=== PATIENT | female | born 1975 | race Caucasian/White ===

== ENCOUNTER → 2019-04-17 14:44 | Outpatient (CLI) | payer OTHER, SELFPAY ==
[2019-04-23 13:28] LABS: HPV Reflexed? NOT INDICATED
== END ==
PROVIDERS: Referring Provider Obstetrics & Gynecology; Visit Provider Obstetrics & Gynecology
DX: Z12.4 Encounter for screening for malignant neoplasm of cervix (principal)
CPT/HCPCS: 88175; G0145

== ENCOUNTER → 2019-05-09 16:13 | Outpatient (CLI) | payer OTHER, SELFPAY ==
--- NOTE | 2019-05-09 15:20 | EMB_PTH ---
PATIENT: HERLINDA ROBERTS LOC: [facility] U#:[id number] AGE/SX: 49/F ROOM: RE05/09/[address]: Dr. Pavel Mitchell MD : 1975 BED: DIS: SPEC #: [id number] RECD: 05/09/19 15:53 STATUS: JESÚS RENicol #: [id number] DANNIELLE: 05/09/19 15:[address]: Pavel Mitchell DEPT: SURGICAL PATHOLOGY RECD BY: Logan Cole ENTERED: 05/10/19 09:47 SP TYPE: ENDOM BX/C MARY DR: No Primary Care Phys Tissues: Endometrium, NOS Procedures: Surgery Specimen Level IV HEADER OPERATION: Endometrial biopsy PRE-OP DIAGNOSIS: Abnormal uterine bleeding TISSUE SUBMITTED: Endometrial biopsy MICROSCOPIC DIAGNOSIS Endometrial biopsy: Proliferative endometrium. FRANK:nathaniel 05/13/19 MICROSCOPIC DESCRIPTION Slides are reviewed. GROSS DESCRIPTION Received is one container labeled with the patient's name and not further designated. The specimen consists of multiple fragments of hemorrhagic soft tissue that in aggregate measure 3 x 2.5 x 0.3 cm. The entire specimen is submitted in one cassette. / SJ:nathaniel 05/10/19 TC:4 CPT: 43243
== END ==
PROVIDERS: Referring Provider Obstetrics & Gynecology; Visit Provider Obstetrics & Gynecology
DX: N93.9 Abnormal uterine and vaginal bleeding, unspecified (principal)
CPT/HCPCS: 88305

== ENCOUNTER 2019-06-17 05:45 | Day surgery (SDC) | payer OTHER, SELFPAY ==
[2019-06-12 15:15] LABS: Hemoglobin 11.7 g/dL (12.0-15.0); Mean Corpuscular Hgb 24.5 pg (27.0-32.0); Mean Corpuscular Volume 81.6 fL (81-99); Mean Platelet Vol. 9.1 fl (6.2-12.0); Platelet Count 353 K/mm3 (150-450); RBC Distribution Width CV 14.2 % (11.6-14.6); RBC Distribution Width SD 42.2 fl (35.1-43.9); Red Blood Count 4.78 M/mm3 (4.2-5.4); White Blood Count 5.7 K/mm3 (4.4-11.0)
[2019-06-12 15:39] LABS: Internal QC Validated? YES +Cl - CLEAR BKGD; Pregnancy, Serum, hCG Quali. NEGATIVE Negative
[2019-06-12 15:41] LABS: International Normalized Ratio 1.4; Prothrombin Time (Protime)PT. 16.6 SECONDS (11.7-14.9)
[2019-06-12 15:44] LABS: Partial Thromboplast Time 34.5 Seconds (24.1-36.2)
[2019-06-12 19:10] LABS: Thyroid Stim Hormone (TSH) 1.15 uIU/mL (0.358-3.74)
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
[2019-06-17] VITALS (7 sets, daily range): BP systolic 112–139; BP diastolic 75–94; PULSE 77–92; RESP 14–16; TEMP 36.8–37.6; O2SAT 92–100; BMI 23.4
--- NOTE | 2019-06-17 | EMB_PTH ---
PATIENT: HERLINDA ROBERTS LOC: [facility] [place] U#:[id number] AGE/SX: 43/F ROOM: RE06/17/[address]: Dr. Pavel Mitchell MD : 1975 BED: DIS: 06/17/2019 SPEC #: [id number] RECD: 06/17/19 12:12 STATUS: JESÚS BENITO #: [id number] DANNIELLE: 06/17/19 00:[address]: Pavel Mitchell DEPT: SURGICAL PATHOLOGY RECD BY: Timo Juarez ENTERED: 06/17/19 12:12 SP TYPE: ENDOPenny BX/C MARY DR: Susi Baker PA-C Tissues: Endometrium, NOS Procedures: Surgery Specimen Level IV HEADER OPERATION: Hysteroscopy, hydroablation PRE-OP DIAGNOSIS: Menorrhagia TISSUE SUBMITTED: Endometrial curettings MICROSCOPIC DIAGNOSIS Endometrial curettings: Secretory endometrium. A few fragments of myometrium. See comment. FRANK:nathaniel 06/18/19 COMMENT Please make reference to previous specimen ([id number]) endometrial biopsy with diagnosis of proliferative endometrium. MICROSCOPIC DESCRIPTION Slides are reviewed. GROSS DESCRIPTION Received in fixative is one container labeled with the patient's name and designated endometrial curettings. The specimen consists of multiple fragments of hemorrhagic soft tissue that in aggregate measure 3 x 2.5 x 0.3 cm. The entire specimen is submitted in one cassette. / SJ:nathaniel 06/17/19 TC:4 CPT: 27193
[2019-06-17] MEDS: Lactated Ringers 1,000 ML 100 ML IV (06:24)
[2019-06-17 06:49] LABS: Internal QC Validated? YES +Cl - CLEAR BKGD; Pregnancy, Urine Negative Negative
--- NOTE | 2019-06-17 08:03 | PCM.DC.D&C ---
Discharge Diet: No Restrictions Discharge Activity: Return to Normal Activity, May Shower, May Take a Tub Bath Call your doctor if you observe: Fever of 101 or Higher, Inability to urinate, Inability to have a bowel movement, Using more than one pad per hour Allergies/Adverse Reactions: Allergies No Known Allergies Allergy (Verified 06/10/19 08:53) Medications to take at Discharge Plexus Biocleanse 3 tab PO QHS 06/10/19 Plexus Collagen 2 packet PO DAILY 06/10/19 Plexus Probiotic 2 tab PO QHS 06/10/19 Oxycodone [Oxyir] 5 mg PO Q6H PRN PRN 7 Days #10 tab 06/17/19 The following prescriptions were given: Oxycodone [Oxyir] 5 mg PO Q6H PRN PRN 7 Days #10 tab PRN Reason: Pain Score 6-10/10 Transmission Status: Received by [facility] 0722 Primary Care Physician: Susi Baker PA-C [Primary Care Provider] - Test Results: Test results from this visit will be discussed in further detail at your follow-up appointment, if applicable. Please Follow Up With: Pavel Mitchell MD When: 3 to 4 weeks
[2019-06-17] MEDS: HYDROcodone Bitartrate/Apap 5/325 Tablet PO (09:26)
--- NOTE | 2019-06-17 10:27 | OP.PCM_ITS ---
Report of Operation Date of Procedure: 06/17/19 Pre-Operative Diagnosis: Menorrhagia Post-Operative Diagnosis: Menorrhagia Surgery/Procedure Performed:: Diagnostic Hysteroscopy, Dilation and Curettage, Hydrothermal Ablation Description of Surgical Findings:: 10 cm endometrial cavity without polyps or fibroids noted Type of Anesthesia:: General - LMA Anesthesiologist: Cam Mitchell Specimen's removed: Endometrial curettings Estimated Blood Loss (mL): Minimal Fluids Replaced: Crystalloid Description of Procedure: Surgeon: Pavel Mitchell MD, FACOG Indication: This is a 43 year old patient who has been having problems with extremely heavy menses. Conservative measures have not been helpful. Endometrial sampling was benign and pelvic ultrasound showed that ablation may be helpful. Pt has been counseled regarding the risks, benefits and alternatives of this procedure and all questions answered. She understands that only about half of patients will have amenorrhea after this procedure. Procedure: Patient taken to the operating room where after induction of general anesthesia the patient was prepped and draped in the usual sterile fashion. Bladder was drained of urine with a catheter. Anterior cervix grasped and cervix was dilated to about 17 Palestinian size. Hysteroscopic hydrothermal ablation (HTA) unit was place in the cervix and the above findings were noted. HTA unit was removed and the uterus was gently curretted removing all contents. An HTA ablation cycle was then carried out at about 90 degrees Centigrade for 10 minutes with virtually no fluid loss during the procedure. After an appropriate cool down the HTA unit was removed with minimal bleeding noted. It should be noted that the cervix was bulbous and protruded to within 1 cm of the introitus which would make laparoscopic-assisted vaginal hysterectomy feasible if hysterectomy is ever needed. The patient tolerated the procedure well and was taken to the recovery room in satisfactory condition. Sponge, instruments and needle counts were all correct. There were no apparent complications of the surgery. Cefotan 2 gms IV was given prior to the procedure. Estimated Blood Loss: Minimal Specimen to Pathology: Endometrial Curettings Grafts/Implants Used: None - Complications None - Admit VTE Documentation VTE Present on Admission: Yes VTE Mechan Device Prophylaxis: SCD's
== END 2019-06-17 10:55 | disposition home or self-care (01) ==
LOC: SDC 05:47 → AC 05:48
PROVIDERS: Anesthesiology; Family Provider Family Medicine; PCP Family Medicine; Referring Provider Obstetrics & Gynecology; Visit Provider Obstetrics & Gynecology
PROC: 0U5B8ZZ Destruction of Endometrium, Via Natural or Artificial Opening Endoscopic (ICD-10-PCS; CPT 58563; principal; 2019-06-17 07:15)
DX: N92.0 Excessive and frequent menstruation with regular cycle (principal)
CPT/HCPCS: 00952; 58558; 36415; 81025; 84443; 84703; 85027; 85610; 85730; 86850; 86900; 86901; 88305; J7120; J2405

== ENCOUNTER → 2019-12-06 | Outpatient (CLI) | payer OTHER, SELFPAY ==
--- NOTE | 2019-12-06 | IMM_PTH ---
PATIENT: HERLINDA ROBERTS LOC: [facility] U#:[id number] AGE/SX: 44/F ROOM: RE12/06/[address]: Dr. Melinda Avila MD : 1975 BED: DIS: 12/06/2019 SPEC #: [id number] RECD: 12/09/19 12:31 STATUS: JESÚS REQ #: [id number] DANNIELLE: 12/06/19 00:[address]: Melinda Avila DEPT: IMMUNOHISTOCHEMISTRY RECD BY: Kim Orlando ENTERED: 12/09/19 12:32 SP TYPE: IMMUNO OTHR DR: Susi Baker PA-C Tissues: Right breast, NOS Procedures: CALPONIN-1 (add) CK5-6 (add) QUEEN-2 (add) E-CAD (add) HER2 MIRZA (add) P53 (add) IA (add) P40 (add) ER (initial) PHYSICIAN & INSTITUTION [place] [id number] SPECIMEN INFORMATION: Tissue Source: Right breast tissue Clinical Info: Right breast Specimen Number: CPT code: 92739, 66761 x7, 56534 x3 METHODOLOGY: Deparaffinized sections of prefer/formalin-fixed tissue or PAP/DQ stained slides are incubated with monoclonal/polyclonal antibodies/oligonucleotide probes. Localization is made via biotin free immunoperoxidase method. Appropriate controls are performed and reacted as expected. Results on target cell population are indicated in the following table: RESULTS: ANTIBODY / CLONE RESULT P53 (DO-7) positive, 15%, dim Ki-67 (30-9) positive, 10% CK8 (60lbboQ82) positive CK5-6 (D5 & 1684) negative Calponin-1 (QS987J) negative P40 (BC28) negative E-Cad (ECH-6) positive QUEEN-2 (SP21) positive, dim MORPHOMETRIC ANALYSIS ER (clone 6F11) >95%, strong intensity IA (clone 16/1E2) 85%, strong intensity Her-2Neu (clone CB11) 0 The prognostic test for HER2 is performed on formalin-fixed paraffin embedded tissue. A 3+ (positive) staining pattern is defined as intense, homogeneous, complete, circumferential membranous staining in >10% of contiguous tumor cells. A similar weak (2+) staining pattern is interpreted as equivocal. SHANNON follow-up testing is recommended for all equivocal cases. Positivity/negativity for ER/IA is reported if > or < 1% of the tumor cells are immuno- reactive, respectively. The ASCO/CAP criteria is used for scoring. Reference: Journal of Clinical Oncology, 2013; 31:9063-5221 & 2010; 16:0041-2173. Duration of fixation: 57.5 Hrs; Sample Adequate: Yes. These assays have not been validated on decalcified tissues. Results should be interpreted with caution given the likelihood of false negativity on decalcified specimens. These tests were developed and their performance characteristics determined by [facility]. They may not have been cleared or approved by the U.S. Food and Drug Administration. The FDA has determined that such clearance or approval is not necessary. The above immunohistochemical/dualISH markers are ordered and reviewed by the Pathologist. INTERPRETATION: Right breast, core biopsy: Invasive ductal carcinoma, grade 2/3. Positive for estrogen receptors (favorable prognostic indicator). Positive for progesterone receptors (favorable prognostic indicator). Negative for overexpression of JFP8fab. AM:nathaniel 12/10/19
[2019-12-06 09:45] VITALS: BMI 25.7
--- NOTE | 2019-12-06 10:15 | BRBX_PTH ---
PATIENT: HERLINDA ROBERTS LOC: [facility] U#:[id number] AGE/SX: 44/F ROOM: RE12/06/[address]: Dr. Melinda Avila MD : 1975 BED: DIS: 12/06/2019 SPEC #: [id number] RECD: 12/06/19 11:32 STATUS: JESÚS BENITO #: [id number] DANNIELLE: 12/06/19 10:[address]: Melinda Avila DEPT: SURGICAL PATHOLOGY RECD BY: Nelida Atwood ENTERED: 12/06/19 12:50 SP TYPE: BREAST BX MARY DR: Susi Baker PA-C Tissues: Right breast, NOS Procedures: Surgery Specimen Level IV HEADER OPERATION: Right breast biopsy PRE-OP DIAGNOSIS: Right breast 9 o'clock, 7 cm from nipple TISSUE SUBMITTED: Right breast tissue MICROSCOPIC DIAGNOSIS Right breast at 9 o'clock, needle core biopsy: Invasive ductal carcinoma with the following characteristics: Maximal length - 1.3 millimeters Nuclear grade - 2/3 Other findings - focal perineural invasion. See comment. AM:nathaniel 12/09/19 COMMENT ER/TN/Byx7hlz studies are being performed on sections of tumor and the results from this study will be reported separately ([id number]). This case was reviewed and diagnosis discussed with Dr. Avila on 12/09/19 at 12:30 p.m. Case has been reviewed in consultation with Dr. Harman who concurs with the above diagnosis. RITU:FRANK MICROSCOPIC DESCRIPTION Slides are reviewed. GROSS DESCRIPTION Received in fixative is one container labeled with the patient name and designated right breast. The specimen consists of multiple elongated fragments of de souza-yellow fibroadipose tissue that in aggregate measure 1.5 x 0.3 x 0.1 cm. The entire specimen is submitted in one cassette. / FRANK:nathaniel 12/06/19 TC:0 CPT: 95145 ADDENDUM ADDENDUM ADDENDUM ADDENDUM ADDENDUM ADDENDUM ADDENDUM ADDENDUM ADDENDUM ADDENDUM ADDENDUM 02/03/2020 10:08 ADDENDUM 06/30/2020 08:59 ADDENDUM 02/03/2020 10:08 ADDENDUM 02/03/2020 10:08 ADDENDUM 02/03/2020 10:08 ADDENDUM 02/03/2020 10:08 This addendum is added to incorporate an outside pathology consultation report. The case was examined at [facility] (#[id number]) and the following diagnosis was rendered. Right breast at 9 o'clock, needle core biopsy: Invasive ductal carcinoma, grade 1 (score: tubule 2, nuclear 2, mitotic 1), 1.3 cm in greatest length. Please see complete above mentioned consultation report in EMR This addendum is added to incorporate an outside pathology consultation report. The case was examined at [facility] (#[id number]) and the following diagnosis was rendered. Breast, right, 9 o'clock, biopsy: Invasive ductal carcinoma, provisional histologic grade 2. Please see complete above mentioned consultation report in EMR
== END | disposition home or self-care (01) ==
LOC: LABSPEC 12:13
PROVIDERS: PCP Family Medicine; Referring Provider Surgery; Visit Provider Surgery
DX: N64.9 Disorder of breast, unspecified (principal)
CPT/HCPCS: 88305; 88341; 88342

== ENCOUNTER → 2019-12-16 09:26 | Outpatient (CLI) | payer OTHER, SELFPAY ==
[2019-12-06 09:45] VITALS: BMI 25.7
--- NOTE | 2019-12-16 09:29 | MRI_ITS ---
STUDY: BILATERAL BREAST MR WITHOUT AND WITH CONTRAST REASON FOR EXAM: Female, 44 years old. breast ca right breast -- rt biopsy 12/06/19 TECHNIQUE: Multi-sequence multi-echo imaging of both breasts was performed with a dedicated breast coil. T1-weighted and T2-weighted images were performed before the administration of contrast. T1-weighted images were also performed after the administration of IV dotarem 13ml without complications. COMPARISON: Breast ultrasound dated 12/05/2019 and mammogram dated 12/05/2019 Prior films have just been made available for review today, explaining the delay in dictation. FINDINGS: RIGHT BREAST: The breast tissue is markedly dense with no background enhancement. There is a 12 mm abnormal enhancing masses seen laterally in the right breast at the postbiopsy site. This was biopsied and shown to represent a malignancy. A benign-appearing cyst is identified in the superior outer aspect measuring 13 mm. There are no additional abnormal enhancing masses or areas of non-mass enhancement in the right breast. LEFT BREAST: The breast tissue is markedly dense with no background enhancement. There are no abnormal enhancing masses or areas of non-mass enhancement in the left breast. There are no enlarged or abnormal lymph nodes. There is no abnormality in the visualized regions of the chest or liver. MRI/Breast Bilateral W/O and W IMPRESSION: There is a known malignancy in the right breast. Surgical consultation is recommended as well as radiation oncology and medical oncology consultation. Short-term six-month follow-up mammogram of the right breast is recommended. CATEGORY: BIRADS Category 6: Known Biopsy-Proven Malignancy - Appropriate Action Should Be Taken. A letter regarding these results will be sent to the patient by the facility within 30 days. Electronically Signed: Grace Gresham DO at 10:42 EDT Tel , Service support ,
== END ==
PROVIDERS: PCP Family Medicine; Referring Provider Surgery; Visit Provider Surgery
DX: C50.911 Malignant neoplasm of unspecified site of right female breast (principal)
CPT/HCPCS: 77049; A9575; A4216; C8908

== ENCOUNTER 2020-09-25 05:53 | Day surgery (SDC) | payer OTHER, SELFPAY ==
[2020-09-16 14:50] VITALS: BMI 21.7
[2020-09-25] VITALS (7 sets, daily range): BP systolic 117–126; BP diastolic 72–82; PULSE 82–102; RESP 16–18; TEMP 36.6–37.4; O2SAT 97–100; BMI 22.2
[2020-09-25 06:15] LABS: Internal QC Validated? YES +Cl - CLEAR BKGD; Pregnancy, Urine Negative Negative
[2020-09-25] MEDS: Lactated Ringers 1,000 ML 100 ML IV (06:38)
--- NOTE | 2020-09-25 06:40 | PCM.HP.BLA ---
History and Physical Date of Admission: 09/25/20 Date of Service: 09/16/20 MR#: [id number] Acct: [id number] Name: HERLINDA ROBERTS Rep #: [id number] : 1975 Provider: Dr. Melinda Avila MD Age/Sex: 45/F Location: [facility] Status: Signed Intake Vital Signs 09/16/20 Height 5 ft 3 in 09/16/20 Weight: 123 lb 09/16/20 BMI 21.7 09/16/20 BP 138/77 H 09/16/20 Blood Pressure Location Rt brachial 09/16/20 Position Sitting 09/16/20 Respiration 16 09/16/20 Pulse 97 09/16/20 Pulse Source Monitor 09/16/20 Temp 97.2 F L 09/16/20 Temp Source Temporal 09/16/20 Pulse Oximetry (%) 97 09/16/20 Oxygen Delivery Method room air Intake Visit Reasons: PORT PLACEMENT Chief Complaint: Port placement [employer] Support Required: No Is patient in pain?: Yes (Right axilla) Pain scale (1-10): 3 Allergies No Known Allergies Allergy (Verified 09/16/20 14:52) Medications Plexus Biocleanse 3 tab PO QHS 06/10/19 [History Confirmed 09/16/20] Plexus Collagen 2 packet PO DAILY 06/10/19 [History Confirmed 09/16/20] Plexus Probiotic 2 tab PO QHS 06/10/19 [History Confirmed 09/16/20] PFSH Medical History Breast cancer (Acute) Surgical History Status post endometrial ablation (Acute) S/P D&C (status post dilation and curettage) (Acute) Family History Aunt Breast cancer age 38 Grandmother Breast cancer age 59 Social History (Updated 09/16/20 @ 15:[address] Melinda Avila MD) Smoking Status: Never smoker alcohol intake: never HPI HPI HPI: HERLINDA ROBERTS, is a 45 F who presents to the office today for HPI HPI Surgical H&P: Yes HPI: HERLINDA ROBERTS, is a 45 F who presents to the office today for port placement due to invasive ductal right breast carcinoma status post right mastectomy and sentinel lymph node biopsy, 5 out of 7 nodes were positive. Patient is planned to get chemo and radiation. ROS Breast Breast: Yes right breast lump, abnormal mammogram and abnormal US; no left breast lump or breast pain Exam Const General: cooperative, comfortable, no acute distress, well developed Chest Other: Right axilla: Palpable lump corresponds with seroma per ultrasound, right breast status post mastectomy with reconstruction incision with tape healing well Resp Effort & Inspection: normal respiratory effort Cardio Rate: regular rate Assessment & Plan Problems 1. Adjustment and management of vascular access device Z45.2 2. Cancer of right breast, stage 3 C50.911 Plan I have discussed above with the patient- Port-a-Cath placement. Left possible right?scheduled for September 25. Patient has been counseled as to the risks/benefits of the procedure. I have explained the risks of the surgery, including but not limited to: infection, bleeding, injury to any blood vessels/nerves, injury to lungs (such as pneumothorax or hemothorax and need for chest tube), not having any access, nonfunctioning of port due to thrombosis, infection of port, etc. the patient understands and agrees to proceed. I have answered all the patient's questions to the patient?s satisfaction and the patient has no further questions. Melinda Avila M.D. Pager: [phone] [facility] [address] [place] [address], [address] [place] [id number] Office: [phone] Plan Detail Follow Up We will schedule port placement Coding Level of Care Code Off vis,est,level 3 Diagnoses Adjustment and management of vascular access device Z45.2 Cancer of right breast, stage 3 C50.911 COVID (Procedure Consent) Procedure Criteria Procedure Criteria: Yes Elective The surgeon/proceduralist and patient have discussed in detail the risk of exposure to and/or potential harm posed by the COVID-19 virus with having a surgery/procedure at this time versus the risk of? delaying the surgery/procedure. It is not possible to know either the risk of delaying the surgery or procedure or chance of getting an infection with perfect accuracy, but a joint decision was made between the patient and the surgeon/proceduralist ?to proceed at this time with the scheduled surgery/procedure as indicated on the consent form. 09/16/20 1527 <Electronically signed by Melinda Avila MD> Date Melinda Avila MD
[2020-09-25] MEDS: Cefazolin 2 GM in 0.9% Normal Saline 100 ML IV (07:20)
[2020-09-25] MEDS: Lidocaine 1% /Epi 1:100 (20ml) 20 ML Vial (07:40)
[2020-09-25] MEDS: Bupivacaine Mpf 0.5% 30 ML VIAL (07:40)
--- NOTE | 2020-09-25 08:08 | RAD_ITS ---
STUDY: X-RAY CHEST REASON FOR EXAM: Female, 45 years old. Port -- pacu TECHNIQUE: Single AP portable view of the chest. COMPARISON: None. FINDINGS: A left-sided portacatheter has been placed. The tip is at the junction of the superior vena cava and right atrium. EKG electrodes are seen. A right breast prosthesis is visualized. The lungs are clear and expanded. There is no demonstrated pleural abnormality. Normal size heart. Normal mediastinum and josefina. Normal visualized pulmonary arteries. Normal visualized aortic arch and descending thoracic aorta. Normal visualized thoracic spine. Normal visualized ribs, clavicles, and shoulders. There is no demonstrated abnormality of the visualized soft tissue structures of the upper abdomen. RAD/CXR for Line Placement IMPRESSION: A left-sided portacatheter has been placed with the tip at the junction of the superior vena cava and right atrium. The lungs are clear. Electronically Signed: Dwight Sharif MD at 8:49 EDT , Service support ,
--- NOTE | 2020-09-25 08:10 | PCM.OPRPT ---
Report of Operation Date of Procedure: 09/25/20 Pre-Operative Diagnosis: Z45.2, breast cancer Post-Operative Diagnosis: Same Surgery/Procedure Performed:: 1. Placement of left IJ Port-A-Cath. 2. Use of fluoroscopy. 3. Use of ultrasound Type of Anesthesia:: Local MAC Anesthesiologist: Jonas Mccloud Special Medications: Ancef 2 g IV x1 Estimated Blood Loss (mL): < 10 cc Fluids Replaced: 500 cc Description of Procedure: After informed consent was given, the patient was brought to the operating room and placed in the supine position. Appropriate time out protocol was followed. Patient was then given IV conscious sedation for anesthesia. The patient's bilateral upper chest and neck were then prepped with a surgical skin preparation and sterile surgical drapes were placed. After proper landmarks were ascertained, the skin at the upper left chest area was then infiltrated with 1:1 mixture of 1% lidocaine with epinephrine and 0.5% marcaine. A needle trocar was then inserted into the left internal jugular vein with ultrasound guidance-multiple vessels were viewed with u/s and the left IJ was chosen-- and there was good aspiration of venous blood. A wire was then threaded into the needle trocar and this was visualized under fluoroscopy to ensure that the wire was in the superior vena cava. Once this was done, then the needle trocar was removed. A small skin radha was made with an 11 blade knife at the wire entrance site. The dilator with the introducer sheath attached was then placed over the wire into the left internal jugular vein via the Seldinger technique and this was visualized under fluoroscopy. The dilator and sheath were in proper position as visualized by fluoroscopy. A subcutaneous pocket was then created caudad to the catheter insertion site. A transverse skin incision was made after the skin and subcutaneous tissues were infiltrated with local anesthetic. Blunt dissection was then used to create a space large enough for placement of the subcutaneous port. The catheter was then tunneled into the subcutaneous pocket. The wire and dilator were then removed. The catheter was then threaded into the introducer sheath and was positioned with its tip at the junction of the superior vena cava and the right atrium as visualized under fluoroscopy. The excess catheter was transected. The catheter was then attached to the subcutaneous port using manufacturers guidelines. The catheter was flushed with a heparin saline mixture prior to placement. Hemostasis was carefully controlled with electrocautery. The port was sutured to the subcutaneous fascia using 2-0 Vicryl suture at two sites. The port was then placed in the subcutaneous pocket. The incision were reapproximated with interrupted subdermal 3-0 vicryl sutures. The skin was reapproximated with 3-0 nylon suture in a interrupted fashion. Steristrips were used for reinforcement of the skin closure at IJ insertion site and a sterile opsite dressings were applied. The patient tolerated the procedure well. Implants Used: [employer] PowerPort isp M.R.I. 6Fr Lot [id number] [id number] Grafts/Implants Used: [employer] PowerPort isp M.R.I. 6Fr Lot [id number] [id number] - Complications none
--- NOTE | 2020-09-25 08:13 | DCINST_ITS ---
Discharge Diet: Light diet - advance as tolerated Discharge Activity: May not drive while taking narcotic pain medications. May shower in (days): 1 - Keep port site clean and dry x5 days, okay to do a lower shower and upper sponge bath or tape off site to shower. Lifting Restrictions: No lifting greater than 20 pounds with the left arm x3 days. Call your doctor if your incision/area has: Continuous Slow Oozing, Sudden Increased Bleeding, Increased Pain/ Swelling, Increased Redness, Foul Smelling Discharge, Swelling at the incision site Call your doctor if you observe: Fever of 101 or Higher Allergies/Adverse Reactions: Allergies No Known Allergies Allergy (Verified 09/25/20 06:19) Medications to take at Discharge Plexus Biocleanse 3 tab PO QHS 06/10/19 Plexus Collagen 2 packet PO DAILY 06/10/19 Plexus Probiotic 2 tab PO QHS 06/10/19 Oxycodone HCl/Acetaminophen [Percocet 5/325] 1 tablet PO Q6H PRN PRN 2 Days #5 tablet 09/25/20 The following prescriptions were given: Oxycodone HCl/Acetaminophen [Percocet 5/325] 1 tablet PO Q6H PRN PRN 2 Days #5 tablet PRN Reason: Pain Transmission Status: Sent to [facility] Primary Care Physician: Susi Baker PA-C [Primary Care Provider] - Test Results: Test results from this visit will be discussed in further detail at your follow- up appointment, if applicable. Please Follow Up With: Melinda Avila MD - After 5 PM and on the weekends call [phone] with any concerns When: Call the office for follow-up appointment in about 10 days for suture remov Proposed Discharge Date: 09/25/20
== END 2020-09-25 09:51 | disposition home or self-care (01) ==
LOC: SDC 05:53 → AC 05:53
PROVIDERS: Anesthesiology; PCP Family Medicine; Referring Provider Surgery; Visit Provider Surgery
PROC: (CPT 36561; principal; 2020-09-25 07:15)
DX: Z45.2 Encounter for adjustment and management of vascular access device (principal); C50.911 Malignant neoplasm of unspecified site of right female breast; Z20.822 Contact with and (suspected) exposure to COVID-19
CPT/HCPCS: 00532; 36561; 71045; 77001; 81025; 87426; C9803; J7120; J2405

== ENCOUNTER 2020-10-06 10:01 | Emergency (ER) | payer OTHER, SELFPAY ==
[2020-09-25 06:21] VITALS: BMI 22.2
[2020-10-06 10:01] VITALS: BP 150/94; PULSE 99; RESP 16; TEMP 36.7; O2SAT 96; BMI 22.1
--- NOTE | 2020-10-06 10:16 | EKG12_ITS ---
Test Reason : FEVER Blood Pressure : / mmHG Vent. Rate : 085 BPM Atrial Rate : 085 BPM P-R Int : 138 ms QRS Dur : 090 ms QT Int : 382 ms P-R-T Axes : 036 -35 020 degrees QTc Int : 454 ms Normal sinus rhythm Possible Left atrial enlargement Left axis deviation Low voltage QRS RSR' or QR pattern in V1 suggests right ventricular conduction delay Abnormal ECG Confirmed by ANA AMAYA, LUZ MARINA ([id number]), design editor AISHWARYA LONGORIA ([id number]) on 10/08/2020 11:14:51 AM Referred By: CELENA Confirmed By:LUZ MARINA PEREZ MD
--- NOTE | 2020-10-06 10:24 | NURSING ---
NO OLD EKGS
[2020-10-06 10:52] LABS: Hemoglobin 12.4 g/dL (12.0-15.0); Mean Corp Hgb Conc 31.8 g/dL (32-36); Mean Corpuscular Hgb 28.7 pg (27.0-32.0); Mean Corpuscular Volume 90.3 fL (81-99); Mean Platelet Vol. 9.4 fl (6.2-12.0); POSITIVE COUNT YES; POSITIVE MORPHOLOGY YES; Platelet Count 214 K/mm3 (150-450); RBC Distribution Width CV 13.1 % (11.6-14.6); RBC Distribution Width SD 43.3 fl (35.1-43.9); Red Blood Count 4.32 M/mm3 (4.2-5.4)
[2020-10-06 10:59] LABS: International Normalized Ratio 1.2; Prothrombin Time (Protime)PT. 14.9 SECONDS (11.7-14.9)
[2020-10-06 11:00] LABS: Partial Thromboplast Time 27.9 Seconds (24.1-36.2)
[2020-10-06 11:02] LABS: ALB/GLOB Ratio 0.9 RATIO (0.9-2.4); AST(SGOT) 14 U/L (15-37); Alanine Aminotransfer ALT/SGPT 33 U/L (13-56); Albumin, Serum 3.4 g/dL (3.2-5.0); Alkaline Phosphatase 109 U/L (45-117); Anion Gap 6 (5-15); BUN 10 mg/dL (7-18); BUN/Creat Ratio 18.9 RATIO (10-20); Calcium,Total 8.6 mg/dL (8.5-10.1); Chloride 101 mmol/L (98-107); Creatinine, Serum 0.53 mg/dL (0.55-1.02); EST Glomerular Filtration Rate 133 mL/min (>60); Est Glom Filt Rate - Afr Amer 161 mL/min (>60); Estimated Creatinine Clearance 112.05 ml/min; Globulin 3.7 g/dL (2.2-4.2); Glucose 86 mg/dL (74-106); Potassium 3.9 mmol/L (3.5-5.1); Protein, Total 7.1 g/dL (6.4-8.2); Sodium Level 136 mmol/L (136-145)
--- NOTE | 2020-10-06 11:10 | RAD_ITS ---
STUDY: X-RAY CHEST REASON FOR EXAM: Female, 45 years old. fever, chemo TECHNIQUE: Single AP portable view of the chest. COMPARISON: 09/25/2020 FINDINGS: Left internal jugular chest port which is unchanged. Tissue spacer in the right breast. The lungs are clear and expanded. There is no demonstrated pleural abnormality. Normal size heart. Normal mediastinum and josefina. Normal visualized pulmonary arteries. Normal visualized aortic arch and descending thoracic aorta. There is a dextroscoliosis of the thoracic spine. Normal visualized ribs, clavicles, and shoulders. There is no demonstrated abnormality of the visualized soft tissue structures of the upper abdomen. RAD/Chest 1 View (Portable) IMPRESSION: No change from 09/25/2020. Electronically Signed: Harley Anguiano MD at 11:23 EDT Tel , Service support ,
[2020-10-06 11:14] LABS: Eosinophil 4 % (0-5); Lymphocyte 21 % (19-41); Metamyelocyte 2 % (0-1); Monocyte 1 % (0-10); Neutrophil-Band 6 % (0-5); Neutrophil-Segmented 66 % (47-70); Total Cells Counted 100 (MANUAL DIFF)
[2020-10-06 11:16] LABS: Differential Indicated MANUAL DIFF
[2020-10-06 11:17] LABS: Absolute Lymphocyte Count 1.46 X10^3/uL (0.83-4.51)
[2020-10-06 11:18] LABS: Dohle Bodies 1+; Platelet Estimate ADEQUATE (ADEQ); Red Cell Morphology NORM C+C NORMAL (NORM C&C)
[2020-10-06 11:21] LABS: Lactic Acid 0.7 mmol/L (0.4-1.9)
[2020-10-06 11:27] VITALS: BP 112/76; PULSE 87; RESP 14; TEMP 36.7; O2SAT 96
[2020-10-06 11:47] LABS: Mucous, Urine 0 SEEN /hpf (<or=2+); Red Blood Cells-Urine 0 SEEN /hpf (0-5)
[2020-10-06 11:49] LABS: Color, Urine Yellow (Yellow); Glucose, Dipstick Normal (Normal); Ketone-Dipstick Negative (Negative); Leukocyte Esterase-Dipstick 100 /ul (Negative); Nitrite-Dipstick Negative (Negative); Occult Blood-Urine Negative /ul (Negative); Protein-Dipstick Negative (Negative); Urine Bilirubin Dipstick Negative (Negative); Urine Clarity Clear (Clear); Urine Urobilinogen Normal (Normal)
[2020-10-06 11:56] LABS: Bacteria 1+ /hpf (None Seen); Squamous Epithelial Cells - UA 10-25 SEEN /hpf (5-10); White Blood Cells 5-10 SEEN /hpf (0-5)
[2020-10-06 13:01] VITALS: BP 128/87; PULSE 84; RESP 18; TEMP 36.8; O2SAT 98
--- NOTE | 2020-10-06 13:27 | ED.DCSUM_ITS ---
- ER Visit Summary Date of Service: 10/06/20 Chief Complaint: Fever on chemo History of Present Illness: The patient is a 45 F with breast cancer who follows with Dr. Montero. She had her first chemotherapy last . She presents today for a fever and chills. Last night her temperature was 103. No other specific complaints except a mild headache. Physical Examination: Afebrile and vital signs unremarkable. Head and neck unremarkable. Good range of motion of her neck. No meningeal signs. Heart regular. Lungs clear. Abdomen soft. Skin unremarkable. Test Results: EKG showed sinus rhythm at a rate of 85. CBC unremarkable. Absolute neutrophils 5.0. CMP, coags, urinalysis, lactate all unremarkable except for leukocyte esterase and 5-10 white cells. Cultures are pending. Covid test was negative. Chest x-ray showed chronic and postoperative changes, reviewed by the radiologist and myself. Emergency Department Course and Treatment: Patient had a reported fever on chemotherapy. No fever here. Repeat temperature was 98.2. Absolute neutrophil count was 5.0. Cultures are pending. We will treat with Macrobid for UTI coverage. Patient will follow with Dr. Montero. Treatment Plan: As above Disposition: Discharge Impression: Breast cancer, fevers, UTI This note was generated with [employer] dictation software. It may contain incorrect words, spelling, and punctuation that were not noted in review of the chart prior to signing ED Disposition - Plan for ED Patient: Referrals: Susi Baker PA-C [Primary Care Provider] -
--- NOTE | 2020-10-06 13:29 | ED.DEP ---
ED Disposition - Plan for ED Patient: Instructions: ED Fever Control (Adult) Prescriptions: Nitrofurantoin Macrocrystals [Macrobid] 100 mg PO Q12 #14 capsule Prescription Printed Referrals: Golden Montero DO [STAFF PHYSICIAN] -
[2020-10-06 13:36] VITALS: BP 119/76; PULSE 90; RESP 23; O2SAT 97
[2020-10-06] MEDS: Nitrofurantoin Macrocrystals 100 MG Capsule PO (13:36)
[2020-10-07 13:59] LABS: Pathologist Review Reviewed
== END 2020-10-06 13:42 | disposition home or self-care (01) ==
LOC: ED 11:49
PROVIDERS: Emergency Provider Emergency Medicine; PCP Family Medicine
DX: N39.0 Urinary tract infection, site not specified (principal); R50.9 Fever, unspecified; C50.919 Malignant neoplasm of unspecified site of unspecified female breast; R51.9 Headache, unspecified; Z20.822 Contact with and (suspected) exposure to COVID-19; Z79.899 Other long term (current) drug therapy
CPT/HCPCS: 71045; 80053; 81001; 83605; 85025; 85610; 85730; 87040; 87086; 87088; 87426; 93005; 96360; 96361; 99284; J7040; A4216

== ENCOUNTER 2023-08-24 07:16 | Day surgery (SDC) | payer OTHER, SELFPAY ==
[2023-08-24] VITALS (10 sets, daily range): BP systolic 112–128; BP diastolic 61–81; PULSE 76–102; RESP 16–18; TEMP 36.4–36.8; O2SAT 93–100; BMI 27.8
--- OUTSIDE RECORDS SUMMARY | 2023-08-24 07:26 | XMS RPT_ITS | CCD ---
Author Name Unknown Address [address] [facility] [address] [place] [address] Organization [facility] Care Team Providers Care Jukebox Route Driver Name Role Phone Unavailable Primary Care Provider UnavailSusi Jimenez Primary Care Provider Susi Spears Primary Care Provider Itz AMAYA MD, Rufina Unavailable Donnell BAHENA, Brenda Unavailable Unavailable Ela Lopez MD Unavailable [phone] MEHRDAD, DR KRISTIE Cain Admitting Unavaila ble MEHRDAD, DR KRISTIE Cain Primary Care Unavaila ble MEHRDAD, DR KRISTIE Cani Attending Unavaila ble VACCARIELLO, RACHEL Consulting Unavailable VACCARIELLO, RACHEL Referring Unavailable PROVIDER, UNKNOWN Consulting Unavailable PROVIDER, UNKNOWN Consulting Unavailable PROVIDER, UNKNOWN Consulting Unavailable SUSI BAKER Admitting Unavailable SUSI BAKER Primary Care Unavailable SUSI BAKER Attending Unavailable VACCARIELLO, RACHEL Consulting Unavailable PROVIDER, UNKNOWN Consulting Unavailable PROVIDER, UNKNOWN Consulting Unavailable PROVIDER, UNKNOWN Consulting Unavailable Susi Baker PA-C Primary Care Provider [phone] Susi Baker PA-C Primary Care Provider [phone] Itz AMAYA MD, Dakojoung Unavailable Donnell RN, Brenda Unavailable Unavailable Ela Lopez MD Unavailable Susi Baker PA-C Primary Care Provider [phone] Susi Baker PA-C Primary Care Provider [phone] Itz AMAYA MD, Rufina Unavailable Donnell RN, Brenda Unavailable Unavailable Ela Lopez MD Unavailable Doup RN, Brenda Unavailable Unavailable Jessica AMAYA, Ela Francis Unavailable Itz AMAYA, Rufina Unavailable LOPEZ, ELA M Referring Unavailable BATTLE GROUND, SUSI D Primary Care Unavailable BATTLE GROUND, SUSI D Primary Care Unavailable LOPEZ, ELA M Referring Unavailable BATTLE GROUND, SUSI D Primary Care Unavailable LOPEZ, ELA M Referring Unavailable LOPEZ, ELA M Referring Unavailable BATTLE GROUND, SUSI D Primary Care Unavailable LOPEZ, ELA M Referring Unavailable BATTLE GROUND, SUSI D Primary Care Unavailable LOPEZ, ELA M Referring Unavailable BATTLE GROUND, SUSI D Primary Care Unavailable LOPEZ, ELA M Referring Unavailable BATTLE GROUND, SUSI D Primary Care Unavailable LOPEZ, ELA M Referring Unavailable BATTLE GROUND, SUSI D Primary Care Unavailable LOPEZ, ELA M Referring Unavailable BATTLE GROUND, SUSI D Primary Care Unavailable LOPEZ, ELA M Referring Unavailable BATTLE GROUND, SUSI D Primary Care Unavailable LOPEZ, ELA M Referring Unavailable BATTLE GROUND, SUSI D Primary Care Unavailable LOPEZ, ELA M Referring Unavailable BATTLE GROUND, SUSI D Primary Care Unavailable LOPEZ, ELA M Referring Unavailable BATTLE GROUND, SUSI D Primary Care Unavailable LOPEZ, ELA M Referring Unavailable BATTLE GROUND, SUSI D Primary Care Unavailable BATTLE GROUND, SUSI D Primary Care Unavailable LOPEZ, ELA M Referring Unavailable LOPEZ, ELA M Referring Unavailable BATTLE GROUND, SUSI D Primary Care Unavailable LOPEZ, ELA M Referring Unavailable BATTLE GROUND, SUSI D Primary Care Unavailable LOPEZ, ELA M Referring Unavailable BATTLE GROUND, SUSI D Primary Care Unavailable LOPEZ, ELA M Referring Unavailable BATTLE GROUND, SUSI D Primary Care Unavailable LOPEZ, ELA M Referring Unavailable BATTLE GROUND, SUSI D Primary Care Unavailable LOPEZ, ELA M Referring Unavailable BATTLE GROUND, SUSI D Primary Care Unavailable LOPEZ, ELA M Referring Unavailable BATTLE GROUND, SUSI D Primary Care Unavailable LOPEZ, ELA M Referring Unavailable HILLS, SUSI D Primary Care Unavailable LOPEZ, ELA M Referring Unavailable BATTLE GROUND, SUSI D Primary Care Unavailable LOPEZ, ELA M Referring Unavailable BATTLE GROUND, SUSI D Primary Care Unavailable LOPEZ, ELA M Referring Unavailable HILLS, SUSI D Primary Care Unavailable LOPEZ, ELA M Referring Unavailable BATTLE GROUND, SUSI D Primary Care Unavailable LOPEZ, ELA M Referring Unavailable BATTLE GROUND, SUSI D Primary Care Unavailable LOPEZ, ELA M Referring Unavailable BATTLE GROUND, SUSI D Primary Care Unavailable LOPEZ, ELA M Referring Unavailable BATTLE GROUND, SUSI D Primary Care Unavailable LOPEZ, ELA M Referring Unavailable BATTLE GROUND, SUSI D Primary Care Unavailable LOPEZ, ELA M Referring Unavailable BATTLE GROUND, SUSI D Primary Care Unavailable LOPEZ, ELA M Referring Unavailable BATTLE GROUND, SUSI D Primary Care Unavailable LOPEZ, ELA M Referring Unavailable BATTLE GROUND, SUSI D Primary Care Unavailable LOPEZ, ELA M Referring Unavailable BATTLE GROUND, SUSI D Primary Care Unavailable LOPEZ, ELA M Referring Unavailable BATTLE GROUND, SUSI D Primary Care Unavailable BATTLE GROUND, SUSI D Primary Care Unavailable MASCGOLDEN Miller Referring Unavailable BATTLE GROUND, SUSI D Primary Care Unavailable MASCIGOLDEN Referring Unavailable BATTLE GROUND, SUSI D Primary Care Unavailable MASCIGOLDEN Referring Unavailable BATTLE GROUND, SUSI D Primary Care Unavailable MASCIGOLDEN Referring Unavailable BATTLE GROUND, SUSI D Primary Care Unavailable MASCIGOLDEN Referring Unavailable BATTLE GROUND, SUSI D Primary Care Unavailable BREONNA, ELZA Referring Unavailable BATTLE GROUND, SUSI D Primary Care Unavailable GOLDEN MONTERO Referring Unavailable BATTLE GROUND, SUSI D Primary Care Unavailable LIZBETH WANG Referring Unavailable BATTLE GROUND, SUSI D Primary Care Unavailable QUIN GARCIA Attending Unavailable TRIDELL, LIZBETH Attending Unavailable BATTLE GROUND, SUSI D Primary Care Unavailable BATTLE GROUND, SUSI D Primary Care Unavailable MASCIGOLDEN Referring Unavailable BATTLE GROUND, SUSI D Primary Care Unavailable MASCIGOLDEN Referring Unavailable BATTLE GROUND, SUSI D Primary Care Unavailable MASCGOLDEN Miller Referring Unavailable [facility] Attending Unavailable BATTLE GROUND, SUSI D Primary Care Unavailable MASCGOLDEN Miller Referring Unavailable BATTLE GROUND, SUSI D Primary Care Unavailable WISWELL, ELZA Referring Unavailable WISWELL, ELZA Attending Unavailable BATTLE GROUND, SUSI D Primary Care Unavailable MASCGOLDEN Miller Referring Unavailable WANG, LIZBETH Attending Unavailable BATTLE GROUND, SUSI D Primary Care Unavailable MASCIGOLDEN Referring Unavailable BATTLE GROUND, SUSI D Primary Care Unavailable MASCIGOLDEN Referring Unavailable HILLS, SUSI D Primary Care Unavailable GOLDEN MONTERO Referring Unavailable SUSI BAKER Primary Care Unavailable ELZA FRAGA Attending Unavailable Medications Current Medications Medication Drug Class(es) Dates Sig (Normalized) Sig (Original) cefadroxil 500 mg oral capsule (2 sources) Cephalosporin Antibacterial Start: 04-08-2022 End: 04-15-2022 take 1 capsule by mouth twice daily cefADROxil (DURICEF) 500 mg capsule Take 1 capsule by mouth twice daily for 7 days. 14 capsule 0 04/08/2022 04/15/2022 Active Completed/Discontinued Medications Medication Drug Class(es) Dates Sig (Normalized) Sig (Original) acetaminophen 500 mg oral tablet (20 sources) Start: 04-08-2022 take 2 tablets by mouth every six hours as needed acetaminophen (TYLENOL EXTRA STRENGTH) 500 mg tablet Take 2 tablets by mouth every 6 hours as needed for pain. Two (2) X 500 mg tablets = 1,000 mg 30 tablet 0 04/08/2022 Active Problems Active Problems Problem Classification Problem Date Documented Date Episodic/Chronic Cancer of breast (20 sources) Malignant neoplasm of upper-outer quadrant of female breast; Translations: [Malignant neoplasm of female breast] Onset: 06-16-2020 06-16-2020 Chronic Cancer of breast (6 sources) History of malignant neoplasm of breast; Translations: [Personal history of malignant neoplasm of breast] Onset: 04-17-2023 Episodic Other diseases of veins and lymphatics (20 sources) Lymphedema of upper limb; Translations: [Lymphedema, not elsewhere classified] Onset: 03-24-2021 Chronic Other diseases of veins and lymphatics (2 sources) Lymphedema of right upper limb; Translations: [Lymphedema, not elsewhere classified] Chronic Other diseases of veins and lymphatics (1 source) Lymphedema, not elsewhere classified; Translations: [Lymphedema of arm] Onset: 03-24-2021 Chronic Other liver diseases (2 sources) Lesion of liver; Translations: [Liver lesion] Chronic Other lower respiratory disease (4 sources) Multiple nodules of lung; Translations: [Other nonspecific abnormal finding of lung field] Episodic Other lower respiratory disease (2 sources) Rib pain; Translations: [Pleurodynia] Episodic Other nervous system disorders (20 sources) Post-mastectomy chronic pain syndrome; Translations: [Other chronic postprocedural pain] Onset: 03-24-2021 03-24-2021 Chronic Other non-traumatic joint disorders (1 source) Pain in unspecified joint; Translations: [Pain in unspecified joint] Onset: 09-27-2021 Episodic Other screening for suspected conditions (not mental disorders or infectious disease) (1 source) Patient encounter status; Translations: [Encounter for other screening for malignant neoplasm of breast] Episodic Residual codes; unclassified (2 sources) History of right mastectomy; Translations: [Acquired absence of right breast and nipple] Episodic Residual codes; unclassified (2 sources) Postoperative state; Translations: [Other specified postprocedural states] Episodic Unclassified (1 source) APPOINTMENT CANCELLED 08-10-2023 Unclassified (1 source) Physical Therapy Onset: 12-01-2022 Past or Other Problems Problem Classification Problem Date Documented Date Episodic/Chronic Nonmalignant breast conditions (20 sources) Breasts asymmetrical; Translations: [Disproportion of reconstructed breast] Onset: 04-08-2022 Episodic Residual codes; unclassified (20 sources) History of breast reconstruction; Translations: [Other specified postprocedural states] Onset: 04-08-2022 Episodic Residual codes; unclassified (1 source) Other specified postprocedural states; Translations: [History of breast reconstruction] Onset: 04-08-2022 Episodic Residual codes; unclassified (1 source) Acquired absence of right breast and nipple; Translations: [History of mastectomy, right] Onset: 12-15-2022 Episodic Residual codes; unclassified (1 source) Estrogen receptor positive status [ER+]; Translations: [Malignant neoplasm of upper-outer quadrant of right breast in female, estrogen receptor positive (HCC)] Onset: 06-16-2020 Episodic Results Test Name Value Interpretation Reference Range Facil ity Vital Signs Date Time Vital Sign Value Performing Clinician Faci lity 08-17-2023 14:50-0500 Body weight 74.39 kg Elza Fraga MD Work Phone: [facility] 08-17-2023 14:50-0500 Diastolic blood pressure 80 mm[Hg] Elza Fraga MD Work Phone: [facility] 08-17-2023 14:50-0500 Systolic blood pressure 122 mm[Hg] Elza Fraga MD Work Phone: [facility] 08-03-2023 08:41-0500 Body height 164.5 cm Elza Fraga MD Work Phone: [facility] 08-03-2023 08:41-0500 Body weight 73.85 kg Elza Fraga MD Work Phone: [facility] 08-03-2023 08:41-0500 Diastolic blood pressure 88 mm[Hg] Elza Fraga MD Work Phone: [facility] 08-03-2023 08:41-0500 Heart rate 82 /min Elza Fraga MD Work Phone: [facility] 08-03-2023 08:41-0500 Respiratory rate 16 /min Elza Fraga MD Work Phone: [facility] 08-03-2023 08:41-0500 Systolic blood pressure 120 mm[Hg] Elza Fraga MD Work Phone: [facility] 08-02-2023 08:45-0500 Body temperature 98.71 [degF] Injection Wstr Work Phone: [facility] 08-02-2023 08:45-0500 Body weight 73.48 kg Injection Wstr Work Phone: [facility] 08-02-2023 08:45-0500 Diastolic blood pressure 90 mm[Hg] Injection Wstr Work Phone: [facility] 08-02-2023 08:45-0500 Heart rate 68 /min Injection Wstr Work Phone: [facility] 08-02-2023 08:45-0500 Respiratory rate 14 /min Injection Wstr Work Phone: [facility] 08-02-2023 08:45-0500 SaO2% (BldA) [Mass fraction] 98 % Injection Wstr Work Phone: [facility] 08-02-2023 08:45-0500 Systolic blood pressure 132 mm[Hg] Injection Wstr Work Phone: [facility] 05-30-2023 08:48-0500 Body temperature 97.39 [degF] Injection Wstr Work Phone: [facility] 05-30-2023 08:48-0500 Body weight 75.75 kg Injection Wstr Work Phone: [facility] 05-30-2023 08:48-0500 Diastolic blood pressure 102 mm[Hg] Injection Wstr Work Phone: [facility] 05-30-2023 08:48-0500 Heart rate 81 /min Injection Wstr Work Phone: [facility] 05-30-2023 08:48-0500 Systolic blood pressure 147 mm[Hg] Injection Wstr Work Phone: [facility] 04-10-2023 10:58-0400 Body weight 73.48 kg Elza Fraga MD Work Phone: [facility] 04-10-2023 10:58-0400 Diastolic blood pressure 82 mm[Hg] Elza Fraga MD Work Phone: [facility] 04-10-2023 10:58-0400 Systolic blood pressure 120 mm[Hg] Elza Fraga MD Work Phone: [facility] 04-04-2023 08:59-0400 Body temperature 97.7 [degF] Injection Wstr Work Phone: [facility] 04-04-2023 08:59-0400 Body weight 72.58 kg Injection Wstr Work Phone: [facility] 04-04-2023 08:59-0400 Diastolic blood pressure 91 mm[Hg] Injection Wstr Work Phone: [facility] 04-04-2023 08:59-0400 Heart rate 72 /min Injection Wstr Work Phone: [facility] 04-04-2023 08:59-0400 Systolic blood pressure 134 mm[Hg] Injection Wstr Work Phone: [facility] 03-07-2023 07:58-0400 Body height 160 cm Lizbeth Wang APRN.CNP Work Phone: [facility] 03-07-2023 07:58-0400 Body temperature 98.01 [degF] Lizbeth Wang FRUIT HARVESTER MACHINE OPERATOR.COMMERCIAL ADMINISTRATOR Work Phone: [facility] 03-07-2023 07:58-0400 Body weight 73.48 kg Lizbeth Higueraenter FRUIT HARVESTER MACHINE OPERATOR.COMMERCIAL ADMINISTRATOR Work Phone: [facility] 03-07-2023 07:58-0400 Diastolic blood pressure 88 mm[Hg] Marissa Wang FRUIT HARVESTER MACHINE OPERATOR.COMMERCIAL ADMINISTRATOR Work Phone: [facility] 03-07-2023 07:58-0400 Heart rate 76 /min Lizbeth Wang FRUIT HARVESTER MACHINE OPERATOR.COMMERCIAL ADMINISTRATOR Work Phone: [facility] 03-07-2023 07:58-0400 SaO2% (BldA) [Mass fraction] 99 % Lizbeth Wang FRUIT HARVESTER MACHINE OPERATOR.COMMERCIAL ADMINISTRATOR Work Phone: [facility] 03-07-2023 07:58-0400 Systolic blood pressure 138 mm[Hg] Lizbeth iHgueraenter FRUIT HARVESTER MACHINE OPERATOR.COMMERCIAL ADMINISTRATOR Work Phone: [facility] 02-07-2023 08:44-0400 Body temperature 98.1 [degF] Injection Wstr Work Phone: [facility] 02-07-2023 08:44-0400 Diastolic blood pressure 85 mm[Hg] Injection Wstr Work Phone: [facility] 02-07-2023 08:44-0400 Heart rate 80 /min Injection Wstr Work Phone: [facility] 02-07-2023 08:44-0400 Systolic blood pressure 131 mm[Hg] Injection Wstr Work Phone: [facility] 12-15-2022 09:46-0400 Body temperature 98.4 [degF] Quin Garcia MD Work Phone: [facility] 12-15-2022 09:46-0400 Diastolic blood pressure 80 mm[Hg] Quin Garcia MD Work Phone: [facility] 12-15-2022 09:46-0400 Heart rate 77 /min Quin Garcia MD Work Phone: [facility] 12-15-2022 09:46-0400 Systolic blood pressure 138 mm[Hg] Quin Garcia MD Work Phone: [facility] 11-29-2022 10:40-0400 Body temperature 98.29 [degF] Injection Wstr Work Phone: [facility] 11-29-2022 10:40-0400 Body weight 70.76 kg Injection Wstr Work Phone: [facility] 11-29-2022 10:40-0400 Diastolic blood pressure 97 mm[Hg] Injection Wstr Work Phone: [facility] 11-29-2022 10:40-0400 Heart rate 90 /min Injection Wstr Work Phone: [facility] 11-29-2022 10:40-0400 Systolic blood pressure 132 mm[Hg] Injection Wstr Work Phone: [facility] 11-01-2022 09:38-0400 Body temperature 98.2 [degF] Injection Wstr Work Phone: [facility] 11-01-2022 09:38-0400 Body weight 70.76 kg Injection Wstr Work Phone: [facility] 11-01-2022 09:38-0400 Diastolic blood pressure 87 mm[Hg] Injection Wstr Work Phone: [facility] 11-01-2022 09:38-0400 Heart rate 75 /min Injection Wstr Work Phone: [facility] 11-01-2022 09:38-0400 Systolic blood pressure 132 mm[Hg] Injection Wstr Work Phone: [facility] 09-06-2022 09:50-0400 Body height 161.5 cm Lizbeth Wang APRN.COMMERCIAL ADMINISTRATOR Work Phone: [facility] 09-06-2022 09:50-0400 Body temperature 98.4 [degF] Lizbeth Wang APRN.COMMERCIAL ADMINISTRATOR Work Phone: [facility] 09-06-2022 09:50-0400 Body weight 70.53 kg Lizbeth Wang FRUIT HARVESTER MACHINE OPERATOR.COMMERCIAL ADMINISTRATOR Work Phone: [facility] 09-06-2022 09:50-0400 Diastolic blood pressure 92 mm[Hg] Lizbeth Wang FRUIT HARVESTER MACHINE OPERATOR.COMMERCIAL ADMINISTRATOR Work Phone: [facility] 09-06-2022 09:50-0400 Heart rate 84 /min Lizbeth Wang FRUIT HARVESTER MACHINE OPERATOR.COMMERCIAL ADMINISTRATOR Work Phone: [facility] 09-06-2022 09:50-0400 SaO2% (BldA) [Mass fraction] 99 % Lizbeth Wang FRUIT HARVESTER MACHINE OPERATOR.COMMERCIAL ADMINISTRATOR Work Phone: [facility] 09-06-2022 09:50-0400 Systolic blood pressure 133 mm[Hg] Lizbeth Wang FRUIT HARVESTER MACHINE OPERATOR.COMMERCIAL ADMINISTRATOR Work Phone: [facility] 08-09-2022 09:42-0500 Body temperature 98.01 [degF] Injection Wstr Work Phone: [facility] 08-09-2022 09:42-0500 Body weight 69.85 kg Injection Wstr Work Phone: [facility] 08-09-2022 09:42-0500 Diastolic blood pressure 84 mm[Hg] Injection Wstr Work Phone: [facility] 08-09-2022 09:42-0500 Heart rate 89 /min Injection Wstr Work Phone: [facility] 08-09-2022 09:42-0500 Systolic blood pressure 128 mm[Hg] Injection Wstr Work Phone: [facility] 07-12-2022 10:10-0500 Body temperature 98.01 [degF] Injection Wstr Work Phone: [facility] 07-12-2022 10:10-0500 Body weight 69.4 kg Injection Wstr Work Phone: [facility] 07-12-2022 10:10-0500 Diastolic blood pressure 75 mm[Hg] Injection Wstr Work Phone: [facility] 07-12-2022 10:10-0500 Heart rate 71 /min Injection Wstr Work Phone: [facility] 07-12-2022 10:10-0500 Systolic blood pressure 130 mm[Hg] Injection Wstr Work Phone: [facility] 06-14-2022 10:23-0500 Body temperature 97.81 [degF] Injection Wstr Work Phone: [facility] 06-14-2022 10:23-0500 Body weight 67.13 kg Injection Wstr Work Phone: [facility] 06-14-2022 10:23-0500 Diastolic blood pressure 80 mm[Hg] Injection Wstr Work Phone: [facility] 06-14-2022 10:23-0500 Heart rate 80 /min Injection Wstr Work Phone: [facility] 06-14-2022 10:23-0500 Systolic blood pressure 120 mm[Hg] Injection Wstr Work Phone: [facility] 05-26-2022 15:26-0500 Body temperature 98.49 [degF] Quin Garcia MD Work Phone: [facility] 05-26-2022 15:26-0500 Diastolic blood pressure 73 mm[Hg] Quin Garcia MD Work Phone: [facility] 05-26-2022 15:26-0500 Heart rate 73 /min Quin Garcia MD Work Phone: [facility] 05-26-2022 15:26-0500 Systolic blood pressure 130 mm[Hg] Quin Garcia MD Work Phone: [facility] 04-19-2022 10:21-0400 Body temperature 98.29 [degF] Injection Wstr Work Phone: [facility] 04-19-2022 10:21-0400 Body weight 68.49 kg Injection Wstr Work Phone: [facility] 10-25-2022 10:21-0400 Diastolic blood pressure 83 mm[Hg] Injection Wstr Work Phone: [facility] 04-19-2022 10:21-0400 Heart rate 85 /min Injection Wstr Work Phone: [facility] 04-19-2022 10:21-0400 Systolic blood pressure 134 mm[Hg] Injection Wstr Work Phone: [facility] 04-14-2022 13:29-0400 Body temperature 98.4 [degF] Quin Garcia MD Work Phone: [facility] 04-14-2022 13:29-0400 Diastolic blood pressure 72 mm[Hg] Quin Garcia MD Work Phone: [facility] 04-14-2022 13:29-0400 Heart rate 94 /min Quin Garcia MD Work Phone: [facility] 04-14-2022 13:29-0400 Systolic blood pressure 134 mm[Hg] Quin Garcia MD Work Phone: [facility] 03-24-2022 13:29-0400 Body height 160 cm Pacc 6 Work Phone: [facility] 03-24-2022 13:29-0400 Body temperature 98.2 [degF] Pacc 6 Work Phone: [facility] 03-24-2022 13:29-0400 Body weight 70.22 kg Pacc 6 Work Phone: [facility] 03-24-2022 13:29-0400 Diastolic blood pressure 78 mm[Hg] Pacc 6 Work Phone: [facility] 03-24-2022 13:29-0400 Heart rate 87 /min Pacc 6 Work Phone: [facility] 03-24-2022 13:29-0400 Respiratory rate 14 /min Pacc 6 Work Phone: [facility] 03-24-2022 13:29-0400 SaO2% (BldA) [Mass fraction] 99 % Pacc 6 Work Phone: [facility] 03-24-2022 13:29-0400 Systolic blood pressure 132 mm[Hg] Pacc 6 Work Phone: [facility] 03-15-2022 11:20-0400 Body temperature 98.01 [degF] Injection Wstr Work Phone: [facility] 03-15-2022 11:20-0400 Body weight 69.85 kg Injection Wstr Work Phone: [facility] 03-15-2022 11:20-0400 Diastolic blood pressure 76 mm[Hg] Injection Wstr Work Phone: [facility] 03-15-2022 11:20-0400 Heart rate 77 /min Injection Wstr Work Phone: [facility] 03-15-2022 11:20-0400 Systolic blood pressure 119 mm[Hg] Injection Wstr Work Phone: [facility] 02-09-2022 11:14-0400 Body temperature 98.8 [degF] Lizbeth Wang FRUIT HARVESTER MACHINE OPERATOR.COMMERCIAL ADMINISTRATOR Work Phone: [facility] 02-09-2022 11:14-0400 Body weight 68.27 kg Lizbeth Wang FRUIT HARVESTER MACHINE OPERATOR.COMMERCIAL ADMINISTRATOR Work Phone: [facility] 02-09-2022 11:14-0400 Diastolic blood pressure 77 mm[Hg] Lizbeth Wang FRUIT HARVESTER MACHINE OPERATOR.COMMERCIAL ADMINISTRATOR Work Phone: [facility] 02-09-2022 11:14-0400 Heart rate 92 /min Marissa Wang FRUIT HARVESTER MACHINE OPERATOR.COMMERCIAL ADMINISTRATOR Work Phone: [facility] 02-09-2022 11:14-0400 Systolic blood pressure 120 mm[Hg] Lizbeth Wang FRUIT HARVESTER MACHINE OPERATOR.COMMERCIAL ADMINISTRATOR Work Phone: [facility] 12-28-2021 15:20-0400 Body height 160 cm Ela Lopez MD Work Phone: [facility] 12-28-2021 15:20-0400 Body weight 68.95 kg Ela Lopez MD Work Phone: [facility] 12-28-2021 15:20-0400 Diastolic blood pressure 62 mm[Hg] Ela Lopez MD Work Phone: [facility] 12-28-2021 15:20-0400 Heart rate 92 /min Ela Lopez MD Work Phone: [facility] 12-28-2021 15:20-0400 Systolic blood pressure 122 mm[Hg] Ela Lopez MD Work Phone: [facility] 12-15-2021 09:35-0400 Body temperature 99.19 [degF] Lizbeth Wang FRUIT HARVESTER MACHINE OPERATOR.COMMERCIAL ADMINISTRATOR Work Phone: [facility] 12-15-2021 09:35-0400 Body weight 69.17 kg Marissa Wang FRUIT HARVESTER MACHINE OPERATOR.COMMERCIAL ADMINISTRATOR Work Phone: [facility] 12-15-2021 09:35-0400 Diastolic blood pressure 93 mm[Hg] Marissa Wang FRUIT HARVESTER MACHINE OPERATOR.COMMERCIAL ADMINISTRATOR Work Phone: [facility] 12-15-2021 09:35-0400 Heart rate 85 /min Marissa Wang FRUIT HARVESTER MACHINE OPERATOR.COMMERCIAL ADMINISTRATOR Work Phone: [facility] 12-15-2021 09:35-0400 Systolic blood pressure 131 mm[Hg] Lizbeth Wang FRUIT HARVESTER MACHINE OPERATOR.COMMERCIAL ADMINISTRATOR Work Phone: [facility] 12-14-2021 12:03-0400 Body temperature 99.1 [degF] Injection Wstr Work Phone: [facility] 12-14-2021 12:03-0400 Body weight 69.4 kg Injection Wstr Work Phone: [facility] 12-14-2021 12:03-0400 Diastolic blood pressure 78 mm[Hg] Injection Wstr Work Phone: [facility] 12-14-2021 12:03-0400 Heart rate 80 /min Injection Wstr Work Phone: [facility] 12-14-2021 12:03-0400 Systolic blood pressure 148 mm[Hg] Injection Wstr Work Phone: [facility] 11-16-2021 10:27-0400 Body temperature 98.6 [degF] Injection Wstr Work Phone: [facility] 11-16-2021 10:27-0400 Body weight 68.49 kg Injection Wstr Work Phone: [facility] 11-16-2021 10:27-0400 Diastolic blood pressure 77 mm[Hg] Injection Wstr Work Phone: [facility] 11-16-2021 10:27-0400 Heart rate 85 /min Injection Wstr Work Phone: [facility] 11-16-2021 10:27-0400 Systolic blood pressure 131 mm[Hg] Injection Wstr Work Phone: [facility] 11-04-2021 13:31-0400 Body temperature 98.1 [degF] Quin Garcia MD Work Phone: [facility] 11-04-2021 13:31-0400 Diastolic blood pressure 84 mm[Hg] Quin Garcia MD Work Phone: [facility] 11-04-2021 13:31-0400 Heart rate 86 /min Quin Garcia MD Work Phone: [facility] 11-04-2021 13:31-0400 Systolic blood pressure 133 mm[Hg] Quin Garcia MD Work Phone: [facility] 10-26-2021 08:40-0400 Body temperature 98.4 [degF] Lizbeth Wang FRUIT HARVESTER MACHINE OPERATOR.COMMERCIAL ADMINISTRATOR Work Phone: [facility] 10-26-2021 08:40-0400 Body weight 68.72 kg Lizbeth Wang FRUIT HARVESTER MACHINE OPERATOR.COMMERCIAL ADMINISTRATOR Work Phone: [facility] 10-26-2021 08:40-0400 Diastolic blood pressure 92 mm[Hg] Lizbeth Wang FRUIT HARVESTER MACHINE OPERATOR.COMMERCIAL ADMINISTRATOR Work Phone: [facility] 10-26-2021 08:40-0400 Heart rate 87 /min Lizbeth Wang FRUIT HARVESTER MACHINE OPERATOR.COMMERCIAL ADMINISTRATOR Work Phone: [facility] 10-26-2021 08:40-0400 Systolic blood pressure 135 mm[Hg] Lizbeth Wang APRN.COMMERCIAL ADMINISTRATOR Work Phone: [facility] 07-03-2020 14:39-0500 Body weight 55.79 kg [facility] 07-03-2020 14:39-0500 Height 160 cm [facility] 06-29-2020 10:16-0500 Body weight 56.7 kg [facility] 06-29-2020 10:16-0500 BP Diastolic 66 mm[Hg] [facility] 06-29-2020 10:16-0500 BP Systolic 128 mm[Hg] [facility] 06-29-2020 10:16-0500 Height 160 cm [facility] 06-29-2020 10:16-0500 Pulse (Heart Rate) 85 /min [facility] 06-16-2020 14:16-0500 Body weight 56.7 kg [facility] 06-16-2020 14:16-0500 BP Diastolic 76 mm[Hg] [facility] 06-16-2020 14:16-0500 BP Systolic 131 mm[Hg] [facility] 06-16-2020 14:16-0500 Height 160 cm [facility] 06-16-2020 14:16-0500 [facility] 108 [facility] Encounter Date Encounter Type Care Provider Facility Start: 08-18-2023 End: 08-18-2023 ambulatory Shahnaz Sneed PICTURE FRAME MAKER Work Phone: [facility] Procedures Date Procedure Procedure Detail Performing Clinician Start: 04-17-2023 Us transvaginal Elza eid MD Work Phone: Start: 08-17-2022 Ct thorax w/contrast material Lizbeth Wang APRNRonyCOMMERCIAL ADMINISTRATOR Work Phone: Start: 02-01-2022 Ct thorax w/contrast material Lizbeth Wang FRUIT HARVESTER MACHINE OPERATOR.COMMERCIAL ADMINISTRATOR Work Phone: Start: 12-28-2021 Mammography Shahnaz Maso n PICTURE FRAME MAKER Work Phone: Start: 12-15-2021 Radex ribs unilatera l 2 views Marissa Wang FRUIT HARVESTER MACHINE OPERATOR.COMMERCIAL ADMINISTRATOR Work Phone: Start: 09-14-2021 Ct thorax w/contrast material Lizbeth Wang FRUIT HARVESTER MACHINE OPERATOR.COMMERCIAL ADMINISTRATOR Work Phone: Start: 02-03-2021 Adult depression scr eening assessment Corie Sykes PT Work Phone: Start: 07-15-2020 Bone &/joint imaging whole body Ela Lopez Work Phone: Start: 07-03-2020 Ct abdomen & pelvis w/contrast material Ela Lopez Work Phone: Start: 07-03-2020 Ct thorax w/contrast material Ela Lopez Work Phone: Start: 06-29-2020 Us breast uni real t yasmin with image limited Ela M Jessica Work Phone: Start: 06-15-2020 EXTERNAL LAB External P rovider Start: 06-15-2020 End: 06-15-2020 EXTERNAL IMAGING External Provider Start: 12-05-2019 MAMM OUTSIDE DICOM I MPORT [facility] Provider Start: 12-05-2019 US OUTSIDE CD DICOM IMPORT [facility] Provider Plan of Treatment Date Care Activity Detail Author Start: 06-30-2028 Screening for malign ant neoplasm of cervix [facility] Start: 07-29-2025 DIABETES SCREEN DIABETES SCREEN [facility] Start: 07-29-2025 Diabetes Screening Diabetes Screenin g [facility] Start: 06-29-2024 DIABETES SCREEN DIABETES SCREEN [facility] Start: 06-26-2023 Depression Assessment Depression Ass essment [facility] Start: 04-10-2023 End: 04-10-2024 PELVIC US WHI PELVIC US WHI Anc Imaging Routine History of breast cancer Expected: 04/10/2023, Expires: 04/10/2024 [facility] Work Phone: Payers Date Payer Category Payer Unknown [id number] 2018 Unknown [id number] 2018 Unknown [id number] 1975 Unknown [id number] Unknown [id number] Social History Date Type Detail Facility Tobacco smoking status NHIS Unknown if ev er smoked [facility] Start: 1975 Sex Assigned At Not on file [facility] Exposure to SARS-CoV -2 (event) Unable to assess [facility] Start: 06-16-2020 End: 03-24-2022 Tobacco smoking status NHIS Never smoker [facility] Start: 06-16-2020 End: 03-24-2022 Tobacco use and exposure Never used [facility] Start: 06-16-2020 End: 08-17-2023 Alcohol intake Lifetime non-drinker (finding) [facility] Start: 06-16-2020 History SDOH Alcohol Frequency 1 [facility] Start: 09-04-2021 End: 05-26-2022 Exposure to SARS-CoV-2 (event) Not sure [facility] Start: 1975 Sex Assigned At Female [facility] Start: 06-16-2020 End: 10-27-2022 History of Social function [facility] Start: 06-16-2020 End: 10-27-2022 Alcohol Use Disorder Identification Test - Consumption [AUDIT-C] [facility] How often to you hav e a drink containing alcohol? Never [facility] Average Number of Drinks Not on file [facility] Start: 09-18-2020 Gender identity Identifies as female gender (finding) [facility] Start: 09-18-2020 Sexual orientation Heterosexual (annmarie leon) [facility] Medical Equipment Procedure Code Equipment Code Equipment Origin al Text Equipment Identifier Dates Exp Tiss Smth Br st 250cc Mv - [id number] Start: 08-28-2020 Wbp-Li-F-Kind Implant - [id number] Start: 08-28-2020 Graft Alloderm Contour Med Perforated [id number] Start: 08-28-2020 Imp Brst 405cc S sm Bianca Inspr - [id number] Start: 04-08-2022 Clinical Notes 09-14-2021 to 08-18-2023 Shahnaz Sneed, PICTURE FRAME MAKER - 08/18/2023 12:08 PM Elza Syed MD - 08/17/2023 2:59 PM Corie Keenan PT - 08/10/2023 11:00 AM Shahnaz Lacy PTA - 08/04/2023 2:05 PM ESTPatient Instructions Note Date & Type Note Facility 08-18-2023 History of Present illness Narrative Episode Visit Count: 106 Therapist That Will Accept/Oversee The Plan Of Care: Edward Start of Care Date: 09/09/20 Onset Date: 08/28/20 Patient Identified by Name and Date of : Yes REHABILITATION AND SPORTS THERAPY PHYSICAL THERAPY TREATMENT NOTE ASSESSMENT: Amber Kellogg tolerated the session with increased symptoms. She demonstrated difficulty with R hand pain that has increased over the last week. Increase girth measurements. The patient will continue to benefit from ongoing skilled physical therapy to progress toward set goals. PLAN FOR NEXT VISIT: Pt returning after hysterectomy; reassess SUBJECTIVE: R hand has really been hurting. Unsure if its joint pain related to meds. Hysterectomy on Jul Pain: Pain Pain Location: Hand - Left Description: Sore Additional Pain Information : Specific pain level not discussed in order to focus on movement/functional goals OBJECTIVE MEASURES WITH LEVEL OF FUNCTION: Upper Extremity Circumferential Measurements R Thumb (proximal phalanx) (cm): 5.8 cm R Index Finger (proximal phalanx) (cm): 5.8 cm R DPC (cm): 19 cm R Distal Wrist Crease (DWC) (cm): 16.6 cm R 8 cm above wrist (cm): 21.8 cm R 16 cm above wrist (cm): 27.6 cm R 24 cm above wrist (cm): 28.4 cm R 32 cm above wrist (cm): 32.4 cm R 40 cm above wrist (cm): 32.6 cm R 44 cm above wrist (cm): 32.4 cm R Upper Extremity Volume: 336.39 TREATMENT: Manual Therapy: 1: measure 2: MLD seq x 30'(proximal clearing and R UE/ R Breast) 3: PROM x 5' R shld 4: tissue mobs to R axilla x 15' Skilled Intervention: Manual skills to improve joint mobility, ROM, and decrease pain. Utilized anatomy knowledge of the therapist, and assessment of patient's response to intervention. Billing Manual TherapyTreatment Minutes: 55 Skilled Treatment Time Minutes (timed and untimed codes): 55 Total Session Time (minutes): 55 Session Start Time : 1200 Session Stop Time : 1255 Shahnaz Sneed PTA documented in this encounter [facility] 08-17-2023 History and physical note DATE OF SERVICE: August 17, 2023 PROBLEM: h/o breast cancer DIAGNOSIS: h/o breast cancer PAST SURGICAL HISTORY: PAST SURGICAL HISTORY Procedure Laterality Date BREAST BIOPSY HX Right 2019 X2 NOVEMBER AND Jan D&C, DIAG AND/OR THERAPEUTIC 2019 ENDOMETRIAL ABLATION-TEAM TRIAL 2019 MASTECTOMY, SIMPLE, COMPLETE Right 08/28/2020 PORT REMOVAL Port-A-Cath removed 09/08/21 [facility] PAST MEDICAL HISTORY: PAST MEDICAL HISTORY Diagnosis Date Delayed emergence from general anesthesia Malignant neoplasm of right breast (HCC) 11/2019 SUBJECTIVE: Patient desires removal of ovaries given h/o breast cancer and desire to stop medication with oncologist. SOCIAL HISTORY: Social History Tobacco Use Smoking status: Never Smokeless tobacco: Never Vaping Use Vaping Use: Never used Substance Use Topics Alcohol use: Never Drug use: Never ALLERGIES No Known Allergies Current Outpatient Medications on File Prior to Visit Medication Sig anastrozole (ARIMIDEX) 1 mg tablet Take 1 tablet by mouth once daily. OTC PRODUCT Vitamin A, D & K: Take one tablet by mouth once daily. ascorbic acid (VITAMIN C ORAL) Take by mouth once daily. No current facility-administered medications on file prior to visit. OBJECTIVE: VITALS: BP 122/80 Wt 164 lb (74.4 kg) BMI 27.50 kg/m HEENT: Normocephalic, atraumatic, Mucus membranes moist without lesions. SKIN: No lesions. CHEST: No increased resp effort. HEART: Regular rate. BACK: Nontender with no CVA tenderness. ABDOMEN: Non-distended, no masses. LOWER EXTREMITIES: There was no pitting edema, no palpable cords and no skin changes. ASSESSMENT: pre op, h/o breast cancer PLAN: 1) Patient requests removal of ovaries and tubes. A message was sent to her oncologist regarding recommendations, and the recommendation is for removal of ovaries and tubes if she desires to stop Lupron therapy. Discussed laparoscopic bilateral salpingoophorectomy in detail. The rationale for the proposed surgery was discussed in addition to risks, benefits, and alternatives. General pre- and post-operative care was reviewed. Questions were answered. After discussion, the patient indicated a desire to proceed with the planned surgery. Elza Fraga DO Medical Decision Making: Problems: Moderate: New problem with uncertain prognosis Risk: Moderate: Decision on minor surgery w/ risk factors Medical Decision Making Level: 4 - Moderate documented in this encounter [facility] 08-10-2023 Note HNO ID: [id number] Author: CORIE SYKES, MALISSA Service: ? Author Type: Physical Therapist Type: Progress Notes Filed: 08/10/2023 11:00 Note Text: Episode Visit Count: 105 Therapist That Will Accept/Oversee The Plan Of Care: Edward Start of Care Date: 09/09/20 Onset Date: 08/28/20 Patient Identified by Name and Date of : Yes REHABILITATION AND SPORTS THERAPY PHYSICAL THERAPY TREATMENT NOTE ASSESSMENT: Amber Kellogg tolerated the session with no issues. She demonstrated improvements in girth measurements to R hand. The patient will continue to benefit from ongoing skilled physical therapy to progress toward set goals. PLAN FOR NEXT VISIT: MLD;ther ex;ROM;scar/tissue mobs;HEP SUBJECTIVE: Pt feeling pretty good this week. Anxious for upcoming surgery Pain: Pain Pain Level: 4 Pain Location: Arm - Right Description: Tightness Frequency: Continuous OBJECTIVE MEASURES WITH LEVEL OF FUNCTION: Upper Extremity Circumferential Measurements R Thumb (proximal phalanx) (cm): 5.8 cm R Index Finger (proximal phalanx) (cm): 5.8 cm R DPC (cm): 18 cm R Distal Wrist Crease (DWC) (cm): 16 cm R 8 cm above wrist (cm): 21.6 cm R 16 cm above wrist (cm): 26.9 cm R 24 cm above wrist (cm): 26.6 cm R 32 cm above wrist (cm): 31.3 cm R 40 cm above wrist (cm): 31.7 cm R 44 cm above wrist (cm): 32 cm R Upper Extremity Volume: 323.07 TREATMENT: Manual Therapy: 1: measure 2: MLD seq x 35'(proximal clearing and R UE/ R Breast) 3: PROM x 5' R shld 4: tissue mobs to R axilla x 15' Skilled Intervention: Manual skills to improve joint mobility, ROM, and decrease pain. Utilized anatomy knowledge of the therapist, and assessment of patient's response to intervention. Billing Manual TherapyTreatment Minutes: 55 Skilled Treatment Time Minutes (timed and untimed codes): 55 Total Session Time (minutes): 55 Session Start Time : 1000 Session Stop Time : 1055 Corie Sykes, PT [facility] 08-10-2023 History of Present illness Narrative Episode Visit Count: 105 Therapist That Will Accept/Oversee The Plan Of Care: Edward Start of Care Date: 09/09/20 Onset Date: 08/28/20 Patient Identified by Name and Date of : Yes REHABILITATION AND SPORTS THERAPY PHYSICAL THERAPY TREATMENT NOTE ASSESSMENT: Amber Kellogg tolerated the session with no issues. She demonstrated improvements in girth measurements to R hand. The patient will continue to benefit from ongoing skilled physical therapy to progress toward set goals. PLAN FOR NEXT VISIT: MLD;ther ex;ROM;scar/tissue mobs;HEP SUBJECTIVE: Pt feeling pretty good this week. Anxious for upcoming surgery Pain: Pain Pain Level: 4 Pain Location: Arm - Right Description: Tightness Frequency: Continuous OBJECTIVE MEASURES WITH LEVEL OF FUNCTION: Upper Extremity Circumferential Measurements R Thumb (proximal phalanx) (cm): 5.8 cm R Index Finger (proximal phalanx) (cm): 5.8 cm R DPC (cm): 18 cm R Distal Wrist Crease (DWC) (cm): 16 cm R 8 cm above wrist (cm): 21.6 cm R 16 cm above wrist (cm): 26.9 cm R 24 cm above wrist (cm): 26.6 cm R 32 cm above wrist (cm): 31.3 cm R 40 cm above wrist (cm): 31.7 cm R 44 cm above wrist (cm): 32 cm R Upper Extremity Volume: 323.07 TREATMENT: Manual Therapy: 1: measure 2: MLD seq x 35'(proximal clearing and R UE/ R Breast) 3: PROM x 5' R shld 4: tissue mobs to R axilla x 15' Skilled Intervention: Manual skills to improve joint mobility, ROM, and decrease pain. Utilized anatomy knowledge of the therapist, and assessment of patient's response to intervention. Billing Manual TherapyTreatment Minutes: 55 Skilled Treatment Time Minutes (timed and untimed codes): 55 Total Session Time (minutes): 55 Session Start Time : 1000 Session Stop Time : 1055 Corie Sykes PT documented in this encounter [facility] 08-07-2023 Miscellaneous Notes The following approved medication requests have been transmitted electronically. Requested Prescriptions Signed Prescriptions Disp Refills anastrozole (ARIMIDEX) 1 mg tablet 90 tablet 3 Sig: Take 1 tablet by mouth once daily. Lizbeth Wang APRN.SERGIO documented in this encounter [facility] 08-04-2023 Note HNO ID: [id number] Author: SHAHNAZ SNEED PTA Service: ? Author Type: Cop Winder Type: Progress Notes Filed: 08/04/2023 14:08 Note Text: Episode Visit Count: 104 Therapist That Will Accept/Oversee The Plan Of Care: Edward Start of Care Date: 09/09/20 Onset Date: 08/28/20 Patient Identified by Name and Date of : Yes REHABILITATION AND SPORTS THERAPY PHYSICAL THERAPY TREATMENT NOTE ASSESSMENT: Amber Kellogg tolerated the session with no issues. She demonstrated difficulty with muscle soreness after last Rx; decreased reps this visit and able to complete without immediate aggravation or difficulty. The patient will continue to benefit from ongoing skilled physical therapy to progress toward set goals. PLAN FOR NEXT VISIT: MLD;ther ex;ROM;scar/tissue mobs;HEP SUBJECTIVE: Surgery scheduled for 08/24/2023. Has pre/op testing next week. Had some B shoulder and R forearm pain after last session. Has been taking [place] lights down and using arm more in general. Struggling this week with symptoms and the fact that small things she is doing is aggravating to her arm and shoulders. Pain: Pain Pain Level: 4 Pain Location: Arm - Right Description: Tightness Frequency: Continuous OBJECTIVE MEASURES WITH LEVEL OF FUNCTION: Upper Extremity Circumferential Measurements R Thumb (proximal phalanx) (cm): 5.7 cm R Index Finger (proximal phalanx) (cm): 6 cm R DPC (cm): 19.2 cm R Distal Wrist Crease (DWC) (cm): 16.7 cm R 8 cm above wrist (cm): 21.6 cm R 16 cm above wrist (cm): 27.5 cm R 24 cm above wrist (cm): 28.4 cm R 32 cm above wrist (cm): 33 cm R 40 cm above wrist (cm): 33.4 cm R 44 cm above wrist (cm): 33 cm R Upper Extremity Volume: 351.04 TREATMENT: Therapeutic Exercise: 1: resisted chest pulls 2x10 grn band 2: ER 2x10 grn band 3: chest press 2x10 3# 4: Shld extension 2x10 4# Skilled Intervention: Patient was educated in proper exercise technique and purpose for exercises. Manual Therapy: 2: MLD seq x 25'(proximal clearing and R UE/ R Breast) 3: PROM x 5' R shld 4: tissue mobs to R axilla x 15' Skilled Intervention: Manual skills to improve joint mobility, ROM, and decrease pain. Utilized anatomy knowledge of the therapist, and assessment of patient's response to intervention. Billing Therapeutic Exercise Treatment Minutes: 10 Manual TherapyTreatment Minutes: 45 Skilled Treatment Time Minutes (timed and untimed codes): 55 Total Session Time (minutes): 55 Session Start Time : 1400 Session Stop Time : 1455 Shahnaz Sneed PTA [facility] 08-04-2023 History of Present illness Narrative Episode Visit Count: 104 Therapist That Will Accept/Oversee The Plan Of Care: Edward Start of Care Date: 09/09/20 Onset Date: 08/28/20 Patient Identified by Name and Date of : Yes REHABILITATION AND SPORTS THERAPY PHYSICAL THERAPY TREATMENT NOTE ASSESSMENT: Amber Kellogg tolerated the session with no issues. She demonstrated difficulty with muscle soreness after last Rx; decreased reps this visit and able to complete without immediate aggravation or difficulty. The patient will continue to benefit from ongoing skilled physical therapy to progress toward set goals. PLAN FOR NEXT VISIT: MLD;ther ex;ROM;scar/tissue mobs;HEP SUBJECTIVE: Surgery scheduled for 08/24/2023. Has pre/op testing next week. Had some B shoulder and R forearm pain after last session. Has been taking [place] lights down and using arm more in general. Struggling this week with symptoms and the fact that small things she is doing is aggravating to her arm and shoulders. Pain: Pain Pain Level: 4 Pain Location: Arm - Right Description: Tightness Frequency: Continuous OBJECTIVE MEASURES WITH LEVEL OF FUNCTION: Upper Extremity Circumferential Measurements R Thumb (proximal phalanx) (cm): 5.7 cm R Index Finger (proximal phalanx) (cm): 6 cm R DPC (cm): 19.2 cm R Distal Wrist Crease (DWC) (cm): 16.7 cm R 8 cm above wrist (cm): 21.6 cm R 16 cm above wrist (cm): 27.5 cm R 24 cm above wrist (cm): 28.4 cm R 32 cm above wrist (cm): 33 cm R 40 cm above wrist (cm): 33.4 cm R 44 cm above wrist (cm): 33 cm R Upper Extremity Volume: 351.04 TREATMENT: Therapeutic Exercise: 1: resisted chest pulls 2x10 grn band 2: ER 2x10 grn band 3: chest press 2x10 3# 4: Shld extension 2x10 4# Skilled Intervention: Patient was educated in proper exercise technique and purpose for exercises. Manual Therapy: 2: MLD seq x 25'(proximal clearing and R UE/ R Breast) 3: PROM x 5' R shld 4: tissue mobs to R axilla x 15' Skilled Intervention: Manual skills to improve joint mobility, ROM, and decrease pain. Utilized anatomy knowledge of the therapist, and assessment of patient's response to intervention. Billing Therapeutic Exercise Treatment Minutes: 10 Manual TherapyTreatment Minutes: 45 Skilled Treatment Time Minutes (timed and untimed codes): 55 Total Session Time (minutes): 55 Session Start Time : 1400 Session Stop Time : 1455 Shahnaz Sneed PTA documented in this encounter [facility] 08-02-2023 Nurse Note Pt here for injection of Lupron. Given IM in right buttocks. Pt tolerated well. Mary Jo Wang LPN documented in this encounter [facility] 07-28-2023 Note HNO ID: [id number] Author: SHAHNAZ SNEED PTA Service: ? Author Type: Cop Winder Type: Progress Notes Filed: 07/28/2023 11:00 Note Text: Episode Visit Count: 103 Therapist That Will Accept/Oversee The Plan Of Care: Edward Start of Care Date: 09/09/20 Onset Date: 08/28/20 Patient Identified by Name and Date of : Yes REHABILITATION AND SPORTS THERAPY PHYSICAL THERAPY TREATMENT NOTE ASSESSMENT: Amber Kellogg tolerated the session with fatigue. She demonstrated difficulty with muscular fatigue with adding there ex back into routine. The patient will continue to benefit from ongoing skilled physical therapy to progress toward set goals. PLAN FOR NEXT VISIT: MLD;ther ex;ROM;scar/tissue mobs;HEP SUBJECTIVE: Day 18 of eliminating sugar. Swelling seems stable Pain: Pain Pain Level: 2 Pain Location: Arm - Right Description: Tightness OBJECTIVE MEASURES WITH LEVEL OF FUNCTION: TREATMENT: Therapeutic Exercise: 1: resisted chest pulls 2x15 grn band 2: ER 2x15 grn band 3: Flys 2x15 3# 4: Shld extension 2x10 4# Skilled Intervention: Patient was educated in proper exercise technique and purpose for exercises. Manual Therapy: 2: MLD seq x 25'(proximal clearing and R UE/ R Breast) 3: PROM x 5' R shld 4: tissue mobs to R axilla x 15' Skilled Intervention: Manual skills to improve joint mobility, ROM, and decrease pain. Utilized anatomy knowledge of the therapist, and assessment of patient's response to intervention. Billing Therapeutic Exercise Treatment Minutes: 10 Manual TherapyTreatment Minutes: 45 Skilled Treatment Time Minutes (timed and untimed codes): 55 Total Session Time (minutes): 55 Session Start Time : 1000 Session Stop Time : 1055 Shahnaz Sneed PTA [facility] 07-28-2023 History of Present illness Narrative Episode Visit Count: 103 Therapist That Will Accept/Oversee The Plan Of Care: Edward Start of Care Date: 09/09/20 Onset Date: 08/28/20 Patient Identified by Name and Date of : Yes REHABILITATION AND SPORTS THERAPY PHYSICAL THERAPY TREATMENT NOTE ASSESSMENT: Amber Kellogg tolerated the session with fatigue. She demonstrated difficulty with muscular fatigue with adding there ex back into routine. The patient will continue to benefit from ongoing skilled physical therapy to progress toward set goals. PLAN FOR NEXT VISIT: MLD;ther ex;ROM;scar/tissue mobs;HEP SUBJECTIVE: Day 18 of eliminating sugar. Swelling seems stable Pain: Pain Pain Level: 2 Pain Location: Arm - Right Description: Tightness OBJECTIVE MEASURES WITH LEVEL OF FUNCTION: TREATMENT: Therapeutic Exercise: 1: resisted chest pulls 2x15 grn band 2: ER 2x15 grn band 3: Flys 2x15 3# 4: Shld extension 2x10 4# Skilled Intervention: Patient was educated in proper exercise technique and purpose for exercises. Manual Therapy: 2: MLD seq x 25'(proximal clearing and R UE/ R Breast) 3: PROM x 5' R shld 4: tissue mobs to R axilla x 15' Skilled Intervention: Manual skills to improve joint mobility, ROM, and decrease pain. Utilized anatomy knowledge of the therapist, and assessment of patient's response to intervention. Billing Therapeutic Exercise Treatment Minutes: 10 Manual TherapyTreatment Minutes: 45 Skilled Treatment Time Minutes (timed and untimed codes): 55 Total Session Time (minutes): 55 Session Start Time : 1000 Session Stop Time : 1055 Shahnaz Sneed PTA documented in this encounter [facility] 07-20-2023 Note HNO ID: [id number] Author: CORIE SYKES, MALISSA Service: ? Author Type: Physical Therapist Type: Progress Notes Filed: 07/20/2023 12:36 Note Text: Episode Visit Count: 102 Therapist That Will Accept/Oversee The Plan Of Care: Edward Start of Care Date: 09/09/20 Onset Date: 08/28/20 Patient Identified by Name and Date of : Yes REHABILITATION AND SPORTS THERAPY PHYSICAL THERAPY PROGRESS REPORT PLAN OF CARE UPDATE: Assessment: Amber Kellogg demonstrates moderate improvement in edema in R UE. She has progressed toward goals. Patient continues to present with impairments in edema management that interfere with lifting, physical activities, recreational activities, use hand with arm at shoulder level, reaching overhead . Current prognosis is Good due to: positive past response to therapy . Pt with decreased swelling in R hand/fingers. Skin pliable and soft. Other girth measurements stable. She will benefit from continued skilled therapy services to meet the updated goals for this plan of care as noted below. Goals for Episode of Care: created on 09/09/20 through 12/08/20 Patient able to verbalize skin care and lymphedema risk reductions: MET Patient/family independent with home exercise program including self MLD, skincare guidelines, scar massage, ROM exercises, strengthening exercises and garment instructions: MET THUS FAR Patient will increase active ROM of R shoulder to WNL to allow patient to achieve neutral postural alignment, for improved performance of ADLs.: MET Patient will decrease pain to: 2/10 : ONGOING Patient will have supple scar with no tenderness to palpation and demonstrate and understanding of scar management: ONGOING Patient/family able to verbalize all pertinent aspects of CDT: ONGOING Patient/family independent with donning/doffing compression garment and proper wearing schedule and care of garment: MET Patient Goals: increase ROM R shoulder; get compression sleeve Planned Interventions, Frequency, and Duration: , Patient to be seen for PLAN FOR NEXT VISIT: MLD;ther ex;ROM;scar/tissue mobs;HEP SUBJECTIVE: . Pt currently eliminating added sugar from her diet. Notices a positive difference in her swelling Functional Limitations: lifting, physical activities, recreational activities, use hand with arm at shoulder level, reaching overhead Pain: Pain Pain Level: 0 Pain Location: Arm - Right PROMIS Scales Higher is Better 06/02/2023 03/30/2023 11/04/2022 Phys Func - Score 44 (mild dysfunction) 43 (mild dysfunction) 40 (mild dysfunction) Phys Func - Percentile 27% 24% 16% Self-Eff Symptom - Score 46 (Average) 46 (Average) 42 (Average) Self-Eff Symptom - Percentile 34% 34% 21% T-scores: mean of general population = 50. 5 points is clinically meaningfully difference Percentiles provide an indication of how the patient's score ranks in relation to the general population. Higher percentile rankings indicate better function/quality of life. 50th percentile is the average of the general population and indicates half of respondents had a worse score. OBJECTIVE MEASURES WITH LEVEL OF FUNCTION: Upper Extremity Circumferential Measurements R Thumb (proximal phalanx) (cm): 5.7 cm R Index Finger (proximal phalanx) (cm): 5.7 cm R DPC (cm): 18.2 cm R Distal Wrist Crease (DWC) (cm): 16.5 cm R 8 cm above wrist (cm): 22.3 cm R 16 cm above wrist (cm): 27.5 cm R 24 cm above wrist (cm): 27.6 cm R 32 cm above wrist (cm): 32.1 cm R 40 cm above wrist (cm): 33.2 cm R 44 cm above wrist (cm): 32.8 cm R Upper Extremity Volume: 346.82 TREATMENT: Manual Therapy: 1: measure 2: MLD seq x 25'(proximal clearing and R UE/ R Breast) 3: PROM x 10' R shld 4: tissue mobs to R axilla x 20' Skilled Intervention: Manual skills to improve joint mobility, ROM, and decrease pain. Utilized anatomy knowledge of the therapist, and assessment of patient's response to intervention. Billing Manual TherapyTreatment Minutes: 55 Skilled Treatment Time Minutes (timed and untimed codes): 55 Total Session Time (minutes): 55 Session Start Time : 1100 Session Stop Time : 1155 Corie Sykes PT [facility] 07-06-2023 Note HNO ID: [id number] Author: CORIE SYKES PT Service: ? Author Type: Physical Therapist Type: Progress Notes Filed: 07/06/2023 13:54 Note Text: Episode Visit Count: 101 Therapist That Will Accept/Oversee The Plan Of Care: Edward Start of Care Date: 09/09/20 Onset Date: 08/28/20 Patient Identified by Name and Date of : Yes REHABILITATION AND SPORTS THERAPY PHYSICAL THERAPY TREATMENT NOTE ASSESSMENT: Amber Kellogg tolerated the session with no issues. She demonstrated difficulty with continued tightness in R axilla, with visible cording, but improvements in girth measurements of R UE. The patient will continue to benefit from ongoing skilled physical therapy to progress toward set goals. PLAN FOR NEXT VISIT: MLD;ther ex;ROM;scar/tissue mobs;HEP SUBJECTIVE: Pt reports that she is feeling better. Arm not as heavy as it was last week Pain: Pain Additional Pain Information : Specific pain level not discussed in order to focus on movement/functional goals OBJECTIVE MEASURES WITH LEVEL OF FUNCTION: Upper Extremity Circumferential Measurements R Thumb (proximal phalanx) (cm): 5.7 cm R Index Finger (proximal phalanx) (cm): 5.7 cm R DPC (cm): 18 cm R Distal Wrist Crease (DWC) (cm): 16 cm R 8 cm above wrist (cm): 22.5 cm R 16 cm above wrist (cm): 27.4 cm R 24 cm above wrist (cm): 28 cm R 32 cm above wrist (cm): 32.8 cm R 40 cm above wrist (cm): 33 cm R 44 cm above wrist (cm): 33.8 cm R Upper Extremity Volume: 355.29 TREATMENT: Manual Therapy: 1: measure 2: MLD seq x 25'(proximal clearing and R UE/ R Breast) 3: PROM x 10' R shld 4: tissue mobs to R axilla x 20' Skilled Intervention: Manual skills to improve joint mobility, ROM, and decrease pain. Utilized anatomy knowledge of the therapist, and assessment of patient's response to intervention. Billing Manual TherapyTreatment Minutes: 55 Skilled Treatment Time Minutes (timed and untimed codes): 55 Total Session Time (minutes): 55 Session Start Time : 1100 Session Stop Time : 1155 Corie Sykes, PT [facility] 06-30-2023 Note HNO ID: [id number] Author: SHAHNAZ SNEED PTA Service: ? Author Type: Cop Winder Type: Progress Notes Filed: 06/30/2023 13:57 Note Text: Episode Visit Count: 100 Therapist That Will Accept/Oversee The Plan Of Care: Edward Start of Care Date: 09/09/20 Onset Date: 08/28/20 Patient Identified by Name and Date of : Yes REHABILITATION AND SPORTS THERAPY PHYSICAL THERAPY TREATMENT NOTE ASSESSMENT: Amber Kellogg tolerated the session with increased symptoms. She demonstrated difficulty with increase girth to R UE. Firm to forearm. The patient will continue to benefit from ongoing skilled physical therapy to progress toward set goals. PLAN FOR NEXT VISIT: MLD;ther ex;ROM;scar/tissue mobs;HEP SUBJECTIVE: Has been working long hours at work and tweaked neck and L shoulder. Has not been able to do exercises/stretches at home. Requests to hold ex here today. Pain: Pain Pain Level: 6 Pain Location: Neck Description: Tightness, Sore Frequency: Continuous OBJECTIVE MEASURES WITH LEVEL OF FUNCTION: Upper Extremity Circumferential Measurements R Thumb (proximal phalanx) (cm): 5.8 cm R Index Finger (proximal phalanx) (cm): 5.8 cm R DPC (cm): 19 cm R Distal Wrist Crease (DWC) (cm): 16.5 cm R 8 cm above wrist (cm): 25 cm R 16 cm above wrist (cm): 28.2 cm R 24 cm above wrist (cm): 34 cm R 32 cm above wrist (cm): 34 cm R 40 cm above wrist (cm): 34.2 cm R 44 cm above wrist (cm): 35 cm R Upper Extremity Volume: 381.28 TREATMENT: Manual Therapy: 1: measure 2: MLD seq x 25'(proximal clearing and R UE/ R Breast) 3: PROM x 10' R shld 4: tissue mobs to R axilla x 20' Skilled Intervention: Manual skills to improve joint mobility, ROM, and decrease pain. Utilized anatomy knowledge of the therapist, and assessment of patient's response to intervention. Billing Manual TherapyTreatment Minutes: 55 Skilled Treatment Time Minutes (timed and untimed codes): 55 Total Session Time (minutes): 55 Session Start Time : 1300 Session Stop Time : 1355 Shahnaz Sneed PTA [facility] 06-30-2023 Note HNO ID: [id number] Author: ELZA FRAGA MD Service: ? Author Type: Physician Type: Progress Notes Filed: 06/30/2023 12:59 Note Text: Silica Spray Mixer offered: Patient declines. Clark is a 47 year old who presents for an annual gynecologic exam without complaints. Menses: no menses - ablation 2018. Contraception: none HPV vaccine: No Last Pap: no record HPV: no record History of abnormal pap: No Last mammogram: 2021 normal Sexually active: No OB History T0 L2 SAB2 IAB0 Ectopic0 Multiple0 Live Births0 Recreation Worker History LMP: Ablation Age at Menarche: Age at First : Age at Menopause: Recreation Worker History Comments: Sexual Activity: Not Currently; Male Contraception: No contraception data on record PAST MEDICAL HISTORY Diagnosis Date Delayed emergence from general anesthesia Malignant neoplasm of right breast (HCC) 11/2019 PAST SURGICAL HISTORY Procedure Laterality Date BREAST BIOPSY HX Right 2020 X2 NOVEMBER AND Jan DANDC, DIAG AND/OR THERAPEUTIC 2019 ENDOMETRIAL ABLATION-TEAM TRIAL 2019 MASTECTOMY, SIMPLE, COMPLETE Right 08/28/2020 PORT REMOVAL Port-A-Cath removed 09/08/21 [facility] FAMILY HISTORY Problem Relation Age of Onset No Known Problems Mother No Known Problems Father Breast Cancer Maternal Grandmother No Known Problems Maternal Grandfather No Known Problems Paternal Grandmother No Known Problems Paternal Grandfather Breast Cancer Maternal Aunt Anesthesia Problems No Family History SOCIAL HISTORY Social History Tobacco Use Smoking status: Never Smokeless tobacco: Never Vaping Use Vaping Use: Never used Substance Use Topics Alcohol use: Never Drug use: Never REVIEW OF SYSTEMS Abdomen: No abdominal pain, nausea, vomiting, diarrhea, or constipation. No bloating, early satiety, indigestion, or increased flatulence. Bladder: No dysuria, gross hematuria, urinary frequency, urinary urgency, or incontinence. Breast: No breast lumps, nipple d/c, overlying skin changes, redness or skin retraction. Allergies and current medication updated:Yes EXAM: BP 120/76 Ht 5' 3 (1.60m) Wt 162 lb 6.4 oz (73.7kg) BMI 28.78 kg/(m2). GENERAL: pleasant, female in no apparent distress HEENT: Normocephalic and atraumatic NECK: full range of motion DERMATOLOGY: without lesions, non-icteric, and non-hirsute BREAST: soft, non-tender, no dominant mass, no lymphadenopathy, and no nipple discharge CHEST: Normal inspiratory effort ABDOMEN: soft, non-tender, and no masses PELVIC: external genitalia normal, normal Bartholin's glands, urethra, Gluckstadt's glands, no vulvar lesions, no cervical lesions, good vaginal support, physiologic discharge present, normal appearing perineal body and perianal region BIMANUAL: uterus normal size, shape and consistency, no adnexal masses, and non-tender RECTOVAGINAL: deferred. NEURO: exam grossly non-focal EXTREMITIES: normal ASSESSMENT/PLAN: 1) Health maintenance: Pap done with HPV. Mammogram ordered. Nutrition, exercise and routine health maintenance exams reviewed. Recommended colonoscopy. Patient considering Cologuard and order placed. 2) Contraception: none. Contraceptive options reviewed and information provided. 3) STD screening: Declined STD check. 4) Follow up for pre op. Elza Fraga DO [facility] 06-08-2023 Note HNO ID: [id number] Author: Corie Sykes PT Service: ? Author Type: Physical Therapist Type: Progress Notes Filed: 06/08/2023 1:42 PM Note Text: Episode Visit Count: 99 Therapist That Will Accept/Oversee The Plan Of Care: Edward Start of Care Date: 09/09/20 Onset Date: 08/28/20 Patient Identified by Name and Date of : Yes REHABILITATION AND SPORTS THERAPY PHYSICAL THERAPY PROGRESS REPORT PLAN OF CARE UPDATE: Assessment: Amber Kellogg demonstrates minimal improvement in lifting, physical activities, and recreational activities. She has progressed toward goals. Patient continues to present with impairments in edema management, overall function, posture, range of motion, soft tissue healing, strength, symptom management, and tissue tenderness that interfere with lifting, physical activities, recreational activities, use hand with arm at shoulder level, reaching overhead . Current prognosis is Good due to: positive past response to therapy . Pt with injury to L UE and unable to participate in exercise today. Will resume strengthening, as able. She will benefit from continued skilled therapy services to meet the updated goals for this plan of care as noted below. Goals for Episode of Care: created on 09/09/20 through 12/08/20 Patient able to verbalize skin care and lymphedema risk reductions: MET Patient/family independent with home exercise program including self MLD, skincare guidelines, scar massage, ROM exercises, strengthening exercises and garment instructions: MET THUS FAR Patient will increase active ROM of R shoulder to WNL to allow patient to achieve neutral postural alignment, for improved performance of ADLs.: MET Patient will decrease pain to: 2/10 : ONGOING Patient will have supple scar with no tenderness to palpation and demonstrate and understanding of scar management: ONGOING Patient/family able to verbalize all pertinent aspects of CDT: ONGOING Patient/family independent with donning/doffing compression garment and proper wearing schedule and care of garment: MET Patient Goals: increase ROM R shoulder; get compression sleeve Planned Interventions, Frequency, and Duration: 1x/week, 12 weeks Total Number of Visits Planned: 12 Patient to be seen for Therapeutic exercise (48455), Manual therapy (06529), Therapeutic activities (92813), Self-penitentiary management (97811), Patient/Family/Caregiver Education PLAN FOR NEXT VISIT: MLD;ther ex;ROM;scar/tissue mobs;HEP SUBJECTIVE: . Pt injured L UE. Painful shoulder. R UE status quo. Functional Limitations: lifting, physical activities, recreational activities, use hand with arm at shoulder level, reaching overhead Pain: PROMIS Scales Higher is Better 06/02/2023 03/30/2023 11/04/2022 Phys Func - Score 44 (mild dysfunction) 43 (mild dysfunction) 40 (mild dysfunction) Phys Func - Percentile 27% 24% 16% Self-Eff Symptom - Score 46 (Average) 46 (Average) 42 (Average) Self-Eff Symptom - Percentile 34% 34% 21% T-scores: mean of general population = 50. 5 points is clinically meaningfully difference Percentiles provide an indication of how the patient's score ranks in relation to the general population. Higher percentile rankings indicate better function/quality of life. 50th percentile is the average of the general population and indicates half of respondents had a worse score. OBJECTIVE MEASURES WITH LEVEL OF FUNCTION: Upper Extremity Circumferential Measurements R Thumb (proximal phalanx) (cm): 5.8 cm R Index Finger (proximal phalanx) (cm): 5.5 cm R DPC (cm): 18 cm R Distal Wrist Crease (DWC) (cm): 16 cm R 8 cm above wrist (cm): 22.2 cm R 16 cm above wrist (cm): 27.4 cm R 24 cm above wrist (cm): 27.5 cm R 32 cm above wrist (cm): 32.8 cm R 40 cm above wrist (cm): 33.2 cm R 44 cm above wrist (cm): 34 cm R Upper Extremity Volume: 359.56 TREATMENT: Manual Therapy: 1: measure 2: MLD seq x 25'(proximal clearing and R UE/ R Breast) 3: PROM x 10' R shld 4: tissue mobs to R axilla x 20' Skilled Intervention: Manual skills to improve joint mobility, ROM, and decrease pain. Utilized anatomy knowledge of the therapist, and assessment of patient's response to intervention. Billing Manual TherapyTreatment Minutes: 55 Skilled Treatment Time Minutes (timed and untimed codes): 55 Total Session Time (minutes): 55 Session Start Time : 1100 Session Stop Time : 1155 Corie Sykes, PT [facility] 06-08-2023 History of Present illness Narrative Episode Visit Count: 99 Therapist That Will Accept/Oversee The Plan Of Care: Edward Start of Care Date: 09/09/20 Onset Date: 08/28/20 Patient Identified by Name and Date of : Yes REHABILITATION AND SPORTS THERAPY PHYSICAL THERAPY PROGRESS REPORT PLAN OF CARE UPDATE: Assessment: Amber Kellogg demonstrates minimal improvement in lifting, physical activities, and recreational activities. She has progressed toward goals. Patient continues to present with impairments in edema management, overall function, posture, range of motion, soft tissue healing, strength, symptom management, and tissue tenderness that interfere with lifting, physical activities, recreational activities, use hand with arm at shoulder level, reaching overhead . Current prognosis is Good due to: positive past response to therapy . Pt with injury to L UE and unable to participate in exercise today. Will resume strengthening, as able. She will benefit from continued skilled therapy services to meet the updated goals for this plan of care as noted below. Goals for Episode of Care: created on 09/09/20 through 12/08/20 Patient able to verbalize skin care and lymphedema risk reductions: MET Patient/family independent with home exercise program including self MLD, skincare guidelines, scar massage, ROM exercises, strengthening exercises and garment instructions: MET THUS FAR Patient will increase active ROM of R shoulder to WNL to allow patient to achieve neutral postural alignment, for improved performance of ADLs.: MET Patient will decrease pain to: 2/10 : ONGOING Patient will have supple scar with no tenderness to palpation and demonstrate and understanding of scar management: ONGOING Patient/family able to verbalize all pertinent aspects of CDT: ONGOING Patient/family independent with donning/doffing compression garment and proper wearing schedule and care of garment: MET Patient Goals: increase ROM R shoulder; get compression sleeve Planned Interventions, Frequency, and Duration: 1x/week, 12 weeks Total Number of Visits Planned: 12 Patient to be seen for Therapeutic exercise (95233), Manual therapy (15981), Therapeutic activities (01629), Self-penitentiary management (73130), Patient/Family/Caregiver Education PLAN FOR NEXT VISIT: MLD;ther ex;ROM;scar/tissue mobs;HEP SUBJECTIVE: . Pt injured L UE. Painful shoulder. R UE status quo. Functional Limitations: lifting, physical activities, recreational activities, use hand with arm at shoulder level, reaching overhead Pain: PROMIS Scales Higher is Better 06/02/2023 03/30/2023 11/04/2022 Phys Func - Score 44 (mild dysfunction) 43 (mild dysfunction) 40 (mild dysfunction) Phys Func - Percentile 27% 24% 16% Self-Eff Symptom - Score 46 (Average) 46 (Average) 42 (Average) Self-Eff Symptom - Percentile 34% 34% 21% T-scores: mean of general population = 50. 5 points is clinically meaningfully difference Percentiles provide an indication of how the patient's score ranks in relation to the general population. Higher percentile rankings indicate better function/quality of life. 50th percentile is the average of the general population and indicates half of respondents had a worse score. OBJECTIVE MEASURES WITH LEVEL OF FUNCTION: Upper Extremity Circumferential Measurements R Thumb (proximal phalanx) (cm): 5.8 cm R Index Finger (proximal phalanx) (cm): 5.5 cm R DPC (cm): 18 cm R Distal Wrist Crease (DWC) (cm): 16 cm R 8 cm above wrist (cm): 22.2 cm R 16 cm above wrist (cm): 27.4 cm R 24 cm above wrist (cm): 27.5 cm R 32 cm above wrist (cm): 32.8 cm R 40 cm above wrist (cm): 33.2 cm R 44 cm above wrist (cm): 34 cm R Upper Extremity Volume: 359.56 TREATMENT: Manual Therapy: 1: measure 2: MLD seq x 25'(proximal clearing and R UE/ R Breast) 3: PROM x 10' R shld 4: tissue mobs to R axilla x 20' Skilled Intervention: Manual skills to improve joint mobility, ROM, and decrease pain. Utilized anatomy knowledge of the therapist, and assessment of patient's response to intervention. Billing Manual TherapyTreatment Minutes: 55 Skilled Treatment Time Minutes (timed and untimed codes): 55 Total Session Time (minutes): 55 Session Start Time : 1100 Session Stop Time : 1155 Corie Sykes PT documented in this encounter [facility] 06-02-2023 Note HNO ID: [id number] Author: Shahnaz Sneed PTA Service: ? Author Type: Cop Winder Type: Progress Notes Filed: 06/02/2023 1:59 PM Note Text: Episode Visit Count: 98 Therapist That Will Accept/Oversee The Plan Of Care: Edward Start of Care Date: 09/09/20 Onset Date: 08/28/20 Patient Identified by Name and Date of : Yes REHABILITATION AND SPORTS THERAPY PHYSICAL THERAPY TREATMENT NOTE ASSESSMENT: Amber Kellogg tolerated the session with increased symptoms. She demonstrated difficulty with increase girth measurements to R UE. Visible cording to R axilla. The patient will continue to benefit from ongoing skilled physical therapy to progress toward set goals. PLAN FOR NEXT VISIT: MLD;ther ex;ROM;scar/tissue mobs;HEP SUBJECTIVE: Has been a busy and stressful week. Pain: Pain Additional Pain Information : Specific pain level not discussed in order to focus on movement/functional goals OBJECTIVE MEASURES WITH LEVEL OF FUNCTION: Upper Extremity Circumferential Measurements R Thumb (proximal phalanx) (cm): 5.8 cm R Index Finger (proximal phalanx) (cm): 5.8 cm R DPC (cm): 18.7 cm R Distal Wrist Crease (DWC) (cm): 16.5 cm R 8 cm above wrist (cm): 23 cm R 16 cm above wrist (cm): 27.8 cm R 24 cm above wrist (cm): 28.1 cm R 32 cm above wrist (cm): 32.5 cm R 40 cm above wrist (cm): 34 cm R 44 cm above wrist (cm): 35 cm R Upper Extremity Volume: 379.09 TREATMENT: Manual Therapy: 1: measure 2: MLD seq x 25'(proximal clearing and R UE/ R Breast) 3: PROM x 10' R shld 4: tissue mobs to R axilla x 20' Skilled Intervention: Manual skills to improve joint mobility, ROM, and decrease pain. Utilized anatomy knowledge of the therapist, and assessment of patient's response to intervention. [place]ing Manual TherapyTreatment Minutes: 55 Skilled Treatment Time Minutes (timed and untimed codes): 55 Total Session Time (minutes): 55 Session Start Time : 1300 Session Stop Time : 1355 Shahnaz Sneed PTA [facility] 06-02-2023 History of Present illness Narrative Episode Visit Count: 98 Therapist That Will Accept/Oversee The Plan Of Care: Edward Start of Care Date: 09/09/20 Onset Date: 08/28/20 Patient Identified by Name and Date of : Yes REHABILITATION AND SPORTS THERAPY PHYSICAL THERAPY TREATMENT NOTE ASSESSMENT: Amber Kellogg tolerated the session with increased symptoms. She demonstrated difficulty with increase girth measurements to R UE. Visible cording to R axilla. The patient will continue to benefit from ongoing skilled physical therapy to progress toward set goals. PLAN FOR NEXT VISIT: MLD;ther ex;ROM;scar/tissue mobs;HEP SUBJECTIVE: Has been a busy and stressful week. Pain: Pain Additional Pain Information : Specific pain level not discussed in order to focus on movement/functional goals OBJECTIVE MEASURES WITH LEVEL OF FUNCTION: Upper Extremity Circumferential Measurements R Thumb (proximal phalanx) (cm): 5.8 cm R Index Finger (proximal phalanx) (cm): 5.8 cm R DPC (cm): 18.7 cm R Distal Wrist Crease (DWC) (cm): 16.5 cm R 8 cm above wrist (cm): 23 cm R 16 cm above wrist (cm): 27.8 cm R 24 cm above wrist (cm): 28.1 cm R 32 cm above wrist (cm): 32.5 cm R 40 cm above wrist (cm): 34 cm R 44 cm above wrist (cm): 35 cm R Upper Extremity Volume: 379.09 TREATMENT: Manual Therapy: 1: measure 2: MLD seq x 25'(proximal clearing and R UE/ R Breast) 3: PROM x 10' R shld 4: tissue mobs to R axilla x 20' Skilled Intervention: Manual skills to improve joint mobility, ROM, and decrease pain. Utilized anatomy knowledge of the therapist, and assessment of patient's response to intervention. Billing Manual TherapyTreatment Minutes: 55 Skilled Treatment Time Minutes (timed and untimed codes): 55 Total Session Time (minutes): 55 Session Start Time : 1300 Session Stop Time : 1355 Shahnaz Sneed PTA documented in this encounter [facility] 05-30-2023 Nurse Note Pt here for injection of Lupron. Given IM in left buttocks. Pt tolerated well. Mary Jo Wang LPN documented in this encounter [facility] 05-25-2023 Note HNO ID: [id number] Author: Shahnaz Sneed PTA Service: ? Author Type: Cop Winder Type: Progress Notes Filed: 05/25/2023 1:42 PM Note Text: Episode Visit Count: 97 Therapist That Will Accept/Oversee The Plan Of Care: Edward Start of Care Date: 09/09/20 Onset Date: 08/28/20 Patient Identified by Name and Date of : Yes REHABILITATION AND SPORTS THERAPY PHYSICAL THERAPY TREATMENT NOTE ASSESSMENT: Amber Kellogg tolerated the session with no issues. She demonstrated stable girth measurements to R UE. 2 axillary cords present. The patient will continue to benefit from ongoing skilled physical therapy to progress toward set goals. PLAN FOR NEXT VISIT: MLD;ther ex;ROM;scar/tissue mobs;HEP SUBJECTIVE: Has been wearing compression as needed. Not doing stretches as much as should be Pain: Pain Additional Pain Information : Specific pain level not discussed in order to focus on movement/functional goals OBJECTIVE MEASURES WITH LEVEL OF FUNCTION: Upper Extremity Circumferential Measurements R Thumb (proximal phalanx) (cm): 5.8 cm R Index Finger (proximal phalanx) (cm): 6 cm R DPC (cm): 18 cm R Distal Wrist Crease (DWC) (cm): 16 cm R 8 cm above wrist (cm): 21.7 cm R 16 cm above wrist (cm): 26.8 cm R 24 cm above wrist (cm): 28 cm R 32 cm above wrist (cm): 32.3 cm R 40 cm above wrist (cm): 32.5 cm R 44 cm above wrist (cm): 34 cm R Upper Extremity Volume: 352.15 TREATMENT: Therapeutic Exercise: 1: chest pull: 3x10 blue band 2: supine shld flex: 4# 2x15 3: No monies: 3x10 grn band 4: diagonal sash 2x10 pink band 5: doorway pect stretch Skilled Intervention: Patient was educated in proper exercise technique and purpose for exercises. Manual Therapy: 1: measure 2: MLD seq x 25'(proximal clearing and R UE/ R Breast) 3: PROM x 10' R shld 4: tissue mobs to R axilla x 20' Skilled Intervention: Manual skills to improve joint mobility, ROM, and decrease pain. Utilized anatomy knowledge of the therapist, and assessment of patient's response to intervention. Billing Therapeutic Exercise Treatment Minutes: 10 Manual TherapyTreatment Minutes: 45 Total Session Time (minutes): 55 Session Start Time : 1245 Session Stop Time : 1340 Shahnaz Sneed PTA [facility] 05-25-2023 History of Present illness Narrative Episode Visit Count: 97 Therapist That Will Accept/Oversee The Plan Of Care: Edward Start of Care Date: 09/09/20 Onset Date: 08/28/20 Patient Identified by Name and Date of : Yes REHABILITATION AND SPORTS THERAPY PHYSICAL THERAPY TREATMENT NOTE ASSESSMENT: Amber Kellogg tolerated the session with no issues. She demonstrated stable girth measurements to R UE. 2 axillary cords present. The patient will continue to benefit from ongoing skilled physical therapy to progress toward set goals. PLAN FOR NEXT VISIT: MLD;ther ex;ROM;scar/tissue mobs;HEP SUBJECTIVE: Has been wearing compression as needed. Not doing stretches as much as should be Pain: Pain Additional Pain Information : Specific pain level not discussed in order to focus on movement/functional goals OBJECTIVE MEASURES WITH LEVEL OF FUNCTION: Upper Extremity Circumferential Measurements R Thumb (proximal phalanx) (cm): 5.8 cm R Index Finger (proximal phalanx) (cm): 6 cm R DPC (cm): 18 cm R Distal Wrist Crease (DWC) (cm): 16 cm R 8 cm above wrist (cm): 21.7 cm R 16 cm above wrist (cm): 26.8 cm R 24 cm above wrist (cm): 28 cm R 32 cm above wrist (cm): 32.3 cm R 40 cm above wrist (cm): 32.5 cm R 44 cm above wrist (cm): 34 cm R Upper Extremity Volume: 352.15 TREATMENT: Therapeutic Exercise: 1: chest pull: 3x10 blue band 2: supine shld flex: 4# 2x15 3: No monies: 3x10 grn band 4: diagonal sash 2x10 pink band 5: doorway pect stretch Skilled Intervention: Patient was educated in proper exercise technique and purpose for exercises. Manual Therapy: 1: measure 2: MLD seq x 25'(proximal clearing and R UE/ R Breast) 3: PROM x 10' R shld 4: tissue mobs to R axilla x 20' Skilled Intervention: Manual skills to improve joint mobility, ROM, and decrease pain. Utilized anatomy knowledge of the therapist, and assessment of patient's response to intervention. Billing Therapeutic Exercise Treatment Minutes: 10 Manual TherapyTreatment Minutes: 45 Total Session Time (minutes): 55 Session Start Time : 1245 Session Stop Time : 1340 Shahnaz Sneed PTA documented in this encounter [facility] 05-11-2023 Note HNO ID: [id number] Author: Corie Sykes, PT Service: ? Author Type: Physical Therapist Type: Progress Notes Filed: 05/11/2023 2:06 PM Note Text: Episode Visit Count: 96 Therapist That Will Accept/Oversee The Plan Of Care: Edward Start of Care Date: 09/09/20 Onset Date: 08/28/20 Patient Identified by Name and Date of : Yes REHABILITATION AND SPORTS THERAPY PHYSICAL THERAPY PROGRESS REPORT PLAN OF CARE UPDATE: Assessment: Amber Kellogg demonstrates moderate improvement in reaching overhead and use hand with arm at shoulder level. She has progressed toward goals. Patient continues to present with impairments in edema management, independence in exercise, overall function, posture, range of motion, soft tissue healing, strength, and symptom management that interfere with lifting, physical activities, recreational activities, use hand with arm at shoulder level, reaching overhead . Current prognosis is Good due to: positive past response to therapy . Pt with visible cording in R axilla. She will benefit from continued skilled therapy services to meet the updated goals for this plan of care as noted below. Goals for Episode of Care: created on 09/09/20 through 12/08/20 Patient able to verbalize skin care and lymphedema risk reductions: MET Patient/family independent with home exercise program including self MLD, skincare guidelines, scar massage, ROM exercises, strengthening exercises and garment instructions: MET THUS FAR Patient will increase active ROM of R shoulder to WNL to allow patient to achieve neutral postural alignment, for improved performance of ADLs.: MET Patient will decrease pain to: 08/05 : ONGOING Patient will have supple scar with no tenderness to palpation and demonstrate and understanding of scar management: ONGOING Patient/family able to verbalize all pertinent aspects of CDT: ONGOING Patient/family independent with donning/doffing compression garment and proper wearing schedule and care of garment: MET Patient Goals: increase ROM R shoulder; get compression sleeve Planned Interventions, Frequency, and Duration: , Patient to be seen for PLAN FOR NEXT VISIT: MLD;ther ex;ROM;scar/tissue mobs;HEP SUBJECTIVE: . Pt reports swelling has been stable for the most part. Functional Limitations: lifting, physical activities, recreational activities, use hand with arm at shoulder level, reaching overhead Pain: PROMIS Scales Higher is Better 03/30/2023 11/04/2022 09/09/2020 Phys Func - Score 43 (mild dysfunction) 40 (mild dysfunction) 28 (severe dysfunction) Phys Func - Percentile 24 % 16 % 1 % Self-Eff Symptom - Score 46 (Average) 42 (Average) 38 (Low) Self-Eff Symptom - Percentile 34 % 21 % 12 % T-scores: mean of general population = 50. 5 points is clinically meaningfully difference Percentiles provide an indication of how the patient's score ranks in relation to the general population. Higher percentile rankings indicate better function/quality of life. 50th percentile is the average of the general population and indicates half of respondents had a worse score. OBJECTIVE MEASURES WITH LEVEL OF FUNCTION: Upper Extremity Circumferential Measurements R Thumb (proximal phalanx) (cm): 5.8 cm R Index Finger (proximal phalanx) (cm): 5.7 cm R DPC (cm): 18 cm R Distal Wrist Crease (DWC) (cm): 16 cm R 8 cm above wrist (cm): 21.5 cm R 16 cm above wrist (cm): 27 cm R 24 cm above wrist (cm): 26.8 cm R 32 cm above wrist (cm): 32.3 cm R 40 cm above wrist (cm): 32.8 cm R 44 cm above wrist (cm): 34.1 cm R Upper Extremity Volume: 356.38 TREATMENT: Manual Therapy: 1: measure 2: MLD seq x 25'(proximal clearing and R UE/ R Breast) 3: PROM x 10' R shld 4: tissue mobs to R axilla x 20' Skilled Intervention: Manual skills to improve joint mobility, ROM, and decrease pain. Utilized anatomy knowledge of the therapist, and assessment of patient's response to intervention. Billing Manual TherapyTreatment Minutes: 55 Skilled Treatment Time Minutes (timed and untimed codes): 55 Total Session Time (minutes): 55 Session Start Time : 1100 Session Stop Time : 1155 Corie Sykes, PT [facility] 05-11-2023 History of Present illness Narrative Episode Visit Count: 96 Therapist That Will Accept/Oversee The Plan Of Care: Edward Start of Care Date: 09/09/20 Onset Date: 08/28/20 Patient Identified by Name and Date of : Yes REHABILITATION AND SPORTS THERAPY PHYSICAL THERAPY PROGRESS REPORT PLAN OF CARE UPDATE: Assessment: Amber Kellogg demonstrates moderate improvement in reaching overhead and use hand with arm at shoulder level. She has progressed toward goals. Patient continues to present with impairments in edema management, independence in exercise, overall function, posture, range of motion, soft tissue healing, strength, and symptom management that interfere with lifting, physical activities, recreational activities, use hand with arm at shoulder level, reaching overhead . Current prognosis is Good due to: positive past response to therapy . Pt with visible cording in R axilla. She will benefit from continued skilled therapy services to meet the updated goals for this plan of care as noted below. Goals for Episode of Care: created on 09/09/20 through 12/08/20 Patient able to verbalize skin care and lymphedema risk reductions: MET Patient/family independent with home exercise program including self MLD, skincare guidelines, scar massage, ROM exercises, strengthening exercises and garment instructions: MET THUS FAR Patient will increase active ROM of R shoulder to WNL to allow patient to achieve neutral postural alignment, for improved performance of ADLs.: MET Patient will decrease pain to: 2/10 : ONGOING Patient will have supple scar with no tenderness to palpation and demonstrate and understanding of scar management: ONGOING Patient/family able to verbalize all pertinent aspects of CDT: ONGOING Patient/family independent with donning/doffing compression garment and proper wearing schedule and care of garment: MET Patient Goals: increase ROM R shoulder; get compression sleeve Planned Interventions, Frequency, and Duration: , Patient to be seen for PLAN FOR NEXT VISIT: MLD;ther ex;ROM;scar/tissue mobs;HEP SUBJECTIVE: . Pt reports swelling has been stable for the most part. Functional Limitations: lifting, physical activities, recreational activities, use hand with arm at shoulder level, reaching overhead Pain: PROMIS Scales Higher is Better 03/30/2023 11/04/2022 09/09/2020 Phys Func - Score 43 (mild dysfunction) 40 (mild dysfunction) 28 (severe dysfunction) Phys Func - Percentile 24 % 16 % 1 % Self-Eff Symptom - Score 46 (Average) 42 (Average) 38 (Low) Self-Eff Symptom - Percentile 34 % 21 % 12 % T-scores: mean of general population = 50. 5 points is clinically meaningfully difference Percentiles provide an indication of how the patient's score ranks in relation to the general population. Higher percentile rankings indicate better function/quality of life. 50th percentile is the average of the general population and indicates half of respondents had a worse score. OBJECTIVE MEASURES WITH LEVEL OF FUNCTION: Upper Extremity Circumferential Measurements R Thumb (proximal phalanx) (cm): 5.8 cm R Index Finger (proximal phalanx) (cm): 5.7 cm R DPC (cm): 18 cm R Distal Wrist Crease (DWC) (cm): 16 cm R 8 cm above wrist (cm): 21.5 cm R 16 cm above wrist (cm): 27 cm R 24 cm above wrist (cm): 26.8 cm R 32 cm above wrist (cm): 32.3 cm R 40 cm above wrist (cm): 32.8 cm R 44 cm above wrist (cm): 34.1 cm R Upper Extremity Volume: 356.38 TREATMENT: Manual Therapy: 1: measure 2: MLD seq x 25'(proximal clearing and R UE/ R Breast) 3: PROM x 10' R shld 4: tissue mobs to R axilla x 20' Skilled Intervention: Manual skills to improve joint mobility, ROM, and decrease pain. Utilized anatomy knowledge of the therapist, and assessment of patient's response to intervention. Billing Manual TherapyTreatment Minutes: 55 Skilled Treatment Time Minutes (timed and untimed codes): 55 Total Session Time (minutes): 55 Session Start Time : 1100 Session Stop Time : 1155 Corie Sykes PT documented in this encounter [facility] 04-28-2023 Note HNO ID: [id number] Author: Shahnaz Sneed PTA Service: ? Author Type: Cop Winder Type: Progress Notes Filed: 04/28/2023 3:21 PM Note Text: Episode Visit Count: 95 Therapist That Will Accept/Oversee The Plan Of Care: Edward Start of Care Date: 09/09/20 Onset Date: 08/28/20 Patient Identified by Name and Date of : Yes REHABILITATION AND SPORTS THERAPY PHYSICAL THERAPY TREATMENT NOTE ASSESSMENT: Amber Kellogg tolerated the session with no issues. She demonstrated difficulty with swelling to R UE and with visible cording to R axilla. The patient will continue to benefit from ongoing skilled physical therapy to progress toward set goals. PLAN FOR NEXT VISIT: MLD;ther ex;ROM;scar/tissue mobs;HEP SUBJECTIVE: Arm feels tight at times Pain: OBJECTIVE MEASURES WITH LEVEL OF FUNCTION: Upper Extremity Circumferential Measurements R Thumb (proximal phalanx) (cm): 5.6 cm R Index Finger (proximal phalanx) (cm): 5.7 cm R DPC (cm): 17.8 cm R Distal Wrist Crease (DWC) (cm): 15.8 cm R 8 cm above wrist (cm): 21 cm R 16 cm above wrist (cm): 26.8 cm R 24 cm above wrist (cm): 27.5 cm R 32 cm above wrist (cm): 32 cm R 40 cm above wrist (cm): 32 cm R 44 cm above wrist (cm): 33 cm R Upper Extremity Volume: 336.41 TREATMENT: Manual Therapy: 1: measure 2: MLD seq x 20'(proximal clearing and R UE/ R Breast) 3: PROM x 10' R shld 4: tissue mobs to R axilla x 10' 5: STM x 10' w free up to R pec;UT;lat chest Skilled Intervention: Manual skills to improve joint mobility, ROM, and decrease pain. Utilized anatomy knowledge of the therapist, and assessment of patient's response to intervention. Billing Manual TherapyTreatment Minutes: 55 Skilled Treatment Time Minutes (timed and untimed codes): 55 Total Session Time (minutes): 55 Session Start Time : 1000 Session Stop Time : 1055 Shahnaz Sneed PTA [facility] 04-28-2023 History of Present illness Narrative Episode Visit Count: 95 Therapist That Will Accept/Oversee The Plan Of Care: Edward Start of Care Date: 09/09/20 Onset Date: 08/28/20 Patient Identified by Name and Date of : Yes REHABILITATION AND SPORTS THERAPY PHYSICAL THERAPY TREATMENT NOTE ASSESSMENT: Amber Kellogg tolerated the session with no issues. She demonstrated difficulty with swelling to R UE and with visible cording to R axilla. The patient will continue to benefit from ongoing skilled physical therapy to progress toward set goals. PLAN FOR NEXT VISIT: MLD;ther ex;ROM;scar/tissue mobs;HEP SUBJECTIVE: Arm feels tight at times Pain: OBJECTIVE MEASURES WITH LEVEL OF FUNCTION: Upper Extremity Circumferential Measurements R Thumb (proximal phalanx) (cm): 5.6 cm R Index Finger (proximal phalanx) (cm): 5.7 cm R DPC (cm): 17.8 cm R Distal Wrist Crease (DWC) (cm): 15.8 cm R 8 cm above wrist (cm): 21 cm R 16 cm above wrist (cm): 26.8 cm R 24 cm above wrist (cm): 27.5 cm R 32 cm above wrist (cm): 32 cm R 40 cm above wrist (cm): 32 cm R 44 cm above wrist (cm): 33 cm R Upper Extremity Volume: 336.41 TREATMENT: Manual Therapy: 1: measure 2: MLD seq x 20'(proximal clearing and R UE/ R Breast) 3: PROM x 10' R shld 4: tissue mobs to R axilla x 10' 5: STM x 10' w free up to R pec;UT;lat chest Skilled Intervention: Manual skills to improve joint mobility, ROM, and decrease pain. Utilized anatomy knowledge of the therapist, and assessment of patient's response to intervention. Billing Manual TherapyTreatment Minutes: 55 Skilled Treatment Time Minutes (timed and untimed codes): 55 Total Session Time (minutes): 55 Session Start Time : 1000 Session Stop Time : 1055 Shahnaz Sneed PTA documented in this encounter [facility] 04-17-2023 Note HNO ID: [id number] Author: Nicole Juarez RT(R) Service: Radiology Author Type: Technologist Type: Progress Notes Filed: 04/17/2023 3:34 PM Note Text: Radiology Service Progress Note PATIENT NAME: Amber Kellogg DATE OF SERVICE: April 17, 2023 TIME: 3:34 PM PATIENT IDENTITY VERIFICATION COMPLETED USING TWO (2) IDENTIFIERS: Name and Date of confirmed by patient verbally. FALL SCREENING: Has the patient had 2 falls in the last year or 1 fall with injury or currently using an Ambulatory Assistive Device (Walker, Cane, Wheelchair, Crutches, etc.)? No PATIENT GENDER DATA: Female. status: : No status: N/A PATIENT RELEVANT IMPLANT DATA REVIEWED: Not Applicable RADIOLOGY DEPARTMENT: Ultrasound PERIPHERAL IV DATA: Not applicable SIGNED BY: Nicole Juarez Rdms April 17, 2023 3:34 PM [facility] 04-17-2023 History of Present illness Narrative Radiology Service Progress Note PATIENT NAME: Amber Kellogg DATE OF SERVICE: April 17, 2023 TIME: 3:34 PM PATIENT IDENTITY VERIFICATION COMPLETED USING TWO (2) IDENTIFIERS: Name and Date of confirmed by patient verbally. FALL SCREENING: Has the patient had 2 falls in the last year or 1 fall with injury or currently using an Ambulatory Assistive Device (Walker, Cane, Wheelchair, Crutches, etc.)? No PATIENT GENDER DATA: Female. status: : No status: N/A PATIENT RELEVANT IMPLANT DATA REVIEWED: Not Applicable RADIOLOGY DEPARTMENT: Ultrasound PERIPHERAL IV DATA: Not applicable SIGNED BY: Nicole Juarez Rdms April 17, 2023 3:34 PM documented in this encounter [facility] 04-14-2023 Note HNO ID: [id number] Author: Shahnaz Sneed PTA Service: ? Author Type: Cop Winder Type: Progress Notes Filed: 04/14/2023 10:08 AM Note Text: Episode Visit Count: 94 Therapist That Will Accept/Oversee The Plan Of Care: Edward Start of Care Date: 09/09/20 Onset Date: 08/28/20 Patient Identified by Name and Date of : Yes REHABILITATION AND SPORTS THERAPY PHYSICAL THERAPY TREATMENT NOTE ASSESSMENT: Amber Kellogg tolerated the session with no issues. She demonstrated difficulty with shoulder discomfort from prolonged position in ER during manual Rx. The patient will continue to benefit from ongoing skilled physical therapy to progress toward set goals. PLAN FOR NEXT VISIT: MLD;ther ex;ROM;scar/tissue mobs;HEP SUBJECTIVE: Arm has been staying down for the most part Pain: OBJECTIVE MEASURES WITH LEVEL OF FUNCTION: TREATMENT: Therapeutic Exercise: 1: chest pull: 3x10 blue band 2: supine shld flex: 4# 2x15 3: No monies: 3x10 grn band 4: diagonal sash 2x10 pink band Skilled Intervention: Patient was educated in proper exercise technique and purpose for exercises. Manual Therapy: 1: measure 2: MLD seq x 20'(proximal clearing and R UE/ R Breast) 3: PROM x 5' R shld 4: tissue mobs to R axilla x 10' 5: STM x 10' w free up to R pec;UT;lat chest Skilled Intervention: Manual skills to improve joint mobility, ROM, and decrease pain. Utilized anatomy knowledge of the therapist, and assessment of patient's response to intervention. Billing Therapeutic Exercise Treatment Minutes: 10 Manual TherapyTreatment Minutes: 45 Skilled Treatment Time Minutes (timed and untimed codes): 55 Total Session Time (minutes): 55 Session Start Time : 0900 Session Stop Time : 954 Shahnaz Sneed PTA [facility] 04-14-2023 History of Present illness Narrative Episode Visit Count: 94 Therapist That Will Accept/Oversee The Plan Of Care: Edward Start of Care Date: 09/09/20 Onset Date: 08/28/20 Patient Identified by Name and Date of : Yes REHABILITATION AND SPORTS THERAPY PHYSICAL THERAPY TREATMENT NOTE ASSESSMENT: Amber Kellogg tolerated the session with no issues. She demonstrated difficulty with shoulder discomfort from prolonged position in ER during manual Rx. The patient will continue to benefit from ongoing skilled physical therapy to progress toward set goals. PLAN FOR NEXT VISIT: MLD;ther ex;ROM;scar/tissue mobs;HEP SUBJECTIVE: Arm has been staying down for the most part Pain: OBJECTIVE MEASURES WITH LEVEL OF FUNCTION: TREATMENT: Therapeutic Exercise: 1: chest pull: 3x10 blue band 2: supine shld flex: 4# 2x15 3: No monies: 3x10 grn band 4: diagonal sash 2x10 pink band Skilled Intervention: Patient was educated in proper exercise technique and purpose for exercises. Manual Therapy: 1: measure 2: MLD seq x 20'(proximal clearing and R UE/ R Breast) 3: PROM x 5' R shld 4: tissue mobs to R axilla x 10' 5: STM x 10' w free up to R pec;UT;lat chest Skilled Intervention: Manual skills to improve joint mobility, ROM, and decrease pain. Utilized anatomy knowledge of the therapist, and assessment of patient's response to intervention. Billing Therapeutic Exercise Treatment Minutes: 10 Manual TherapyTreatment Minutes: 45 Skilled Treatment Time Minutes (timed and untimed codes): 55 Total Session Time (minutes): 55 Session Start Time : 0900 Session Stop Time : 954 Shahnaz Sneed PTA documented in this encounter [facility] 04-10-2023 Note HNO ID: [id number] Author: Elza Fraga MD Service: ? Author Type: Physician Type: Progress Notes Filed: 04/17/2023 9:45 AM Note Text: Amber Kellogg is a 47 year old female who presents as a new patient to me to discuss a hysterectomy. HPI: Was previously a patient of Dr. Mitchell's. History of breast cancer. S/p mastectomy, chemo and radiation. On monthly Lupron injection and arimidex. Having hot flashes but otherwise tolerating well. She is interested in stopping medication, as she would like to minimize medication that she is on. Concerned regarding cost as well. She reports a history of normal pap smears. Had DANDC and ablation in 2019 for menorrhagia. She has had no bleeding since ablation. Not currently sexually active. OB History 2 miscarriage 2 's Recreation Worker History LMP: Ablation Age at Menarche: Age at First : Age at Menopause: Recreation Worker History Comments: Sexual Activity: Not Currently; Male Contraception: No contraception data on record PAST MEDICAL HISTORY Diagnosis Date Delayed emergence from general anesthesia Malignant neoplasm of right breast (HCC) 11/2019 PAST SURGICAL HISTORY Procedure Laterality Date BREAST BIOPSY HX Right 2019 X2 NOVEMBER AND Jan DANDC, DIAG AND/OR THERAPEUTIC 2019 ENDOMETRIAL ABLATION-TEAM TRIAL 2019 MASTECTOMY, SIMPLE, COMPLETE Right 08/28/2020 PORT REMOVAL Port-A-Cath removed 09/08/21 [facility] FAMILY HISTORY Problem Relation Age of Onset Breast Cancer Maternal Aunt Breast Cancer Maternal Grandmother Anesthesia Problems No Family History Social History Tobacco Use Smoking status: Never Smokeless tobacco: Never Vaping Use Vaping Use: Never used Substance Use Topics Alcohol use: Never Drug use: Never Current Outpatient Medications Medication Sig anastrozole (ARIMIDEX) 1 mg tablet Take 1 tablet by mouth once daily. OTC PRODUCT Vitamin A, D AND K: Take one tablet by mouth once daily. ascorbic acid (VITAMIN C ORAL) Take by mouth once daily. pregabalin (LYRICA) 25 mg capsule Take 1 capsule by mouth daily at bedtime for 5 days. Do not start before March 02, 2023. No current facility-administered medications for this visit. Allergies As of Date: 04/10/2023 (No Known Allergies) Fully Assessed 04/10/2023 REVIEW OF SYSTEMS Expanded ROS: N/A Allergies and current medication updated:Yes EXAM: BP 120/82 Wt 162 lb (73.5kg) GENERAL: pleasant, female in no apparent distress HEENT: Normocephalic and atraumatic NECK: full range of motion DERMATOLOGY: Normal and without lesions CHEST: Normal inspiratory effort NEURO: exam grossly non-focal EXTREMITIES: normal ASSESSMENT AND PLAN: Encounter Diagnosis ICD-10-CM 1. History of breast cancer Z85.3 PELVIC US [facility] US FEMALE PELVIS TRANSVAG Patient interested in either a hysterectomy with BSO, or laparoscopy BSO given history of breast cancer. Will message her oncologist to see what the recommendation is from their standpoint. Discussed r/b/a and recovery with a laparoscopic BSO. Also discussed r/b/a and recovery with a hysterectomy with BSO. 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 If not up to date with pap smear, or if cannot obtain records, patient understands she will need cervical pap smear prior to any surgery. Recommend checking pelvic US as well and order placed. Per patient if hysterectomy: July-August would be best for surgery, as well as first 2 weeks of month, given her work schedule. Elza Fraga, I spent 20 minutes in the visit, with more than 50% of the total [id number] time of the visit in counseling / coordination of care. [facility] 04-10-2023 History of Present illness Narrative Amber Kellogg is a 47 year old female who presents as a new patient to me to discuss a hysterectomy. HPI: Was previously a patient of Dr. Mitchell'norm. History of breast cancer. S/p mastectomy, chemo and radiation. On monthly Lupron injection and arimidex. Having hot flashes but otherwise tolerating well. She is interested in stopping medication, as she would like to minimize medication that she is on. Concerned regarding cost as well. She reports a history of normal pap smears. Had D&C and ablation in 2019 for menorrhagia. She has had no bleeding since ablation. Not currently sexually active. OB History 2 miscarriage 2 's Recreation Worker History LMP: Ablation Age at Menarche: Age at First : Age at Menopause: Recreation Worker History Comments: Sexual Activity: Not Currently; Male Contraception: No contraception data on record PAST MEDICAL HISTORY Diagnosis Date Delayed emergence from general anesthesia Malignant neoplasm of right breast (HCC) 11/2019 PAST SURGICAL HISTORY Procedure Laterality Date BREAST BIOPSY HX Right 2019 X2 NOVEMBER AND Jan D&C, DIAG AND/OR THERAPEUTIC 2019 ENDOMETRIAL ABLATION-TEAM TRIAL 2019 MASTECTOMY, SIMPLE, COMPLETE Right 08/28/2020 PORT REMOVAL Port-A-Cath removed 09/08/21 [facility] FAMILY HISTORY Problem Relation Age of Onset Breast Cancer Maternal Aunt Breast Cancer Maternal Grandmother Anesthesia Problems No Family History Social History Tobacco Use Smoking status: Never Smokeless tobacco: Never Vaping Use Vaping Use: Never used Substance Use Topics Alcohol use: Never Drug use: Never Current Outpatient Medications Medication Sig anastrozole (ARIMIDEX) 1 mg tablet Take 1 tablet by mouth once daily. OTC PRODUCT Vitamin A, D & K: Take one tablet by mouth once daily. ascorbic acid (VITAMIN C ORAL) Take by mouth once daily. pregabalin (LYRICA) 25 mg capsule Take 1 capsule by mouth daily at bedtime for 5 days. Do not start before March 02, 2023. No current facility-administered medications for this visit. Allergies As of Date: 04/10/2023 (No Known Allergies) Fully Assessed 04/10/2023 REVIEW OF SYSTEMS Expanded ROS: N/A Allergies and current medication updated:Yes EXAM: BP 120/82 Wt 162 lb (73.5kg) GENERAL: pleasant, female in no apparent distress HEENT: Normocephalic and atraumatic NECK: full range of motion DERMATOLOGY: Normal and without lesions CHEST: Normal inspiratory effort NEURO: exam grossly non-focal EXTREMITIES: normal ASSESSMENT AND PLAN: Encounter Diagnosis ICD-10-CM 1. History of breast cancer Z85.3 PELVIC US WHI US FEMALE PELVIS TRANSVAG Patient interested in either a hysterectomy with BSO, or laparoscopy BSO given history of breast cancer. Will message her oncologist to see what the recommendation is from their standpoint. Discussed r/b/a and recovery with a laparoscopic BSO. Also discussed r/b/a and recovery with a hysterectomy with BSO. 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 If not up to date with pap smear, or if cannot obtain records, patient understands she will need cervical pap smear prior to any surgery. Recommend checking pelvic US as well and order placed. Per patient if hysterectomy: July-August would be best for surgery, as well as first 2 weeks of month, given her work schedule. Elza Fraga, I spent 20 minutes in the visit, with more than 50% of the total [id number] time of the visit in counseling / coordination of care. documented in this encounter [facility] 04-04-2023 Nurse Note Pt here for injection of Lupron. Given IM in left buttocks. Pt tolerated well. Mary Jo Wang LPN documented in this encounter [facility] 03-30-2023 Note HNO ID: [id number] Author: Corie Sykes PT Service: ? Author Type: Physical Therapist Type: Progress Notes Filed: 03/30/2023 11:00 AM Note Text: Episode Visit Count: 93 Therapist That Will Accept/Oversee The Plan Of Care: Edward Start of Care Date: 09/09/20 Onset Date: 08/28/20 Patient Identified by Name and Date of : Yes REHABILITATION AND SPORTS THERAPY PHYSICAL THERAPY TREATMENT NOTE ASSESSMENT: Amber Kellogg tolerated the session with no issues. She demonstrated difficulty with tenderness to R pec/sternal area. Visible cord at sup/lat edge of R breast The patient will continue to benefit from ongoing skilled physical therapy to progress toward set goals. PLAN FOR NEXT VISIT: MLD;ther ex;ROM;scar/tissue mobs;HEP SUBJECTIVE: Pt reports feeling less tight after manual work last visit Pain: OBJECTIVE MEASURES WITH LEVEL OF FUNCTION: Upper Extremity Circumferential Measurements R Thumb (proximal phalanx) (cm): 5.6 cm R Index Finger (proximal phalanx) (cm): 5.8 cm R DPC (cm): 17.8 cm R Distal Wrist Crease (DWC) (cm): 16 cm R 8 cm above wrist (cm): 22 cm R 16 cm above wrist (cm): 26.8 cm R 24 cm above wrist (cm): 27 cm R 32 cm above wrist (cm): 32.1 cm R 40 cm above wrist (cm): 32.2 cm R 44 cm above wrist (cm): 33 cm R Upper Extremity Volume: 338.48 TREATMENT: Manual Therapy: 1: measure 2: MLD seq x 30'(proximal clearing and R UE/ R Breast) 3: PROM x 5' R shld 4: tissue mobs to R axilla x 10' 5: STM x 10' w free up to R pec;UT;lat chest Skilled Intervention: Manual skills to improve joint mobility, ROM, and decrease pain. Utilized anatomy knowledge of the therapist, and assessment of patient's response to intervention. Billing Manual TherapyTreatment Minutes: 55 Skilled Treatment Time Minutes (timed and untimed codes): 55 Total Session Time (minutes): 55 Session Start Time : 958 Session Stop Time : 1053 Corie Sykes, PT [facility] 03-30-2023 History of Present illness Narrative Episode Visit Count: 93 Therapist That Will Accept/Oversee The Plan Of Care: Edward Start of Care Date: 09/09/20 Onset Date: 03/05/21 Patient Identified by Name and Date of : Yes REHABILITATION AND SPORTS THERAPY PHYSICAL THERAPY TREATMENT NOTE ASSESSMENT: Amber Kellogg tolerated the session with no issues. She demonstrated difficulty with tenderness to R pec/sternal area. Visible cord at sup/lat edge of R breast The patient will continue to benefit from ongoing skilled physical therapy to progress toward set goals. PLAN FOR NEXT VISIT: MLD;ther ex;ROM;scar/tissue mobs;HEP SUBJECTIVE: Pt reports feeling less tight after manual work last visit Pain: OBJECTIVE MEASURES WITH LEVEL OF FUNCTION: Upper Extremity Circumferential Measurements R Thumb (proximal phalanx) (cm): 5.6 cm R Index Finger (proximal phalanx) (cm): 5.8 cm R DPC (cm): 17.8 cm R Distal Wrist Crease (DWC) (cm): 16 cm R 8 cm above wrist (cm): 22 cm R 16 cm above wrist (cm): 26.8 cm R 24 cm above wrist (cm): 27 cm R 32 cm above wrist (cm): 32.1 cm R 40 cm above wrist (cm): 32.2 cm R 44 cm above wrist (cm): 33 cm R Upper Extremity Volume: 338.48 TREATMENT: Manual Therapy: 1: measure 2: MLD seq x 30'(proximal clearing and R UE/ R Breast) 3: PROM x 5' R shld 4: tissue mobs to R axilla x 10' 5: STM x 10' w free up to R pec;UT;lat chest Skilled Intervention: Manual skills to improve joint mobility, ROM, and decrease pain. Utilized anatomy knowledge of the therapist, and assessment of patient's response to intervention. Billing Manual TherapyTreatment Minutes: 55 Skilled Treatment Time Minutes (timed and untimed codes): 55 Total Session Time (minutes): 55 Session Start Time : 958 Session Stop Time : 1053 Corie Sykes PT documented in this encounter [facility] 03-24-2023 Note HNO ID: [id number] Author: Shahnaz Sneed PTA Service: ? Author Type: Cop Winder Type: Progress Notes Filed: 03/24/2023 10:01 AM Note Text: Episode Visit Count: 92 Therapist That Will Accept/Oversee The Plan Of Care: Edward Start of Care Date: 09/09/20 Onset Date: 08/28/20 Patient Identified by Name and Date of : Yes REHABILITATION AND SPORTS THERAPY PHYSICAL THERAPY TREATMENT NOTE ASSESSMENT: Amber Kellogg tolerated the session with no issues. She demonstrated difficulty with tightness and tenderness to chest. The patient will continue to benefit from ongoing skilled physical therapy to progress toward set goals. PLAN FOR NEXT VISIT: MLD;ther ex;ROM;scar/tissue mobs;HEP SUBJECTIVE: Notice less fatigue and a fog with not being on nerve pill. Pain: Pain Pain Location: Axilla - Right Description: Tightness Additional Pain Information : Specific pain level not discussed in order to focus on movement/functional goals OBJECTIVE MEASURES WITH LEVEL OF FUNCTION: Upper Extremity Circumferential Measurements R Thumb (proximal phalanx) (cm): 5.7 cm R Index Finger (proximal phalanx) (cm): 5.7 cm R DPC (cm): 17.8 cm R Distal Wrist Crease (DWC) (cm): 16 cm R 8 cm above wrist (cm): 21.4 cm R 16 cm above wrist (cm): 26.5 cm R 24 cm above wrist (cm): 26.8 cm R 32 cm above wrist (cm): 32 cm R 40 cm above wrist (cm): 32.5 cm R 44 cm above wrist (cm): 32 cm R Upper Extremity Volume: 331.24 TREATMENT: Therapeutic Exercise: 1: chest pull: 3x10 blue band 2: supine shld flex: 4# 2x15 3: No monies: 3x10 grn band 6: Flys 3# 2x10 Skilled Intervention: Patient was educated in proper exercise technique and purpose for exercises. Manual Therapy: 1: measure 2: MLD seq x 30'(proximal clearing and R UE/ R Breast) 3: PROM x 5' R shld 4: tissue mobs to R axilla x 10' Skilled Intervention: Manual skills to improve joint mobility, ROM, and decrease pain. Utilized anatomy knowledge of the therapist, and assessment of patient's response to intervention. Billing Therapeutic Exercise Treatment Minutes: 15 Manual TherapyTreatment Minutes: 40 Skilled Treatment Time Minutes (timed and untimed codes): 55 Total Session Time (minutes): 55 Session Start Time : 0900 Session Stop Time : 954 Shahnaz Sneed PTA [facility] 03-24-2023 History of Present illness Narrative Episode Visit Count: 92 Therapist That Will Accept/Oversee The Plan Of Care: Edward Start of Care Date: 09/09/20 Onset Date: 08/28/20 Patient Identified by Name and Date of : Yes REHABILITATION AND SPORTS THERAPY PHYSICAL THERAPY TREATMENT NOTE ASSESSMENT: Amber Kellogg tolerated the session with no issues. She demonstrated difficulty with tightness and tenderness to chest. The patient will continue to benefit from ongoing skilled physical therapy to progress toward set goals. PLAN FOR NEXT VISIT: MLD;ther ex;ROM;scar/tissue mobs;HEP SUBJECTIVE: Notice less fatigue and a fog with not being on nerve pill. Pain: Pain Pain Location: Axilla - Right Description: Tightness Additional Pain Information : Specific pain level not discussed in order to focus on movement/functional goals OBJECTIVE MEASURES WITH LEVEL OF FUNCTION: Upper Extremity Circumferential Measurements R Thumb (proximal phalanx) (cm): 5.7 cm R Index Finger (proximal phalanx) (cm): 5.7 cm R DPC (cm): 17.8 cm R Distal Wrist Crease (DWC) (cm): 16 cm R 8 cm above wrist (cm): 21.4 cm R 16 cm above wrist (cm): 26.5 cm R 24 cm above wrist (cm): 26.8 cm R 32 cm above wrist (cm): 32 cm R 40 cm above wrist (cm): 32.5 cm R 44 cm above wrist (cm): 32 cm R Upper Extremity Volume: 331.24 TREATMENT: Therapeutic Exercise: 1: chest pull: 3x10 blue band 2: supine shld flex: 4# 2x15 3: No monies: 3x10 grn band 6: Flys 3# 2x10 Skilled Intervention: Patient was educated in proper exercise technique and purpose for exercises. Manual Therapy: 1: measure 2: MLD seq x 30'(proximal clearing and R UE/ R Breast) 3: PROM x 5' R shld 4: tissue mobs to R axilla x 10' Skilled Intervention: Manual skills to improve joint mobility, ROM, and decrease pain. Utilized anatomy knowledge of the therapist, and assessment of patient's response to intervention. Billing Therapeutic Exercise Treatment Minutes: 15 Manual TherapyTreatment Minutes: 40 Skilled Treatment Time Minutes (timed and untimed codes): 55 Total Session Time (minutes): 55 Session Start Time : 899 Session Stop Time : 954 Shahnaz Sneed PTA documented in this encounter [facility] 03-16-2023 Note HNO ID: [id number] Author: Corie Sykes PT Service: ? Author Type: Physical Therapist Type: Progress Notes Filed: 03/16/2023 2:38 PM Note Text: Episode Visit Count: 91 Therapist That Will Accept/Oversee The Plan Of Care: Edward Start of Care Date: 09/09/20 Onset Date: 08/28/20 Patient Identified by Name and Date of : Yes REHABILITATION AND SPORTS THERAPY PHYSICAL THERAPY PROGRESS REPORT PLAN OF CARE UPDATE: Assessment: Amber Kellogg demonstrates moderate improvement in reaching overhead and use hand with arm at shoulder level. She has progressed toward goals. Patient continues to present with impairments in edema management, independence in exercise, overall function, posture, range of motion, soft tissue healing, strength, symptom management, and tissue tenderness that interfere with lifting, physical activities, recreational activities, use hand with arm at shoulder level, reaching overhead . Current prognosis is Good due to: positive past response to therapy . Able to get end range motion passively in all directions. Lacking 20 degrees of abduction. Reviewed need to make time to stretch, multiple times per day. Girth measurements are stableShe will benefit from continued skilled therapy services to meet the updated goals for this plan of care as noted below. Goals for Episode of Care: created on 09/09/20 through 12/08/20 Patient able to verbalize skin care and lymphedema risk reductions: MET Patient/family independent with home exercise program including self MLD, skincare guidelines, scar massage, ROM exercises, strengthening exercises and garment instructions: MET THUS FAR Patient will increase active ROM of R shoulder to WNL to allow patient to achieve neutral postural alignment, for improved performance of ADLs.: MET Patient will decrease pain to: 2/10 : ONGOING Patient will have supple scar with no tenderness to palpation and demonstrate and understanding of scar management: ONGOING Patient/family able to verbalize all pertinent aspects of CDT: ONGOING Patient/family independent with donning/doffing compression garment and proper wearing schedule and care of garment: MET Patient Goals: increase ROM R shoulder; get compression sleeve Planned Interventions, Frequency, and Duration: 1x/week, 12 weeks Total Number of Visits Planned: 12 Patient to be seen for Therapeutic exercise (71429), Manual therapy (17248), Therapeutic activities (18031), Self-penitentiary management (49716), Patient/Family/Caregiver Education PLAN FOR NEXT VISIT: MLD;ther ex;ROM;scar/tissue mobs;HEP SUBJECTIVE: . 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 Very sore across top of chest B, the next day. Tightness persists Functional Limitations: lifting, physical activities, recreational activities, use hand with arm at shoulder level, reaching overhead Pain: PROMIS Scales Higher is Better 11/04/2022 09/09/2020 Phys Func - Score 40 (mild dysfunction) 28 (severe dysfunction) Phys Func - Percentile 16 % 1 % Self-Eff Symptom - Score 42 (Average) 38 (Low) Self-Eff Symptom - Percentile 21 % 12 % T-scores: mean of general population = 50. 5 points is clinically meaningfully difference Percentiles provide an indication of how the patient's score ranks in relation to the general population. Higher percentile rankings indicate better function/quality of life. 50th percentile is the average of the general population and indicates half of respondents had a worse score. OBJECTIVE MEASURES WITH LEVEL OF FUNCTION: Upper Extremity Circumferential Measurements R Thumb (proximal phalanx) (cm): 5.7 cm R Index Finger (proximal phalanx) (cm): 5.7 cm R DPC (cm): 18 cm R Distal Wrist Crease (DWC) (cm): 15.8 cm R 8 cm above wrist (cm): 21 cm R 16 cm above wrist (cm): 26.4 cm R 24 cm above wrist (cm): 26.5 cm R 32 cm above wrist (cm): 31.5 cm R 40 cm above wrist (cm): 32.3 cm R 44 cm above wrist (cm): 31.5 cm R Upper Extremity Volume: 324.1 TREATMENT: Manual Therapy: 1: measure 2: MLD seq x 30'(proximal clearing and R UE/ R Breast) 3: PROM x 5' R shld 4: tissue mobs to R axilla x 10' 5: STM x 10' w free up to R pec;UT;lat chest Skilled Intervention: Manual skills to improve joint mobility, ROM, and decrease pain. Utilized anatomy knowledge of the therapist, and assessment of patient's response to intervention. Billing Manual TherapyTreatment Minutes: 55 Skilled Treatment Time Minutes (timed and untimed codes): 55 Total Session Time (minutes): 55 Session Start Time : 1100 Session Stop Time : 1155 Corie Sykes PT [facility] 03-16-2023 History of Present illness Narrative Episode Visit Count: 91 Therapist That Will Accept/Oversee The Plan Of Care: Edward Start of Care Date: 09/09/20 Onset Date: 08/28/20 Patient Identified by Name and Date of : Yes REHABILITATION AND SPORTS THERAPY PHYSICAL THERAPY PROGRESS REPORT PLAN OF CARE UPDATE: Assessment: Amber Kellogg demonstrates moderate improvement in reaching overhead and use hand with arm at shoulder level. She has progressed toward goals. Patient continues to present with impairments in edema management, independence in exercise, overall function, posture, range of motion, soft tissue healing, strength, symptom management, and tissue tenderness that interfere with lifting, physical activities, recreational activities, use hand with arm at shoulder level, reaching overhead . Current prognosis is Good due to: positive past response to therapy . Able to get end range motion passively in all directions. Lacking 20 degrees of abduction. Reviewed need to make time to stretch, multiple times per day. Girth measurements are stableShe will benefit from continued skilled therapy services to meet the updated goals for this plan of care as noted below. Goals for Episode of Care: created on 09/09/20 through 12/08/20 Patient able to verbalize skin care and lymphedema risk reductions: MET Patient/family independent with home exercise program including self MLD, skincare guidelines, scar massage, ROM exercises, strengthening exercises and garment instructions: MET THUS FAR Patient will increase active ROM of R shoulder to WNL to allow patient to achieve neutral postural alignment, for improved performance of ADLs.: MET Patient will decrease pain to: 2/10 : ONGOING Patient will have supple scar with no tenderness to palpation and demonstrate and understanding of scar management: ONGOING Patient/family able to verbalize all pertinent aspects of CDT: ONGOING Patient/family independent with donning/doffing compression garment and proper wearing schedule and care of garment: MET Patient Goals: increase ROM R shoulder; get compression sleeve Planned Interventions, Frequency, and Duration: 1x/week, 12 weeks Total Number of Visits Planned: 12 Patient to be seen for Therapeutic exercise (80789), Manual therapy (10086), Therapeutic activities (74173), Self-penitentiary management (04717), Patient/Family/Caregiver Education PLAN FOR NEXT VISIT: MLD;ther ex;ROM;scar/tissue mobs;HEP SUBJECTIVE: . 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 Very sore across top of chest B, the next day. Tightness persists Functional Limitations: lifting, physical activities, recreational activities, use hand with arm at shoulder level, reaching overhead Pain: PROMIS Scales Higher is Better 11/04/2022 09/09/2020 Phys Func - Score 40 (mild dysfunction) 28 (severe dysfunction) Phys Func - Percentile 16 % 1 % Self-Eff Symptom - Score 42 (Average) 38 (Low) Self-Eff Symptom - Percentile 21 % 12 % T-scores: mean of general population = 50. 5 points is clinically meaningfully difference Percentiles provide an indication of how the patient's score ranks in relation to the general population. Higher percentile rankings indicate better function/quality of life. 50th percentile is the average of the general population and indicates half of respondents had a worse score. OBJECTIVE MEASURES WITH LEVEL OF FUNCTION: Upper Extremity Circumferential Measurements R Thumb (proximal phalanx) (cm): 5.7 cm R Index Finger (proximal phalanx) (cm): 5.7 cm R DPC (cm): 18 cm R Distal Wrist Crease (DWC) (cm): 15.8 cm R 8 cm above wrist (cm): 21 cm R 16 cm above wrist (cm): 26.4 cm R 24 cm above wrist (cm): 26.5 cm R 32 cm above wrist (cm): 31.5 cm R 40 cm above wrist (cm): 32.3 cm R 44 cm above wrist (cm): 31.5 cm R Upper Extremity Volume: 324.1 TREATMENT: Manual Therapy: 1: measure 2: MLD seq x 30'(proximal clearing and R UE/ R Breast) 3: PROM x 5' R shld 4: tissue mobs to R axilla x 10' 5: STM x 10' w free up to R pec;UT;lat chest Skilled Intervention: Manual skills to improve joint mobility, ROM, and decrease pain. Utilized anatomy knowledge of the therapist, and assessment of patient's response to intervention. Billing Manual TherapyTreatment Minutes: 55 Skilled Treatment Time Minutes (timed and untimed codes): 55 Total Session Time (minutes): 55 Session Start Time : 1100 Session Stop Time : 1155 Corie Sykes PT documented in this encounter [facility] 03-07-2023 Note HNO ID: [id number] Author: Lizbeth Wang APRN.COMMERCIAL ADMINISTRATOR Service: ? Author Type: Nurse Practitioner Type: Progress Notes Filed: 03/07/2023 3:23 PM Note Text: Chief Complaint Patient presents with: Established Patient HPI: Amber Kellogg is a 47 year old female who presents here today for follow up breast cancer. Per Dr. Montero's previous note: H/o 45 year-old premenopausal (had endometrial ablation) female who appreciated a lump in her right breast around August 2019. She was seen by her account collector who ordered imaging. The mammogram evidently did not show any obvious mass or abnormality. It was interpreted as a BI-RADS 0 study. An ultrasound was performed and it demonstrated a hypoechoic, lobulated mass in the right breast at 9:00 categorized as BI-RADS 4C. She underwent a core needle biopsy on 12/06/2019. Pathology: MICROSCOPIC DIAGNOSIS Right breast at 9 o?clock, needle core biopsy: Invasive ductal carcinoma with the following characteristics: Maximal length - 1.3 millimeters Nuclear grade - 2/3 Other findings - focal perineural invasion. ER (clone [id number]) >95%, strong intensity WV (clone 16/1E2) 85%, strong intensity Her-2Neu (clone [id number]) 0 MRI Breast at [facility] 12/16/2019: FINDINGS: RIGHT BREAST: The breast tissue is markedly dense with no background enhancement. There is a 12 mm abnormal enhancing masses seen laterally in the right breast at the postbiopsy site. This was biopsied and shown to represent a malignancy. A benign-appearing cyst is identified in the superior outer aspect measuring 13 mm. There are no additional abnormal enhancing masses or areas of non-mass enhancement in the right breast. LEFT BREAST: The breast tissue is markedly dense with no background enhancement. There are no abnormal enhancing masses or areas of non-mass enhancement in the left breast. There are no enlarged or abnormal lymph nodes. There is no abnormality in the visualized regions of the chest or liver. Patient was advised to undergo lumpectomy with sentinel lymph node biopsy. She was seen by genetic counseling at [facility] and then went to [facility] for second opinion as documented in Care Everywhere: On 01/14/2020, the certified genetic counselor from [facility] in [place], [place], Corie Flanagan, issued the following telephone encounter note in the patient's outside electronic medical record chart. They stated: Telephone Encounter - Corie Flanagan CGC - 01/13/2020 8:13 AM EDT: Called Amber to discuss her 12/05/2019; normal BRCAPlus results. No mutation was detected in any of these 8 high and moderate risk breast cancer genes. The CancerNext test is still pending. The BRCAPlus test does not include RNA testing so discussed the small possibility of finding a mutation in one of these genes with RNA testing that would be reported with the CancerNext results. Also discussed that not all hereditary causes of breast cancer are detected with this testing so there's a good possibility that the cause for her personal and family history of cancer is not known at this time. Will fax this reported to Dr. Avila. Will call Amber again when the CancerNext results are back. Amber voiced understanding. On 01/14/2020, the certified genetic counselor from [facility] in [place], [place], Corie Flanagan, issued the following telephone encounter note in the patient's outside electronic medical record chart. They stated: Telephone Encounter - Corie Flanagan CGC - 01/14/2020 5:23 PM EDT: Called Amber to discuss the CancerNext results with RNA testing. 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 The meaning of this finding is not currently known, but most variants are found to be normal once more information is learned. No mutation was detected in any of the other genes that were analyzed. Based on Amber's diagnosis of early-onset breast cancer and her family history of breast cancer including early-onset breast cancer, it?s likely that there is a hereditary cause for these cancers that cannot be detected with the testing that is currently available. Amber is not sure what her surgical plans are yet. Discussed the option of bilateral mastectomy since she has a strong personal and family history of cancer. If she has partial mastectomy, recommended that she have annual breast MRI as part of her screening once her treatment is complete. Will mail the results with a summary letter to Amber. Will fax this to her providers. Encouraged her to call with any questions. . . On 01/31/2020, the patient's outside breast imaging was reviewed by Dr. Luiz Ma of [facility] breast Radiology. They stated: ?EXAM: BREAST IMAGING SECOND OPINION READING, 01/28/2020 12:15 PM. CLINICAL INDICATIONS: 4 (more content not included)... [facility] 03-07-2023 History of Present illness Narrative Chief Complaint Patient presents with: Established Patient HPI: Amber Kellogg is a 47 year old female who presents here today for follow up breast cancer. Per Dr. Montero's previous note: H/o 45 year-old premenopausal (had endometrial ablation) female who appreciated a lump in her right breast around August 2019. She was seen by her account collector who ordered imaging. The mammogram evidently did not show any obvious mass or abnormality. It was interpreted as a BI-RADS 0 study. An ultrasound was performed and it demonstrated a hypoechoic, lobulated mass in the right breast at 9:00 categorized as BI-RADS 4C. She underwent a core needle biopsy on 12/06/2019. Pathology: MICROSCOPIC DIAGNOSIS Right breast at 9 o clock, needle core biopsy: Invasive ductal carcinoma with the following characteristics: Maximal length - 1.3 millimeters Nuclear grade - 2/3 Other findings - focal perineural invasion. ER (clone [id number]) >95%, strong intensity WV (clone 16/1E2) 85%, strong intensity Her-2Neu (clone [id number]) 0 MRI Breast at [facility] 12/16/2019: FINDINGS: RIGHT BREAST: The breast tissue is markedly dense with no background enhancement. There is a 12 mm abnormal enhancing masses seen laterally in the right breast at the postbiopsy site. This was biopsied and shown to represent a malignancy. A benign-appearing cyst is identified in the superior outer aspect measuring 13 mm. There are no additional abnormal enhancing masses or areas of non-mass enhancement in the right breast. LEFT BREAST: The breast tissue is markedly dense with no background enhancement. There are no abnormal enhancing masses or areas of non-mass enhancement in the left breast. There are no enlarged or abnormal lymph nodes. There is no abnormality in the visualized regions of the chest or liver. Patient was advised to undergo lumpectomy with sentinel lymph node biopsy. She was seen by genetic counseling at [facility] and then went to [facility] for second opinion as documented in Care Everywhere: On 01/14/2020, the certified genetic counselor from [facility] in [place], [place], Corie Flanagan, issued the following telephone encounter note in the patient's outside electronic medical record chart. They stated: Telephone Encounter - Corie Flanagan CGC - 01/13/2020 8:13 AM EDT: Called Amber to discuss her 12/05/2019; normal BRCAPlus results. No mutation was detected in any of these 8 high and moderate risk breast cancer genes. The CancerNext test is still pending. The BRCAPlus test does not include RNA testing so discussed the small possibility of finding a mutation in one of these genes with RNA testing that would be reported with the CancerNext results. Also discussed that not all hereditary causes of breast cancer are detected with this testing so there's a good possibility that the cause for her personal and family history of cancer is not known at this time. Will fax this reported to Dr. Avila. Will call Amber again when the CancerNext results are back. Amber voiced understanding. On 01/14/2020, the certified genetic counselor from [facility] in [place], [place], Corie Flanagan, issued the following telephone encounter note in the patient's outside electronic medical record chart. They stated: Telephone Encounter - Corie Flanagan CGC - 01/14/2020 5:23 PM EDT: Called Amber to discuss the CancerNext results with RNA testing. 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 The meaning of this finding is not currently known, but most variants are found to be normal once more information is learned. No mutation was detected in any of the other genes that were analyzed. Based on Amber's diagnosis of early-onset breast cancer and her family history of breast cancer including early-onset breast cancer, it s likely that there is a hereditary cause for these cancers that cannot be detected with the testing that is currently available. Amber is not sure what her surgical plans are yet. Discussed the option of bilateral mastectomy since she has a strong personal and family history of cancer. If she has partial mastectomy, recommended that she have annual breast MRI as part of her screening once her treatment is complete. Will mail the results with a summary letter to Amber. Will fax this to her providers. Encouraged her to call with any questions. . . On 01/31/2020, the patient's outside breast imaging was reviewed by Dr. Luiz Ma of [facility] breast Radiology. They stated: EXAM: BREAST IMAGING SECOND OPINION READING, 01/28/2020 12:15 PM. CLINICAL INDICATIONS: 44-year-old female here for second opinion. Patient presented at outside institution on December 05, 2019 for a palpable area of concern in her right breast. This was the patient's baseline mammogram. A right mammogram was obtained and was reported as no findings on mammography and a right breast ultrasound was requested. Right breast breast ultrasound showed a suspicious mass at the 9:00 position of the right breast measuring 12 mm x 7 mm x 8 mm. Ultrasound-guided biopsy was recommended. Biopsy was performed on December 06, 2019 under ultrasound guidance in the physician's office. Imaging was not saved from the procedure and a postbiopsy mammogram was not performed. Pathology results revealed invasive ductal carcinoma ER positive WV positive HER-2/sushant negative. MRI performed on December 14, 2019 demonstrated known malignancy in the right breast measuring 12 mm. Patient is here for second opinion. COMPARISON: No prior studies available for comparison. 12/05/2019 BILATERAL 2-D DIAGNOSTIC MAMMOGRAM FINDINGS: Breast tissue is heterogeneously dense which may limit the sensitivity of mammography. There are microcalcifications involving the majority of the lateral right breast spanning approximately 7.0 cm in anterior/posterior dimension, 3.1 cm in medial/lateral dimension and 5.0 cm in craniocaudal dimension. Otherwise there are no suspicious microcalcifications, masses or areas of architectural distortion in either breast on 2-D mammography. December 05, 2019 ULTRASOUND FINDINGS: Sonography of the 9:00 position the right breast in the palpable area of concern demonstrates a 7 mm x 8 mm x 12 mm irregular hypoechoic mass with angular margins internal vascularity and no posterior acoustic features. Sonography of the 11:00 position demonstrates a 8mm by 13 mm x 13 mm cyst. No other lesions are identified on sonography however a few select images show linear hypoechoic areas at the 12 and 3:00 position which could correspond to the suspicious microcalcifications identified on mammography. December 16, 2019 MRI FINDINGS: Bilateral MRI is nondiagnostic -it is unclear if gadolinium entered the breast. There is no note of gadolinium extravasation. Lack of gadolinium on breast MRI will underestimate extent of disease. IMPRESSION: 1. Suspicious microcalcifications involving the majority of the lateral right breast. Magnification views of the right breast were not obtained. Recommend right CC tomosynthesis, right ML tomosynthesis and magnification views of the lateral right breast in the CC and ML projection. In order to determine extent of disease, a 1-2 site right breast stereotactic biopsy will likely be necessary. 2. Status post ultrasound-guided breast biopsy of suspicious mass at the 9:00 position. Images were not saved and a post biopsy mammogram was not obtained. Evaluation of clip placement can be performed when the patient obtains her right CC and ML mammogram. 3. Outside breast MRI is nondiagnostic. There is limited or no gadolinium identified on the examination which underestimates extent of disease. . . On 01/31/2020, the patient's outside pathology was reviewed by Dr. Joaquín Zaman of [facility] pathology. They stated: Outside Slides: [id number] (12/06/19): A. Right breast at 9 o'clock, needle core biopsy: Invasive ductal carcinoma, grade 1 (score: tubule 2, nuclear 2, mitotic 1), 1.3 cm in greatest length. Manual immunohistochemical quantification using stains performed at the outside institution: Estrogen Receptor: Positive (99%, strong intensity). Progesterone Receptor: Positive (85%, strong intensity). HER2: Negative (Score 0). Submitted controls show appropriate reactivity. Comment: Additional submitted immunohistochemical stains for E-cadherin, calponin, and p40 were reviewed and support the diagnosis. . On 02/04/2020, I personally reviewed the patient's outside breast imaging with Dr. Gustavo Siddiqi of [facility] breast Radiology. Dr. Gustavo Siddiqi of [facility] breast Radiology recommended that in anticipation to the patient for any right breast stereotactic biopsy procedures, that we should repeat a right breast diagnostic digital mammogram to look at clip placement from the patient's prior right breast ultrasound-guided biopsy, as well as reassess the overall distribution of the calcifications within the right breast. Eventually underwent vacuum-assisted stereotactic biopsy of calcifications in the right breast at [facility] on 02/17/2020. Pathology of the calcifications in the right breast at the anterior medial aspect with the Top-Hat clip showed atypical ductal hyperplasia, atypical lobular hyperplasia and flat epithelial atypia. The pathology of the calcifications in the anterior medial posterior group with a stoplight clip demonstrated invasive ductal carcinoma grade 2. Ductal carcinoma in situ, low-grade. Patient did not follow-up at [facility] and then was referred to [facility] for opinion on mastectomy with reconstruction. CT Chest 07/06/2020: Lung parenchyma and airways: No consolidation. No suspicious pulmonary nodule. The central airways are patent. Pleural space: No pleural effusion. No pleural thickening. Lower neck, lymph nodes, and mediastinum: There is borderline enlargement of right axillary nodes. There is no left axillary, mediastinal, or hilar lymphadenopathy. There is a small amount of soft tissue within the anterior mediastinum likely representing some residual thymic tissue. Heart, pericardium, and thoracic vessels: The thoracic aorta and main pulmonary artery are normal in caliber. The cardiac chambers are normal in size. No coronary artery atherosclerotic calcifications are noted, although the study is not optimized for coronary assessment. No pericardial effusion or thickening. Bones and soft tissues: There is a tiny sclerotic density within the T9 vertebral body on image 82 which is probably a small bone island. Otherwise, there are no lytic or blastic changes. Upper abdomen: Discussed on a separate abdominal CT report Nurse Clinician (topogram) images: No additional findings. IMPRESSION: Mild right axillary lymphadenopathy CT A/P 07/06/2020: Liver: There are a few tiny indeterminate hypodensities within the liver. These are noted on images 19, 29, and 33 of series 1. None of these measure more than 4 mm. Biliary: No bile duct dilation. Spleen: No mass. No splenomegaly. Pancreas: No mass or duct dilation. Adrenals: No mass. Kidneys: At the superior pole of the right kidney, there is a 0.5 cm hypodensity which is too small to characterize but is probably a small cyst. Otherwise, the kidneys appear normal. GI tract: No dilation or wall thickening. Lymph nodes: No abdominal or pelvic lymphadenopathy. Mesentery/Peritoneum: No ascites or mass. Retroperitoneum: No mass. Vasculature: The celiac axis and SMA are patent. The portal vein and branches, splenic vein, SMV, and hepatic veins are patent. Pelvis: Trace free fluid is likely physiologic in nature. There are no other pelvic abnormalities. Bones/Soft Tissues: No significant finding. Lower thorax: A chest CT performed will be reported separately. Nurse Clinician (topogram) images: No additional findings. IMPRESSION: 1. Few tiny indeterminate hypodensities within the liver measuring 4 mm or less. Since the patient does have a history of malignancy, attention to these areas on subsequent examinations is recommended. 2. Tiny right renal hypodensity likely representing a small cyst. Bone scan 07/15/2020: IMPRESSION: NO SCINTIGRAPHIC EVIDENCE FOR OSSEOUS METASTATIC DISEASE. Ultimately underwent a right skin sparing mastectomy with sentinel lymph node biopsy followed by immediate right breast reconstruction using medium contour perforated AlloDerm x2 and right breast reconstruction using tissue broadcast designer on 08/28/2020. Pathology: 1. Right breast, skin sparing mastectomy (A) - Invasive ductal carcinoma, [place] Grade 3, measuring 48 mm in greatest dimension (please see synoptic report). - Ductal carcinoma in situ, nuclear grades 1 and 2, solid, cribriform and spindling types with comedo necrosis, microcalcifications and involvement of lobules. - Extensive lymphovascular space invasion is identified. - Biopsy clips X3 and biopsy site reparative changes identified. 2. [place] lymph node #1, palpable, sentinel node biopsy (B) - Metastatic carcinoma involving one lymph node (06/26); metastasis measures at least 8 mm in greatest dimension; no definitive extranodal extension identified. 3. [place] lymph node #2, [place], [id number], sentinel node biopsy (C) - Metastatic carcinoma involving two of two lymph nodes (2/2), with largest metastasis measuring at least 18 mm in greatest dimension with 3 mm of extranodal extension. 4. [place] lymph node #3, palpable, sentinel node biopsy (D) - One lymph node, negative for metastatic malignancy (0/1). 5. [place] lymph node #4, palpable, sentinel node biopsy (E) - Metastatic carcinoma involving two of two lymph nodes (2/2), largest metastasis measures at least 10 mm in greatest dimension; no definitive extranodal extension identified. 6. [place] lymph node #5, palpable, sentinel node biopsy (F) - Metastatic carcinoma involving one of one lymph node (1/1), metastasis measures 1 cm in greatest dimension; no definitive extranodal extension identified. SYNOPTIC REPORT OF JOSUE PATHOLOGIC FINDINGS BREAST MASTECTOMY RIGHT: BREAST INVASIVE CARCINOMA WORKSHEET Part: A-F Procedure: Total mastectomy (including nipple-sparing and skin-sparing mastectomy) Specimen Laterality: Right Tumor size: Size of largest invasive carcinoma: Greatest dimension of largest focus of invasion >1 mm: 48 mm Tumor Focality: Single focus of invasive carcinoma Histologic Type of Invasive Carcinoma: Invasive carcinoma of no special type (ductal, not otherwise specified) Histologic Grade: Glandular (Acinar) / Tubular Differentiation: Score 3 Nuclear Pleomorphism: Score 2 Mitotic Rate: Score 3 Overall Grade: Grade III Ductal Carcinoma In Situ: Present Negative for extensive intraductal component (EIC) Architectural Patterns: Architectural Pattern:Cribriform Architectural Pattern:Solid Architectural Pattern:Other: Spindled DCIS Nuclear Grade: Grade II (intermediate) DCIS Necrosis: Present, central (expansive comedo necrosis) Tumor Extension: Skin: Skin is present and uninvolved Nipple: Other: Invasive carcinoma and foci of LVSI involve the base of the nipple Skeletal muscle: No skeletal muscle is present Invasive Carcinoma Margins: Margins uninvolved by invasive carcinoma Distance from closest margin: 1.5 mm Closest margin: Deep Distance of invasive carcinoma to radial margin: 2.8 mm DCIS Margins: Margins uninvolved by DCIS All margins >2 mm Lymph Nodes: Involved by tumor cells Number of lymph nodes with macrometastases (>2 mm): 5 Number of lymph nodes with micrometastases (>0.2 mm to 2 mm and/or >200 cells): 1 Number of lymph nodes with isolated tumor cells (<= 0.2 mm and <= 200 cells): 0 Size of largest metastatic deposit: 18 mm Extranodal extension present >2 mm Total number of lymph nodes examined: 7 Number of sentinel nodes examined (if applicable): 7 Treatment Effect: No known presurgical therapy Lymph-Vascular Invasion: Present Pathologic Stage Classification (pTNM,AJCC 8th ed) TNM Descriptor(s): Not applicable Primary Tumor (Invasive Carcinoma) (pT): pT2 Regional Lymph Nodes (pN): Modifier: Not applicable Category (pN): pN2a Distant metastasis: Distant Metastasis (pM) Not applicable/Not confirmed pathologically in this case Estrogen & progesterone receptors: Previously performed and reported as follows: Estrogen receptor: Positive (99%, strong) Progesterone receptor: Positive (90%, strong) Specimen number #: [facility] Accesion [id number] (HER2) ERBB2 Status: Previously performed and reported as follows: HER2:Negative Previous therapy: 1) Adjuvant AC followed by T. 2) Adjuvant radiation completed 05/31/2021. Current therapy: Lupron began 06/29/21 Arimidex began 2021 S/p Right breast exchange of tissue broadcast designer for permanent implant, fat grafting to right breast, left breast skin only mastopexy for matching, liposuction bilateral thighs for donor sites on 04/08/[address] Garcia. No new concerns today. Pt. is weaning down from Lyrica per Dr. Lopez's office. Pt. cancelled CT chest in October. I needed to take a break this summer. I didn't want any appointments. Appetite: Too good. Energy level: I'm ok. Denies fevers or recent illness. Resp:denies cough or sob Cardiac:denies chest pain/palpitations GI:denies abd pain, n/v, moving bowels regularly :denies dysuria/hematuria Extrem:denies pain elsewhere Endo:+hot flashes- They are manageable. they do not wake pt. at night Neuro:denies neuropathy, I think I'm doing ok coming off of lyrica , participating in PT for R arm lymphedema, has not been wearing sleeve Skin:denies rashes/lesions Heme:denies bleeding The ROS is otherwise negative. Past medical history, appointments, medications, allergies reviewed. No changes. EXAM: BP 138/88 Pulse 76 Temp 36.7 C (98 F) (Temporal) Ht 160 cm (5' 3 ) Wt 73.5 kg (162 lb) SpO2 99% BMI 28.70 kg/m APPEARANCE Well appearing, alert, in no acute distress, well-hydrated, well nourished. HEART RRR with normal S1 and S2, no murmurs LUNG clear to auscultation BREAST FEMALE R recon/implant-no surrounding mass/nodule, L surgical scars-no mass/nodule LYMPH NODES No cervical lymphadenopathy, No supraclavicular lymphadenopathy, and No axillary lymphadenopathy. ABDOMEN bowel sounds normoactive, soft, non-tender EXTREMITIES No edema NEURO Awake, alert and oriented x 3, Normal gait, and No involuntary motions. SKIN Skin color, texture, turgor normal, no suspicious rashes or lesions ASSESSMENT/PLAN: 1. Malignant neoplasm of upper-outer quadrant of right breast in female, estrogen receptor positive (HCC) - ICD9: 174.4, V86.0, ICD10: C50.411, Z17.0 pT2 (4.8 cm; grade 3; +LVI) pN2a (5 of 7 SLN positive; 18 mm; extranodal extension present >2 mm) M0 ER/WV positive, HER2 negative stage IIIA invasive ductal carcinoma of the right breast. Per Dr. Montero's previous note: Assessment: -The patient is a 45 yo premenopausal female who underwent a right-sided skin sparing mastectomy and sentinel lymph node biopsy on 08/28/2020 for what proved to be a pT2 (4.8 cm; grade 3; +LVI) pN2a (5 of 7 SLN positive; 18 mm; extranodal extension present >2 mm) M0 ER/WV positive, HER2 negative stage IIIA invasive ductal carcinoma of the right breast. -Genetic testing done at [facility]. -Discussed with her the rationale for adjuvant endocrine therapy and recommended ovarian suppression initially with GnRH agonist Lupron followed by possible oophorectomy pending tolerance to Lupron. Also recommended AI therapy with anastrozole to begin the second month of her ovarian suppression therapy. Discussed the rationale based on the results of the soft trial. She has high risk disease as evidenced by 5 of 7 lymph nodes positive with extranodal extension, grade 3 tumor with lymphovascular invasion present and a near 5 cm tumor. I answered all of her questions to her satisfaction and she expressed an understanding and agreement to proceed with therapy. Discussed that if she is intolerant to AI therapy then we could change to tamoxifen. Plan: -Begin Lupron on 06/29. -Office visit about a month later with plans to start aromatase inhibitor at that time. -She will be due for left breast screening mammogram. Can order at time of next OV. -Repeat CT chest in about 3 months. - No concerning findings on exam. - Overall tolerating lupron/arimidex well overall except hot flashes. - L mammogram as scheduled in Mar.-ordered by surgeon. - Continue arimidex. - Continue PT for RUE lymphedema. - Follow up with Dr. Lopez as scheduled. - CT chest in October 2022-pt. cancelled-discussed rescheduling with pt. to follow lung nodules-declines to reschedule. - Follow up with [facility] as scheduled. - Lupron as scheduled today and continue monthly. - Follow up in 6 months. - Pt. aware to call office with any questions/concerns. The patient indicates understanding of these issues and agrees with the plan. All documentation from previous visit of 09/06/22-Dr. Montero/myself was copied and pasted, documentation has been reviewed and edited as necessary for today's visit. Lizbeth Wang APRN.COMMERCIAL ADMINISTRATOR documented in this encounter [facility] 03-03-2023 Note HNO ID: [id number] Author: Shahnaz Sneed PTA Service: ? Author Type: Cop Winder Type: Progress Notes Filed: 03/03/2023 9:57 AM Note Text: Episode Visit Count: 90 Therapist That Will Accept/Oversee The Plan Of Care: Edward Start of Care Date: 09/09/20 Onset Date: 08/28/20 Patient Identified by Name and Date of : Yes RE[facility]AB[facility] SPORTS THERAPY PHYSICAL THERAPY TREATMENT NOTE ASSESSMENT: Amber Kellogg tolerated the session with no issues. She demonstrated difficulty with tightness across chest and R axilla. The patient will continue to benefit from ongoing skilled physical therapy to progress toward set goals. PLAN FOR NEXT VISIT: MLD;ther ex;ROM;scar/tissue mobs;HEP SUBJECTIVE: Tired today. Weaning off Lyrica and has not been able to sleep. Pain: Pain Additional Pain Information : Specific pain level not discussed in order to focus on movement/functional goals OBJECTIVE MEASURES WITH LEVEL OF FUNCTION: Upper Extremity Circumferential Measurements R Thumb (proximal phalanx) (cm): 5.4 cm R Index Finger (proximal phalanx) (cm): 5.5 cm R DPC (cm): 18 cm R Distal Wrist Crease (DWC) (cm): 15.8 cm R 8 cm above wrist (cm): 20.8 cm R 16 cm above wrist (cm): 26.3 cm R 24 cm above wrist (cm): 26.5 cm R 32 cm above wrist (cm): 31.5 cm R 40 cm above wrist (cm): 32.5 cm R 44 cm above wrist (cm): 32.6 cm R Upper Extremity Volume: 337.42 TREATMENT: Therapeutic Exercise: 1: chest pull: 3x10 blue band 2: supine shld flex: 4# 2x15 4: chest press 4# 2x12 6: Flys 3# 2x10 Skilled Intervention: Patient was educated in proper exercise technique and purpose for exercises. Manual Therapy: 1: measure 2: MLD seq x 30'(proximal clearing and R UE/ R Breast) 3: PROM x 5' R shld 4: tissue mobs to R axilla x 10' Skilled Intervention: Manual skills to improve joint mobility, ROM, and decrease pain. Utilized anatomy knowledge of the therapist, and assessment of patient's response to intervention. Billing Therapeutic Exercise Treatment Minutes: 15 Manual TherapyTreatment Minutes: 40 Skilled Treatment Time Minutes (timed and untimed codes): 55 Total Session Time (minutes): 55 Session Start Time : 0900 Session Stop Time : 0955 Shahnaz Sneed PTA [facility] 02-23-2023 Note HNO ID: [id number] Author: Shahnaz Sneed PTA Service: ? Author Type: Cop Winder Type: Progress Notes Filed: 02/23/2023 10:01 AM Note Text: Episode Visit Count: 89 Therapist That Will Accept/Oversee The Plan Of Care: Edward Start of Care Date: 09/09/20 Onset Date: 08/28/20 Patient Identified by Name and Date of : Yes REHABILITATION AND SPORTS THERAPY PHYSICAL THERAPY TREATMENT NOTE ASSESSMENT: Amber Kellogg tolerated the session with no issues. She demonstrated ability to increase resistance with progression in bands. The patient will continue to benefit from ongoing skilled physical therapy to progress toward set goals. PLAN FOR NEXT VISIT: MLD;ther ex;ROM;scar/tissue mobs;HEP SUBJECTIVE: Wearing sleeve/glove intermittently depending on how arm looks. Pain: OBJECTIVE MEASURES WITH LEVEL OF FUNCTION: TREATMENT: Therapeutic Exercise: 1: chest pull: 3x10 blue band 2: supine shld flex: 4# 2x15 3: No monies: 3x10 grn band 4: chest press 4# 2x10 5: serratus punch: 6# x12 Skilled Intervention: Patient was educated in proper exercise technique and purpose for exercises. Manual Therapy: 1: measure 2: MLD seq x 30'(proximal clearing and R UE/ R Breast) 3: PROM x 5' R shld 4: tissue mobs to R axilla x 10' Skilled Intervention: Manual skills to improve joint mobility, ROM, and decrease pain. Utilized anatomy knowledge of the therapist, and assessment of patient's response to intervention. Billing Therapeutic Exercise Treatment Minutes: 15 Manual TherapyTreatment Minutes: 40 Total Treatment Time Minutes (timed/untimed): 55 Session Start Time : 0900 Session Stop Time : 0955 Shahnaz Sneed PTA [facility] 02-16-2023 Note HNO ID: [id number] Author: Corie Sykes, PT Service: ? Author Type: Physical Therapist Type: Progress Notes Filed: 02/16/2023 2:02 PM Note Text: Episode Visit Count: 88 Therapist That Will Accept/Oversee The Plan Of Care: Edward Start of Care Date: 09/09/20 Onset Date: 08/28/20 Patient Identified by Name and Date of : Yes REHABILITATION AND SPORTS THERAPY PHYSICAL THERAPY PROGRESS REPORT PLAN OF CARE UPDATE: Assessment: Amber Kellogg demonstrates moderate improvement in physical activities and recreational activities. She has progressed toward goals. Patient continues to present with impairments in edema management, flexibility, independence in exercise, overall function, posture, range of motion, soft tissue healing, strength, and stress management that interfere with lifting, physical activities, recreational activities, use hand with arm at shoulder level, reaching overhead . Current prognosis is Good due to: positive past response to therapy . Pt girth measurements are stable. Still lacks shoulder abduction;ER. She will benefit from continued skilled therapy services to meet the updated goals for this plan of care as noted below. Goals for Episode of Care: created on 09/09/20 through 12/08/20 Patient able to verbalize skin care and lymphedema risk reductions: MET Patient/family independent with home exercise program including self MLD, skincare guidelines, scar massage, ROM exercises, strengthening exercises and garment instructions: MET THUS FAR Patient will increase active ROM of R shoulder to WNL to allow patient to achieve neutral postural alignment, for improved performance of ADLs.: MET Patient will decrease pain to: 2/10 : ONGOING Patient will have supple scar with no tenderness to palpation and demonstrate and understanding of scar management: ONGOING Patient/family able to verbalize all pertinent aspects of CDT: ONGOING Patient/family independent with donning/doffing compression garment and proper wearing schedule and care of garment: MET Patient Goals: increase ROM R shoulder; get compression sleeve Planned Interventions, Frequency, and Duration: , Patient to be seen for Therapeutic exercise (71748), Manual therapy (97897), Therapeutic activities (58539), Self-penitentiary management (07827), Patient/Family/Caregiver Education PLAN FOR NEXT VISIT: MLD;ther ex;ROM;scar/tissue mobs;HEP SUBJECTIVE: . Pt has no new complaints. Functional Limitations: lifting, physical activities, recreational activities, use hand with arm at shoulder level, reaching overhead Pain: PROMIS Scales Higher is Better 11/04/2022 09/09/2020 Phys Func - Score 40 (mild dysfunction) 28 (severe dysfunction) Phys Func - Percentile 16 % 1 % Self-Eff Symptom - Score 42 (Average) 38 (Low) Self-Eff Symptom - Percentile 21 % 12 % T-scores: mean of general population = 50. 5 points is clinically meaningfully difference Percentiles provide an indication of how the patient's score ranks in relation to the general population. Higher percentile rankings indicate better function/quality of life. 50th percentile is the average of the general population and indicates half of respondents had a worse score. OBJECTIVE MEASURES WITH LEVEL OF FUNCTION: Upper Extremity Circumferential Measurements R Thumb (proximal phalanx) (cm): 5.7 cm R Index Finger (proximal phalanx) (cm): 5.9 cm R DPC (cm): 18.3 cm R Distal Wrist Crease (DWC) (cm): 15.7 cm R 8 cm above wrist (cm): 21.3 cm R 16 cm above wrist (cm): 26.6 cm R 24 cm above wrist (cm): 27.3 cm R 32 cm above wrist (cm): 31 cm R 40 cm above wrist (cm): 32.2 cm R 44 cm above wrist (cm): 33 cm R Upper Extremity Volume: 338.48 TREATMENT: Manual Therapy: 1: measure 2: MLD seq x 30'(proximal clearing and R UE/ R Breast) 3: PROM x 5' R shld 4: tissue mobs to R axilla x 10' Skilled Intervention: Manual skills to improve joint mobility, ROM, and decrease pain. Utilized anatomy knowledge of the therapist, and assessment of patient's response to intervention. Billing Manual TherapyTreatment Minutes: 55 Total Treatment Time Minutes (timed/untimed): 55 Session Start Time : 0900 Session Stop Time : 954 Corie Sykes, PT [facility] 02-16-2023 History of Present illness Narrative Episode Visit Count: 88 Therapist That Will Accept/Oversee The Plan Of Care: Edward Start of Care Date: 09/09/20 Onset Date: 08/28/20 Patient Identified by Name and Date of : Yes REHABILITATION AND SPORTS THERAPY PHYSICAL THERAPY PROGRESS REPORT PLAN OF CARE UPDATE: Assessment: Amber Kellogg demonstrates moderate improvement in physical activities and recreational activities. She has progressed toward goals. Patient continues to present with impairments in edema management, flexibility, independence in exercise, overall function, posture, range of motion, soft tissue healing, strength, and stress management that interfere with lifting, physical activities, recreational activities, use hand with arm at shoulder level, reaching overhead . Current prognosis is Good due to: positive past response to therapy . Pt girth measurements are stable. Still lacks shoulder abduction;ER. She will benefit from continued skilled therapy services to meet the updated goals for this plan of care as noted below. Goals for Episode of Care: created on 09/09/20 through 12/08/20 Patient able to verbalize skin care and lymphedema risk reductions: MET Patient/family independent with home exercise program including self MLD, skincare guidelines, scar massage, ROM exercises, strengthening exercises and garment instructions: MET THUS FAR Patient will increase active ROM of R shoulder to WNL to allow patient to achieve neutral postural alignment, for improved performance of ADLs.: MET Patient will decrease pain to: 2/10 : ONGOING Patient will have supple scar with no tenderness to palpation and demonstrate and understanding of scar management: ONGOING Patient/family able to verbalize all pertinent aspects of CDT: ONGOING Patient/family independent with donning/doffing compression garment and proper wearing schedule and care of garment: MET Patient Goals: increase ROM R shoulder; get compression sleeve Planned Interventions, Frequency, and Duration: , Patient to be seen for Therapeutic exercise (27704), Manual therapy (64221), Therapeutic activities (99520), Self-penitentiary management (75938), Patient/Family/Caregiver Education PLAN FOR NEXT VISIT: MLD;ther ex;ROM;scar/tissue mobs;HEP SUBJECTIVE: . Pt has no new complaints. Functional Limitations: lifting, physical activities, recreational activities, use hand with arm at shoulder level, reaching overhead Pain: PROMIS Scales Higher is Better 11/04/2022 09/09/2020 Phys Func - Score 40 (mild dysfunction) 28 (severe dysfunction) Phys Func - Percentile 16 % 1 % Self-Eff Symptom - Score 42 (Average) 38 (Low) Self-Eff Symptom - Percentile 21 % 12 % T-scores: mean of general population = 50. 5 points is clinically meaningfully difference Percentiles provide an indication of how the patient's score ranks in relation to the general population. Higher percentile rankings indicate better function/quality of life. 50th percentile is the average of the general population and indicates half of respondents had a worse score. OBJECTIVE MEASURES WITH LEVEL OF FUNCTION: Upper Extremity Circumferential Measurements R Thumb (proximal phalanx) (cm): 5.7 cm R Index Finger (proximal phalanx) (cm): 5.9 cm R DPC (cm): 18.3 cm R Distal Wrist Crease (DWC) (cm): 15.7 cm R 8 cm above wrist (cm): 21.3 cm R 16 cm above wrist (cm): 26.6 cm R 24 cm above wrist (cm): 27.3 cm R 32 cm above wrist (cm): 31 cm R 40 cm above wrist (cm): 32.2 cm R 44 cm above wrist (cm): 33 cm R Upper Extremity Volume: 338.48 TREATMENT: Manual Therapy: 1: measure 2: MLD seq x 30'(proximal clearing and R UE/ R Breast) 3: PROM x 5' R shld 4: tissue mobs to R axilla x 10' Skilled Intervention: Manual skills to improve joint mobility, ROM, and decrease pain. Utilized anatomy knowledge of the therapist, and assessment of patient's response to intervention. Billing Manual TherapyTreatment Minutes: 55 Total Treatment Time Minutes (timed/untimed): 55 Session Start Time : 899 Session Stop Time : 954 Corie Sykes PT documented in this encounter [facility] 02-10-2023 Note HNO ID: [id number] Author: Shahnaz Sneed PTA Service: ? Author Type: Cop Winder Type: Progress Notes Filed: 02/10/2023 9:59 AM Note Text: Episode Visit Count: 87 Therapist That Will Accept/Oversee The Plan Of Care: Edward Start of Care Date: 09/09/20 Onset Date: 08/28/20 Patient Identified by Name and Date of : Yes REHABILITATION AND SPORTS THERAPY PHYSICAL THERAPY TREATMENT NOTE ASSESSMENT: Amber Kellogg tolerated the session with no issues. She demonstrated stabilization of girth measurements. The patient will continue to benefit from ongoing skilled physical therapy to progress toward set goals. PLAN FOR NEXT VISIT: MLD;ther ex;ROM;scar/tissue mobs;HEP SUBJECTIVE: Has not been wearing much compression due to the heat the last 2 weeks. Has been doing self MLD daily. Pain: OBJECTIVE MEASURES WITH LEVEL OF FUNCTION: Upper Extremity Circumferential Measurements R Thumb (proximal phalanx) (cm): 5.7 cm R Index Finger (proximal phalanx) (cm): 5.6 cm R DPC (cm): 18.4 cm R Distal Wrist Crease (DWC) (cm): 15.5 cm R 8 cm above wrist (cm): 21.2 cm R 16 cm above wrist (cm): 26.4 cm R 24 cm above wrist (cm): 27 cm R 32 cm above wrist (cm): 31.5 cm R 40 cm above wrist (cm): 32.1 cm R 44 cm above wrist (cm): 33 cm R Upper Extremity Volume: 337.44 TREATMENT: Therapeutic Exercise: 1: chest pull: 3x10 grn band 2: supine shld flex: 4# 2x15 3: No monies: 3x10 grn band 4: chest press 4# 2x10 Skilled Intervention: Reviewed and educated patient on additions/changes for home exercise program Manual Therapy: 1: measure 2: MLD seq x 25'(proximal clearing and R UE/ R Breast) 3: PROM x 5' R shld 4: tissue mobs to R axilla x 10' Skilled Intervention: Manual skills to improve joint mobility, ROM, and decrease pain. Utilized anatomy knowledge of the therapist, and assessment of patient's response to intervention. Billing Therapeutic Exercise Treatment Minutes: 15 Manual TherapyTreatment Minutes: 40 Total Treatment Time Minutes (timed/untimed): 55 Session Start Time : 899 Session Stop Time : 954 Shahnaz Sneed [facility] 02-10-2023 History of Present illness Narrative Episode Visit Count: 87 Therapist That Will Accept/Oversee The Plan Of Care: Edward Start of Care Date: 09/09/20 Onset Date: 08/28/20 Patient Identified by Name and Date of : Yes REHABILITATION AND SPORTS THERAPY PHYSICAL THERAPY TREATMENT NOTE ASSESSMENT: Amber Kellogg tolerated the session with no issues. She demonstrated stabilization of girth measurements. The patient will continue to benefit from ongoing skilled physical therapy to progress toward set goals. PLAN FOR NEXT VISIT: MLD;ther ex;ROM;scar/tissue mobs;HEP SUBJECTIVE: Has not been wearing much compression due to the heat the last 2 weeks. Has been doing self MLD daily. Pain: OBJECTIVE MEASURES WITH LEVEL OF FUNCTION: Upper Extremity Circumferential Measurements R Thumb (proximal phalanx) (cm): 5.7 cm R Index Finger (proximal phalanx) (cm): 5.6 cm R DPC (cm): 18.4 cm R Distal Wrist Crease (DWC) (cm): 15.5 cm R 8 cm above wrist (cm): 21.2 cm R 16 cm above wrist (cm): 26.4 cm R 24 cm above wrist (cm): 27 cm R 32 cm above wrist (cm): 31.5 cm R 40 cm above wrist (cm): 32.1 cm R 44 cm above wrist (cm): 33 cm R Upper Extremity Volume: 337.44 TREATMENT: Therapeutic Exercise: 1: chest pull: 3x10 grn band 2: supine shld flex: 4# 2x15 3: No monies: 3x10 grn band 4: chest press 4# 2x10 Skilled Intervention: Reviewed and educated patient on additions/changes for home exercise program Manual Therapy: 1: measure 2: MLD seq x 25'(proximal clearing and R UE/ R Breast) 3: PROM x 5' R shld 4: tissue mobs to R axilla x 10' Skilled Intervention: Manual skills to improve joint mobility, ROM, and decrease pain. Utilized anatomy knowledge of the therapist, and assessment of patient's response to intervention. Billing Therapeutic Exercise Treatment Minutes: 15 Manual TherapyTreatment Minutes: 40 Total Treatment Time Minutes (timed/untimed): 55 Session Start Time : 899 Session Stop Time : 954 Shahnaz Sneed PTA documented in this encounter [facility] 02-07-2023 Note HNO ID: [id number] Author: Mary Jo Wang LPN Service: ? Author Type: ? Type: Progress Notes Filed: 02/07/2023 9:03 AM Note Text: Pt here for injection of Lupron . Given IM in left buttocks. Pt tolerated well. Mary Jo Wang LPN [facility] 02-07-2023 History of Present illness Narrative Pt here for injection of Lupron . Given IM in left buttocks. Pt tolerated well. Mary Jo Wang LPN documented in this encounter [facility] 01-26-2023 Note HNO ID: [id number] Author: Corie Sykes, PT Service: ? Author Type: Physical Therapist Type: Progress Notes Filed: 01/26/2023 11:17 AM Note Text: Episode Visit Count: 86 Therapist That Will Accept/Oversee The Plan Of Care: Edward Start of Care Date: 09/09/20 Onset Date: 08/28/20 Patient Identified by Name and Date of : Yes REHABILITATION AND SPORTS THERAPY PHYSICAL THERAPY TREATMENT NOTE ASSESSMENT: Amber Kellogg tolerated the session with no issues. She demonstrated difficulty with continued tightness in R axilla and swelling in R UE. The patient will continue to benefit from ongoing skilled physical therapy to progress toward set goals. PLAN FOR NEXT VISIT: MLD;ther ex;ROM;scar/tissue mobs;HEP SUBJECTIVE: Pt reports arm feels heavy, slightly swollen today. No pain Pain: OBJECTIVE MEASURES WITH LEVEL OF FUNCTION: Upper Extremity Circumferential Measurements R Thumb (proximal phalanx) (cm): 5.8 cm R Index Finger (proximal phalanx) (cm): 5.7 cm R DPC (cm): 18 cm R Distal Wrist Crease (DWC) (cm): 15.5 cm R 8 cm above wrist (cm): 21.2 cm R 16 cm above wrist (cm): 26.4 cm R 24 cm above wrist (cm): 26.8 cm R 32 cm above wrist (cm): 31.7 cm R 40 cm above wrist (cm): 32.3 cm R 44 cm above wrist (cm): 33.1 cm R Upper Extremity Volume: 340.56 TREATMENT: Manual Therapy: 1: measure 2: MLD seq x 35'(proximal clearing and R UE/ R Breast) 3: PROM x 5' R shld 4: tissue mobs to R axilla x 10' Skilled Intervention: Manual skills to improve joint mobility, ROM, and decrease pain. Utilized anatomy knowledge of the therapist, and assessment of patient's response to intervention. Billing Manual TherapyTreatment Minutes: 55 Total Treatment Time Minutes (timed/untimed): 55 Session Start Time : 0900 Session Stop Time : 954 Corie Sykes, PT [facility] 01-26-2023 History of Present illness Narrative Episode Visit Count: 86 Therapist That Will Accept/Oversee The Plan Of Care: Edward Start of Care Date: 09/09/20 Onset Date: 08/28/20 Patient Identified by Name and Date of : Yes REHABILITATION AND SPORTS THERAPY PHYSICAL THERAPY TREATMENT NOTE ASSESSMENT: Amber Kellogg tolerated the session with no issues. She demonstrated difficulty with continued tightness in R axilla and swelling in R UE. The patient will continue to benefit from ongoing skilled physical therapy to progress toward set goals. PLAN FOR NEXT VISIT: MLD;ther ex;ROM;scar/tissue mobs;HEP SUBJECTIVE: Pt reports arm feels heavy, slightly swollen today. No pain Pain: OBJECTIVE MEASURES WITH LEVEL OF FUNCTION: Upper Extremity Circumferential Measurements R Thumb (proximal phalanx) (cm): 5.8 cm R Index Finger (proximal phalanx) (cm): 5.7 cm R DPC (cm): 18 cm R Distal Wrist Crease (DWC) (cm): 15.5 cm R 8 cm above wrist (cm): 21.2 cm R 16 cm above wrist (cm): 26.4 cm R 24 cm above wrist (cm): 26.8 cm R 32 cm above wrist (cm): 31.7 cm R 40 cm above wrist (cm): 32.3 cm R 44 cm above wrist (cm): 33.1 cm R Upper Extremity Volume: 340.56 TREATMENT: Manual Therapy: 1: measure 2: MLD seq x 35'(proximal clearing and R UE/ R Breast) 3: PROM x 5' R shld 4: tissue mobs to R axilla x 10' Skilled Intervention: Manual skills to improve joint mobility, ROM, and decrease pain. Utilized anatomy knowledge of the therapist, and assessment of patient's response to intervention. Billing Manual TherapyTreatment Minutes: 55 Total Treatment Time Minutes (timed/untimed): 55 Session Start Time : 0900 Session Stop Time : 954 Corie Sykes PT documented in this encounter [facility] 01-12-2023 Note HNO ID: [id number] Author: Corie Sykes PT Service: ? Author Type: Physical Therapist Type: Progress Notes Filed: 01/12/2023 1:11 PM Note Text: Episode Visit Count: 85 Therapist That Will Accept/Oversee The Plan Of Care: Edward Start of Care Date: 09/09/20 Onset Date: 08/28/20 REHABILITATION AND SPORTS THERAPY PHYSICAL THERAPY PROGRESS REPORT PLAN OF CARE UPDATE: Assessment: Amber Kellogg demonstrates moderate improvement in physical activities and use hand with arm at shoulder level. She has progressed toward goals. Patient continues to present with impairments in edema management, independence in exercise, range of motion, strength, and symptom management that interfere with lifting, physical activities, recreational activities, use hand with arm at shoulder level, reaching overhead . Current prognosis is Good due to: positive past response to therapy . UE girth measurements currently stable. Will continue to work on ROM and strengthening. She will benefit from continued skilled therapy services to meet the updated goals for this plan of care as noted below. Goals for Episode of Care: created on 09/09/20 through 12/08/20 Patient able to verbalize skin care and lymphedema risk reductions: MET Patient/family independent with home exercise program including self MLD, skincare guidelines, scar massage, ROM exercises, strengthening exercises and garment instructions: MET THUS FAR Patient will increase active ROM of R shoulder to WNL to allow patient to achieve neutral postural alignment, for improved performance of ADLs.: MET Patient will decrease pain to: 08/05 : ONGOING Patient will have supple scar with no tenderness to palpation and demonstrate and understanding of scar management: ONGOING Patient/family able to verbalize all pertinent aspects of CDT: ONGOING Patient/family independent with donning/doffing compression garment and proper wearing schedule and care of garment: MET Patient Goals: increase ROM R shoulder; get compression sleeve Planned Interventions, Frequency, and Duration: , Patient to be seen for SUBJECTIVE: . Pt reports that she went camping for 5 days. Did not utilize any compression during that time with no ill effects Functional Limitations: lifting, physical activities, recreational activities, use hand with arm at shoulder level, reaching overhead Pain: PROMIS Scales Higher is Better 11/04/2022 09/09/2020 Phys Func - Score 40 (mild dysfunction) 28 (severe dysfunction) Phys Func - Percentile 16 % 1 % Self-Eff Symptom - Score 42 (Average) 38 (Low) Self-Eff Symptom - Percentile 21 % 12 % T-scores: mean of general population = 50. 5 points is clinically meaningfully difference Percentiles provide an indication of how the patient's score ranks in relation to the general population. Higher percentile rankings indicate better function/quality of life. 50th percentile is the average of the general population and indicates half of respondents had a worse score. OBJECTIVE MEASURES WITH LEVEL OF FUNCTION: Upper Extremity Circumferential Measurements R Thumb (proximal phalanx) (cm): 5.7 cm R Index Finger (proximal phalanx) (cm): 5.7 cm R DPC (cm): 17.5 cm R Distal Wrist Crease (DWC) (cm): 16.2 cm R 8 cm above wrist (cm): 20.8 cm R 16 cm above wrist (cm): 26.3 cm R 24 cm above wrist (cm): 26 cm R 32 cm above wrist (cm): 32 cm R 40 cm above wrist (cm): 31.6 cm R 44 cm above wrist (cm): 32.2 cm R Upper Extremity Volume: 324.09 TREATMENT: Manual Therapy: 1: measure 2: MLD seq x 35'(proximal clearing and R UE/ R Breast) 3: PROM x 5' R shld 4: tissue mobs to R axilla x 10' Skilled Intervention: Manual skills to improve joint mobility, ROM, and decrease pain. Utilized anatomy knowledge of the therapist, and assessment of patient's response to intervention. Billing Manual TherapyTreatment Minutes: 55 Total Treatment Time Minutes (timed/untimed): 55 Corie Sykes PT [facility] 12-30-2022 Note HNO ID: [id number] Author: Shahnaz Sneed PTA Service: ? Author Type: Cop Winder Type: Progress Notes Filed: 12/30/2022 9:59 AM Note Text: Episode Visit Count: 84 Therapist That Will Accept/Oversee The Plan Of Care: Edward Start of Care Date: 09/09/20 Onset Date: 08/28/20 Patient Identified by Name and Date of : Yes REHABILITATION AND SPORTS THERAPY PHYSICAL THERAPY TREATMENT NOTE ASSESSMENT: Amber Kellogg tolerated the session with no issues. She demonstrated difficulty with tightness to pect and axillary cording on R. The patient will continue to benefit from ongoing skilled physical therapy to progress toward set goals. PLAN FOR NEXT VISIT: MLD;ther ex SUBJECTIVE: Saw Dr. Garcia who recommended surgery to make breasts more even. Not interested in this time. Return in 6 months. Pain: Pain Additional Pain Information : Specific pain level not discussed in order to focus on movement/functional goals OBJECTIVE MEASURES WITH LEVEL OF FUNCTION: Upper Extremity Circumferential Measurements R Thumb (proximal phalanx) (cm): 6 cm R Index Finger (proximal phalanx) (cm): 6 cm R DPC (cm): 18.7 cm R Distal Wrist Crease (DWC) (cm): 16.2 cm R 8 cm above wrist (cm): 21.8 cm R 16 cm above wrist (cm): 26.5 cm R 24 cm above wrist (cm): 26.8 cm R 32 cm above wrist (cm): 31.4 cm R 40 cm above wrist (cm): 31.5 cm R 44 cm above wrist (cm): 32 cm R Upper Extremity Volume: 321.05 TREATMENT: Therapeutic Exercise: 1: chest pull: 3x10 grn band 2: supine shld flex: 4# 2x15 3: No monies: 3x10 grn band 6: serratus punch 3# 3x10 Skilled Intervention: Patient was educated in proper exercise technique and purpose for exercises. Manual Therapy: 1: measure 2: MLD seq x 25'(proximal clearing and R UE/ R Breast) 3: PROM x 5' R shld 4: tissue mobs to R axilla x 10' Skilled Intervention: Manual skills to improve joint mobility, ROM, and decrease pain. Utilized anatomy knowledge of the therapist, and assessment of patient's response to intervention. Billing Therapeutic Exercise Treatment Minutes: 15 Manual TherapyTreatment Minutes: 40 Total Treatment Time Minutes (timed/untimed): 55 Shahnaz Sneed PTA [facility] 12-30-2022 History of Present illness Narrative Episode Visit Count: 84 Therapist That Will Accept/Oversee The Plan Of Care: Edward Start of Care Date: 09/09/20 Onset Date: 08/28/20 Patient Identified by Name and Date of : Yes REHABILITATION AND SPORTS THERAPY PHYSICAL THERAPY TREATMENT NOTE ASSESSMENT: Amber Kellogg tolerated the session with no issues. She demonstrated difficulty with tightness to pect and axillary cording on R. The patient will continue to benefit from ongoing skilled physical therapy to progress toward set goals. PLAN FOR NEXT VISIT: MLD;ther ex SUBJECTIVE: Saw Dr. Garcia who recommended surgery to make breasts more even. Not interested in this time. Return in 6 months. Pain: Pain Additional Pain Information : Specific pain level not discussed in order to focus on movement/functional goals OBJECTIVE MEASURES WITH LEVEL OF FUNCTION: Upper Extremity Circumferential Measurements R Thumb (proximal phalanx) (cm): 6 cm R Index Finger (proximal phalanx) (cm): 6 cm R DPC (cm): 18.7 cm R Distal Wrist Crease (DWC) (cm): 16.2 cm R 8 cm above wrist (cm): 21.8 cm R 16 cm above wrist (cm): 26.5 cm R 24 cm above wrist (cm): 26.8 cm R 32 cm above wrist (cm): 31.4 cm R 40 cm above wrist (cm): 31.5 cm R 44 cm above wrist (cm): 32 cm R Upper Extremity Volume: 321.05 TREATMENT: Therapeutic Exercise: 1: chest pull: 3x10 grn band 2: supine shld flex: 4# 2x15 3: No monies: 3x10 grn band 6: serratus punch 3# 3x10 Skilled Intervention: Patient was educated in proper exercise technique and purpose for exercises. Manual Therapy: 1: measure 2: MLD seq x 25'(proximal clearing and R UE/ R Breast) 3: PROM x 5' R shld 4: tissue mobs to R axilla x 10' Skilled Intervention: Manual skills to improve joint mobility, ROM, and decrease pain. Utilized anatomy knowledge of the therapist, and assessment of patient's response to intervention. Billing Therapeutic Exercise Treatment Minutes: 15 Manual TherapyTreatment Minutes: 40 Total Treatment Time Minutes (timed/untimed): 55 Shahnaz Sneed PTA documented in this encounter [facility] 12-15-2022 Note HNO ID: [id number] Author: Iva Ferraro Service: ? Author Type: ? Type: Progress Notes Filed: 12/15/2022 10:19 AM Note Text: DATE OF PHOTOS: 12/15/2022 Body Part: Breasts Iva Ferraro December 15, 2022 10:19 AM [facility] 12-15-2022 Note HNO ID: [id number] Author: Shahnaz Sneed PTA Service: ? Author Type: Cop Winder Type: Progress Notes Filed: 12/15/2022 8:51 AM Note Text: Episode Visit Count: 83 Therapist That Will Accept/Oversee The Plan Of Care: Edward Start of Care Date: 09/09/20 Onset Date: 08/28/20 Patient Identified by Name and Date of : Yes REHABILITATION AND SPORTS THERAPY PHYSICAL THERAPY TREATMENT NOTE ASSESSMENT: Amber Kellogg tolerated the session with no issues. She demonstrated difficulty with increase girth to R UE; no pain. The patient will continue to benefit from ongoing skilled physical therapy to progress toward set goals. PLAN FOR NEXT VISIT: MLD;ther ex SUBJECTIVE: Muscle soreness from being out [place] boat with family. To see Dr. Garcia after PT, and will need to leave a little early to get to appointment on time. Pain: Pain Pain Level: 0 OBJECTIVE MEASURES WITH LEVEL OF FUNCTION: Upper Extremity Circumferential Measurements R Thumb (proximal phalanx) (cm): 6 cm R Index Finger (proximal phalanx) (cm): 6 cm R DPC (cm): 18.6 cm R Distal Wrist Crease (DWC) (cm): 16 cm R 8 cm above wrist (cm): 21.8 cm R 16 cm above wrist (cm): 26.4 cm R 24 cm above wrist (cm): 26.4 cm R 32 cm above wrist (cm): 31 cm R 40 cm above wrist (cm): 31.5 cm R 44 cm above wrist (cm): 31.5 cm R Upper Extremity Volume: 316 TREATMENT: Therapeutic Exercise: 1: chest pull: 3x10 grn band 3: No monies: 3x10 grn band 5: Flys: 2# x10 Skilled Intervention: Patient was educated in proper exercise technique and purpose for exercises. Manual Therapy: 1: measure 2: MLD seq x 30'(proximal clearing and R UE/ R Breast) 4: tissue mobs w dycem to R axilla x 10' Skilled Intervention: Manual skills to improve joint mobility, ROM, and decrease pain. Utilized anatomy knowledge of the therapist, and assessment of patient's response to intervention. Billing Therapeutic Exercise Treatment Minutes: 10 Manual TherapyTreatment Minutes: 40 Total Treatment Time Minutes (timed/untimed): 50 Shahnaz Sneed PTA [facility] 12-15-2022 History of Present illness Narrative DATE OF PHOTOS: 12/15/2022 Body Part: Breasts Iva Ferraro December 15, 2022 10:19 AM documented in this encounter [facility] 12-15-2022 Note HNO ID: [id number] Author: Quin Garcia MD Service: ? Author Type: Physician Type: Progress Notes Filed: 12/15/2022 10:41 AM Note Text: Plastic Surgery Note CC: Post op HPI: Amber is a 47 year old female. 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 She states that her therapist has also been helping for her breast -She is not interested in any additional surgeries at this time. -No symptoms or signs of infection (no N/V/F/C, no wound drainage and no new redness) O: Right breast implant in place Left breast soft, no evidence of hematoma or seroma Bilateral breast incisions well approximated, no erythema, no drainage, no s/s of infection The wounds are dry and intact with no s/s infection BP 138/80 Pulse 77 Temp 36.9 ?C (98.4 ?F) A/P: S/p right breast tissue broadcast designer removal and implant placement and left breast mastopexy -Expected post operative course -Discussed doing a mastopexy on the left side in the future with fat grafting. Patient is not interested in additional surgeries at this time but will reach out when ready to proceed. -Photos today -If experiencing wound complications or have any questions or concerns during business hours call [phone], option 3 or after hours (after 5 pm or on the weekend) call [phone] and ask for the plastic surgery resident / fellow instrumentation engineering technician for further instructions. If you have increasing swelling or bruising, particularly one side greater than the other. If swelling and redness persists after a few days. If you have increased redness along the incision. If you have severe or increased pain not relieved by medication. If you have an oral temperature of 100.4 degrees or higher. If you have any yellow or greenish drainage from the incisions or notice a foul smell. If you have bleeding from the incisions that is difficult to control with light pressure. -Follow up in 6 months or sooner if needed The patient is seen and examined by Dr. Garcia and the following reflects her service. Scribed by Riya Posada RN I agree with the Chief Complaint, ROS, and Past Histories independently gathered by the clinical technology support analyst and the remaining scribed note accurately describes my personal service to the patient. I spent 20 minutes in the visit, with more than 50% of the total [id number] time of the visit in counseling / coordination of care. I discussed left mastopexy and right breast implant exchange (wider and lower profile) and fat grafting to the right. She wants to hold off for now. Quin Garcia MD [facility] 12-15-2022 History of Present illness Narrative Episode Visit Count: 83 Therapist That Will Accept/Oversee The Plan Of Care: Edward Start of Care Date: 09/09/20 Onset Date: 08/28/20 Patient Identified by Name and Date of : Yes REHABILITATION AND SPORTS THERAPY PHYSICAL THERAPY TREATMENT NOTE ASSESSMENT: Amber Kellogg tolerated the session with no issues. She demonstrated difficulty with increase girth to R UE; no pain. The patient will continue to benefit from ongoing skilled physical therapy to progress toward set goals. PLAN FOR NEXT VISIT: MLD;ther ex SUBJECTIVE: Muscle soreness from being out on boat with family. To see Dr. Garcia after PT, and will need to leave a little early to get to appointment on time. Pain: Pain Pain Level: 0 OBJECTIVE MEASURES WITH LEVEL OF FUNCTION: Upper Extremity Circumferential Measurements R Thumb (proximal phalanx) (cm): 6 cm R Index Finger (proximal phalanx) (cm): 6 cm R DPC (cm): 18.6 cm R Distal Wrist Crease (DWC) (cm): 16 cm R 8 cm above wrist (cm): 21.8 cm R 16 cm above wrist (cm): 26.4 cm R 24 cm above wrist (cm): 26.4 cm R 32 cm above wrist (cm): 31 cm R 40 cm above wrist (cm): 31.5 cm R 44 cm above wrist (cm): 31.5 cm R Upper Extremity Volume: 316 TREATMENT: Therapeutic Exercise: 1: chest pull: 3x10 grn band 3: No monies: 3x10 grn band 5: Flys: 2# x10 Skilled Intervention: Patient was educated in proper exercise technique and purpose for exercises. Manual Therapy: 1: measure 2: MLD seq x 30'(proximal clearing and R UE/ R Breast) 4: tissue mobs w dycem to R axilla x 10' Skilled Intervention: Manual skills to improve joint mobility, ROM, and decrease pain. Utilized anatomy knowledge of the therapist, and assessment of patient's response to intervention. Billing Therapeutic Exercise Treatment Minutes: 10 Manual TherapyTreatment Minutes: 40 Total Treatment Time Minutes (timed/untimed): 50 Shahnaz Sneed PTA documented in this encounter [facility] 12-15-2022 History of Present illness Narrative Plastic Surgery Note CC: Post op HPI: Amber is a 47 year old female. 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 She states that her therapist has also been helping for her breast -She is not interested in any additional surgeries at this time. -No symptoms or signs of infection (no N/V/F/C, no wound drainage and no new redness) O: Right breast implant in place Left breast soft, no evidence of hematoma or seroma Bilateral breast incisions well approximated, no erythema, no drainage, no s/s of infection The wounds are dry and intact with no s/s infection BP 138/80 Pulse 77 Temp 36.9 C (98.4 F) A/P: S/p right breast tissue broadcast designer removal and implant placement and left breast mastopexy -Expected post operative course -Discussed doing a mastopexy on the left side in the future with fat grafting. Patient is not interested in additional surgeries at this time but will reach out when ready to proceed. -Photos today -If experiencing wound complications or have any questions or concerns during business hours call [phone], option 3 or after hours (after 5 pm or on the weekend) call [phone] and ask for the plastic surgery resident / fellow instrumentation engineering technician for further instructions. If you have increasing swelling or bruising, particularly one side greater than the other. If swelling and redness persists after a few days. If you have increased redness along the incision. If you have severe or increased pain not relieved by medication. If you have an oral temperature of 100.4 degrees or higher. If you have any yellow or greenish drainage from the incisions or notice a foul smell. If you have bleeding from the incisions that is difficult to control with light pressure. -Follow up in 6 months or sooner if needed The patient is seen and examined by Dr. Garcia and the following reflects her service. Scribed by Riya Posada RN I agree with the Chief Complaint, ROS, and Past Histories independently gathered by the clinical technology support analyst and the remaining scribed note accurately describes my personal service to the patient. I spent 20 minutes in the visit, with more than 50% of the total [id number] time of the visit in counseling / coordination of care. I discussed left mastopexy and right breast implant exchange (wider and lower profile) and fat grafting to the right. She wants to hold off for now. Quin Garcia MD documented in this encounter [facility] 12-08-2022 Note HNO ID: [id number] Author: Corie Sykes PT Service: ? Author Type: Physical Therapist Type: Progress Notes Filed: 12/08/2022 9:59 AM Note Text: Episode Visit Count: 82 Therapist That Will Accept/Oversee The Plan Of Care: Edward Start of Care Date: 09/09/20 Onset Date: 08/28/20 REHABILITATION AND SPORTS THERAPY PHYSICAL THERAPY PROGRESS REPORT PLAN OF CARE UPDATE: Assessment: Amber Kellogg demonstrates moderate improvement in lifting, physical activities, and recreational activities. She has progressed toward goals. Patient continues to present with impairments in edema management, overall function, posture, range of motion, and soft tissue healing that interfere with lifting, physical activities, recreational activities, use hand with arm at shoulder level, reaching overhead . Current prognosis is Good due to: positive past response to therapy . Pt with decreased girth measurements in R UE. Still with axillary cording in R axilla. Able to get end range motion in all directions except abduction. She will benefit from continued skilled therapy services to meet the updated goals for this plan of care as noted below. Goals for Episode of Care: created on 09/09/20 through 12/08/20 Patient able to verbalize skin care and lymphedema risk reductions: MET Patient/family independent with home exercise program including self MLD, skincare guidelines, scar massage, ROM exercises, strengthening exercises and garment instructions: MET THUS FAR Patient will increase active ROM of R shoulder to WNL to allow patient to achieve neutral postural alignment, for improved performance of ADLs.: MET Patient will decrease pain to: 10 : ONGOING Patient will have supple scar with no tenderness to palpation and demonstrate and understanding of scar management: ONGOING Patient/family able to verbalize all pertinent aspects of CDT: ONGOING Patient/family independent with donning/doffing compression garment and proper wearing schedule and care of garment: MET Patient Goals: increase ROM R shoulder; get compression sleeve Planned Interventions, Frequency, and Duration: 1x/week, 12 weeks Total Number of Visits Planned: 12 Patient to be seen for Therapeutic exercise (17468), Manual therapy (20177), Therapeutic activities (03706), Self-penitentiary management (62574), Patient/Family/Caregiver Education PLAN FOR NEXT VISIT: MLD;ther ex SUBJECTIVE: . Pt feeling tight in arm and axilla. Functional Limitations: lifting, physical activities, recreational activities, use hand with arm at shoulder level, reaching overhead Pain: PROMIS Scales Higher is Better 11/04/2022 09/09/2020 Phys Func - Score 40 (mild dysfunction) 28 (severe dysfunction) Phys Func - Percentile 16 % 1 % Self-Eff Symptom - Score 42 (Average) 38 (Low) Self-Eff Symptom - Percentile 21 % 12 % T-scores: mean of general population = 50. 5 points is clinically meaningfully difference Percentiles provide an indication of how the patient's score ranks in relation to the general population. Higher percentile rankings indicate better function/quality of life. 50th percentile is the average of the general population and indicates half of respondents had a worse score. OBJECTIVE MEASURES WITH LEVEL OF FUNCTION: Upper Extremity Circumferential Measurements R Thumb (proximal phalanx) (cm): 6 cm R Index Finger (proximal phalanx) (cm): 5.7 cm R DPC (cm): 18.7 cm R Distal Wrist Crease (DWC) (cm): 15.7 cm R 8 cm above wrist (cm): 21.2 cm R 16 cm above wrist (cm): 26 cm R 24 cm above wrist (cm): 25.9 cm R 32 cm above wrist (cm): 31 cm R 40 cm above wrist (cm): 31 cm R 44 cm above wrist (cm): 31.3 cm R Upper Extremity Volume: 309.02 TREATMENT: Manual Therapy: 1: measure 2: MLD seq x 35'(proximal clearing and R UE/ R Breast) 3: PROM x 5' R shld 4: tissue mobs w dycem to R axilla x 10' Skilled Intervention: Manual skills to improve joint mobility, ROM, and decrease pain. Utilized anatomy knowledge of the therapist, and assessment of patient's response to intervention. Billing Manual TherapyTreatment Minutes: 55 Total Treatment Time Minutes (timed/untimed): 55 Corie Sykes, PT [facility] 12-08-2022 History of Present illness Narrative Episode Visit Count: 82 Therapist That Will Accept/Oversee The Plan Of Care: Edward Start of Care Date: 09/09/20 Onset Date: 08/28/20 REHABILITATION AND SPORTS THERAPY PHYSICAL THERAPY PROGRESS REPORT PLAN OF CARE UPDATE: Assessment: Amber Kellogg demonstrates moderate improvement in lifting, physical activities, and recreational activities. She has progressed toward goals. Patient continues to present with impairments in edema management, overall function, posture, range of motion, and soft tissue healing that interfere with lifting, physical activities, recreational activities, use hand with arm at shoulder level, reaching overhead . Current prognosis is Good due to: positive past response to therapy . Pt with decreased girth measurements in R UE. Still with axillary cording in R axilla. Able to get end range motion in all directions except abduction. She will benefit from continued skilled therapy services to meet the updated goals for this plan of care as noted below. Goals for Episode of Care: created on 09/09/20 through 12/08/20 Patient able to verbalize skin care and lymphedema risk reductions: MET Patient/family independent with home exercise program including self MLD, skincare guidelines, scar massage, ROM exercises, strengthening exercises and garment instructions: MET THUS FAR Patient will increase active ROM of R shoulder to WNL to allow patient to achieve neutral postural alignment, for improved performance of ADLs.: MET Patient will decrease pain to: 08/05 : ONGOING Patient will have supple scar with no tenderness to palpation and demonstrate and understanding of scar management: ONGOING Patient/family able to verbalize all pertinent aspects of CDT: ONGOING Patient/family independent with donning/doffing compression garment and proper wearing schedule and care of garment: MET Patient Goals: increase ROM R shoulder; get compression sleeve Planned Interventions, Frequency, and Duration: 1x/week, 12 weeks Total Number of Visits Planned: 12 Patient to be seen for Therapeutic exercise (84482), Manual therapy (24857), Therapeutic activities (41248), Self-penitentiary management (97240), Patient/Family/Caregiver Education PLAN FOR NEXT VISIT: MLD;ther ex SUBJECTIVE: . Pt feeling tight in arm and axilla. Functional Limitations: lifting, physical activities, recreational activities, use hand with arm at shoulder level, reaching overhead Pain: PROMIS Scales Higher is Better 11/04/2022 09/09/2020 Phys Func - Score 40 (mild dysfunction) 28 (severe dysfunction) Phys Func - Percentile 16 % 1 % Self-Eff Symptom - Score 42 (Average) 38 (Low) Self-Eff Symptom - Percentile 21 % 12 % T-scores: mean of general population = 50. 5 points is clinically meaningfully difference Percentiles provide an indication of how the patient's score ranks in relation to the general population. Higher percentile rankings indicate better function/quality of life. 50th percentile is the average of the general population and indicates half of respondents had a worse score. OBJECTIVE MEASURES WITH LEVEL OF FUNCTION: Upper Extremity Circumferential Measurements R Thumb (proximal phalanx) (cm): 6 cm R Index Finger (proximal phalanx) (cm): 5.7 cm R DPC (cm): 18.7 cm R Distal Wrist Crease (DWC) (cm): 15.7 cm R 8 cm above wrist (cm): 21.2 cm R 16 cm above wrist (cm): 26 cm R 24 cm above wrist (cm): 25.9 cm R 32 cm above wrist (cm): 31 cm R 40 cm above wrist (cm): 31 cm R 44 cm above wrist (cm): 31.3 cm R Upper Extremity Volume: 309.02 TREATMENT: Manual Therapy: 1: measure 2: MLD seq x 35'(proximal clearing and R UE/ R Breast) 3: PROM x 5' R shld 4: tissue mobs w dycem to R axilla x 10' Skilled Intervention: Manual skills to improve joint mobility, ROM, and decrease pain. Utilized anatomy knowledge of the therapist, and assessment of patient's response to intervention. Billing Manual TherapyTreatment Minutes: 55 Total Treatment Time Minutes (timed/untimed): 55 Corie Sykes PT documented in this encounter [facility] 12-01-2022 Note HNO ID: [id number] Author: Shahnaz Sneed PTA Service: ? Author Type: Cop Winder Type: Progress Notes Filed: 12/01/2022 2:57 PM Note Text: Episode Visit Count: 81 Therapist That Will Accept/Oversee The Plan Of Care: Edward Start of Care Date: 09/09/20 Onset Date: 08/28/20 Patient Identified by Name and Date of : Yes REHABILITATION AND SPORTS THERAPY PHYSICAL THERAPY TREATMENT NOTE ASSESSMENT: Amber Kellogg tolerated the session with increased symptoms. She demonstrated difficulty with R hand pain with prolonged use of holding dumb zamudio. The patient will continue to benefit from ongoing skilled physical therapy to progress toward set goals. PLAN FOR NEXT VISIT: MLD;ther ex SUBJECTIVE: Feeling tight today. Not doing stretches like should be doing. Likes the corner and foam roller stretch, but just has not been doing. Pain: Pain Pain Level: 2 Pain Location: Axilla - Right Description: Tightness Frequency: Intermittent OBJECTIVE MEASURES WITH LEVEL OF FUNCTION: Upper Extremity Circumferential Measurements R Thumb (proximal phalanx) (cm): 5.8 cm R Index Finger (proximal phalanx) (cm): 6 cm R DPC (cm): 18.5 cm R Distal Wrist Crease (DWC) (cm): 16.2 cm R 8 cm above wrist (cm): 21.8 cm R 16 cm above wrist (cm): 26.7 cm R 24 cm above wrist (cm): 27.5 cm R 32 cm above wrist (cm): 31.6 cm R 40 cm above wrist (cm): 32.4 cm R 44 cm above wrist (cm): 32.5 cm R Upper Extremity Volume: 335.35 TREATMENT: Therapeutic Exercise: 1: chest pull: 3x10 grn band 2: supine shld flex: 4# 2x15 3: No monies: 3x10 grn band 4: chest press: 4# 2x15 5: Flys: 2# x10 Skilled Intervention: Patient was educated in proper exercise technique and purpose for exercises. Manual Therapy: 1: measure 2: MLD seq x 25'(proximal clearing and R UE/ R Breast) 5: STM x 10 w free up Skilled Intervention: Manual skills to improve joint mobility, ROM, and decrease pain. Utilized anatomy knowledge of the therapist, and assessment of patient's response to intervention. Billing Therapeutic Exercise Treatment Minutes: 20 Manual TherapyTreatment Minutes: 35 Total Treatment Time Minutes (timed/untimed): 55 Shahnaz Sneed PTA [facility] 12-01-2022 History of Present illness Narrative Episode Visit Count: 81 Therapist That Will Accept/Oversee The Plan Of Care: Edward Start of Care Date: 09/09/20 Onset Date: 08/28/20 Patient Identified by Name and Date of : Yes REHABILITATION AND SPORTS THERAPY PHYSICAL THERAPY TREATMENT NOTE ASSESSMENT: Amber Kellogg tolerated the session with increased symptoms. She demonstrated difficulty with R hand pain with prolonged use of holding dumb zamudio. The patient will continue to benefit from ongoing skilled physical therapy to progress toward set goals. PLAN FOR NEXT VISIT: MLD;ther ex SUBJECTIVE: Feeling tight today. Not doing stretches like should be doing. Likes the corner and foam roller stretch, but just has not been doing. Pain: Pain Pain Level: 2 Pain Location: Axilla - Right Description: Tightness Frequency: Intermittent OBJECTIVE MEASURES WITH LEVEL OF FUNCTION: Upper Extremity Circumferential Measurements R Thumb (proximal phalanx) (cm): 5.8 cm R Index Finger (proximal phalanx) (cm): 6 cm R DPC (cm): 18.5 cm R Distal Wrist Crease (DWC) (cm): 16.2 cm R 8 cm above wrist (cm): 21.8 cm R 16 cm above wrist (cm): 26.7 cm R 24 cm above wrist (cm): 27.5 cm R 32 cm above wrist (cm): 31.6 cm R 40 cm above wrist (cm): 32.4 cm R 44 cm above wrist (cm): 32.5 cm R Upper Extremity Volume: 335.35 TREATMENT: Therapeutic Exercise: 1: chest pull: 3x10 grn band 2: supine shld flex: 4# 2x15 3: No monies: 3x10 grn band 4: chest press: 4# 2x15 5: Flys: 2# x10 Skilled Intervention: Patient was educated in proper exercise technique and purpose for exercises. Manual Therapy: 1: measure 2: MLD seq x 25'(proximal clearing and R UE/ R Breast) 5: STM x 10 w free up Skilled Intervention: Manual skills to improve joint mobility, ROM, and decrease pain. Utilized anatomy knowledge of the therapist, and assessment of patient's response to intervention. Billing Therapeutic Exercise Treatment Minutes: 20 Manual TherapyTreatment Minutes: 35 Total Treatment Time Minutes (timed/untimed): 55 Shahnaz Sneed PTA documented in this encounter [facility] 11-29-2022 Nurse Note Pt here for injection of Lupron. Given IM in left buttocks. Pt tolerated well. Mary Jo Wang LPN documented in this encounter [facility] 11-18-2022 Note HNO ID: [id number] Author: Shahnaz Sneed PTA Service: ? Author Type: Cop Winder Type: Progress Notes Filed: 11/18/2022 11:00 AM Note Text: Episode Visit Count: 80 Therapist That Will Accept/Oversee The Plan Of Care: Edward Start of Care Date: 09/09/20 Onset Date: 08/28/20 Patient Identified by Name and Date of : Yes REHABILITATION AND SPORTS THERAPY PHYSICAL THERAPY TREATMENT NOTE ASSESSMENT: Amber Kellogg tolerated the session with no issues. She demonstrated difficulty with increase in girth measurements to R UE including hand. The patient will continue to benefit from ongoing skilled physical therapy to progress toward set goals. PLAN FOR NEXT VISIT: MLD;ther ex SUBJECTIVE: Fell asleep a few times this week without putting on tubigrip at night. Pain: Pain Additional Pain Information : Specific pain level not discussed in order to focus on movement/functional goals OBJECTIVE MEASURES WITH LEVEL OF FUNCTION: Upper Extremity Circumferential Measurements R Thumb (proximal phalanx) (cm): 5.7 cm R Index Finger (proximal phalanx) (cm): 6 cm R DPC (cm): 18.8 cm R Distal Wrist Crease (DWC) (cm): 16.2 cm R 8 cm above wrist (cm): 21.8 cm R 16 cm above wrist (cm): 26.7 cm R 24 cm above wrist (cm): 27.5 cm R 32 cm above wrist (cm): 31.8 cm R 40 cm above wrist (cm): 32.2 cm R 44 cm above wrist (cm): 32.7 cm R Upper Extremity Volume: 335.36 TREATMENT: Therapeutic Exercise: 1: chest pull: 3x10 grn band 2: supine shld flex: 4# 2x15 3: No monies: 2x10 grn band 4: chest press: 4# 2x15 Skilled Intervention: Patient was educated in proper exercise technique and purpose for exercises. Manual Therapy: 1: measure 2: MLD seq x 25'(proximal clearing and R UE/ R Breast) 3: PROM x 5' R shld 5: STM x 10 w free up Skilled Intervention: Manual skills to improve joint mobility, ROM, and decrease pain. Utilized anatomy knowledge of the therapist, and assessment of patient's response to intervention. Billing Therapeutic Exercise Treatment Minutes: 15 Manual TherapyTreatment Minutes: 40 Total Treatment Time Minutes (timed/untimed): 55 Shahnaz Sneed PTA [facility] 11-04-2022 Note HNO ID: [id number] Author: Shahnaz Sneed PTA Service: ? Author Type: Cop Winder Type: Progress Notes Filed: 11/04/2022 2:00 PM Note Text: Episode Visit Count: 79 Therapist That Will Accept/Oversee The Plan Of Care: Edward Start of Care Date: 09/09/20 Onset Date: 08/28/20 Patient Identified by Name and Date of : Yes REHABILITATION AND SPORTS THERAPY PHYSICAL THERAPY TREATMENT NOTE ASSESSMENT: Amber Kellogg tolerated the session with Episode Visit Count: 79 Therapist That Will Accept/Oversee The Plan Of Care: Edward Start of Care Date: 09/09/20 Onset Date: 08/28/20 Patient Identified by Name and Date of : Yes REHABILITATION AND SPORTS THERAPY PHYSICAL THERAPY TREATMENT NOTE ASSESSMENT: Amber Kellogg tolerated the session with fatigue. She demonstrated fatigue with therapeutic exercises with some R shoulder discomfort.. The patient will continue to benefit from ongoing skilled physical therapy to progress toward set goals. PLAN FOR NEXT VISIT: MLD;ther ex SUBJECTIVE: Swelling has not been bad this week Pain: Pain Additional Pain Information : Specific pain level not discussed in order to focus on movement/functional goals OBJECTIVE MEASURES WITH LEVEL OF FUNCTION: Upper Extremity Circumferential Measurements R Thumb (proximal phalanx) (cm): 5.7 cm R Index Finger (proximal phalanx) (cm): 6.1 cm R DPC (cm): 19 cm R Distal Wrist Crease (DWC) (cm): 16.2 cm R 8 cm above wrist (cm): 21.8 cm R 16 cm above wrist (cm): 27 cm R 24 cm above wrist (cm): 27 cm R 32 cm above wrist (cm): 31.4 cm R 40 cm above wrist (cm): 31.8 cm R 44 cm above wrist (cm): 32 cm R Upper Extremity Volume: 324.08 TREATMENT: Therapeutic Exercise: 1: chest pull: 3x10 grn band 2: supine shld flex: 4# 2x15 3: No monies: 2x10 orange band 4: chest press: 4# 2x15 Skilled Intervention: Patient was educated in proper exercise technique and purpose for exercises. Manual Therapy: 1: measure 2: MLD seq x 25'(proximal clearing and R UE/ R Breast) 3: PROM x 5' R shld 5: STM x 10 w free up Skilled Intervention: Manual skills to improve joint mobility, ROM, and decrease pain. Utilized anatomy knowledge of the therapist, and assessment of patient's response to intervention. Billing Therapeutic Exercise Treatment Minutes: 15 Manual TherapyTreatment Minutes: 40 Total Treatment Time Minutes (timed/untimed): 55 Shahnaz Sneed PTA [facility] 11-01-2022 Nurse Note Lupron injection administered, right buttock,tolerated well, no immediate adverse reactions noted. Shelia Dan LPN documented in this encounter [facility] 10-27-2022 Note HNO ID: [id number] Author: Corie Sykes, PT Service: ? Author Type: Physical Therapist Type: Progress Notes Filed: 10/27/2022 12:17 PM Note Text: Episode Visit Count: 78 Therapist That Will Accept/Oversee The Plan Of Care: Edward Start of Care Date: 09/09/20 Onset Date: 08/28/20 REHABILITATION AND SPORTS THERAPY PHYSICAL THERAPY PROGRESS REPORT PLAN OF CARE UPDATE: Assessment: Amber Kellogg demonstrates difficulty with swelling in L UE. She has progressed toward goals. Patient continues to present with impairments in edema management that interfere with lifting, physical activities, recreational activities, use hand with arm at shoulder level, reaching overhead . Current prognosis is Good due to: positive past response to therapy . Pt with increased girth measurements this morning. Decreased tissue mobility in R axilla/chest wall. She will benefit from continued skilled therapy services to meet the updated goals for this plan of care as noted below. Goals for Episode of Care: created on 09/09/20 through 12/08/20 Patient able to verbalize skin care and lymphedema risk reductions: MET Patient/family independent with home exercise program including self MLD, skincare guidelines, scar massage, ROM exercises, strengthening exercises and garment instructions: MET THUS FAR Patient will increase active ROM of R shoulder to WNL to allow patient to achieve neutral postural alignment, for improved performance of ADLs.: MET Patient will decrease pain to: 2/10 : ONGOING Patient will have supple scar with no tenderness to palpation and demonstrate and understanding of scar management: ONGOING Patient/family able to verbalize all pertinent aspects of CDT: ONGOING Patient/family independent with donning/doffing compression garment and proper wearing schedule and care of garment: MET Patient Goals: increase ROM R shoulder; get compression sleeve Planned Interventions, Frequency, and Duration: , Patient to be seen for PLAN FOR NEXT VISIT: MLD;ther ex SUBJECTIVE: . Pt feeling tired. Feels like her arm might be a bit more swollen Functional Limitations: lifting, physical activities, recreational activities, use hand with arm at shoulder level, reaching overhead Pain: PROMIS Scales Higher is Better 09/09/2020 Phys Func - Score 28 (severe dysfunction) Phys Func - Percentile 1 % Self-Eff Symptom - Score 38 (Low) Self-Eff Symptom - Percentile 12 % T-scores: mean of general population = 50. 5 points is clinically meaningfully difference Percentiles provide an indication of how the patient's score ranks in relation to the general population. Higher percentile rankings indicate better function/quality of life. 50th percentile is the average of the general population and indicates half of respondents had a worse score. OBJECTIVE MEASURES WITH LEVEL OF FUNCTION: Upper Extremity Circumferential Measurements R Thumb (proximal phalanx) (cm): 5.7 cm R Index Finger (proximal phalanx) (cm): 5.6 cm R DPC (cm): 18.8 cm R Distal Wrist Crease (DWC) (cm): 15.6 cm R 8 cm above wrist (cm): 21.6 cm R 16 cm above wrist (cm): 26.4 cm R 24 cm above wrist (cm): 25.4 cm R 32 cm above wrist (cm): 30.8 cm R 40 cm above wrist (cm): 31.2 cm R 44 cm above wrist (cm): 32 cm R Upper Extremity Volume: 318.03 TREATMENT: Therapeutic Exercise: 1: chest pull: 3x10 grn band 2: supine shld flex: 4# 2x15` 3: No monies: 2x10 orange band 4: chest press: 4# 2x15 Skilled Intervention: Patient was educated in proper exercise technique and purpose for exercises. Manual Therapy: 1: measure 2: MLD seq x 25'(proximal clearing and R UE/ R Breast) 3: PROM x 5' R shld 5: STM x 10 w free up Skilled Intervention: Manual skills to improve joint mobility, ROM, and decrease pain. Utilized anatomy knowledge of the therapist, and assessment of patient's response to intervention. Billing Therapeutic Exercise Treatment Minutes: 15 Manual TherapyTreatment Minutes: 40 Total Treatment Time Minutes (timed/untimed): 55 Corie Sykes, PT [facility] 10-27-2022 History of Present illness Narrative Episode Visit Count: 78 Therapist That Will Accept/Oversee The Plan Of Care: Edward Start of Care Date: 09/09/20 Onset Date: 08/28/20 REHABILITATION AND SPORTS THERAPY PHYSICAL THERAPY PROGRESS REPORT PLAN OF CARE UPDATE: Assessment: Amber Kellogg demonstrates difficulty with swelling in L UE. She has progressed toward goals. Patient continues to present with impairments in edema management that interfere with lifting, physical activities, recreational activities, use hand with arm at shoulder level, reaching overhead . Current prognosis is Good due to: positive past response to therapy . Pt with increased girth measurements this morning. Decreased tissue mobility in R axilla/chest wall. She will benefit from continued skilled therapy services to meet the updated goals for this plan of care as noted below. Goals for Episode of Care: created on 09/09/20 through 12/08/20 Patient able to verbalize skin care and lymphedema risk reductions: MET Patient/family independent with home exercise program including self MLD, skincare guidelines, scar massage, ROM exercises, strengthening exercises and garment instructions: MET THUS FAR Patient will increase active ROM of R shoulder to WNL to allow patient to achieve neutral postural alignment, for improved performance of ADLs.: MET Patient will decrease pain to: 210 : ONGOING Patient will have supple scar with no tenderness to palpation and demonstrate and understanding of scar management: ONGOING Patient/family able to verbalize all pertinent aspects of CDT: ONGOING Patient/family independent with donning/doffing compression garment and proper wearing schedule and care of garment: MET Patient Goals: increase ROM R shoulder; get compression sleeve Planned Interventions, Frequency, and Duration: , Patient to be seen for PLAN FOR NEXT VISIT: MLD;ther ex SUBJECTIVE: . Pt feeling tired. Feels like her arm might be a bit more swollen Functional Limitations: lifting, physical activities, recreational activities, use hand with arm at shoulder level, reaching overhead Pain: PROMIS Scales Higher is Better 09/09/2020 Phys Func - Score 28 (severe dysfunction) Phys Func - Percentile 1 % Self-Eff Symptom - Score 38 (Low) Self-Eff Symptom - Percentile 12 % T-scores: mean of general population = 50. 5 points is clinically meaningfully difference Percentiles provide an indication of how the patient's score ranks in relation to the general population. Higher percentile rankings indicate better function/quality of life. 50th percentile is the average of the general population and indicates half of respondents had a worse score. OBJECTIVE MEASURES WITH LEVEL OF FUNCTION: Upper Extremity Circumferential Measurements R Thumb (proximal phalanx) (cm): 5.7 cm R Index Finger (proximal phalanx) (cm): 5.6 cm R DPC (cm): 18.8 cm R Distal Wrist Crease (DWC) (cm): 15.6 cm R 8 cm above wrist (cm): 21.6 cm R 16 cm above wrist (cm): 26.4 cm R 24 cm above wrist (cm): 25.4 cm R 32 cm above wrist (cm): 30.8 cm R 40 cm above wrist (cm): 31.2 cm R 44 cm above wrist (cm): 32 cm R Upper Extremity Volume: 318.03 TREATMENT: Therapeutic Exercise: 1: chest pull: 3x10 grn band 2: supine shld flex: 4# 2x15` 3: No monies: 2x10 orange band 4: chest press: 4# 2x15 Skilled Intervention: Patient was educated in proper exercise technique and purpose for exercises. Manual Therapy: 1: measure 2: MLD seq x 25'(proximal clearing and R UE/ R Breast) 3: PROM x 5' R shld 5: STM x 10 w free up Skilled Intervention: Manual skills to improve joint mobility, ROM, and decrease pain. Utilized anatomy knowledge of the therapist, and assessment of patient's response to intervention. Billing Therapeutic Exercise Treatment Minutes: 15 Manual TherapyTreatment Minutes: 40 Total Treatment Time Minutes (timed/untimed): 55 Corie Sykes PT documented in this encounter [facility] 10-14-2022 Note HNO ID: [id number] Author: Shahnaz Sneed PTA Service: ? Author Type: Cop Winder Type: Progress Notes Filed: 10/14/2022 2:28 PM Note Text: Episode Visit Count: 77 Therapist That Will Accept/Oversee The Plan Of Care: Edward Start of Care Date: 09/09/20 Onset Date: 08/28/20 Patient Identified by Name and Date of : Yes REHABILITATION AND SPORTS THERAPY PHYSICAL THERAPY TREATMENT NOTE ASSESSMENT: Amber Kellogg tolerated the session with no issues. She demonstrated difficulty with swelling to R UE. Firm to medial upper arm. The patient will continue to benefit from ongoing skilled physical therapy to progress toward set goals. PLAN FOR NEXT VISIT: MLD;ther ex SUBJECTIVE: Has been so tired this week, has fallen asleep before bandaging arm. Pain: Pain Additional Pain Information : Specific pain level not discussed in order to focus on movement/functional goals OBJECTIVE MEASURES WITH LEVEL OF FUNCTION: TREATMENT: Therapeutic Exercise: 1: chest pull: 3x10 grn band 2: supine shld flex: 4# 2x15` 3: No monies: 2x10 orange band 4: chest press: 4# 2x15 Skilled Intervention: Patient was educated in proper exercise technique and purpose for exercises. Manual Therapy: 1: measure 2: MLD seq x 25'(proximal clearing and R UE/ R Breast) 3: PROM x 5' R shld 5: STM x 10 w free up Skilled Intervention: Manual skills to improve joint mobility, ROM, and decrease pain. Utilized anatomy knowledge of the therapist, and assessment of patient's response to intervention. Billing Therapeutic Exercise Treatment Minutes: 15 Manual TherapyTreatment Minutes: 40 Total Treatment Time Minutes (timed/untimed): 55 Shahnaz Sneed [facility] 10-14-2022 History of Present illness Narrative Episode Visit Count: 77 Therapist That Will Accept/Oversee The Plan Of Care: Edward Start of Care Date: 09/09/20 Onset Date: 08/28/20 Patient Identified by Name and Date of : Yes REHABILITATION AND SPORTS THERAPY PHYSICAL THERAPY TREATMENT NOTE ASSESSMENT: Amber Kellogg tolerated the session with no issues. She demonstrated difficulty with swelling to R UE. Firm to medial upper arm. The patient will continue to benefit from ongoing skilled physical therapy to progress toward set goals. PLAN FOR NEXT VISIT: MLD;ther ex SUBJECTIVE: Has been so tired this week, has fallen asleep before bandaging arm. Pain: Pain Additional Pain Information : Specific pain level not discussed in order to focus on movement/functional goals OBJECTIVE MEASURES WITH LEVEL OF FUNCTION: TREATMENT: Therapeutic Exercise: 1: chest pull: 3x10 grn band 2: supine shld flex: 4# 2x15` 3: No monies: 2x10 orange band 4: chest press: 4# 2x15 Skilled Intervention: Patient was educated in proper exercise technique and purpose for exercises. Manual Therapy: 1: measure 2: MLD seq x 25'(proximal clearing and R UE/ R Breast) 3: PROM x 5' R shld 5: STM x 10 w free up Skilled Intervention: Manual skills to improve joint mobility, ROM, and decrease pain. Utilized anatomy knowledge of the therapist, and assessment of patient's response to intervention. Billing Therapeutic Exercise Treatment Minutes: 15 Manual TherapyTreatment Minutes: 40 Total Treatment Time Minutes (timed/untimed): 55 Shahnaz Sneed PTA documented in this encounter [facility] 10-07-2022 Note HNO ID: [id number] Author: Shahnaz Sneed PTA Service: ? Author Type: Cop Winder Type: Progress Notes Filed: 10/07/2022 1:16 PM Note Text: Episode Visit Count: 76 Therapist That Will Accept/Oversee The Plan Of Care: Edward Start of Care Date: 09/09/20 Onset Date: 08/28/20 Patient Identified by Name and Date of : Yes REHABILITATION AND SPORTS THERAPY PHYSICAL THERAPY TREATMENT NOTE ASSESSMENT: Amber Kellogg tolerated the session with no issues. She demonstrated improvements in girth measurements to R UE. Palpable and visible cording x 2 noted. The patient will continue to benefit from ongoing skilled physical therapy to progress toward set goals. PLAN FOR NEXT VISIT: MLD;ther ex SUBJECTIVE: Has been using SSB to bandage arm some because of increase in swelling. Pain: OBJECTIVE MEASURES WITH LEVEL OF FUNCTION: Upper Extremity Circumferential Measurements R Thumb (proximal phalanx) (cm): 5.9 cm R Index Finger (proximal phalanx) (cm): 5.8 cm R DPC (cm): 18 cm R Distal Wrist Crease (DWC) (cm): 15.2 cm R 8 cm above wrist (cm): 20.4 cm R 16 cm above wrist (cm): 25.2 cm R 24 cm above wrist (cm): 25.4 cm R 32 cm above wrist (cm): 29.5 cm R 40 cm above wrist (cm): 29.7 cm R 44 cm above wrist (cm): 30.8 cm R Upper Extremity Volume: 291.45 TREATMENT: Therapeutic Exercise: 1: chest pull: 2x10 grn band 2: supine shld flex: 2# x15 3: No monies: x10 orange band Skilled Intervention: Patient was educated in proper exercise technique and purpose for exercises. Manual Therapy: 1: measure 2: MLD seq x 25'(proximal clearing and R UE/ R Breast) 3: PROM x 5' R shld 5: STM x 10 w free up Skilled Intervention: Manual skills to improve joint mobility, ROM, and decrease pain. Utilized anatomy knowledge of the therapist, and assessment of patient's response to intervention. Billing Therapeutic Exercise Treatment Minutes: 10 Manual TherapyTreatment Minutes: 45 Total Treatment Time Minutes (timed/untimed): 55 Shahnaz Sneed PTA [facility] 10-07-2022 History of Present illness Narrative Episode Visit Count: 76 Therapist That Will Accept/Oversee The Plan Of Care: Edward Start of Care Date: 09/09/20 Onset Date: 08/28/20 Patient Identified by Name and Date of : Yes REHABILITATION AND SPORTS THERAPY PHYSICAL THERAPY TREATMENT NOTE ASSESSMENT: Amber Kellogg tolerated the session with no issues. She demonstrated improvements in girth measurements to R UE. Palpable and visible cording x 2 noted. The patient will continue to benefit from ongoing skilled physical therapy to progress toward set goals. PLAN FOR NEXT VISIT: MLD;ther ex SUBJECTIVE: Has been using SSB to bandage arm some because of increase in swelling. Pain: OBJECTIVE MEASURES WITH LEVEL OF FUNCTION: Upper Extremity Circumferential Measurements R Thumb (proximal phalanx) (cm): 5.9 cm R Index Finger (proximal phalanx) (cm): 5.8 cm R DPC (cm): 18 cm R Distal Wrist Crease (DWC) (cm): 15.2 cm R 8 cm above wrist (cm): 20.4 cm R 16 cm above wrist (cm): 25.2 cm R 24 cm above wrist (cm): 25.4 cm R 32 cm above wrist (cm): 29.5 cm R 40 cm above wrist (cm): 29.7 cm R 44 cm above wrist (cm): 30.8 cm R Upper Extremity Volume: 291.45 TREATMENT: Therapeutic Exercise: 1: chest pull: 2x10 grn band 2: supine shld flex: 2# x15 3: No monies: x10 orange band Skilled Intervention: Patient was educated in proper exercise technique and purpose for exercises. Manual Therapy: 1: measure 2: MLD seq x 25'(proximal clearing and R UE/ R Breast) 3: PROM x 5' R shld 5: STM x 10 w free up Skilled Intervention: Manual skills to improve joint mobility, ROM, and decrease pain. Utilized anatomy knowledge of the therapist, and assessment of patient's response to intervention. Billing Therapeutic Exercise Treatment Minutes: 10 Manual TherapyTreatment Minutes: 45 Total Treatment Time Minutes (timed/untimed): 55 Shahnaz Sneed PTA documented in this encounter [facility] 09-29-2022 Note HNO ID: [id number] Author: Corie Sykes PT Service: ? Author Type: Physical Therapist Type: Progress Notes Filed: 09/29/2022 1:34 PM Note Text: Episode Visit Count: 75 Therapist That Will Accept/Oversee The Plan Of Care: Edward Start of Care Date: 09/09/20 Onset Date: 08/28/20 REHABILITATION AND SPORTS THERAPY PHYSICAL THERAPY PROGRESS REPORT PLAN OF CARE UPDATE: Assessment: Amber Kellogg demonstrates moderate improvement in reaching overhead. She has progressed toward goals. Patient continues to present with impairments in edema management, independence in exercise, overall function, posture, range of motion, soft tissue healing, strength, and tissue tenderness that interfere with lifting, physical activities, recreational activities, use hand with arm at shoulder level, reaching overhead . Current prognosis is Good due to: positive past response to therapy . Pt with increased girth in R UE. She will benefit from continued skilled therapy services to meet the updated goals for this plan of care as noted below. Goals for Episode of Care: created on 09/09/20 through 12/08/20 Patient able to verbalize skin care and lymphedema risk reductions: MET Patient/family independent with home exercise program including self MLD, skincare guidelines, scar massage, ROM exercises, strengthening exercises and garment instructions: MET THUS FAR Patient will increase active ROM of R shoulder to WNL to allow patient to achieve neutral postural alignment, for improved performance of ADLs.: MET Patient will decrease pain to: 2/10 : ONGOING Patient will have supple scar with no tenderness to palpation and demonstrate and understanding of scar management: ONGOING Patient/family able to verbalize all pertinent aspects of CDT: ONGOING Patient/family independent with donning/doffing compression garment and proper wearing schedule and care of garment: MET Patient Goals: increase ROM R shoulder; get compression sleeve Planned Interventions, Frequency, and Duration: , Patient to be seen for PLAN FOR NEXT VISIT: MLD;ther ex SUBJECTIVE: . Pt forgot to bring tubigrip in for us to look at. Functional Limitations: lifting, physical activities, recreational activities, use hand with arm at shoulder level, reaching overhead Pain: PROMIS Scales Higher is Better 09/09/2020 Phys Func - Score 28 (severe dysfunction) Phys Func - Percentile 1 % Self-Eff Symptom - Score 38 (Low) Self-Eff Symptom - Percentile 12 % T-scores: mean of general population = 50. 5 points is clinically meaningfully difference Percentiles provide an indication of how the patient's score ranks in relation to the general population. Higher percentile rankings indicate better function/quality of life. 50th percentile is the average of the general population and indicates half of respondents had a worse score. OBJECTIVE MEASURES WITH LEVEL OF FUNCTION: Upper Extremity Circumferential Measurements R Thumb (proximal phalanx) (cm): 5.9 cm R Index Finger (proximal phalanx) (cm): 5.7 cm R DPC (cm): 18.2 cm R Distal Wrist Crease (DWC) (cm): 15.4 cm R 8 cm above wrist (cm): 21 cm R 16 cm above wrist (cm): 25.4 cm R 24 cm above wrist (cm): 25.2 cm R 32 cm above wrist (cm): 29.8 cm R 40 cm above wrist (cm): 29.7 cm R 44 cm above wrist (cm): 31.5 cm R Upper Extremity Volume: 298.29 TREATMENT: Manual Therapy: 1: measure 2: MLD seq x 25'(proximal clearing and R UE/ R Breast) 3: PROM x 5' R shld 4: tissue mobs w dycem to R axilla x 10' 5: STM x 10 w free up Skilled Intervention: Manual skills to improve joint mobility, ROM, and decrease pain. Utilized anatomy knowledge of the therapist, and assessment of patient's response to intervention. Billing Manual TherapyTreatment Minutes: 55 Total Treatment Time Minutes (timed/untimed): 55 Corie Sykes, PT [facility] 09-29-2022 History of Present illness Narrative Episode Visit Count: 75 Therapist That Will Accept/Oversee The Plan Of Care: Edward Start of Care Date: 09/09/20 Onset Date: 08/28/20 REHABILITATION AND SPORTS THERAPY PHYSICAL THERAPY PROGRESS REPORT PLAN OF CARE UPDATE: Assessment: Amber Kellogg demonstrates moderate improvement in reaching overhead. She has progressed toward goals. Patient continues to present with impairments in edema management, independence in exercise, overall function, posture, range of motion, soft tissue healing, strength, and tissue tenderness that interfere with lifting, physical activities, recreational activities, use hand with arm at shoulder level, reaching overhead . Current prognosis is Good due to: positive past response to therapy . Pt with increased girth in R UE. She will benefit from continued skilled therapy services to meet the updated goals for this plan of care as noted below. Goals for Episode of Care: created on 09/09/20 through 12/08/20 Patient able to verbalize skin care and lymphedema risk reductions: MET Patient/family independent with home exercise program including self MLD, skincare guidelines, scar massage, ROM exercises, strengthening exercises and garment instructions: MET THUS FAR Patient will increase active ROM of R shoulder to WNL to allow patient to achieve neutral postural alignment, for improved performance of ADLs.: MET Patient will decrease pain to: 2/10 : ONGOING Patient will have supple scar with no tenderness to palpation and demonstrate and understanding of scar management: ONGOING Patient/family able to verbalize all pertinent aspects of CDT: ONGOING Patient/family independent with donning/doffing compression garment and proper wearing schedule and care of garment: MET Patient Goals: increase ROM R shoulder; get compression sleeve Planned Interventions, Frequency, and Duration: , Patient to be seen for PLAN FOR NEXT VISIT: MLD;ther ex SUBJECTIVE: . Pt forgot to bring tubigrip in for us to look at. Functional Limitations: lifting, physical activities, recreational activities, use hand with arm at shoulder level, reaching overhead Pain: PROMIS Scales Higher is Better 09/09/2020 Phys Func - Score 28 (severe dysfunction) Phys Func - Percentile 1 % Self-Eff Symptom - Score 38 (Low) Self-Eff Symptom - Percentile 12 % T-scores: mean of general population = 50. 5 points is clinically meaningfully difference Percentiles provide an indication of how the patient's score ranks in relation to the general population. Higher percentile rankings indicate better function/quality of life. 50th percentile is the average of the general population and indicates half of respondents had a worse score. OBJECTIVE MEASURES WITH LEVEL OF FUNCTION: Upper Extremity Circumferential Measurements R Thumb (proximal phalanx) (cm): 5.9 cm R Index Finger (proximal phalanx) (cm): 5.7 cm R DPC (cm): 18.2 cm R Distal Wrist Crease (DWC) (cm): 15.4 cm R 8 cm above wrist (cm): 21 cm R 16 cm above wrist (cm): 25.4 cm R 24 cm above wrist (cm): 25.2 cm R 32 cm above wrist (cm): 29.8 cm R 40 cm above wrist (cm): 29.7 cm R 44 cm above wrist (cm): 31.5 cm R Upper Extremity Volume: 298.29 TREATMENT: Manual Therapy: 1: measure 2: MLD seq x 25'(proximal clearing and R UE/ R Breast) 3: PROM x 5' R shld 4: tissue mobs w dycem to R axilla x 10' 5: STM x 10 w free up Skilled Intervention: Manual skills to improve joint mobility, ROM, and decrease pain. Utilized anatomy knowledge of the therapist, and assessment of patient's response to intervention. Billing Manual TherapyTreatment Minutes: 55 Total Treatment Time Minutes (timed/untimed): 55 Corie Sykes PT documented in this encounter [facility] 09-23-2022 Note HNO ID: [id number] Author: Shahnaz Sneed PTA Service: ? Author Type: Cop Winder Type: Progress Notes Filed: 09/23/2022 12:57 PM Note Text: Episode Visit Count: 74 Therapist That Will Accept/Oversee The Plan Of Care: Edward Start of Care Date: 09/09/20 Onset Date: 08/28/20 Patient Identified by Name and Date of : Yes REHABILITATION AND SPORTS THERAPY PHYSICAL THERAPY TREATMENT NOTE ASSESSMENT: Amber Kellogg tolerated the session with no issues. She demonstrated improvements in girth measurements to upper arm. 2 visible cords, 3 palpable cords. The patient will continue to benefit from ongoing skilled physical therapy to progress toward set goals. PLAN FOR NEXT VISIT: MLD;ther ex SUBJECTIVE: Has been bandaging arm a few nights to help bring down swelling. Wearing glove everyday which has been beneficial. Pain: Pain Additional Pain Information : Specific pain level not discussed in order to focus on movement/functional goals OBJECTIVE MEASURES WITH LEVEL OF FUNCTION: TREATMENT: Therapeutic Exercise: 1: chest pull: x15 grn band 2: supine shld flex: 3# x15 3: chest press: 3# 1x10 4: flys: 3# 2x5 Skilled Intervention: Patient was educated in proper exercise technique and purpose for exercises. Manual Therapy: 1: measure 2: MLD seq x 25'(proximal clearing and R UE/ R Breast) 3: PROM x 5' R shld 5: STM x 10 w free up Skilled Intervention: Manual skills to improve joint mobility, ROM, and decrease pain. Utilized anatomy knowledge of the therapist, and assessment of patient's response to intervention. Billing Therapeutic Exercise Treatment Minutes: 10 Manual TherapyTreatment Minutes: 45 Total Treatment Time Minutes (timed/untimed): 55 Shahnaz Sneed PTA [facility] 09-23-2022 History of Present illness Narrative Episode Visit Count: 74 Therapist That Will Accept/Oversee The Plan Of Care: Edward Start of Care Date: 09/09/20 Onset Date: 08/28/20 Patient Identified by Name and Date of : Yes REHABILITATION AND SPORTS THERAPY PHYSICAL THERAPY TREATMENT NOTE ASSESSMENT: Amber Kellogg tolerated the session with no issues. She demonstrated improvements in girth measurements to upper arm. 2 visible cords, 3 palpable cords. The patient will continue to benefit from ongoing skilled physical therapy to progress toward set goals. PLAN FOR NEXT VISIT: MLD;ther ex SUBJECTIVE: Has been bandaging arm a few nights to help bring down swelling. Wearing glove everyday which has been beneficial. Pain: Pain Additional Pain Information : Specific pain level not discussed in order to focus on movement/functional goals OBJECTIVE MEASURES WITH LEVEL OF FUNCTION: TREATMENT: Therapeutic Exercise: 1: chest pull: x15 grn band 2: supine shld flex: 3# x15 3: chest press: 3# 1x10 4: flys: 3# 2x5 Skilled Intervention: Patient was educated in proper exercise technique and purpose for exercises. Manual Therapy: 1: measure 2: MLD seq x 25'(proximal clearing and R UE/ R Breast) 3: PROM x 5' R shld 5: STM x 10 w free up Skilled Intervention: Manual skills to improve joint mobility, ROM, and decrease pain. Utilized anatomy knowledge of the therapist, and assessment of patient's response to intervention. Billing Therapeutic Exercise Treatment Minutes: 10 Manual TherapyTreatment Minutes: 45 Total Treatment Time Minutes (timed/untimed): 55 Shahnaz Sneed PTA documented in this encounter [facility] 09-09-2022 Note HNO ID: [id number] Author: Shahnaz Sneed PTA Service: ? Author Type: Cop Winder Type: Progress Notes Filed: 09/09/2022 2:01 PM Note Text: Episode Visit Count: 73 Therapist That Will Accept/Oversee The Plan Of Care: Edward Start of Care Date: 09/09/20 Onset Date: 08/28/20 Patient Identified by Name and Date of : Yes REHABILITATION AND SPORTS THERAPY PHYSICAL THERAPY TREATMENT NOTE ASSESSMENT: Amber Kellogg tolerated the session with fatigue. She demonstrated stable girth measurements. Current compression garments are over a yr old, will work on getting script for new garments. The patient will continue to benefit from ongoing skilled physical therapy to progress toward set goals. PLAN FOR NEXT VISIT: MLD;ther ex SUBJECTIVE: Has been wearing sleeve more. Feels like more swollen and firm to forearm. Pain: Pain Additional Pain Information : Specific pain level not discussed in order to focus on movement/functional goals OBJECTIVE MEASURES WITH LEVEL OF FUNCTION: Upper Extremity Circumferential Measurements R Thumb (proximal phalanx) (cm): 5.8 cm R Index Finger (proximal phalanx) (cm): 5.8 cm R DPC (cm): 17.6 cm R Distal Wrist Crease (DWC) (cm): 15.6 cm R 8 cm above wrist (cm): 19.5 cm R 16 cm above wrist (cm): 24.8 cm R 24 cm above wrist (cm): 26.5 cm R 32 cm above wrist (cm): 29.1 cm R 40 cm above wrist (cm): 29.7 cm R 44 cm above wrist (cm): 30.5 cm R Upper Extremity Volume: 288.56 TREATMENT: Therapeutic Exercise: 1: chest pull: x15 grn band 2: supine shld flex: 3# x15 3: chest press: 3# 1x10 4: flys: 3# 2x5 Skilled Intervention: Patient was educated in proper exercise technique and purpose for exercises. Manual Therapy: 1: measure 2: MLD seq x 25'(proximal clearing and R UE/ R Breast) 3: PROM x 5' R shld 5: STM x 10 w free up Skilled Intervention: Manual skills to improve joint mobility, ROM, and decrease pain. Utilized anatomy knowledge of the therapist, and assessment of patient's response to intervention. Billing Therapeutic Exercise Treatment Minutes: 10 Manual TherapyTreatment Minutes: 45 Total Treatment Time Minutes (timed/untimed): 55 Shahnaz Sneed PTA [facility] 09-09-2022 History of Present illness Narrative Episode Visit Count: 73 Therapist That Will Accept/Oversee The Plan Of Care: Edward Start of Care Date: 09/09/20 Onset Date: 08/28/20 Patient Identified by Name and Date of : Yes REHABILITATION AND SPORTS THERAPY PHYSICAL THERAPY TREATMENT NOTE ASSESSMENT: Amber Kellogg tolerated the session with fatigue. She demonstrated stable girth measurements. Current compression garments are over a yr old, will work on getting script for new garments. The patient will continue to benefit from ongoing skilled physical therapy to progress toward set goals. PLAN FOR NEXT VISIT: MLD;ther ex SUBJECTIVE: Has been wearing sleeve more. Feels like more swollen and firm to forearm. Pain: Pain Additional Pain Information : Specific pain level not discussed in order to focus on movement/functional goals OBJECTIVE MEASURES WITH LEVEL OF FUNCTION: Upper Extremity Circumferential Measurements R Thumb (proximal phalanx) (cm): 5.8 cm R Index Finger (proximal phalanx) (cm): 5.8 cm R DPC (cm): 17.6 cm R Distal Wrist Crease (DWC) (cm): 15.6 cm R 8 cm above wrist (cm): 19.5 cm R 16 cm above wrist (cm): 24.8 cm R 24 cm above wrist (cm): 26.5 cm R 32 cm above wrist (cm): 29.1 cm R 40 cm above wrist (cm): 29.7 cm R 44 cm above wrist (cm): 30.5 cm R Upper Extremity Volume: 288.56 TREATMENT: Therapeutic Exercise: 1: chest pull: x15 grn band 2: supine shld flex: 3# x15 3: chest press: 3# 1x10 4: flys: 3# 2x5 Skilled Intervention: Patient was educated in proper exercise technique and purpose for exercises. Manual Therapy: 1: measure 2: MLD seq x 25'(proximal clearing and R UE/ R Breast) 3: PROM x 5' R shld 5: STM x 10 w free up Skilled Intervention: Manual skills to improve joint mobility, ROM, and decrease pain. Utilized anatomy knowledge of the therapist, and assessment of patient's response to intervention. Billing Therapeutic Exercise Treatment Minutes: 10 Manual TherapyTreatment Minutes: 45 Total Treatment Time Minutes (timed/untimed): 55 Shahnaz Sneed PTA documented in this encounter [facility] 09-06-2022 Note HNO ID: [id number] Author: Mary Jo Wang LPN Service: ? Author Type: ? Type: Progress Notes Filed: 09/06/2022 10:38 AM Note Text: Pt here for injection of Lupron. Given IM in right buttocks. Pt tolerated well. For all other information regarding today, see today's OV note with Lizbeth Wang MINGLER OPERATOR. [facility] 09-06-2022 Note HNO ID: [id number] Author: Lizbeth Wang APRN.COMMERCIAL ADMINISTRATOR Service: ? Author Type: Nurse Practitioner Type: Progress Notes Filed: 09/08/2022 11:29 AM Note Text: Chief Complaint Patient presents with: Established Patient HPI: Amber Kellogg is a 47 year old female who presents here today for follow up breast cancer. Per Dr. Montero's previous note: H/o 45 year-old premenopausal (had endometrial ablation) female who appreciated a lump in her right breast around August 2019. She was seen by her account collector who ordered imaging. The mammogram evidently did not show any obvious mass or abnormality. It was interpreted as a BI-RADS 0 study. An ultrasound was performed and it demonstrated a hypoechoic, lobulated mass in the right breast at 9:00 categorized as BI-RADS 4C. She underwent a core needle biopsy on 12/06/2019. Pathology: MICROSCOPIC DIAGNOSIS Right breast at 9 o?clock, needle core biopsy: Invasive ductal carcinoma with the following characteristics: Maximal length - 1.3 millimeters Nuclear grade - 2/3 Other findings - focal perineural invasion. ER (clone 6F11) >95%, strong intensity WV (clone 16/1E2) 85%, strong intensity Her-2Neu (clone CB11) 0 MRI Breast at [facility] 12/16/2019: FINDINGS: RIGHT BREAST: The breast tissue is markedly dense with no background enhancement. There is a 12 mm abnormal enhancing masses seen laterally in the right breast at the postbiopsy site. This was biopsied and shown to represent a malignancy. A benign-appearing cyst is identified in the superior outer aspect measuring 13 mm. There are no additional abnormal enhancing masses or areas of non-mass enhancement in the right breast. LEFT BREAST: The breast tissue is markedly dense with no background enhancement. There are no abnormal enhancing masses or areas of non-mass enhancement in the left breast. There are no enlarged or abnormal lymph nodes. There is no abnormality in the visualized regions of the chest or liver. Patient was advised to undergo lumpectomy with sentinel lymph node biopsy. She was seen by genetic counseling at [facility] and then went to [facility] for second opinion as documented in Care Everywhere: On 01/14/2020, the certified genetic counselor from [facility] in [place], [place], Corie Flanagan, issued the following telephone encounter note in the patient's outside electronic medical record chart. They stated: Telephone Encounter - Corie Flanagan CGC - 01/13/2020 8:13 AM EDT: Called Amber to discuss her 12/05/2019; normal BRCAPlus results. No mutation was detected in any of these 8 high and moderate risk breast cancer genes. The CancerNext test is still pending. The BRCAPlus test does not include RNA testing so discussed the small possibility of finding a mutation in one of these genes with RNA testing that would be reported with the CancerNext results. Also discussed that not all hereditary causes of breast cancer are detected with this testing so there's a good possibility that the cause for her personal and family history of cancer is not known at this time. Will fax this reported to Dr. Avila. Will call Amber again when the CancerNext results are back. Amber voiced understanding. On 01/14/2020, the certified genetic counselor from [facility] in [place], [place], Corie Flanagan, issued the following telephone encounter note in the patient's outside electronic medical record chart. They stated: Telephone Encounter - Corie Flanagan CGC - 01/14/2020 5:23 PM EDT: Called Amber to discuss the CancerNext results with RNA testing. 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 The meaning of this finding is not currently known, but most variants are found to be normal once more information is learned. No mutation was detected in any of the other genes that were analyzed. Based on Amber's diagnosis of early-onset breast cancer and her family history of breast cancer including early-onset breast cancer, it?s likely that there is a hereditary cause for these cancers that cannot be detected with the testing that is currently available. Amber is not sure what her surgical plans are yet. Discussed the option of bilateral mastectomy since she has a strong personal and family history of cancer. If she has partial mastectomy, recommended that she have annual breast MRI as part of her screening once her treatment is complete. Will mail the results with a summary letter to Amber. Will fax this to her providers. Encouraged her to call with any questions. . . On 01/31/2020, the patient's outside breast imaging was reviewed by Dr. Luiz Ma of [facility] breast Radiology. They stated: ?EXAM: BREAST IMAGING SECOND OPINION READING, 01/28/2020 12:15 PM. CLINICAL INDICATIONS: 44 (more content not included)... [facility] 09-06-2022 History of Present illness Narrative Pt here for injection of Lupron. Given IM in right buttocks. Pt tolerated well. For all other information regarding today, see today's OV note with Lizbeth Wang NP. documented in this encounter [facility] 09-06-2022 History of Present illness Narrative Chief Complaint Patient presents with: Established Patient HPI: Amber Kellogg is a 47 year old female who presents here today for follow up breast cancer. Per Dr. Montero's previous note: H/o 45 year-old premenopausal (had endometrial ablation) female who appreciated a lump in her right breast around August 2019. She was seen by her account collector who ordered imaging. The mammogram evidently did not show any obvious mass or abnormality. It was interpreted as a BI-RADS 0 study. An ultrasound was performed and it demonstrated a hypoechoic, lobulated mass in the right breast at 9:00 categorized as BI-RADS 4C. She underwent a core needle biopsy on 12/06/2019. Pathology: MICROSCOPIC DIAGNOSIS Right breast at 9 o clock, needle core biopsy: Invasive ductal carcinoma with the following characteristics: Maximal length - 1.3 millimeters Nuclear grade - 2/3 Other findings - focal perineural invasion. ER (clone 6F11) >95%, strong intensity WV (clone 16/1E2) 85%, strong intensity Her-2Neu (clone CB11) 0 MRI Breast at [facility] 12/16/2019: FINDINGS: RIGHT BREAST: The breast tissue is markedly dense with no background enhancement. There is a 12 mm abnormal enhancing masses seen laterally in the right breast at the postbiopsy site. This was biopsied and shown to represent a malignancy. A benign-appearing cyst is identified in the superior outer aspect measuring 13 mm. There are no additional abnormal enhancing masses or areas of non-mass enhancement in the right breast. LEFT BREAST: The breast tissue is markedly dense with no background enhancement. There are no abnormal enhancing masses or areas of non-mass enhancement in the left breast. There are no enlarged or abnormal lymph nodes. There is no abnormality in the visualized regions of the chest or liver. Patient was advised to undergo lumpectomy with sentinel lymph node biopsy. She was seen by genetic counseling at [facility] and then went to [facility] for second opinion as documented in Care Everywhere: On 01/14/2020, the certified genetic counselor from [facility] in [place], [place], Corie Flanagan, issued the following telephone encounter note in the patient's outside electronic medical record chart. They stated: Telephone Encounter - Croie Flanagan CGC - 01/13/2020 8:13 AM EDT: Called Amber to discuss her 12/05/2019; normal BRCAPlus results. No mutation was detected in any of these 8 high and moderate risk breast cancer genes. The CancerNext test is still pending. The BRCAPlus test does not include RNA testing so discussed the small possibility of finding a mutation in one of these genes with RNA testing that would be reported with the CancerNext results. Also discussed that not all hereditary causes of breast cancer are detected with this testing so there's a good possibility that the cause for her personal and family history of cancer is not known at this time. Will fax this reported to Dr. Avila. Will call Amber again when the CancerNext results are back. Amber voiced understanding. On 01/14/2020, the certified genetic counselor from [facility] in [place], [place], Corie Flanagan, issued the following telephone encounter note in the patient's outside electronic medical record chart. They stated: Telephone Encounter - Corie Flanagan CGC - 01/14/2020 5:23 PM EDT: Called Amber to discuss the CancerNext results with RNA testing. 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 The meaning of this finding is not currently known, but most variants are found to be normal once more information is learned. No mutation was detected in any of the other genes that were analyzed. Based on Amber's diagnosis of early-onset breast cancer and her family history of breast cancer including early-onset breast cancer, it s likely that there is a hereditary cause for these cancers that cannot be detected with the testing that is currently available. Amber is not sure what her surgical plans are yet. Discussed the option of bilateral mastectomy since she has a strong personal and family history of cancer. If she has partial mastectomy, recommended that she have annual breast MRI as part of her screening once her treatment is complete. Will mail the results with a summary letter to Amber. Will fax this to her providers. Encouraged her to call with any questions. . . On 01/31/2020, the patient's outside breast imaging was reviewed by Dr. Luiz Ma of [facility] breast Radiology. They stated: EXAM: BREAST IMAGING SECOND OPINION READING, 01/28/2020 12:15 PM. CLINICAL INDICATIONS: 44-year-old female here for second opinion. Patient presented at outside institution on December 05, 2019 for a palpable area of concern in her right breast. This was the patient's baseline mammogram. A right mammogram was obtained and was reported as no findings on mammography and a right breast ultrasound was requested. Right breast breast ultrasound showed a suspicious mass at the 9:00 position of the right breast measuring 12 mm x 7 mm x 8 mm. Ultrasound-guided biopsy was recommended. Biopsy was performed on December 06, 2019 under ultrasound guidance in the physician's office. Imaging was not saved from the procedure and a postbiopsy mammogram was not performed. Pathology results revealed invasive ductal carcinoma ER positive WV positive HER-2/sushant negative. MRI performed on December 14, 2019 demonstrated known malignancy in the right breast measuring 12 mm. Patient is here for second opinion. COMPARISON: No prior studies available for comparison. 12/05/2019 BILATERAL 2-D DIAGNOSTIC MAMMOGRAM FINDINGS: Breast tissue is heterogeneously dense which may limit the sensitivity of mammography. There are microcalcifications involving the majority of the lateral right breast spanning approximately 7.0 cm in anterior/posterior dimension, 3.1 cm in medial/lateral dimension and 5.0 cm in craniocaudal dimension. Otherwise there are no suspicious microcalcifications, masses or areas of architectural distortion in either breast on 2-D mammography. December 05, 2019 ULTRASOUND FINDINGS: Sonography of the 9:00 position the right breast in the palpable area of concern demonstrates a 7 mm x 8 mm x 12 mm irregular hypoechoic mass with angular margins internal vascularity and no posterior acoustic features. Sonography of the 11:00 position demonstrates a 8mm by 13 mm x 13 mm cyst. No other lesions are identified on sonography however a few select images show linear hypoechoic areas at the 12 and 3:00 position which could correspond to the suspicious microcalcifications identified on mammography. December 16, 2019 MRI FINDINGS: Bilateral MRI is nondiagnostic -it is unclear if gadolinium entered the breast. There is no note of gadolinium extravasation. Lack of gadolinium on breast MRI will underestimate extent of disease. IMPRESSION: 1. Suspicious microcalcifications involving the majority of the lateral right breast. Magnification views of the right breast were not obtained. Recommend right CC tomosynthesis, right ML tomosynthesis and magnification views of the lateral right breast in the CC and ML projection. In order to determine extent of disease, a 1-2 site right breast stereotactic biopsy will likely be necessary. 2. Status post ultrasound-guided breast biopsy of suspicious mass at the 9:00 position. Images were not saved and a post biopsy mammogram was not obtained. Evaluation of clip placement can be performed when the patient obtains her right CC and ML mammogram. 3. Outside breast MRI is nondiagnostic. There is limited or no gadolinium identified on the examination which underestimates extent of disease. . . On 01/31/2020, the patient's outside pathology was reviewed by Dr. Joaquín Zaman of [facility] pathology. They stated: Outside Slides: [id number] (12/06/19): A. Right breast at 9 o'clock, needle core biopsy: Invasive ductal carcinoma, grade 1 (score: tubule 2, nuclear 2, mitotic 1), 1.3 cm in greatest length. Manual immunohistochemical quantification using stains performed at the outside institution: Estrogen Receptor: Positive (99%, strong intensity). Progesterone Receptor: Positive (85%, strong intensity). HER2: Negative (Score 0). Submitted controls show appropriate reactivity. Comment: Additional submitted immunohistochemical stains for E-cadherin, calponin, and p40 were reviewed and support the diagnosis. . On 02/04/2020, I personally reviewed the patient's outside breast imaging with Dr. Gustavo Siddiqi of [facility] breast Radiology. Dr. Gustavo Siddiqi of [facility] breast Radiology recommended that in anticipation to the patient for any right breast stereotactic biopsy procedures, that we should repeat a right breast diagnostic digital mammogram to look at clip placement from the patient's prior right breast ultrasound-guided biopsy, as well as reassess the overall distribution of the calcifications within the right breast. Eventually underwent vacuum-assisted stereotactic biopsy of calcifications in the right breast at [facility] on 02/17/2020. Pathology of the calcifications in the right breast at the anterior medial aspect with the Top-Hat clip showed atypical ductal hyperplasia, atypical lobular hyperplasia and flat epithelial atypia. The pathology of the calcifications in the anterior medial posterior group with a stoplight clip demonstrated invasive ductal carcinoma grade 2. Ductal carcinoma in situ, low-grade. Patient did not follow-up at [facility] and then was referred to [facility] for opinion on mastectomy with reconstruction. CT Chest 07/06/2020: Lung parenchyma and airways: No consolidation. No suspicious pulmonary nodule. The central airways are patent. Pleural space: No pleural effusion. No pleural thickening. Lower neck, lymph nodes, and mediastinum: There is borderline enlargement of right axillary nodes. There is no left axillary, mediastinal, or hilar lymphadenopathy. There is a small amount of soft tissue within the anterior mediastinum likely representing some residual thymic tissue. Heart, pericardium, and thoracic vessels: The thoracic aorta and main pulmonary artery are normal in caliber. The cardiac chambers are normal in size. No coronary artery atherosclerotic calcifications are noted, although the study is not optimized for coronary assessment. No pericardial effusion or thickening. Bones and soft tissues: There is a tiny sclerotic density within the T9 vertebral body on image 82 which is probably a small bone island. Otherwise, there are no lytic or blastic changes. Upper abdomen: Discussed on a separate abdominal CT report Nurse Clinician (topogram) images: No additional findings. IMPRESSION: Mild right axillary lymphadenopathy CT A/P 07/06/2020: Liver: There are a few tiny indeterminate hypodensities within the liver. These are noted on images 19, 29, and 33 of series 1. None of these measure more than 4 mm. Biliary: No bile duct dilation. Spleen: No mass. No splenomegaly. Pancreas: No mass or duct dilation. Adrenals: No mass. Kidneys: At the superior pole of the right kidney, there is a 0.5 cm hypodensity which is too small to characterize but is probably a small cyst. Otherwise, the kidneys appear normal. GI tract: No dilation or wall thickening. Lymph nodes: No abdominal or pelvic lymphadenopathy. Mesentery/Peritoneum: No ascites or mass. Retroperitoneum: No mass. Vasculature: The celiac axis and SMA are patent. The portal vein and branches, splenic vein, SMV, and hepatic veins are patent. Pelvis: Trace free fluid is likely physiologic in nature. There are no other pelvic abnormalities. Bones/Soft Tissues: No significant finding. Lower thorax: A chest CT performed will be reported separately. Nurse Clinician (topogram) images: No additional findings. IMPRESSION: 1. Few tiny indeterminate hypodensities within the liver measuring 4 mm or less. Since the patient does have a history of malignancy, attention to these areas on subsequent examinations is recommended. 2. Tiny right renal hypodensity likely representing a small cyst. Bone scan 07/15/2020: IMPRESSION: NO SCINTIGRAPHIC EVIDENCE FOR OSSEOUS METASTATIC DISEASE. Ultimately underwent a right skin sparing mastectomy with sentinel lymph node biopsy followed by immediate right breast reconstruction using medium contour perforated AlloDerm x2 and right breast reconstruction using tissue broadcast designer on 08/28/2020. Pathology: 1. Right breast, skin sparing mastectomy (A) - Invasive ductal carcinoma, [place] Grade 3, measuring 48 mm in greatest dimension (please see synoptic report). - Ductal carcinoma in situ, nuclear grades 1 and 2, solid, cribriform and spindling types with comedo necrosis, microcalcifications and involvement of lobules. - Extensive lymphovascular space invasion is identified. - Biopsy clips X3 and biopsy site reparative changes identified. 2. [place] lymph node #1, palpable, sentinel node biopsy (B) - Metastatic carcinoma involving one lymph node (1/1); metastasis measures at least 8 mm in greatest dimension; no definitive extranodal extension identified. 3. [place] lymph node #2, [place], [id number], sentinel node biopsy (C) - Metastatic carcinoma involving two of two lymph nodes (2/2), with largest metastasis measuring at least 18 mm in greatest dimension with 3 mm of extranodal extension. 4. [place] lymph node #3, palpable, sentinel node biopsy (D) - One lymph node, negative for metastatic malignancy (0/1). 5. [place] lymph node #4, palpable, sentinel node biopsy (E) - Metastatic carcinoma involving two of two lymph nodes (2/2), largest metastasis measures at least 10 mm in greatest dimension; no definitive extranodal extension identified. 6. [place] lymph node #5, palpable, sentinel node biopsy (F) - Metastatic carcinoma involving one of one lymph node (1/1), metastasis measures 1 cm in greatest dimension; no definitive extranodal extension identified. SYNOPTIC REPORT OF [facility] BREAST MASTECTOMY RIGHT: BREAST INVASIVE CARCINOMA WORKSHEET Part: A-F Procedure: Total mastectomy (including nipple-sparing and skin-sparing mastectomy) Specimen Laterality: Right Tumor size: Size of largest invasive carcinoma: Greatest dimension of largest focus of invasion >1 mm: 48 mm Tumor Focality: Single focus of invasive carcinoma Histologic Type of Invasive Carcinoma: Invasive carcinoma of no special type (ductal, not otherwise specified) Histologic Grade: Glandular (Acinar) / Tubular Differentiation: Score 3 Nuclear Pleomorphism: Score 2 Mitotic Rate: Score 3 Overall Grade: Grade III Ductal Carcinoma In Situ: Present Negative for extensive intraductal component (EIC) Architectural Patterns: Architectural Pattern:Cribriform Architectural Pattern:Solid Architectural Pattern:Other: Spindled DCIS Nuclear Grade: Grade II (intermediate) DCIS Necrosis: Present, central (expansive comedo necrosis) Tumor Extension: Skin: Skin is present and uninvolved Nipple: Other: Invasive carcinoma and foci of LVSI involve the base of the nipple Skeletal muscle: No skeletal muscle is present Invasive Carcinoma Margins: Margins uninvolved by invasive carcinoma Distance from closest margin: 1.5 mm Closest margin: Deep Distance of invasive carcinoma to radial margin: 2.8 mm DCIS Margins: Margins uninvolved by DCIS All margins >2 mm Lymph Nodes: Involved by tumor cells Number of lymph nodes with macrometastases (>2 mm): 5 Number of lymph nodes with micrometastases (>0.2 mm to 2 mm and/or >200 cells): 1 Number of lymph nodes with isolated tumor cells (<= 0.2 mm and <= 200 cells): 0 Size of largest metastatic deposit: 18 mm Extranodal extension present >2 mm Total number of lymph nodes examined: 7 Number of sentinel nodes examined (if applicable): 7 Treatment Effect: No known presurgical therapy Lymph-Vascular Invasion: Present Pathologic Stage Classification (pTNM,AJCC 8th ed) TNM Descriptor(s): Not applicable Primary Tumor (Invasive Carcinoma) (pT): pT2 Regional Lymph Nodes (pN): Modifier: Not applicable Category (pN): pN2a Distant metastasis: Distant Metastasis (pM) Not applicable/Not confirmed pathologically in this case Estrogen & progesterone receptors: Previously performed and reported as follows: Estrogen receptor: Positive (99%, strong) Progesterone receptor: Positive (90%, strong) Specimen number #: [facility] [id number] (HER2) ERBB2 Status: Previously performed and reported as follows: HER2:Negative Previous therapy: 1) Adjuvant AC followed by T. 2) Adjuvant radiation completed 05/31/2021. Current therapy: Lupron began 06/29/21 Arimidex began 2021 S/p Right breast exchange of tissue broadcast designer for permanent implant, fat grafting to right breast, left breast skin only mastopexy for matching, liposuction bilateral thighs for donor sites on 04/08/[address] Garcia. No new concerns today. Appetite: Too good. Energy level: I'm struggling. Denies fevers or recent illness. Resp:denies cough or sob Cardiac:denies chest pain/palpitations GI:denies abd pain, n/v, moving bowels regularly :denies dysuria/hematuria Extrem:denies pain elsewhere Endo:+hot flashes- They are manageable. they do not wake pt. at night Neuro:denies neuropathy, nerve pain to R arm -stable on lyrica-improved on lyrica, participated in PT for R arm lymphedema-weekly, has not been wearing sleeve Skin:denies rashes/lesions Heme:denies bleeding The ROS is otherwise negative. Past medical history, appointments, medications, allergies reviewed. No changes. EXAM: BP 133/92 Pulse 84 Temp 36.9 C (98.4 F) Ht 161.5 cm (5' 3.58 ) Wt 70.5 kg (155 lb 8 oz) SpO2 99% BMI 27.04 kg/m APPEARANCE Well appearing, alert, in no acute distress, well-hydrated, well nourished. HEART RRR with normal S1 and S2, no murmurs LUNG clear to auscultation BREAST FEMALE R recon/implant-no surrounding mass/nodule, L surgical scars-no mass/nodule LYMPH NODES No cervical lymphadenopathy, No supraclavicular lymphadenopathy, and No axillary lymphadenopathy. ABDOMEN bowel sounds normoactive, soft, non-tender EXTREMITIES No edema NEURO Awake, alert and oriented x 3, Normal gait, and No involuntary motions. SKIN Skin color, texture, turgor normal, no suspicious rashes or lesions ASSESSMENT/PLAN: 1. Malignant neoplasm of upper-outer quadrant of right breast in female, estrogen receptor positive (HCC) - ICD9: 174.4, V86.0, ICD10: C50.411, Z17.0 pT2 (4.8 cm; grade 3; +LVI) pN2a (5 of 7 SLN positive; 18 mm; extranodal extension present >2 mm) M0 ER/WV positive, HER2 negative stage IIIA invasive ductal carcinoma of the right breast. Per Dr. Montero's previous note: Assessment: -The patient is a 45 yo premenopausal female who underwent a right-sided skin sparing mastectomy and sentinel lymph node biopsy on 08/28/2020 for what proved to be a pT2 (4.8 cm; grade 3; +LVI) pN2a (5 of 7 SLN positive; 18 mm; extranodal extension present >2 mm) M0 ER/WV positive, HER2 negative stage IIIA invasive ductal carcinoma of the right breast. -Genetic testing done at [facility]. -Discussed with her the rationale for adjuvant endocrine therapy and recommended ovarian suppression initially with GnRH agonist Lupron followed by possible oophorectomy pending tolerance to Lupron. Also recommended AI therapy with anastrozole to begin the second month of her ovarian suppression therapy. Discussed the rationale based on the results of the soft trial. She has high risk disease as evidenced by 5 of 7 lymph nodes positive with extranodal extension, grade 3 tumor with lymphovascular invasion present and a near 5 cm tumor. I answered all of her questions to her satisfaction and she expressed an understanding and agreement to proceed with therapy. Discussed that if she is intolerant to AI therapy then we could change to tamoxifen. Plan: -Begin Lupron on 06/29. -Office visit about a month later with plans to start aromatase inhibitor at that time. -She will be due for left breast screening mammogram. Can order at time of next OV. -Repeat CT chest in about 3 months. - No concerning findings on exam. - Overall tolerating lupron/arimidex well overall except hot flashes. - Reviewed CT chest with pt. - L mammogram in November-ordered by surgeon. - Continue arimidex. - Continue PT for RUE lymphedema. - Follow up with Dr. Garcia as scheduled. - CT chest in October 2022. - Lupron as scheduled today and continue monthly. - Follow up in 6 months. - Pt. aware to call office with any questions/concerns. The patient indicates understanding of these issues and agrees with the plan. All documentation from previous visit of 05/17/22-Dr. Montero/myself was copied and pasted, documentation has been reviewed and edited as necessary for today's visit. Lizbeth Wang APRN.SERGIO documented in this encounter [facility] 09-01-2022 Note HNO ID: [id number] Author: Corie Sykes PT Service: ? Author Type: Physical Therapist Type: Progress Notes Filed: 09/01/2022 2:17 PM Note Text: Episode Visit Count: 72 Therapist That Will Accept/Oversee The Plan Of Care: Edward Start of Care Date: 09/09/20 Onset Date: 08/28/20 [facility]TS [facility]ERAPY PHYSICAL THERAPY PROGRESS REPORT PLAN OF CARE UPDATE: Assessment: Amber Kellogg demonstrates minimal improvement in physical activities, recreational activities, and reaching overhead. She has progressed toward goals. Patient continues to present with impairments in edema management, overall function, range of motion, soft tissue healing, strength, symptom management, and tissue tenderness that interfere with lifting, physical activities, recreational activities, use hand with arm at shoulder level, reaching overhead . Current prognosis is Good due to: positive past response to therapy . Pt having flare up of swelling in R UE that may coincide with lupron shot. Will continue to monitor She will benefit from continued skilled therapy services to meet the updated goals for this plan of care as noted below. Goals for Episode of Care: created on 09/09/20 through 12/08/20 Patient able to verbalize skin care and lymphedema risk reductions: MET Patient/family independent with home exercise program including self MLD, skincare guidelines, scar massage, ROM exercises, strengthening exercises and garment instructions: MET THUS FAR Patient will increase active ROM of R shoulder to WNL to allow patient to achieve neutral postural alignment, for improved performance of ADLs.: MET Patient will decrease pain to: 2/10 : ONGOING Patient will have supple scar with no tenderness to palpation and demonstrate and understanding of scar management: ONGOING Patient/family able to verbalize all pertinent aspects of CDT: ONGOING Patient/family independent with donning/doffing compression garment and proper wearing schedule and care of garment: MET Patient Goals: increase ROM R shoulder; get compression sleeve Planned Interventions, Frequency, and Duration: 1x/week, 12 weeks Total Number of Visits Planned: 12 Patient to be seen for PLAN FOR NEXT VISIT: MLD;ther ex SUBJECTIVE: . Pt reports swelling is coming down, but has another shot next week. Anxious to see if there is a similar response this month. Functional Limitations: lifting, physical activities, recreational activities, use hand with arm at shoulder level, reaching overhead Pain: PROMIS Scales Higher is Better 09/09/2020 Phys Func - Score 28 (severe dysfunction) Phys Func - Percentile 1 % Self-Eff Symptom - Score 38 (Low) Self-Eff Symptom - Percentile 12 % T-scores: mean of general population = 50. 5 points is clinically meaningfully difference Percentiles provide an indication of how the patient's score ranks in relation to the general population. Higher percentile rankings indicate better function/quality of life. 50th percentile is the average of the general population and indicates half of respondents had a worse score. OBJECTIVE MEASURES WITH LEVEL OF FUNCTION: Upper Extremity Circumferential Measurements R Thumb (proximal phalanx) (cm): 5.8 cm R Index Finger (proximal phalanx) (cm): 5.8 cm R DPC (cm): 18.2 cm R Distal Wrist Crease (DWC) (cm): 15.7 cm R 8 cm above wrist (cm): 20.7 cm R 16 cm above wrist (cm): 25.7 cm R 24 cm above wrist (cm): 25.7 cm R 32 cm above wrist (cm): 30.3 cm R 40 cm above wrist (cm): 29.5 cm R 44 cm above wrist (cm): 30.7 cm R Upper Extremity Volume: 288.58 TREATMENT: Manual Therapy: 1: measure 2: MLD seq x 30'(proximal clearing and R UE/ R Breast) 3: PROM x 5' R shld 4: tissue mobs w dycem to R axilla x 10' 5: STM x 10 w free up Skilled Intervention: Manual skills to improve joint mobility, ROM, and decrease pain. Utilized anatomy knowledge of the therapist, and assessment of patient's response to intervention. Billing Manual TherapyTreatment Minutes: 55 Total Treatment Time Minutes (timed/untimed): 55 Corie Sykes, PT [facility] 09-01-2022 History of Present illness Narrative Episode Visit Count: 72 Therapist That Will Accept/Oversee The Plan Of Care: Edward Start of Care Date: 09/09/20 Onset Date: 08/28/20 REHABILITATION AND SPORTS THERAPY PHYSICAL THERAPY PROGRESS REPORT PLAN OF CARE UPDATE: Assessment: Amber Kellogg demonstrates minimal improvement in physical activities, recreational activities, and reaching overhead. She has progressed toward goals. Patient continues to present with impairments in edema management, overall function, range of motion, soft tissue healing, strength, symptom management, and tissue tenderness that interfere with lifting, physical activities, recreational activities, use hand with arm at shoulder level, reaching overhead . Current prognosis is Good due to: positive past response to therapy . Pt having flare up of swelling in R UE that may coincide with lupron shot. Will continue to monitor She will benefit from continued skilled therapy services to meet the updated goals for this plan of care as noted below. Goals for Episode of Care: created on 09/09/20 through 12/08/20 Patient able to verbalize skin care and lymphedema risk reductions: MET Patient/family independent with home exercise program including self MLD, skincare guidelines, scar massage, ROM exercises, strengthening exercises and garment instructions: MET THUS FAR Patient will increase active ROM of R shoulder to WNL to allow patient to achieve neutral postural alignment, for improved performance of ADLs.: MET Patient will decrease pain to: 08/05 : ONGOING Patient will have supple scar with no tenderness to palpation and demonstrate and understanding of scar management: ONGOING Patient/family able to verbalize all pertinent aspects of CDT: ONGOING Patient/family independent with donning/doffing compression garment and proper wearing schedule and care of garment: MET Patient Goals: increase ROM R shoulder; get compression sleeve Planned Interventions, Frequency, and Duration: 1x/week, 12 weeks Total Number of Visits Planned: 12 Patient to be seen for PLAN FOR NEXT VISIT: MLD;ther ex SUBJECTIVE: . Pt reports swelling is coming down, but has another shot next week. Anxious to see if there is a similar response this month. Functional Limitations: lifting, physical activities, recreational activities, use hand with arm at shoulder level, reaching overhead Pain: PROMIS Scales Higher is Better 09/09/2020 Phys Func - Score 28 (severe dysfunction) Phys Func - Percentile 1 % Self-Eff Symptom - Score 38 (Low) Self-Eff Symptom - Percentile 12 % T-scores: mean of general population = 50. 5 points is clinically meaningfully difference Percentiles provide an indication of how the patient's score ranks in relation to the general population. Higher percentile rankings indicate better function/quality of life. 50th percentile is the average of the general population and indicates half of respondents had a worse score. OBJECTIVE MEASURES WITH LEVEL OF FUNCTION: Upper Extremity Circumferential Measurements R Thumb (proximal phalanx) (cm): 5.8 cm R Index Finger (proximal phalanx) (cm): 5.8 cm R DPC (cm): 18.2 cm R Distal Wrist Crease (DWC) (cm): 15.7 cm R 8 cm above wrist (cm): 20.7 cm R 16 cm above wrist (cm): 25.7 cm R 24 cm above wrist (cm): 25.7 cm R 32 cm above wrist (cm): 30.3 cm R 40 cm above wrist (cm): 29.5 cm R 44 cm above wrist (cm): 30.7 cm R Upper Extremity Volume: 288.58 TREATMENT: Manual Therapy: 1: measure 2: MLD seq x 30'(proximal clearing and R UE/ R Breast) 3: PROM x 5' R shld 4: tissue mobs w dycem to R axilla x 10' 5: STM x 10 w free up Skilled Intervention: Manual skills to improve joint mobility, ROM, and decrease pain. Utilized anatomy knowledge of the therapist, and assessment of patient's response to intervention. Billing Manual TherapyTreatment Minutes: 55 Total Treatment Time Minutes (timed/untimed): 55 Corie Sykes PT documented in this encounter [facility] 08-25-2022 Note HNO ID: [id number] Author: Shahnaz Sneed PTA Service: ? Author Type: Cop Winder Type: Progress Notes Filed: 08/25/2022 1:00 PM Note Text: Episode Visit Count: 71 Therapist That Will Accept/Oversee The Plan Of Care: Edward Start of Care Date: 09/09/20 Onset Date: 08/28/20 Patient Identified by Name and Date of : Yes REHABILITATION AND SPORTS THERAPY PHYSICAL THERAPY TREATMENT NOTE ASSESSMENT: Amber Kellogg tolerated the session with no issues. She demonstrated improvements in swelling to hand; wearing glove consistently has helped to decrease swelling.. The patient will continue to benefit from ongoing skilled physical therapy to progress toward set goals. PLAN FOR NEXT VISIT: MLD;ther ex SUBJECTIVE: Started to wear glove during work, and did okay with that. Does think it has helped. Pain: Pain Additional Pain Information : Specific pain level not discussed in order to focus on movement/functional goals OBJECTIVE MEASURES WITH LEVEL OF FUNCTION: Upper Extremity Circumferential Measurements R Thumb (proximal phalanx) (cm): 6 cm R Index Finger (proximal phalanx) (cm): 6 cm R DPC (cm): 17.6 cm R Distal Wrist Crease (DWC) (cm): 15.5 cm R 8 cm above wrist (cm): 21 cm R 16 cm above wrist (cm): 26.4 cm R 24 cm above wrist (cm): 26.4 cm R 32 cm above wrist (cm): 29.4 cm R 40 cm above wrist (cm): 30 cm R 44 cm above wrist (cm): 30 cm R Upper Extremity Volume: 286.62 TREATMENT: Therapeutic Exercise: 1: chest pull: x12 grn band 2: supine shld flex: 3# x12 3: chest press: 3# 1x10 Skilled Intervention: Patient was educated in proper exercise technique and purpose for exercises. Manual Therapy: 1: measure 2: MLD seq x 35'(proximal clearing and R UE/ R Breast) 3: PROM x 5' R shld 4: tissue mobs w dycem to R axilla x 10' Skilled Intervention: Manual skills to improve joint mobility, ROM, and decrease pain. Utilized anatomy knowledge of the therapist, and assessment of patient's response to intervention. Billing Therapeutic Exercise Treatment Minutes: 10 Manual TherapyTreatment Minutes: 45 Total Treatment Time Minutes (timed/untimed): 55 Shahnaz Sneed PTA [facility] 08-25-2022 History of Present illness Narrative Episode Visit Count: 71 Therapist That Will Accept/Oversee The Plan Of Care: Edwadr Start of Care Date: 09/09/20 Onset Date: 08/28/20 Patient Identified by Name and Date of : Yes REHABILITATION AND SPORTS THERAPY PHYSICAL THERAPY TREATMENT NOTE ASSESSMENT: Amber Kellogg tolerated the session with no issues. She demonstrated improvements in swelling to hand; wearing glove consistently has helped to decrease swelling.. The patient will continue to benefit from ongoing skilled physical therapy to progress toward set goals. PLAN FOR NEXT VISIT: MLD;ther ex SUBJECTIVE: Started to wear glove during work, and did okay with that. Does think it has helped. Pain: Pain Additional Pain Information : Specific pain level not discussed in order to focus on movement/functional goals OBJECTIVE MEASURES WITH LEVEL OF FUNCTION: Upper Extremity Circumferential Measurements R Thumb (proximal phalanx) (cm): 6 cm R Index Finger (proximal phalanx) (cm): 6 cm R DPC (cm): 17.6 cm R Distal Wrist Crease (DWC) (cm): 15.5 cm R 8 cm above wrist (cm): 21 cm R 16 cm above wrist (cm): 26.4 cm R 24 cm above wrist (cm): 26.4 cm R 32 cm above wrist (cm): 29.4 cm R 40 cm above wrist (cm): 30 cm R 44 cm above wrist (cm): 30 cm R Upper Extremity Volume: 286.62 TREATMENT: Therapeutic Exercise: 1: chest pull: x12 grn band 2: supine shld flex: 3# x12 3: chest press: 3# 1x10 Skilled Intervention: Patient was educated in proper exercise technique and purpose for exercises. Manual Therapy: 1: measure 2: MLD seq x 35'(proximal clearing and R UE/ R Breast) 3: PROM x 5' R shld 4: tissue mobs w dycem to R axilla x 10' Skilled Intervention: Manual skills to improve joint mobility, ROM, and decrease pain. Utilized anatomy knowledge of the therapist, and assessment of patient's response to intervention. Billing Therapeutic Exercise Treatment Minutes: 10 Manual TherapyTreatment Minutes: 45 Total Treatment Time Minutes (timed/untimed): 55 Shahnaz Sneed PTA documented in this encounter [facility] 08-19-2022 Note HNO ID: [id number] Author: Shahnaz Sneed PTA Service: ? Author Type: Cop Winder Type: Progress Notes Filed: 08/19/2022 2:59 PM Note Text: Episode Visit Count: 70 Therapist That Will Accept/Oversee The Plan Of Care: Edward Start of Care Date: 09/09/20 Onset Date: 08/28/20 Patient Identified by Name and Date of : Yes REHABILITATION AND SPORTS THERAPY PHYSICAL THERAPY TREATMENT NOTE ASSESSMENT: Amber Kellogg tolerated the session with no issues. She demonstrated difficulty with increase swelling to R UE and hand. 3 visible and palpable cords from lateral breast to axilla and upper arm. Less prominent coming from breast. The patient will continue to benefit from ongoing skilled physical therapy to progress toward set goals. PLAN FOR NEXT VISIT: MLD;ther ex SUBJECTIVE: Has had more swelling the last 2 weeks. Even bandaged arm a few nights. Pain: Pain Additional Pain Information : Specific pain level not discussed in order to focus on movement/functional goals OBJECTIVE MEASURES WITH LEVEL OF FUNCTION: Upper Extremity Circumferential Measurements R Thumb (proximal phalanx) (cm): 6 cm R Index Finger (proximal phalanx) (cm): 6.1 cm R DPC (cm): 18.7 cm R Distal Wrist Crease (DWC) (cm): 16.2 cm R 8 cm above wrist (cm): 21.4 cm R 16 cm above wrist (cm): 26.8 cm R 24 cm above wrist (cm): 27 cm R 32 cm above wrist (cm): 30.4 cm R 40 cm above wrist (cm): 30.4 cm R 44 cm above wrist (cm): 30.5 cm R Upper Extremity Volume: 295.29 TREATMENT: Therapeutic Exercise: 1: chest pull: x10 grn band 2: supine shld flex: 3# x10 Skilled Intervention: Patient was educated in proper exercise technique and purpose for exercises. Manual Therapy: 1: measure 2: MLD seq x 35'(proximal clearing and R UE/ R Breast) 3: PROM x 5' R shld 4: tissue mobs w dycem to R axilla x 10' Skilled Intervention: Manual skills to improve joint mobility, ROM, and decrease pain. Utilized anatomy knowledge of the therapist, and assessment of patient's response to intervention. Billing Therapeutic Exercise Treatment Minutes: 5 Manual TherapyTreatment Minutes: 55 Total Treatment Time Minutes (timed/untimed): 60 Shahnaz Sneed PTA [facility] 08-19-2022 History of Present illness Narrative Episode Visit Count: 70 Therapist That Will Accept/Oversee The Plan Of Care: Edward Start of Care Date: 09/09/20 Onset Date: 08/28/20 Patient Identified by Name and Date of : Yes REHABILITATION AND SPORTS THERAPY PHYSICAL THERAPY TREATMENT NOTE ASSESSMENT: Amber Kellogg tolerated the session with no issues. She demonstrated difficulty with increase swelling to R UE and hand. 3 visible and palpable cords from lateral breast to axilla and upper arm. Less prominent coming from breast. The patient will continue to benefit from ongoing skilled physical therapy to progress toward set goals. PLAN FOR NEXT VISIT: MLD;ther ex SUBJECTIVE: Has had more swelling the last 2 weeks. Even bandaged arm a few nights. Pain: Pain Additional Pain Information : Specific pain level not discussed in order to focus on movement/functional goals OBJECTIVE MEASURES WITH LEVEL OF FUNCTION: Upper Extremity Circumferential Measurements R Thumb (proximal phalanx) (cm): 6 cm R Index Finger (proximal phalanx) (cm): 6.1 cm R DPC (cm): 18.7 cm R Distal Wrist Crease (DWC) (cm): 16.2 cm R 8 cm above wrist (cm): 21.4 cm R 16 cm above wrist (cm): 26.8 cm R 24 cm above wrist (cm): 27 cm R 32 cm above wrist (cm): 30.4 cm R 40 cm above wrist (cm): 30.4 cm R 44 cm above wrist (cm): 30.5 cm R Upper Extremity Volume: 295.29 TREATMENT: Therapeutic Exercise: 1: chest pull: x10 grn band 2: supine shld flex: 3# x10 Skilled Intervention: Patient was educated in proper exercise technique and purpose for exercises. Manual Therapy: 1: measure 2: MLD seq x 35'(proximal clearing and R UE/ R Breast) 3: PROM x 5' R shld 4: tissue mobs w dycem to R axilla x 10' Skilled Intervention: Manual skills to improve joint mobility, ROM, and decrease pain. Utilized anatomy knowledge of the therapist, and assessment of patient's response to intervention. Billing Therapeutic Exercise Treatment Minutes: 5 Manual TherapyTreatment Minutes: 55 Total Treatment Time Minutes (timed/untimed): 60 Shahnaz Sneed PTA documented in this encounter [facility] 08-19-2022 Miscellaneous Notes Message left for patient to contact office. [employer] message also sent. Yuli Anderson LPN Please inform pt. that CT shows some tiny lung nodules. Will repeat CT chest in 3 months to monitor. Will order at next OV. Follow up as scheduled. Thank you. Lizbeth Wang APRN.SERGIO documented in this encounter [facility] 08-17-2022 Note HNO ID: [id number] Author: RT Amrita(R) Service: ? Author Type: Commercial Makeup Artist Type: Progress Notes Filed: 08/17/2022 2:02 PM Note Text: Radiology Service Progress Note DATE OF SERVICE: August 17, 2022 TIME: 2:01 PM PATIENT IDENTITY VERIFICATION COMPLETED USING TWO (2) STANDARD IDENTIFIERS: Name and Date of confirmed by patient verbally. FALL SCREENING: Has the patient had 2 falls in the last year or 1 fall with injury or currently using an Ambulatory Assistive Device (Walker, Cane, Wheelchair, Crutches, etc.)? No PATIENT GENDER DATA: Female. status: : No status: NO. PATIENT RELEVANT IMPLANT DATA REVIEWED: Yes ALLERGIES: Reviewed and unchanged CONTRAST ALLERGY: NO. EXAM: CT -CONTRAST INDUCED NEPHROPATHY RISK FACTORS: Patient age > 60 years CREATININE: Creatinine Date Value Ref Range Status 07/29/2022 0.69 0.58 - 0.96 mg/dL Final 06/29/2021 0.51 (L) 0.58 - 0.96 mg/dL Final 04/28/2021 0.62 0.58 - 0.96 mg/dL Final Estimated Glomerular Filtration Rate Date Value Ref Range Status 07/29/2022 109 >=60 mL/min/1.73m? Final Comment: Estimated Glomerular Filtration Rate (eGFR) is calculated using the 2020 CKD-EPI creatinine equation. This equation utilizes serum creatinine, sex, and age as parameters. The creatinine assay has traceable calibration to isotope dilution-mass spectrometry. Refer to KDIGO guidelines for clinical interpretation. In patients with unstable renal function, e.g. those with acute kidney injury, the eGFR may not accurately reflect actual GFR. eGFR- Date Value Ref Range Status 06/29/2021 >60 Final P.O.C.T. RESULTS: POC done: Yes, See Lab Tab August 17, 2022 TREATMENT: N/A PERIPHERAL IV DATA: Ambulatory: A peripheral IV was started in the Left antecubital site with a Angio cath: 22 gauge. RADIOLOGY DEPARTMENT: CT; Exam(s) Completed: Chest SIGNATURE: RT Bakari(R) PATIENT NAME: Amber Kellogg DATE: August 17, 2022 TIME: 2:01 PM [facility] 08-17-2022 History of Present illness Narrative Radiology Service Progress Note DATE OF SERVICE: August 17, 2022 TIME: 2:01 PM PATIENT IDENTITY VERIFICATION COMPLETED USING TWO (2) STANDARD IDENTIFIERS: Name and Date of confirmed by patient verbally. FALL SCREENING: Has the patient had 2 falls in the last year or 1 fall with injury or currently using an Ambulatory Assistive Device (Walker, Cane, Wheelchair, Crutches, etc.)? No PATIENT GENDER DATA: Female. status: : No status: NO. PATIENT RELEVANT IMPLANT DATA REVIEWED: Yes ALLERGIES: Reviewed and unchanged CONTRAST ALLERGY: NO. EXAM: CT -CONTRAST INDUCED NEPHROPATHY RISK FACTORS: Patient age > 60 years CREATININE: Creatinine Date Value Ref Range Status 07/29/2022 0.69 0.58 - 0.96 mg/dL Final 06/29/2021 0.51 (L) 0.58 - 0.96 mg/dL Final 04/28/2021 0.62 0.58 - 0.96 mg/dL Final Estimated Glomerular Filtration Rate Date Value Ref Range Status 07/29/2022 109 >=60 mL/min/1.73m Final Comment: Estimated Glomerular Filtration Rate (eGFR) is calculated using the 2020 CKD-EPI creatinine equation. This equation utilizes serum creatinine, sex, and age as parameters. The creatinine assay has traceable calibration to isotope dilution-mass spectrometry. Refer to KDIGO guidelines for clinical interpretation. In patients with unstable renal function, e.g. those with acute kidney injury, the eGFR may not accurately reflect actual GFR. eGFR- Date Value Ref Range Status 06/29/2021 >60 Final P.O.C.T. RESULTS: POC done: Yes, See Lab Tab August 17, 2022 TREATMENT: N/A PERIPHERAL IV DATA: Ambulatory: A peripheral IV was started in the Left antecubital site with a Angio cath: 22 gauge. RADIOLOGY DEPARTMENT: CT; Exam(s) Completed: Chest SIGNATURE: RT Bakari(R) PATIENT NAME: Amber Kellogg DATE: August 17, 2022 TIME: 2:01 PM documented in this encounter [facility] 08-09-2022 Nurse Note Pt here for injection of Lupron. Given IM in left buttock. Pt tolerated well. Mary Jo Wang LPN documented in this encounter [facility] 08-05-2022 History of Present illness Narrative Episode Visit Count: 69 Therapist That Will Accept/Oversee The Plan Of Care: Edward Start of Care Date: 09/09/20 Onset Date: 08/28/20 Patient Identified by Name and Date of : Yes REHABILITATION AND SPORTS THERAPY PHYSICAL THERAPY TREATMENT NOTE ASSESSMENT: Amber Kellogg tolerated the session with no issues. She demonstrated difficulty with axillary webbing and increase girth to R UE. The patient will continue to benefit from ongoing skilled physical therapy to progress toward set goals. PLAN FOR NEXT VISIT: MLD;resume ex SUBJECTIVE: Has not been good about doing HEP like should have been doing. Pain: Pain Pain Level: 4 Pain Location: Breast - Right Description: Tightness, Sore Frequency: Intermittent OBJECTIVE MEASURES WITH LEVEL OF FUNCTION: Upper Extremity Circumferential Measurements R Thumb (proximal phalanx) (cm): 6 cm R Index Finger (proximal phalanx) (cm): 6 cm R DPC (cm): 18.5 cm R Distal Wrist Crease (DWC) (cm): 16 cm R 8 cm above wrist (cm): 21 cm R 16 cm above wrist (cm): 26.4 cm R 24 cm above wrist (cm): 24.8 cm R 32 cm above wrist (cm): 29.8 cm R 40 cm above wrist (cm): 30 cm R 44 cm above wrist (cm): 30 cm R Upper Extremity Volume: 286.62 TREATMENT: Manual Therapy: 1: measure 2: MLD seq x 40'(proximal clearing and R UE/ R Breast) 3: PROM x 5' R shld 4: tissue mobs w dycem to R axilla x 10' Skilled Intervention: Manual skills to improve joint mobility, ROM, and decrease pain. Utilized anatomy knowledge of the therapist, and assessment of patient's response to intervention. Billing Manual TherapyTreatment Minutes: 55 Total Treatment Time Minutes (timed/untimed): 55 Shahnaz Sneed PTA documented in this encounter [facility] 07-29-2022 History of Present illness Narrative Episode Visit Count: 68 Therapist That Will Accept/Oversee The Plan Of Care: Edward Start of Care Date: 09/09/20 Onset Date: 08/28/20 Patient Identified by Name and Date of : Yes REHABILITATION AND SPORTS THERAPY PHYSICAL THERAPY TREATMENT NOTE ASSESSMENT: Amber Kellogg tolerated the session with no issues. She demonstrated difficulty with 2 visible and palpable cords from lateral, axilla, and into upper arm. Less visible by breast. The patient will continue to benefit from ongoing skilled physical therapy to progress toward set goals. PLAN FOR NEXT VISIT: MLD;resume ex SUBJECTIVE: Arm seems to be bigger lately. Has gained weight and has not been eating properly. Knows she needs to work on that. Pain: Pain Additional Pain Information : Specific pain level not discussed in order to focus on movement/functional goals OBJECTIVE MEASURES WITH LEVEL OF FUNCTION: TREATMENT: Manual Therapy: 2: MLD seq x 35'(proximal clearing and R UE/ R Breast) 3: PROM x 5' R shld 4: tissue mobs w dycem to R axilla x 10' Skilled Intervention: Manual skills to improve joint mobility, ROM, and decrease pain. Utilized anatomy knowledge of the therapist, and assessment of patient's response to intervention. [facility] Management: 1: *scap retraction w ER. 10 hold x 3 2: *scap retraction w ER and side bend. 10 hold x3 3: *scap retraction w ER and trunk rotation. 10 hold x2 4: Handout given on above to add to HEP Skilled Intervention: Provided written instruction for home program to facilitate proper performance and compliance. Billing Manual TherapyTreatment Minutes: 45 Self-Care/Home Management Treatment Minutes: 10 Total Treatment Time Minutes (timed/untimed): 55 Shahnaz Sneed PTA documented in this encounter [facility] 07-12-2022 Nurse Note Pt here for injection of Lupron. Given IM in right buttocks. Pt tolerated well. Mary Jo Wang LPN documented in this encounter [facility] 06-14-2022 Nurse Note Pt here for injection of Lupron. Given IM in Lupron left buttocks. Pt tolerated well. Mary Jo Wang LPN documented in this encounter [facility] 06-09-2022 History of Present illness Narrative Episode Visit Count: 64 Therapist That Will Accept/Oversee The Plan Of Care: Edward Start of Care Date: 09/09/20 Onset Date: 08/28/20 Patient Identified by Name and Date of : Yes REHABILITATION AND SPORTS THERAPY PHYSICAL THERAPY TREATMENT NOTE ASSESSMENT: Amber Kellogg tolerated the session with no issues. She demonstrated difficulty with swelling to R UE and R breast. Understanding to add MLD to R breast and continue with self MLD to R UE. The patient will continue to benefit from ongoing skilled physical therapy to progress toward set goals. PLAN FOR NEXT VISIT: MLD; ex as allowed post op SUBJECTIVE: Thinks hand and arm may be more swollen today. Requests to leave early so she can get her daughter to an appointment. Pain: Pain Additional Pain Information : Specific pain level not discussed in order to focus on movement/functional goals OBJECTIVE MEASURES WITH LEVEL OF FUNCTION: Upper Extremity Circumferential Measurements R Thumb (proximal phalanx) (cm): 6 cm R Index Finger (proximal phalanx) (cm): 6 cm R DPC (cm): 18 cm R Distal Wrist Crease (DWC) (cm): 15.8 cm R 8 cm above wrist (cm): 19 cm R 16 cm above wrist (cm): 23.8 cm R 24 cm above wrist (cm): 24.8 cm R 32 cm above wrist (cm): 27.6 cm R 40 cm above wrist (cm): 29 cm R 44 cm above wrist (cm): 29.7 cm R Upper Extremity Volume: 274.35 TREATMENT: Manual Therapy: 1: measure 2: MLD seq x 40'(proximal clearing and R UE/ R Breast) 3: PROM x 5' R shld 4: tissue mobs w dycem x 10 min Skilled Intervention: Manual skills to improve joint mobility, ROM, and decrease pain. Utilized anatomy knowledge of the therapist, and assessment of patient's response to intervention. [facility] Management: 1: issued self MLD to R breast. Hand out given and reviewed Skilled Intervention: Provided written instruction for home program to facilitate proper performance and compliance. Billing Manual TherapyTreatment Minutes: 45 Self-Care/Home Management Treatment Minutes: 5 Total Treatment Time Minutes (timed/untimed): 45 Shahnaz Sneed PTA documented in this encounter [facility] 06-02-2022 History of Present illness Narrative Episode Visit Count: 63 Therapist That Will Accept/Oversee The Plan Of Care: Edward Start of Care Date: 09/09/20 Onset Date: 08/28/20 REHABILITATION AND SPORTS THERAPY PHYSICAL THERAPY PROGRESS REPORT PLAN OF CARE UPDATE: Assessment: Amber Kellogg demonstrates difficulty with physical activities, reaching behind back, reaching overhead, and use hand with arm at shoulder level. She hasprogressed toward goals. Patient continues to present with impairments in overall function, posture, range of motion, soft tissue healing, and strength that interfere with lifting;physical activities;recreational activities;use hand with arm at shoulder level;reaching overhead . Current prognosis is Good due to: positive past response to therapy . Pt having difficulty with limited ROM in R shoulder following reconstruction surgery. She will benefit from continued skilled therapy services to meet the updated goals for this plan of care as noted below. Goals for Episode of Care: created on 09/09/20 through 12/08/20 Patient able to verbalize skin care and lymphedema risk reductions: MET Patient/family independent with home exercise program including self MLD, skincare guidelines, scar massage, ROM exercises, strengthening exercises and garment instructions: MET THUS FAR Patient will increase active ROM of R shoulder to WNL to allow patient to achieve neutral postural alignment, for improved performance of ADLs.: MET Patient will decrease pain to: 2/10 : ONGOING Patient will have supple scar with no tenderness to palpation and demonstrate and understanding of scar management: ONGOING Patient/family able to verbalize all pertinent aspects of CDT: ONGOING Patient/family independent with donning/doffing compression garment and proper wearing schedule and care of garment: MET Patient Goals: increase ROM R shoulder; get compression sleeve Planned Interventions, Frequency, and Duration: , Patient to be seen for PLAN FOR NEXT VISIT: MLD; ex as allowed post op SUBJECTIVE: . Pt concerned about possible increase in swelling.. Functional Limitations: lifting;physical activities;recreational activities;use hand with arm at shoulder level;reaching overhead Pain: PROMIS Scales Higher is Better 09/09/2020 02/03/2021 Phys Func - Score 28 (severe dysfunction) - Phys Func - Percentile 1 % - Social Roles - Score 25 (severe dysfunction) - Social Role - Percentile 1 % - GH Physical - Score 39.8 37.4 (Fair) GH Physical - Percentile 15 % 10 % GH Mental - Score 43.5 31.3 (Fair) GH Mental - Percentile 26 % 3 % Self-Eff Symptom - Score 38 (Low) - Self-Eff Symptom - Percentile 12 % - T-scores: mean of general population = 50. 5 points is clinically meaningfully difference Percentiles provide an indication of how the patient's score ranks in relation to the general population. Higher percentile rankings indicate better function/quality of life. 50th percentile is the average of the general population and indicates half of respondents had a worse score. Lower is Better 09/09/2020 Fatigue - Score 58 (mild) Fatigue - Percentile 21 % T-scores: mean of general population = 50. 5 points is clinically meaningfully difference Percentiles provide an indication of how the patient's score ranks in relation to the general population. Higher percentile rankings indicate better function/quality of life. 50th percentile is the average of the general population and indicates half of respondents had a worse score. OBJECTIVE MEASURES WITH LEVEL OF FUNCTION: Upper Extremity Circumferential Measurements R Thumb (proximal phalanx) (cm): 6 cm R Index Finger (proximal phalanx) (cm): 6 cm R DPC (cm): 18.5 cm R Distal Wrist Crease (DWC) (cm): 16.1 cm R 8 cm above wrist (cm): 20.5 cm R 16 cm above wrist (cm): 25.4 cm R 24 cm above wrist (cm): 24.8 cm R 32 cm above wrist (cm): 28.8 cm R 40 cm above wrist (cm): 29.3 cm R 44 cm above wrist (cm): 30.5 cm R Upper Extremity Volume: 284.75 TREATMENT: Manual Therapy: 1: measure 2: MLD seq x 40'(proximal clearing and R UE/ R Breast) 3: PROM x 5' R shld 4: tissue mobs w dycem x 10 min Skilled Intervention: Manual skills to improve joint mobility, ROM, and decrease pain. Utilized anatomy knowledge of the therapist, and assessment of patient's response to intervention. [facility] Management: 1: pt to resume dhruv AAROM flex/abd 3' ea; 3-4x per day Skilled Intervention: Correct performance of home program was facilitated with verbal cueing. Billing Manual TherapyTreatment Minutes: 55 Self-Care/Home Management Treatment Minutes: 5 Total Treatment Time Minutes (timed/untimed): 55 Corie Sykes PT documented in this encounter [facility] 05-27-2022 History of Present illness Narrative Episode Visit Count: 62 Therapist That Will Accept/Oversee The Plan Of Care: Edward Start of Care Date: 09/09/20 Onset Date: 08/28/20 Patient Identified by Name and Date of : Yes REHABILITATION AND SPORTS THERAPY PHYSICAL THERAPY TREATMENT NOTE ASSESSMENT: Amber Kellogg tolerated the session with expected muscle soreness. She demonstrated difficulty with limited shoulder ROM, with discomfort with PROM. Dimpling of skin to lower half of R breast. The patient will continue to benefit from ongoing skilled physical therapy to progress toward set goals. PLAN FOR NEXT VISIT: MLD; ex as allowed post op SUBJECTIVE: Had f/u appointment with Dr. Garcia yesterday. No restrictions. To return in 4 months. Doctor stated lymphedema to R breast. Pain: Pain Additional Pain Information : Specific pain level not discussed in order to focus on movement/functional goals OBJECTIVE MEASURES WITH LEVEL OF FUNCTION: Upper Extremity Circumferential Measurements R Thumb (proximal phalanx) (cm): 6 cm R Index Finger (proximal phalanx) (cm): 6.1 cm R DPC (cm): 18.8 cm R Distal Wrist Crease (DWC) (cm): 16.4 cm R 8 cm above wrist (cm): 19.4 cm R 16 cm above wrist (cm): 25.5 cm R 24 cm above wrist (cm): 25.5 cm R 32 cm above wrist (cm): 30 cm R 40 cm above wrist (cm): 29.8 cm R 44 cm above wrist (cm): 30 cm R Upper Extremity Volume: 284.72 TREATMENT: Manual Therapy: 1: measure 2: MLD seq x 40'(proximal clearing and R UE/ R Breast) 3: PROM x 5' R shld 4: tissue mobs w dycem x 10 min Skilled Intervention: Manual skills to improve joint mobility, ROM, and decrease pain. Utilized anatomy knowledge of the therapist, and assessment of patient's response to intervention. Billing Manual TherapyTreatment Minutes: 55 Total Treatment Time Minutes (timed/untimed): 55 Shahnaz Sneed PTA documented in this encounter [facility] 05-26-2022 History of Present illness Narrative DATE OF PHOTOS: 05/26/2022 Body Part: Breasts ST Julianna May 26, 2022 3:43 PM documented in this encounter [facility] 05-26-2022 History of Present illness Narrative Plastic Surgery Note CC: Post op HPI: Amber is a 46 year old female. Date of Surgery: 04/08/2022 Surgery: Right Breast Tissue Immigration Consultant Removal, Near Circumferential Capsulotomy of the Right Breast, Placement of Permanent Right Breast Silicone Implant ([id number]-[id number]), Right Breast Fat Grafting (donor bilateral thighs) 45 cc, Left Breast Mastopexy (superomedial) Time Postop: 7 weeks At last visit, discussed more fat grafting to the right breast and submitting for pre-D. Today, she reports that she may wait for more fat grafting at this time as the fat grafting from the thighs caused her pain and N/T. S: -Pain has improved since surgery -No symptoms or signs of infection (no N/V/F/C, no wound drainage and no new redness) O: Right breast implant in place Left breast soft, no evidence of hematoma or seroma Bilateral breast incisions well approximated, no erythema, no drainage, no s/s of infection The wounds are dry and intact with no s/s infection No evidence of fluid collection per US BP 130/73 Pulse 73 Temp 36.9 C (98.5 F) A/P: -Expected post operative course -used US today to rule out any fluid collection -begin breast rehab, patient may continue with lymphedema therapy for this, consult ordered for breast rehab -discussed fat grafting in future from multiple donor sites including abdomen, flanks, thighs or possibly down-size the right breast implant, will further evaluate at 3 months post operatively -photos today -resume normal activities, no restrictions -Shower regularly to keep the incisions clean and inspect for signs of infection (due to decreased sensation). -Walking is encouraged, this helps reduce swelling and lowers the chance of blood clots. -Activity restrictions reviewed with patient. Okay to raise arm above head at 2 weeks if drains have all been removed and you do not have any wound healing issues. -No lifting/pushing/pulling greater than 10 lbs for 6 weeks after surgery. Do not perform communications writer such as laundry and vacuuming. Do not perform yard work or gardening. -Continue to wear compressive front closing surgical bra/sports bra, okay for soft front closing sports bra at 2 weeks, NO underwire. -Continue compression garment for 6 weeks following surgery -No water submersion/baths until all incisions are fully healed, typically this takes 6 weeks. -Okay for tylenol alternating with ibuprofen for pain control (do not exceed 4 g tylenol in a 24 hour period, okay for ibuprofen 600-800 mg every 8 hours as needed for pain). -Okay for driving if not taking any narcotic pain medication and you feel like you can safely maneuver a vehicle. -Okay to sleep on your back and lie flat, do not sleep on the surgical side 4 weeks after recent procedure -Follow up in about 2 months -If experiencing wound complications or have any questions or concerns during business hours call [phone], option 3 or after hours (after 5 pm or on the weekend) call [phone] and ask for the plastic surgery resident / fellow instrumentation engineering technician for further instructions. If you have increasing swelling or bruising, particularly one side greater than the other. If swelling and redness persists after a few days. If you have increased redness along the incision. If you have severe or increased pain not relieved by medication. If you have an oral temperature of 100.4 degrees or higher. If you have any yellow or greenish drainage from the incisions or notice a foul smell. If you have bleeding from the incisions that is difficult to control with light pressure. The patient is seen and examined by Dr. Garcia and the following reflects her service. Scribed by Genevieve Whitley RN She has severe radiation damage and some right lower breast lymphedema. I looked at right breats with US and I see no seroma. I recommended Breast rehab ans massage to the right breast. I recommended fat grafting. She may need a slight reduction in the right breats implant to better match the left breast. She still has numbness on the LE from fat harvest so may need to look at another donor site. Quin Garcia MD documented in this encounter [facility] 05-24-2022 Miscellaneous Notes Called pt and discussed/mailed the SCP and information on the Survivorship COMMERCIAL ADMINISTRATOR Callie Gillespie RN documented in this encounter [facility] 05-11-2022 History of Present illness Narrative Episode Visit Count: 61 Therapist That Will Accept/Oversee The Plan Of Care: Edward Start of Care Date: 09/09/20 Onset Date: 08/28/20 REHABILITATION AND SPORTS THERAPY PHYSICAL THERAPY TREATMENT NOTE ASSESSMENT: Amber Kellogg tolerated the session with no issues. She demonstrated difficulty with ROM in R UE. The patient will continue to benefit from ongoing skilled physical therapy to progress toward set goals. PLAN FOR NEXT VISIT: SUBJECTIVE: Pt has returned to work. Feeling twinges of pain in R UE since activity has increased. Pain: OBJECTIVE MEASURES WITH LEVEL OF FUNCTION: TREATMENT: Manual Therapy: 1: measure 2: MLD seq x 40'(proximal clearing and R UE) 4: tissue mobs w dycem x 10 min Skilled Intervention: Manual skills to improve joint mobility, ROM, and decrease pain. Utilized anatomy knowledge of the therapist, and assessment of patient's response to intervention. Billing Manual TherapyTreatment Minutes: 55 Total Treatment Time Minutes (timed/untimed): 55 Corie Sykes PT documented in this encounter [facility] 05-05-2022 History of Present illness Narrative Episode Visit Count: 60 Therapist That Will Accept/Oversee The Plan Of Care: Edward Start of Care Date: 09/09/20 Onset Date: 08/28/20 Patient Identified by Name and Date of : Yes REHABILITATION AND SPORTS THERAPY PHYSICAL THERAPY TREATMENT NOTE ASSESSMENT: Amber Kellogg tolerated the session with no issues. She demonstrated stable girth measurements. Incisions healing; tape over incisions. The patient will continue to benefit from ongoing skilled physical therapy to progress toward set goals. PLAN FOR NEXT VISIT: MLD; ex as allowed post op SUBJECTIVE: Started back to work on Monday with 4 hr shift and increasing time to 6 hrs tomorrow. Thighs still are sore from lipo for fat grafting. Compliant with shoulder ROM limitations. Pain: Pain Additional Pain Information : Specific pain level not discussed in order to focus on movement/functional goals OBJECTIVE MEASURES WITH LEVEL OF FUNCTION: Upper Extremity Circumferential Measurements R Thumb (proximal phalanx) (cm): 5.8 cm R Index Finger (proximal phalanx) (cm): 6 cm R DPC (cm): 17.5 cm R Distal Wrist Crease (DWC) (cm): 15.3 cm R 8 cm above wrist (cm): 19.8 cm R 16 cm above wrist (cm): 25 cm R 24 cm above wrist (cm): 25.2 cm R 32 cm above wrist (cm): 29 cm R 40 cm above wrist (cm): 28.4 cm R 44 cm above wrist (cm): 29.6 cm R Upper Extremity Volume: 267.87 TREATMENT: Manual Therapy: 1: measure 2: MLD seq x 50'(proximal clearing and R UE) Skilled Intervention: Manual skills to improve joint mobility, ROM, and decrease pain. Utilized anatomy knowledge of the therapist, and assessment of patient's response to intervention. Billing Manual TherapyTreatment Minutes: 55 Total Treatment Time Minutes (timed/untimed): 55 Shahnaz Sneed PTA documented in this encounter [facility] 04-19-2022 Nurse Note Pt here for injection of Lupron. Given IM in right buttocks. Pt tolerated well. Mary Jo Wang LPN documented in this encounter [facility] 04-13-2022 History of Present illness Narrative Plastic Surgery Note CC: Post op HPI: Amber is a 46 year old female. Date of Surgery: 04/08/2022 Surgery: Right Breast Tissue Immigration Consultant Removal, Near Circumferential Capsulotomy of the Right Breast, Placement of Permanent Right Breast Silicone Implant (SSM-405), Right Breast Fat Grafting (donor bilateral thighs) 45 cc, Left Breast Mastopexy (superomedial) Time Postop: 6 days S: -Pain has improved since surgery -No symptoms or signs of infection (no N/V/F/C, no wound drainage and no new redness) O: Right breast implant in place, soft, no evidence of hematoma or seroma Left breast soft, no evidence of hematoma or seroma Bilateral breast incisions well approximated, no erythema, no drainage, no s/s of infection The wounds are dry and intact with no s/s infection BP 134/72 Pulse 94 Temp 36.9 C (98.4 F) A/P: -Expected post operative course -Shower regularly to keep the incisions clean and inspect for signs of infection (due to decreased sensation). -Walking is encouraged, this helps reduce swelling and lowers the chance of blood clots. -Activity restrictions reviewed with patient. Okay to raise arm above head at 2 weeks if drains have all been removed and you do not have any wound healing issues. -No lifting/pushing/pulling greater than 10 lbs for 6 weeks after surgery. Do not perform communications writer such as laundry and vacuuming. Do not perform yard work or gardening. -Continue to wear compressive front closing surgical bra/sports bra, okay for soft front closing sports bra at 2 weeks, NO underwire. -Continue compression garment for 6 weeks following surgery -No water submersion/baths until all incisions are fully healed, typically this takes 6 weeks. -Okay for tylenol alternating with ibuprofen for pain control (do not exceed 4 g tylenol in a 24 hour period, okay for ibuprofen 600-800 mg every 8 hours as needed for pain). -Okay for driving if not taking any narcotic pain medication and you feel like you can safely maneuver a vehicle. -Okay to sleep on your back and lie flat, do not sleep on the surgical side 4 weeks after recent procedure -Follow up 1 month -If experiencing wound complications or have any questions or concerns during business hours call [phone], option 3 or after hours (after 5 pm or on the weekend) call [phone] and ask for the plastic surgery resident / fellow instrumentation engineering technician for further instructions. If you have increasing swelling or bruising, particularly one side greater than the other. If swelling and redness persists after a few days. If you have increased redness along the incision. If you have severe or increased pain not relieved by medication. If you have an oral temperature of 100.4 degrees or higher. If you have any yellow or greenish drainage from the incisions or notice a foul smell. If you have bleeding from the incisions that is difficult to control with light pressure. The patient is seen and examined by Dr. Garcia and the following reflects her service. Scribed by Francisca Lord RN I agree with the Chief Complaint, ROS, and Past Histories independently gathered by the clinical technology support analyst and the remaining scribed note accurately describes my personal service to the patient. She looks good with no concerns. She has some expected postoperative pain. I am recommending more fat grafting to the right breast which we can submit for at her next follow-up. Quin Garcia MD documented in this encounter [facility] 04-12-2022 Miscellaneous Notes Spoke to patient. She is s/p Right Breast Tissue Immigration Consultant Removal, Near Circumferential Capsulotomy of the Right Breast, Placement of Permanent Right Breast Silicone Implant (SSM-405), Right Breast Fat Grafting (donor bilateral thighs) 45 cc, Left Breast Mastopexy (superomedial) on 04/08/2022 w/ Dr. Garcia. Reports pain to thighs and left breast since surgery, almost out of oxycodone, concerned she won't have any left when she come for her appointment on 04/14/22, will be riding in car for 2 hrs for appt. Advised increasing ibuprofen from 400 mg-600-800 mg every 8 hrs, alternate w/ tylenol and only take oxycodone as needed. Will discuss w/ another provider about prescribing more oxycodone and [facility] [place]. Francisca Lord RN Patient is still in a lot of pain after surgery and is running low on OXY. She is worried about her long drive here for post op and is asking for a refill if possible. documented in this encounter [facility] 03-31-2022 History of Present illness Narrative Episode Visit Count: 57 Therapist That Will Accept/Oversee The Plan Of Care: Edward Start of Care Date: 09/09/20 Onset Date: 08/28/20 Patient Identified by Name and Date of : Yes REHABILITATION AND SPORTS THERAPY PHYSICAL THERAPY TREATMENT NOTE ASSESSMENT: Amber Kellogg tolerated the session with no issues. She demonstrated difficulty with swelling to R LE; compliant with wearing compression sleeve and glove. The patient will continue to benefit from ongoing skilled physical therapy to progress toward set goals. PLAN FOR NEXT VISIT: MLD; compression;tissue mobility, Ex SUBJECTIVE: Surgery scheduled for Apr 08. Had pre-op visit. Returns to PT x 1 before surgery. Pain: Pain Additional Pain Information : Specific pain level not discussed in order to focus on movement/functional goals OBJECTIVE MEASURES WITH LEVEL OF FUNCTION: TREATMENT: Therapeutic Exercise: 1: UBE L 1.5 3' fwd/3' back 2: seated rows 1 pl 3 x 10 4: Shld ext: 3x10 orange band Skilled Intervention: Reviewed and educated patient on additions/changes for home exercise program as above (*). Manual Therapy: 2: MLD seq x 25'(proximal clearing and R UE) 4: tissue mobs w dycem x 15 min Skilled Intervention: Manual skills to improve joint mobility, ROM, and decrease pain. Utilized anatomy knowledge of the therapist, and assessment of patient's response to intervention. Billing Therapeutic Exercise Treatment Minutes: 10 Manual TherapyTreatment Minutes: 45 Total Treatment Time Minutes (timed/untimed): 55 Shahnaz Sneed PTA documented in this encounter [facility] 03-24-2022 Nurse Note Intake information documented in the prior visit with PAT today. documented in this encounter [facility] 03-24-2022 Instructions David Rajan APRN.COMMERCIAL ADMINISTRATOR - 03/24/2022 1:42 PM EDT PATIENT PREOPERATIVE INSTRUCTIONS Quin Garcia MD has scheduled you for your procedure at this surgery center: [facility]: [phone] --[id number] [place] [address] Location is near [facility]. Please read below carefully for your personalized instructions. Dietary Restrictions: - No solid food after midnight. - You may have 12 ounces of clear liquids (water, clear juices such as apple juice or gatorade, carbonated beverages, clear tea, black coffee, jello) until 2 hours before scheduled arrival at facility. Medications: Unless instructed differently below, stay on all of your medications until your surgery. Approved medications to take the morning of surgery with a sip of water: None. - Your pain medication may cause thinning of your blood. Please see directions for Blood Thinning Medications. If you start any new medications after today's visit, please contact the surgeon's office. Blood Thinning Medications: - Stop NSAIDS (Ibuprofen, Advil, Aleve, Motrin, Celebrex, Mobic, etc.) 7 days before surgery, as directed by your surgeon. - Stop Aspirin 7 days before surgery, as directed by your surgeon. - Stop Vitamin E, ALL multi-vitamins, herbals and dietary supplements 7 days before surgery. - You may take Tylenol (Acetaminophen) or any of your pain medications that do not contain aspirin or NSAIDS as needed. Important Reminders: - Candy, mints, and tobacco products are NOT permitted the morning of surgery. - Hearing aids, dentures and glasses may be worn the morning of surgery. - NO jewelry, body piercings, makeup, hairpins or contacts are to be worn the day of surgery. If you develop symptoms such as a fever, cold, or flu, or have other changes to your health within TWO DAYS of scheduled surgery or the morning of surgery, please contact the surgery center above. Personal Belongings: -Please have photo ID and insurance cards. -If you do not have a copy of advance directives on file with us, please bring a copy with you on the day of surgery. - Leave ALL valuables and money at home or with family members. For Outpatient Procedures: - YOU MUST HAVE A RESPONSIBLE DELIVERY STOCK CLERK TAKE YOU HOME. A CROCODILE FARMER OR COTTON HEADER CANNOT BE MADE A RESPONSIBLE DELIVERY STOCK CLERK. - We recommend that a responsible person stays with you overnight to take care of you. - You cannot stay in a hotel alone after outpatient surgery. You will not be permitted to have your surgery, if you do not have someone to take care of you. Arrival Time for Surgery: - The Surgery Center or hospital where you are having surgery will call the afternoon before surgery (or Monday for Monday surgery) with a scheduled arrival time. - If you have not heard by 4 pm, please contact the surgery center above. Please be aware that emergency situations arise, which may delay or change your surgical time. If this happens, we will notify you as soon as possible and regret any inconvenience. If you already have an Advance Directive, please fax a copy to [phone] or email to for it to be added to your chart. If you do not have an Advance Directive, you can find the appropriate form and more information at [email or web address]. We recommend that you complete the Advance Directive form found on the website and bring it with you the day of your surgery. It can be witnessed and scanned into your chart that day. David Rajan APRN.CNP documented in this encounter [facility] 03-24-2022 History and physical note HISTORY AND PHYSICAL EXAMINATION SERVICE DATE: 03/24/2022 SERVICE TIME: 1:44 PM PRIMARY CARE PHYSICIAN: Susi Baker PA-C REASON FOR VISIT: Amber Kellogg is a 46 year old female who is scheduled for REMOVAL RECRUITMENT MANAGER TISSUE BREAST, INSERTION OR REPLACEMENT OF BREAST IMPLANT ON SEPARATE DAY FROM MASTECTOMY BILATERAL, MASTOPEXY on 04/08/2022 at [facility] at the request of Dr. Quin Garcia for consultation. My final recommendation will be communicated back to the requesting physician by way of shared medical record or letter. 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 Patient has h/o right breast cancer. S/p right mastectomy with reconstruction using tissue broadcast designer on 08/28/20. Patient also received chemotherapy and radiation post-op, she is currently taking Anastrozole daily. She has c/o breast asymmetry between washoe breast and reconstructed breast. Patient denies recent fevers, chills, unexplained weight loss. The above surgery was recommended; patient has elected to proceed. PAST MEDICAL HISTORY Diagnosis Date Delayed emergence from general anesthesia Malignant neoplasm of right breast (HCC) 11/2019 PAST SURGICAL HISTORY Procedure Laterality Date BREAST BIOPSY HX Right 2019 X2 NOVEMBER AND Jan D&C, DIAG AND/OR THERAPEUTIC 2019 ENDOMETRIAL ABLATION-TEAM TRIAL 2019 MASTECTOMY, SIMPLE, COMPLETE Right 08/28/2020 PORT REMOVAL Port-A-Cath removed 09/08/21 [facility] FAMILY HISTORY Problem Relation Age of Onset Breast Cancer Maternal Aunt Breast Cancer Maternal Grandmother Anesthesia Problems No Family History SOCIAL HISTORY: Social History Tobacco Use Smoking status: Never Smokeless tobacco: Never Vaping Use Vaping Use: Never used Substance Use Topics Alcohol use: Never Drug use: Never Prior to Admission medications as of 03/24/22 1346 Medication Sig Last Dose Taking cholecalciferol, vitamin D3, (VITAMIN D3 ORAL) Take by mouth once daily. Vitamin A, D3, K Taking Yes ascorbic acid (VITAMIN C ORAL) Take by mouth once daily. Taking Yes pregabalin (LYRICA) 75 mg capsule Take 1 capsule by mouth daily at bedtime. Taking Yes anastrozole (ARIMIDEX) 1 mg tablet Take 1 tablet by mouth once daily. Taking Yes No medication comments found. ALLERGIES No Known Allergies COVID VACCINATION STATUS: Not vaccinated REVIEW OF SYSTEMS: PAIN ASSESSMENT: General: No weight loss, malaise or fevers. Neuro: No history of TIA's, stroke, ASSOCIATE GENETICS PROFESSOR tumor, impaired sensorium, hemiplegia, paraplegia or quadraplegia. No neurological symptoms or problems. Respiratory: No history of current cough or dyspnea, or pneumonia in the past 6 weeks. No history of respiratory/pulmonary symptoms or problems. Cardiovascular: No history of HTN requiring medication, no history of angina, CHF, KS, cardiac surgery or stents. Denies rest pain, gangrene or revascularization/amputation for PVD. No history of cardiovascular symptoms or problems. Denies current chest pain, palpitations, fluttering. GI: No history of GI symptoms or problems. No history of esophageal varices, recent ascites, or ETOH greater than 2 drinks per day. : No history of dysuria, frequency or incontinence,, stones or chronic kidney disease CUT OUT STITCHER: Negative for abnormal vaginal bleeding, abnormal vaginal discharge. : Denies, No LMP recorded. Patient has had an ablation. Endocrine: No history of diabetes. Has not taken steroids within the past 30 days. No history of endocrinological symptoms or problems. Hematology: No history of bleeding or clotting disorder. Pt is not taking anti-coagulation or platelet medications. No history of hematological symptoms or problems. Oncology: See HPI Psych: No history of psychiatric symptoms or problems. Musculoskeletal: Negative for joint pain or swelling, back pain or muscle pain. Skin: Negative for lesions, rash and itching. Objective PHYSICAL EXAM: VITALS: BP 132/78 Pulse 87 Temp (Src) 98.2 (Temporal) Resp 14 Ht 5' 3 (1.60m) Wt 154 lb 12.8 oz (70.2kg) SpO2 99% BMI 27.43 kg/(m^2). General: Alert and oriented, No acute distress. Body mass index is 27.42 kg/m . Skin: Normal color, no rash, no lesions. HEENT: EOM, pupils equal, round and reactive. Cardiovascular: Normal S1 & S2, no rubs, murmurs or gallops. No JVD. Pulse regular. Lungs: Normal breath sounds, no wheezes or crackles. Abdomen: Soft, non-tender, no rigidity. Extremities: Right arm lymphedema Neurological: Normal cognition and motor skills. Pulses: Carotid and radial pulses normal +2. Diagnostic tests reviewed for today's visit: Lab Value Units Date High Low HB No results within date range. HCT No results within date range. WBC No results within date range. PLT No results within date range. NA No results within date range. K No results within date range. GLUC No results within date range. BUN No results within date range. CREAT No results within date range. PTSEC No results within date range. INR No results within date range. APTT No results within date range. ALT No results within date range. AST No results within date range. TBILI No results within date range. TSH No results within date range. Lab Value Units Date High Low HCGQT No results within date range. UHCG No results within date range. HCG, BODY* No results within date range. Lab Value Units Date High Low ABORHD No results within date range. ABSCREEN No results within date range. No results found for: HBA1C Echo 09/17/20 CONCLUSIONS: - Exam indication: Baseline and serial evaluation in a patient undergoing therapy with cardiotoxic agents - The left ventricle is normal in size. Left ventricular systolic function is normal. EF = 59 5% (2D biplane) Normal left ventricular diastolic function. - The right ventricle is normal in size. Right ventricular systolic function is normal. - There are no significant valvular abnormalities. - The patient has not had a prior [facility] echocardiographic exam for comparison. Assessment/Plan Lymphedema of arm Lymphedema of right arm. Currently managed with compression sleeves, wrapping, physical therapy. METS: Climb a flight of stairs or walk up a hill (5.50 METs) Patient denies any chest pain or undue shortness of breath with the above physical activity. ASA Class: 2 ANESTHESIA FINDINGS: Intubation History: No history of difficult intubation Significant Anesthesia Considerations: Slow emergence (possibly s/p mastectomy, patient did not require an overnight stay). Patient denies post-op nausea/vomiting, life-threatening reactions to anesthesia. Airway Exam: General: Normal appearance. Body mass index is 27.42 kg/m . Mallampati Score is CLASS II ULBT: Class I - Lower incisors can bite the upper lip above the jesica line Neck: Normal appearance and function, Distance from hyoid to mentum during neck extension is at least 3 finger breaths Mouth: Normal tongue size and Mouth opening greater than 2 finger breaths Dentition: Intact Airway History: No abnormal airway history STOP BANG Score: Criteria: None Score = 0 PLAN This patient is optimally prepared for surgery. CONSULTS: Patient does not require consults for optimization at this time. The Following Tests/Procedures Have Been Initiated: Labs not indicated per [facility] protocol, EKG not indicated per [facility] protocol Planned Anesthetic: Per anesthesia choice Instructions Given to Patient: Instructions located in the after visit summary. Patient given verbal and written preop instructions and voices comprehension and compliance. SIGNATURE: David Rajan APRN.CNP PATIENT NAME: Amber Kellogg DATE: March 24, 2022 TIME: 2:08 PM documented in this encounter [facility] 03-23-2022 History of Present illness Narrative Plastic Surgery note CC: Follow Up for Breast Reconstruction HPI: Amber Kellogg is a 46 year old that presents today to establish care for breast reconstruction. She is a former patient of Dr. Preston. She is here to discuss the JANETTE procedure scheduled on 12/28/21. -She has a hx of right breast cancer. Completed ddAC-T with Dr Montero. Radiation completed, treated 04/20/21 - 05/31/21. Delayed d/t right hand and arm lymphedema and pain to right arm and shoulder, limited ROM, in PT and on gabapentin Date of Surgery: 08/28/20 Surgery: Right Skin sparing mastectomy, sentinel lymph biopsy (7 LNs removed) by Dr Lopez and Right Prepectoral Tissue Immigration Consultant by Dr Preston. Time post op: N/A Tissue Immigration Consultant Volume: 200 cc normal saline REVIEW OF SYSTEMS All negative except for: GENERAL: []weight loss []malaise []fevers HEENT: []frequent or significant headaches []changes in hearing []change in vision []nose bleeds []other nasal problems NECK: []lumps []goiter []pain and significant neck swelling RESPIRATORY: []cough []hemoptysis []wheezing []COPD []dyspnea []shortness of breath CARDIOVASCULAR: []chest pain []leg swelling []hypertension []CHF []palpitations GI: []nausea []vomiting []diarrhea MUSCULOSKELETAL: [] joint pain or swelling [] back pain []muscle pain +R arm/shoulder pain SKIN: [] skin lesions []rash []itching +R arm/hand swelling; lymphedema PSYCH: []sleep disturbance []mood disorder []recent psychosocial stressors HEMATOLOGY/LYMPHOLOGY: []prolonged bleeding []bruising easily []swollen nodes ENDOCRINE: []cold intolerance []heat intolerance []polyuria []polydipsia []goiter [] Diabetes Allergies: No Known Allergies Tobacco use: No PAST MEDICAL HISTORY Diagnosis Date Malignant neoplasm of right breast (HCC) 11/2019 PAST SURGICAL HISTORY Procedure Laterality Date BREAST BIOPSY HX Right 2019 X2 NOVEMBER AND Jan D&C, DIAG AND/OR THERAPEUTIC 2019 ENDOMETRIAL ABLATION-TEAM TRIAL 2019 MASTECTOMY, SIMPLE, COMPLETE Right 08/28/2020 PORT REMOVAL Port-A-Cath removed 09/08/21 [facility] Current Outpatient Medications on File Prior to Visit Medication Sig pregabalin (LYRICA) 75 mg capsule Take 1 capsule by mouth daily at bedtime for 90 days. oxyCODONE-acetaminophen (PERCOCET) 5-325 mg tablet Take 1 tablet by mouth every 6 hours as needed. promethazine (PHENERGAN) 25 mg tablet Take 1 tablet by mouth every 6 hours as needed for Nausea/Vomiting. acetaminophen (TYLENOL EXTRA STRENGTH) 500 mg tablet Take 1,000 mg by mouth every 6 hours as needed. ibuprofen (MOTRIN) 200 mg tablet Take 400 mg by mouth every 6 hours as needed. lidocaine-prilocaine (EMLA) 2.5-2.5 % cream Apply 1 application to affected area as needed. No current facility-administered medications on file prior to visit. PE: Abdomen soft, no scars, possible donor site for JANETTE flaps Back w/ no scars, latissimus intact Swelling to left hand, soft, not fibrous yet Swelling to the dorsal hand Breast Exam: Right breast Incision well healed without erythema or drainage. Right breast tissue broadcast designer in place, no evidence of hematoma or seroma Right breast grade 3 capsular contracture Scars: Right Transverse mastectomy scar well healed L: Grade II Abdomen soft, no scars, possible donor site for JANETTE flaps Back w/ no scars, latissimus intact Swelling to left hand, soft Note: measurements are in centimeters SN to NIPPLE: L: 23 WIDTH: L: 13.5 IMF to NIPPLE: L: 10 ASSESSMENT/PLAN: -Amber Kellogg is a 46 year old with hx of right breast cancer, s/p right breast reconstruction w/ tissue broadcast designer, lymphedema to RU -Planned for surgery on 04/08 for right breast implant exchange, right breast fat grafting (donor bilateral thighs), left breast mastopexy for symmetry -An extensive discussion was undertaken with the patient regarding her breast reconstruction and I have advised her to contact me at any time with further questions she may have regarding breast reconstruction. The patient understands the specific risks of a silicone breast implant to include but not be limited to the following list: JAC-ALCL (Breast Implant Associated Anaplastic Large Cell Lymphoma; up to 0.03%) Systemic illness associated with implants (Commonly BII or Breast Implant Illness: muscle aches, fatigue, joint pain and others; undefined incidence) Infection Reoperation for malposition and asymmetry (up to 71%) Capsular contracture (up to 52%) Rupture (up to 35%) Pain (up to 33%) Breast feeding issues (up to 30%) Rippling (up to 25%) Changes in sensation to the breasts (up to 10%) Seroma and/or swelling (up to 9%) Scarring (up to 7%) Loss of skin (up to 4%) Bleeding or Hematoma (up to 2%) May affect quality of screening studies (mammogram or ultrasound) of the breasts Implants have limited use in patients with autoimmune diseases or on immunosuppression (such as lupus, rheumatoid arthritis, chemotherapy and others) The patient also understands that being overweight, smoking and diabetes all significantly increase the risk of complications. Patients with a current diagnosis of depression or mental health disorders should wait for resolution or stabilization of their condition. In addition, the patient understands breast implants are associated with a significant rate of removal or replacement over a lifetime and should therefore be considered temporary devices which will contribute to permanent changes in the shape and function of the breasts (ptosis and stretch mendoza). Regular follow up with a plastic surgeon should continue throughout life to determine the potential need for studies to detect the above listed potential complications. It is recommended patients with implants undergo ultrasound or MRI screening of the breasts 5 years after implant surgery and then every 2 years after that. These studies should also be considered at the time of any of the above symptoms. The patient also realizes that these studies may not be covered by their insurance therefore incurring the expenses themselves. A document with details about items on the list above will be sent home with the patient for review. The patient will attest to reading and understanding the provided list and return the initialed and signed list on the day of or prior to their surgery attesting to their understanding of the list and any that any questions they might have regarding breast implants have been answered. The patient is seen and examined by Dr. Garcia and the following reflects her service. Scribed by Francisca Lord RN I agree with the Chief Complaint, ROS, and Past Histories independently gathered by the clinical technology support analyst and the remaining scribed note accurately describes my personal service to the patient. I spent 30 minutes in the visit, with more than 50% of the total [id number] time of the visit in counseling / coordination of care. Last note: She is wanting to cancel the JANETTE flap. She is wanting to move forward with with: Right implant exchange, fat grafting to right breast, and left breast mastopexy for symmetry. 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 I discussed that she has a right radiated breast and is at a higher risk for complications. Depending on how capsular work I need to do will relate to how much I can fat graft to the right breast. I discussed significant asymmetries. Today: She is scheduled for right breast tissue broadcast designer removal, placement of permanent silicone implant, fat grafting to right breast from bilateral thighs, left breast mastopexy for symmetry. We previously went over the implant checklist and this has been signed. She is scheduled for Apr 08. She would benefit from multiple round of fat grafting to the right radiated breast Quin Garcia MD Order: [facility] [id number] S[facility] 200-450 With gel sizers [place] funnel x2 [employer] documented in this encounter [facility] 03-17-2022 History of Present illness Narrative Episode Visit Count: 56 Therapist That Will Accept/Oversee The Plan Of Care: Edward Start of Care Date: 09/09/20 Onset Date: 08/28/20 [facility] PHYSICAL THERAPY TREATMENT NOTE ASSESSMENT: Ambre Kellogg tolerated the session with fatigue and expected muscle soreness. She demonstrated difficulty with therapeutic exercise. The patient will continue to benefit from ongoing skilled physical therapy to progress toward set goals. PLAN FOR NEXT VISIT: MLD; compression;tissue mobility, Ex SUBJECTIVE: Pt reports that her neck has been bothering her since exercise last visit. Has had cervical traction twice and been to chiropractor. Doesn't do much physical activity at home. Pain: OBJECTIVE MEASURES WITH LEVEL OF FUNCTION: Upper Extremity Circumferential Measurements R Thumb (proximal phalanx) (cm): 6 cm R Index Finger (proximal phalanx) (cm): 6 cm R DPC (cm): 18.5 cm R Distal Wrist Crease (DWC) (cm): 16 cm R 8 cm above wrist (cm): 20.4 cm R 16 cm above wrist (cm): 25.3 cm R 24 cm above wrist (cm): 25.4 cm R 32 cm above wrist (cm): 29.7 cm R 40 cm above wrist (cm): 29.1 cm R 44 cm above wrist (cm): 29.7 cm R Upper Extremity Volume: 275.28 TREATMENT: Therapeutic Exercise: 1: UBE L 1.3 3' fwd/3' back 2: seated rows 1 pl 3 x 10 4: Shld ext: 3x10 orange band Skilled Intervention: Patient was educated in proper exercise technique and purpose for exercises. Manual Therapy: 1: measure 2: MLD seq x 40'(proximal clearing and R UE) Skilled Intervention: Manual skills to improve joint mobility, ROM, and decrease pain. Utilized anatomy knowledge of the therapist, and assessment of patient's response to intervention. Billing Therapeutic Exercise Treatment Minutes: 10 Manual TherapyTreatment Minutes: 45 Total Treatment Time Minutes (timed/untimed): 55 Corie Sykes PT documented in this encounter [facility] 03-15-2022 Nurse Note Lupron injection administered, Left buttock,tolerated well, no immediate adverse reactions noted. Shelia Dan LPN documented in this encounter [facility] 03-10-2022 History of Present illness Narrative Episode Visit Count: 55 Therapist That Will Accept/Oversee The Plan Of Care: Edward Start of Care Date: 09/09/20 Onset Date: 08/28/20 Patient Identified by Name and Date of : Yes REHABILITATION AND SPORTS THERAPY PHYSICAL THERAPY TREATMENT NOTE ASSESSMENT: Amber Kellogg tolerated the session with no issues. She demonstrated correct form with no immediate increase in sx's with added there ex this visit. The patient will continue to benefit from ongoing skilled physical therapy to progress toward set goals. PLAN FOR NEXT VISIT: MLD; compression;tissue mobility, Ex SUBJECTIVE: Surgery scheduled April 08 to remove expanders and reconstruct with implants. Anxious about it. Continues to have home stressors with daughter's health. Pain: Pain Additional Pain Information : Specific pain level not discussed in order to focus on movement/functional goals OBJECTIVE MEASURES WITH LEVEL OF FUNCTION: Upper Extremity Circumferential Measurements R Thumb (proximal phalanx) (cm): 6.2 cm R Index Finger (proximal phalanx) (cm): 6 cm R DPC (cm): 18.5 cm R Distal Wrist Crease (DWC) (cm): 16 cm R 8 cm above wrist (cm): 20 cm R 16 cm above wrist (cm): 25.4 cm R 24 cm above wrist (cm): 25.4 cm R 32 cm above wrist (cm): 30 cm R 40 cm above wrist (cm): 29.8 cm R 44 cm above wrist (cm): 29.8 cm R Upper Extremity Volume: 282.82 TREATMENT: Therapeutic Exercise: 1: UBE L 1.3 2' fwd/2' back (collected subjective information) 2: standing rows: 3 p 2x10 3: Paloff press: 2 p 2x10 4: Shld ext: 2x10 orange band Skilled Intervention: Skilled judgment was provided in selection of appropriate interventions. Manual Therapy: 1: measure 2: MLD seq x 20'(proximal clearing and R UE) 4: tissue mobs w dycem x 15 min Skilled Intervention: Manual skills to improve joint mobility, ROM, and decrease pain. Utilized anatomy knowledge of the therapist, and assessment of patient's response to intervention. Billing Therapeutic Exercise Treatment Minutes: 15 Manual TherapyTreatment Minutes: 40 Total Treatment Time Minutes (timed/untimed): 44 Shahnaz Sneed PTA documented in this encounter [facility] 03-03-2022 History of Present illness Narrative Episode Visit Count: 54 Therapist That Will Oversee The Plan Of Care: Edward Start of Care Date: 09/09/20 Onset Date: 08/28/20 [facility]TS [facility]ERAP[facility] PHYSICAL THERAPY PROGRESS REPORT PLAN OF CARE UPDATE: Assessment: Amber Kellogg demonstrates moderate improvement in girth measurements. She hasprogressed toward goals. Patient continues to present with impairments in edema management, independence in exercise, overall function, range of motion, soft tissue healing, strength , and tissue tenderness that interfere with lifting;physical activities;recreational activities;use hand with arm at shoulder level;reaching overhead . Current prognosis is Good due to: current objective clinical presentation;good overall health status;positive past response to therapy . Will begin to focus on exercise and getting into the gym. She will benefit from continued skilled therapy services to meet the updated goals for this plan of care as noted below. Goals for Episode of Care: created on 09/09/20 through 12/08/20 Patient able to verbalize skin care and lymphedema risk reductions: MET Patient/family independent with home exercise program including self MLD, skincare guidelines, scar massage, ROM exercises, strengthening exercises and garment instructions: MET THUS FAR Patient will increase active ROM of R shoulder to WNL to allow patient to achieve neutral postural alignment, for improved performance of ADLs.: MET Patient will decrease pain to: 2/10 : ONGOING Patient will have supple scar with no tenderness to palpation and demonstrate and understanding of scar management: ONGOING Patient/family able to verbalize all pertinent aspects of CDT: ONGOING Patient/family independent with donning/doffing compression garment and proper wearing schedule and care of garment: MET Patient Goals: increase ROM R shoulder; get compression sleeve Planned Interventions, Frequency, and Duration: 1x/week, 12 weeks Total Number of Visits Planned: 12 Patient to be seen for PLAN FOR NEXT VISIT: ex in gym; MLD; HEPr SUBJECTIVE: . Pt reports her arm continues to fluctuate. Uses different levels of compression as needed. Functional Limitations: lifting;physical activities;recreational activities;use hand with arm at shoulder level;reaching overhead Pain: Pain Pain Level: 5 Pain Location: Axilla - Right Description: Tightness Frequency: Continuous PROMIS Scales Higher is Better 09/09/2020 02/03/2021 Phys Func - Score 28 (severe dysfunction) - Phys Func - Percentile 1 % - Social Roles - Score 25 (severe dysfunction) - Social Role - Percentile 1 % - GH Physical - Score 39.8 37.4 (Fair) GH Physical - Percentile 15 % 10 % GH Mental - Score 43.5 31.3 (Fair) GH Mental - Percentile 26 % 3 % Self-Eff Symptom - Score 38 (Low) - Self-Eff Symptom - Percentile 12 % - T-scores: mean of general population = 50. 5 points is clinically meaningfully difference Percentiles provide an indication of how the patient's score ranks in relation to the general population. Higher percentile rankings indicate better function/quality of life. 50th percentile is the average of the general population and indicates half of respondents had a worse score. Lower is Better 09/09/2020 Fatigue - Score 58 (mild) Fatigue - Percentile 21 % T-scores: mean of general population = 50. 5 points is clinically meaningfully difference Percentiles provide an indication of how the patient's score ranks in relation to the general population. Higher percentile rankings indicate better function/quality of life. 50th percentile is the average of the general population and indicates half of respondents had a worse score. OBJECTIVE MEASURES WITH LEVEL OF FUNCTION: Upper Extremity Circumferential Measurements R Thumb (proximal phalanx) (cm): 6.2 cm R Index Finger (proximal phalanx) (cm): 6 cm R DPC (cm): 18.2 cm R Distal Wrist Crease (DWC) (cm): 15.5 cm R 8 cm above wrist (cm): 19.8 cm R 16 cm above wrist (cm): 25.5 cm R 24 cm above wrist (cm): 25.4 cm R 32 cm above wrist (cm): 29 cm R 40 cm above wrist (cm): 28.6 cm R 44 cm above wrist (cm): 29.3 cm R Upper Extremity Volume: 266.92 TREATMENT: Manual Therapy: 1: measure 2: MLD seq x 40'(proximal clearing and R UE) 3: PROM to R shoulder x 5' 4: tissue mobs w dycem x 10 min Skilled Intervention: Manual skills to improve joint mobility, ROM, and decrease pain. Utilized anatomy knowledge of the therapist, and assessment of patient's response to intervention. Billing Manual TherapyTreatment Minutes: 55 Total Treatment Time Minutes (timed/untimed): 55 Corie Sykes PT documented in this encounter [facility] 02-22-2022 History of Present illness Narrative Episode Visit Count: 53 Therapist That Will Oversee The Plan Of Care: Edward Start of Care Date: 09/09/20 Onset Date: 08/28/20 Patient Identified by Name and Date of : Yes REHABILITATION AND SPORTS THERAPY PHYSICAL THERAPY TREATMENT NOTE ASSESSMENT: Amber Kellogg tolerated the session with no issues. She demonstrated difficulty with swelling to R UE and tightness to R axilla. The patient will continue to benefit from ongoing skilled physical therapy to progress toward set goals. PLAN FOR NEXT VISIT: MLD; compression;tissue mobility SUBJECTIVE: Stressors at home dealing with health of daughter. Acupuncture seems to help with swelling. Going 2x/month Pain: Pain Pain Level: 1 Pain Location: Axilla - Right Description: Tightness Frequency: Continuous OBJECTIVE MEASURES WITH LEVEL OF FUNCTION: Upper Extremity Circumferential Measurements R Thumb (proximal phalanx) (cm): 6.1 cm R Index Finger (proximal phalanx) (cm): 6 cm R DPC (cm): 19.2 cm R Distal Wrist Crease (DWC) (cm): 16.4 cm R 8 cm above wrist (cm): 20 cm R 16 cm above wrist (cm): 24.6 cm R 24 cm above wrist (cm): 25.3 cm R 32 cm above wrist (cm): 30 cm R 40 cm above wrist (cm): 29.8 cm R 44 cm above wrist (cm): 30.3 cm R Upper Extremity Volume: 287.59 TREATMENT: Manual Therapy: 1: measure 2: MLD seq x 40'(proximal clearing and R UE) 4: tissue mobs w dycem x 10 min Skilled Intervention: Manual skills to improve joint mobility, ROM, and decrease pain. Utilized anatomy knowledge of the therapist, and assessment of patient's response to intervention. Billing Manual TherapyTreatment Minutes: 55 Total Treatment Time Minutes (timed/untimed): 55 Shahnaz Sneed PTA documented in this encounter [facility] 02-14-2022 History of Present illness Narrative Episode Visit Count: 52 Therapist That Will Oversee The Plan Of Care: Edward Start of Care Date: 09/09/20 Onset Date: 08/28/20 Patient Identified by Name and Date of : Yes REHABILITATION AND SPORTS THERAPY PHYSICAL THERAPY TREATMENT NOTE ASSESSMENT: Amber Kellogg tolerated the session with no issues. She demonstrated difficulty with swelling to R UE that is difficult to manage independently. The patient will continue to benefit from ongoing skilled physical therapy to progress toward set goals. PLAN FOR NEXT VISIT: MLD; compression;tissue mobility SUBJECTIVE: Notices that hand is bigger this weekend. Has been wearing tubigrip at night Pain: Pain Additional Pain Information : Specific pain level not discussed in order to focus on movement/functional goals OBJECTIVE MEASURES WITH LEVEL OF FUNCTION: Upper Extremity Circumferential Measurements R Thumb (proximal phalanx) (cm): 6.1 cm R Index Finger (proximal phalanx) (cm): 6 cm R DPC (cm): 19 cm R Distal Wrist Crease (DWC) (cm): 16.2 cm R 8 cm above wrist (cm): 20.4 cm R 16 cm above wrist (cm): 25.4 cm R 24 cm above wrist (cm): 25.3 cm R 32 cm above wrist (cm): 30.2 cm R 40 cm above wrist (cm): 30 cm R 44 cm above wrist (cm): 30.5 cm R Upper Extremity Volume: 291.43 TREATMENT: Manual Therapy: 1: measure 2: MLD seq x 40'(proximal clearing and R UE) 4: tissue mobs w dycem x 10 min Skilled Intervention: Manual skills to improve joint mobility, ROM, and decrease pain. Utilized anatomy knowledge of the therapist, and assessment of patient's response to intervention. Billing Manual TherapyTreatment Minutes: 55 Total Treatment Time Minutes (timed/untimed): 55 Shahnaz Sneed PTA documented in this encounter [facility] 02-09-2022 History of Present illness Narrative Chief Complaint Patient presents with: Established Patient HPI: Amber Kellogg is a 46 year old female who presents here today for follow up breast cancer. Per Dr. Montero's previous note: H/o 45 year-old premenopausal (had endometrial ablation) female who appreciated a lump in her right breast around August 2019. She was seen by her account collector who ordered imaging. The mammogram evidently did not show any obvious mass or abnormality. It was interpreted as a BI-RADS 0 study. An ultrasound was performed and it demonstrated a hypoechoic, lobulated mass in the right breast at 9:00 categorized as BI-RADS 4C. She underwent a core needle biopsy on 12/06/2019. Pathology: MICROSCOPIC DIAGNOSIS Right breast at 9 o clock, needle core biopsy: Invasive ductal carcinoma with the following characteristics: Maximal length - 1.3 millimeters Nuclear grade - 2/3 Other findings - focal perineural invasion. ER (clone [id number]) >95%, strong intensity WV (clone [id number]/[id number]) 85%, strong intensity Her-2Neu (clone [id number]) 0 MRI Breast at [facility] 12/16/2019: FINDINGS: RIGHT BREAST: The breast tissue is markedly dense with no background enhancement. There is a 12 mm abnormal enhancing masses seen laterally in the right breast at the postbiopsy site. This was biopsied and shown to represent a malignancy. A benign-appearing cyst is identified in the superior outer aspect measuring 13 mm. There are no additional abnormal enhancing masses or areas of non-mass enhancement in the right breast. LEFT BREAST: The breast tissue is markedly dense with no background enhancement. There are no abnormal enhancing masses or areas of non-mass enhancement in the left breast. There are no enlarged or abnormal lymph nodes. There is no abnormality in the visualized regions of the chest or liver. Patient was advised to undergo lumpectomy with sentinel lymph node biopsy. She was seen by genetic counseling at [facility] and then went to [facility] for second opinion as documented in Care Everywhere: On 01/14/2020, the certified genetic counselor from [facility] in [place], [place], Corie Flanagan, issued the following telephone encounter note in the patient's outside electronic medical record chart. They stated: Telephone Encounter - Corie Flanagan CGC - 01/13/2020 8:13 AM EDT: Called Amber to discuss her 12/05/2019; normal BRCAPlus results. No mutation was detected in any of these 8 high and moderate risk breast cancer genes. The CancerNext test is still pending. The BRCAPlus test does not include RNA testing so discussed the small possibility of finding a mutation in one of these genes with RNA testing that would be reported with the CancerNext results. Also discussed that not all hereditary causes of breast cancer are detected with this testing so there's a good possibility that the cause for her personal and family history of cancer is not known at this time. Will fax this reported to Dr. Avila. Will call Amber again when the CancerNext results are back. Amber voiced understanding. On 01/14/2020, the certified genetic counselor from [facility] in [place], [place], Corie Flanagan, issued the following telephone encounter note in the patient's outside electronic medical record chart. They stated: Telephone Encounter - Corie Flanagan CGC - 01/14/2020 5:23 PM EDT: Called Amber to discuss the CancerNext results with RNA testing. 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 The meaning of this finding is not currently known, but most variants are found to be normal once more information is learned. No mutation was detected in any of the other genes that were analyzed. Based on Amber's diagnosis of early-onset breast cancer and her family history of breast cancer including early-onset breast cancer, it s likely that there is a hereditary cause for these cancers that cannot be detected with the testing that is currently available. Amber is not sure what her surgical plans are yet. Discussed the option of bilateral mastectomy since she has a strong personal and family history of cancer. If she has partial mastectomy, recommended that she have annual breast MRI as part of her screening once her treatment is complete. Will mail the results with a summary letter to Ambre. Will fax this to her providers. Encouraged her to call with any questions. . . On 01/31/2020, the patient's outside breast imaging was reviewed by Dr. Luiz Ma of [facility] breast Radiology. They stated: EXAM: BREAST IMAGING SECOND OPINION READING, 01/28/2020 12:15 PM. CLINICAL INDICATIONS: 44-year-old female here for second opinion. Patient presented at outside institution on December 05, 2019 for a palpable area of concern in her right breast. This was the patient's baseline mammogram. A right mammogram was obtained and was reported as no findings on mammography and a right breast ultrasound was requested. Right breast breast ultrasound showed a suspicious mass at the 9:00 position of the right breast measuring 12 mm x 7 mm x 8 mm. Ultrasound-guided biopsy was recommended. Biopsy was performed on December 06, 2019 under ultrasound guidance in the physician's office. Imaging was not saved from the procedure and a postbiopsy mammogram was not performed. Pathology results revealed invasive ductal carcinoma ER positive W[place] positive HER-2/sushant negative. MRI performed on December 14, 2019 demonstrated known malignancy in the right breast measuring 12 mm. Patient is here for second opinion. COMPARISON: No prior studies available for comparison. 12/05/2019 BILATERAL 2-D DIAGNOSTIC MAMMOGRAM FINDINGS: Breast tissue is heterogeneously dense which may limit the sensitivity of mammography. There are microcalcifications involving the majority of the lateral right breast spanning approximately 7.0 cm in anterior/posterior dimension, 3.1 cm in medial/lateral dimension and 5.0 cm in craniocaudal dimension. Otherwise there are no suspicious microcalcifications, masses or areas of architectural distortion in either breast on 2-D mammography. December 05, 2019 ULTRASOUND FINDINGS: Sonography of the 9:00 position the right breast in the palpable area of concern demonstrates a 7 mm x 8 mm x 12 mm irregular hypoechoic mass with angular margins internal vascularity and no posterior acoustic features. Sonography of the 11:00 position demonstrates a 8mm by 13 mm x 13 mm cyst. No other lesions are identified on sonography however a few select images show linear hypoechoic areas at the 12 and 3:00 position which could correspond to the suspicious microcalcifications identified on mammography. December 16, 2019 MRI FINDINGS: Bilateral MRI is nondiagnostic -it is unclear if gadolinium entered the breast. There is no note of gadolinium extravasation. Lack of gadolinium on breast MRI will underestimate extent of disease. IMPRESSION: 1. Suspicious microcalcifications involving the majority of the lateral right breast. Magnification views of the right breast were not obtained. Recommend right CC tomosynthesis, right ML tomosynthesis and magnification views of the lateral right breast in the CC and ML projection. In order to determine extent of disease, a 1-2 site right breast stereotactic biopsy will likely be necessary. 2. Status post ultrasound-guided breast biopsy of suspicious mass at the 9:00 position. Images were not saved and a post biopsy mammogram was not obtained. Evaluation of clip placement can be performed when the patient obtains her right CC and ML mammogram. 3. Outside breast MRI is nondiagnostic. There is limited or no gadolinium identified on the examination which underestimates extent of disease. . . On 01/31/2020, the patient's outside pathology was reviewed by Dr. Joaquín Zaman of [facility] pathology. They stated: Outside Slides: [id number] (12/06/19): A. Right breast at 9 o'clock, needle core biopsy: Invasive ductal carcinoma, grade 1 (score: tubule 2, nuclear 2, mitotic 1), 1.3 cm in greatest length. Manual immunohistochemical quantification using stains performed at the outside institution: Estrogen Receptor: Positive (99%, strong intensity). Progesterone Receptor: Positive (85%, strong intensity). HER2: Negative (Score 0). Submitted controls show appropriate reactivity. Comment: Additional submitted immunohistochemical stains for E-cadherin, calponin, and p40 were reviewed and support the diagnosis. . On 02/04/2020, I personally reviewed the patient's outside breast imaging with Dr. Gustavo Siddiqi of [facility] breast Radiology. Dr. Gustavo Siddiqi of [facility] breast Radiology recommended that in anticipation to the patient for any right breast stereotactic biopsy procedures, that we should repeat a right breast diagnostic digital mammogram to look at clip placement from the patient's prior right breast ultrasound-guided biopsy, as well as reassess the overall distribution of the calcifications within the right breast. Eventually underwent vacuum-assisted stereotactic biopsy of calcifications in the right breast at [facility] on 02/17/2020. Pathology of the calcifications in the right breast at the anterior medial aspect with the Top-Hat clip showed atypical ductal hyperplasia, atypical lobular hyperplasia and flat epithelial atypia. The pathology of the calcifications in the anterior medial posterior group with a stoplight clip demonstrated invasive ductal carcinoma grade 2. Ductal carcinoma in situ, low-grade. Patient did not follow-up at [facility] and then was referred to [facility] for opinion on mastectomy with reconstruction. CT Chest 07/06/2020: Lung parenchyma and airways: No consolidation. No suspicious pulmonary nodule. The central airways are patent. Pleural space: No pleural effusion. No pleural thickening. Lower neck, lymph nodes, and mediastinum: There is borderline enlargement of right axillary nodes. There is no left axillary, mediastinal, or hilar lymphadenopathy. There is a small amount of soft tissue within the anterior mediastinum likely representing some residual thymic tissue. Heart, pericardium, and thoracic vessels: The thoracic aorta and main pulmonary artery are normal in caliber. The cardiac chambers are normal in size. No coronary artery atherosclerotic calcifications are noted, although the study is not optimized for coronary assessment. No pericardial effusion or thickening. Bones and soft tissues: There is a tiny sclerotic density within the T9 vertebral body on image 82 which is probably a small bone island. Otherwise, there are no lytic or blastic changes. Upper abdomen: Discussed on a separate abdominal CT report Nurse Clinician (topogram) images: No additional findings. IMPRESSION: Mild right axillary lymphadenopathy CT A/P 07/06/2020: Liver: There are a few tiny indeterminate hypodensities within the liver. These are noted on images 19, 29, and 33 of series 1. None of these measure more than 4 mm. Biliary: No bile duct dilation. Spleen: No mass. No splenomegaly. Pancreas: No mass or duct dilation. Adrenals: No mass. Kidneys: At the superior pole of the right kidney, there is a 0.5 cm hypodensity which is too small to characterize but is probably a small cyst. Otherwise, the kidneys appear normal. GI tract: No dilation or wall thickening. Lymph nodes: No abdominal or pelvic lymphadenopathy. Mesentery/Peritoneum: No ascites or mass. Retroperitoneum: No mass. Vasculature: The celiac axis and SMA are patent. The portal vein and branches, splenic vein, SMV, and hepatic veins are patent. Pelvis: Trace free fluid is likely physiologic in nature. There are no other pelvic abnormalities. Bones/Soft Tissues: No significant finding. Lower thorax: A chest CT performed will be reported separately. Nurse Clinician (topogram) images: No additional findings. IMPRESSION: 1. Few tiny indeterminate hypodensities within the liver measuring 4 mm or less. Since the patient does have a history of malignancy, attention to these areas on subsequent examinations is recommended. 2. Tiny right renal hypodensity likely representing a small cyst. Bone scan 07/15/2020: IMPRESSION: NO SCINTIGRAPHIC EVIDENCE FOR OSSEOUS METASTATIC DISEASE. Ultimately underwent a right skin sparing mastectomy with sentinel lymph node biopsy followed by immediate right breast reconstruction using medium contour perforated AlloDerm x2 and right breast reconstruction using tissue broadcast designer on 08/28/2020. Pathology: 1. Right breast, skin sparing mastectomy (A) - Invasive ductal carcinoma, [place] Grade 3, measuring 48 mm in greatest dimension (please see synoptic report). - Ductal carcinoma in situ, nuclear grades 1 and 2, solid, cribriform and spindling types with comedo necrosis, microcalcifications and involvement of lobules. - Extensive lymphovascular space invasion is identified. - Biopsy clips X3 and biopsy site reparative changes identified. 2. [place] lymph node #1, palpable, sentinel node biopsy (B) - Metastatic carcinoma involving one lymph node (1/); metastasis measures at least 8 mm in greatest dimension; no definitive extranodal extension identified. 3. [place] lymph node #2, hot and blue, [id number], sentinel node biopsy (C) - Metastatic carcinoma involving two of two lymph nodes (2/2), with largest metastasis measuring at least 18 mm in greatest dimension with 3 mm of extranodal extension. 4. [place] lymph node #3, palpable, sentinel node biopsy (D) - One lymph node, negative for metastatic malignancy (0/1). 5. [place] lymph node #4, palpable, sentinel node biopsy (E) - Metastatic carcinoma involving two of two lymph nodes (2/2), largest metastasis measures at least 10 mm in greatest dimension; no definitive extranodal extension identified. 6. [place] lymph node #5, palpable, sentinel node biopsy (F) - Metastatic carcinoma involving one of one lymph node (1/), metastasis measures 1 cm in greatest dimension; no definitive extranodal extension identified. SYNOPTIC REPORT OF JOSUE PATHOLOGIC FINDINGS BREAST MASTECTOMY RIGHT: BREAST INVASIVE CARCINOMA WORKSHEET Part: A-F Procedure: Total mastectomy (including nipple-sparing and skin-sparing mastectomy) Specimen Laterality: Right Tumor size: Size of largest invasive carcinoma: Greatest dimension of largest focus of invasion >1 mm: 48 mm Tumor Focality: Single focus of invasive carcinoma Histologic Type of Invasive Carcinoma: Invasive carcinoma of no special type (ductal, not otherwise specified) Histologic Grade: Glandular (Acinar) / Tubular Differentiation: Score 3 Nuclear Pleomorphism: Score 2 Mitotic Rate: Score 3 Overall Grade: Grade III Ductal Carcinoma In Situ: Present Negative for extensive intraductal component (EIC) Architectural Patterns: Architectural Pattern:Cribriform Architectural Pattern:Solid Architectural Pattern:Other: Spindled DCIS Nuclear Grade: Grade II (intermediate) DCIS Necrosis: Present, central (expansive comedo necrosis) Tumor Extension: Skin: Skin is present and uninvolved Nipple: Other: Invasive carcinoma and foci of LVSI involve the base of the nipple Skeletal muscle: No skeletal muscle is present Invasive Carcinoma Margins: Margins uninvolved by invasive carcinoma Distance from closest margin: 1.5 mm Closest margin: Deep Distance of invasive carcinoma to radial margin: 2.8 mm DCIS Margins: Margins uninvolved by DCIS All margins >2 mm Lymph Nodes: Involved by tumor cells Number of lymph nodes with macrometastases (>2 mm): 5 Number of lymph nodes with micrometastases (>0.2 mm to 2 mm and/or >200 cells): 1 Number of lymph nodes with isolated tumor cells (<= 0.2 mm and <= 200 cells): 0 Size of largest metastatic deposit: 18 mm Extranodal extension present >2 mm Total number of lymph nodes examined: 7 Number of sentinel nodes examined (if applicable): 7 Treatment Effect: No known presurgical therapy Lymph-Vascular Invasion: Present Pathologic Stage Classification (pTNM,AJCC 8th ed) TNM Descriptor(s): Not applicable Primary Tumor (Invasive Carcinoma) (pT): pT2 Regional Lymph Nodes (pN): Modifier: Not applicable Category (pN): pN2a Distant metastasis: Distant Metastasis (pM) Not applicable/Not confirmed pathologically in this case Estrogen & progesterone receptors: Previously performed and reported as follows: Estrogen receptor: Positive (99%, strong) Progesterone receptor: Positive (90%, strong) Specimen number #: [facility] Accesion [id number] (HER2) ERBB2 Status: Previously performed and reported as follows: HER2:Negative Previous therapy: 1) Adjuvant AC followed by T. 2) Adjuvant radiation completed 05/31/2021. Current therapy: Lupron began 06/29/21 Arimidex began 2021 Appetite: Too good. Energy level: Struggling a little bit. Pt. recently changed jobs-less stress but longer hours Denies fevers or recent illness. Resp:denies cough or sob Cardiac:denies chest pain/palpitations GI:denies abd pain, n/v, moving bowels regularly :denies dysuria/hematuria Extrem:denies pain elsewhere Endo:+hot flashes- They are still manageable. It mostly happens at night when it's time for bed. they do not wake pt. at night Neuro:denies neuropathy, nerve pain to R arm -stable on lyrica-improved on lyrica, participated in PT for R arm lymphedema, wearing sleeve prn Skin:denies rashes/lesions Heme:denies bleeding The ROS is otherwise negative. Past medical history, appointments, medications, allergies reviewed. No changes. EXAM: BP 120/77 Pulse 92 Temp 37.1 C (98.8 F) (Temporal) Wt 68.3 kg (150 lb 8 oz) BMI 26.66 kg/m APPEARANCE Well appearing, alert, in no acute distress, well-hydrated, well nourished. HEART RRR with normal S1 and S2, no murmurs LUNG clear to auscultation BREAST FEMALE broadcast designer in place to R, no surrounding mass/nodule, L no mass/nodule LYMPH NODES No cervical lymphadenopathy, No supraclavicular lymphadenopathy, and No axillary lymphadenopathy. ABDOMEN bowel sounds normoactive, soft, non-tender, non-distended, without organomegaly or palpable masses, no tenderness to palpation EXTREMITIES No edema NEURO Awake, alert and oriented x 3, Normal gait, and No involuntary motions. SKIN Skin color, texture, turgor normal, no suspicious rashes or lesions RADIOLOGY: CT chest 02/01/22: IMPRESSION: Evolving postradiation treatment related changes in the right lung. ASSESSMENT/PLAN: 1. Malignant neoplasm of upper-outer quadrant of right breast in female, estrogen receptor positive (HCC) - ICD9: 174.4, V86.0, ICD10: C50.411, Z17.0 pT2 (4.8 cm; grade 3; +LVI) pN2a (5 of 7 SLN positive; 18 mm; extranodal extension present >2 mm) M0 ER/WV positive, HER2 negative stage IIIA invasive ductal carcinoma of the right breast. Per Dr. Montero's previous note: Assessment: -The patient is a 45 yo premenopausal female who underwent a right-sided skin sparing mastectomy and sentinel lymph node biopsy on 08/28/2020 for what proved to be a pT2 (4.8 cm; grade 3; +LVI) pN2a (5 of 7 SLN positive; 18 mm; extranodal extension present >2 mm) M0 ER/WV positive, HER2 negative stage IIIA invasive ductal carcinoma of the right breast. -Genetic testing done at [facility]. -Discussed with her the rationale for adjuvant endocrine therapy and recommended ovarian suppression initially with GnRH agonist Lupron followed by possible oophorectomy pending tolerance to Lupron. Also recommended AI therapy with anastrozole to begin the second month of her ovarian suppression therapy. Discussed the rationale based on the results of the soft trial. She has high risk disease as evidenced by 5 of 7 lymph nodes positive with extranodal extension, grade 3 tumor with lymphovascular invasion present and a near 5 cm tumor. I answered all of her questions to her satisfaction and she expressed an understanding and agreement to proceed with therapy. Discussed that if she is intolerant to AI therapy then we could change to tamoxifen. Plan: -Begin Lupron on 06/29. -Office visit about a month later with plans to start aromatase inhibitor at that time. -She will be due for left breast screening mammogram. Can order at time of next OV. -Repeat CT chest in about 3 months. - No concerning findings on exam. - Overall tolerating lupron/arimidex well overall except hot flashes. - L mammogram in November-ordered by surgeon. - CT chest in 6 months. - Continue arimidex. - Continue PT for RUE lymphedema. - Follow up with Dr. Garcia as scheduled. - Lupron as scheduled today and continue monthly. - Follow up in 4 months. - Pt. aware to call office with any questions/concerns. The patient indicates understanding of these issues and agrees with the plan. All documentation from previous visit of 12/15/21-Dr. Montero/myself was copied and pasted, documentation has been reviewed and edited as necessary for today's visit. Lizbeth Wang APRN.SERGIO documented in this encounter [facility] 02-01-2022 History of Present illness Narrative Radiology Service Progress Note DATE OF SERVICE: February 01, 2022 TIME: 1:00 PM PATIENT IDENTITY VERIFICATION COMPLETED USING TWO (2) STANDARD IDENTIFIERS: Name and Date of confirmed by patient verbally. FALL SCREENING: Has the patient had 2 falls in the last year or 1 fall with injury or currently using an Ambulatory Assistive Device (Walker, Cane, Wheelchair, Crutches, etc.)? No PATIENT GENDER DATA: Female. status: : No status: NO. PATIENT RELEVANT IMPLANT DATA REVIEWED: Yes ALLERGIES: Reviewed and unchanged CONTRAST ALLERGY: NO. EXAM: CT -CONTRAST INDUCED NEPHROPATHY RISK FACTORS: Not applicable CREATININE: Creatinine Date Value Ref Range Status 06/29/2021 0.51 (L) 0.58 - 0.96 mg/dL Final 04/28/2021 0.62 0.58 - 0.96 mg/dL Final 02/03/2021 0.51 (L) 0.58 - 0.96 mg/dL Final eGFR-All Other Races Date Value Ref Range Status 06/29/2021 >60 . Final Comment: eGFR (Estimated GFR) Units of measure: mL/min/1.73 meters squared eGFR is derived from the reexpressed MDRD Study equation using the following parameters: serum creatinine, age, gender and race. The creatinine assay has been calibrated to be traceable to IDMS. An eGFR <60 mL/min/1.73m2 for >3 months is consistent with chronic kidney disease. Refer to KDOQI guidelines for clinical interpretation. In patients with unstable renal function, e.g. those with acute kidney injury, the eGFR may not accurately reflect actual GFR. Note: On 08/21/2021, the eGFR calculation will be updated to the NKF-ASN Task Force recommended 2020 CKD-EPI creatinine equation which does not include a race variable. For more information or to access a 2020 CKD-EPI calculator, visit the National Kidney [employer] website at kidney.org/professionals/kdoqi/gfr _calculator. eGFR- Date Value Ref Range Status 06/29/2021 >60 Final P.O.C.T. RESULTS: POC done: Yes, See Lab Tab February 01, 2022 TREATMENT: N/A PERIPHERAL IV DATA: Ambulatory: A peripheral IV was started in the Left antecubital site with a Angio cath: 22 gauge. RADIOLOGY DEPARTMENT: CT; Exam(s) Completed: Chest SIGNATURE: RT Bakari(R) PATIENT NAME: Amber Kellogg DATE: February 01, 2022 TIME: 1:00 PM documented in this encounter [facility] 02-01-2022 History of Present illness Narrative Episode Visit Count: 51 Therapist That Will Oversee The Plan Of Care: Edward Start of Care Date: 09/09/20 Onset Date: 08/28/20 Patient Identified by Name and Date of : Yes [facility] PHYSICAL THERAPY TREATMENT NOTE ASSESSMENT: Amber Kellogg tolerated the session with no issues. She demonstrated difficulty with swelling in R UE. Arm is firm. No pitting edema. The patient will continue to benefit from ongoing skilled physical therapy to progress toward set goals. PLAN FOR NEXT VISIT: MLD; compression;tissue mobility SUBJECTIVE: Has been wearing compression more, not necessarily at work, but at night and once home Pain: Pain Additional Pain Information : Specific pain level not discussed in order to focus on movement/functional goals OBJECTIVE MEASURES WITH LEVEL OF FUNCTION: Upper Extremity Circumferential Measurements R Thumb (proximal phalanx) (cm): 6 cm R Index Finger (proximal phalanx) (cm): 6 cm R DPC (cm): 17.8 cm R Distal Wrist Crease (DWC) (cm): 15.3 cm R 8 cm above wrist (cm): 18.1 cm R 16 cm above wrist (cm): 24 cm R 24 cm above wrist (cm): 25.3 cm R 32 cm above wrist (cm): 28.9 cm R 40 cm above wrist (cm): 28.6 cm R 44 cm above wrist (cm): 30 cm R Upper Extremity Volume: 273.46 TREATMENT: Manual Therapy: 1: measure 2: MLD seq x 40'(proximal clearing and R UE) 4: tissue mobs w dycem x 10 min Skilled Intervention: Manual skills to improve joint mobility, ROM, and decrease pain. Utilized anatomy knowledge of the therapist, and assessment of patient's response to intervention. Billing Manual TherapyTreatment Minutes: 55 Total Treatment Time Minutes (timed/untimed): 55 Shahnaz Sneed PTA documented in this encounter [facility] 01-28-2022 History of Present illness Narrative Images from the original note were not included. Ela Lopez MD [facility] [address] [place] [address] SUBJECTIVE Chief Complaint: Patient presents with: 6 Month Exam . HPI Amber Kellogg is a 46 year old female here for follow up. She is status post right skin sparing mastectomy, right sentinel lymph node biopsy on 08/31/2020 for invasive ductal carcinoma grade 2, ER+, H2N-. Final pathology showed 4.8 cm cancer with negative margins and 7 lymph nodes positive. Pathologic stage IB [pT2(4.8cm)N2a(7/)M0]. Completed ddAC-T with Dr Montero. COmpleted radiation with Dr Mobley in May 2021. Plastic surgery is Dr Garcia. Left screening mammogram was negative, BIRADS 1. Heterogeneoulsy dense breast tissue. Has continued chest wall pain and lymphdema on right. Dwayne helps. Nursing Notes: Inga Dunne MA 12/28/2021 3:22 PM Signed Patient here for follow up after mammogram on the left. Patient states she does have some right rib discomfort, her medical oncologist did xrays which were negative. Patient is scheduled to have her right tissue broadcast designer removed and permanent implant placed in March. Patient had left screening today with negative results. Inga Dunne MA No question data found. Review of Systems Constitutional: Negative for fever, malaise/fatigue and weight loss. Breast: See HPI PAST MEDICAL HISTORY Diagnosis Date Malignant neoplasm of right breast (HCC) 11/2019 PAST SURGICAL HISTORY Procedure Laterality Date BREAST BIOPSY HX Right 2019 X2 NOVEMBER AND Jan D&C, DIAG AND/OR THERAPEUTIC 2019 ENDOMETRIAL ABLATION-TEAM TRIAL 2019 MASTECTOMY, SIMPLE, COMPLETE Right 08/28/2020 PORT REMOVAL Port-A-Cath removed 09/08/21 [facility] Social History Tobacco Use Smoking status: Never Smoker Smokeless tobacco: Never Used Vaping Use Vaping Use: Never used Substance Use Topics Alcohol use: Never Drug use: Never FAMILY HISTORY Problem Relation Age of Onset Breast Cancer Maternal Grandmother Breast Cancer Maternal Aunt The ROS, medical, surgical, family, and social history were reviewed by Ela Lopez MD ALLERGIES No Known Allergies Current Outpatient Medications Medication Sig anastrozole (ARIMIDEX) 1 mg tablet Take 1 tablet by mouth once daily. pregabalin (LYRICA) 75 mg capsule Take 1 capsule by mouth daily at bedtime. acetaminophen (TYLENOL EXTRA STRENGTH) 500 mg tablet Take 1,000 mg by mouth every 6 hours as needed. (Patient not taking: Reported on 12/28/2021 ) ibuprofen (MOTRIN) 200 mg tablet Take 400 mg by mouth every 6 hours as needed. (Patient not taking: Reported on 12/28/2021 ) No current facility-administered medications for this visit. OBJECTIVE BP 122/62 Pulse 92 Ht 160 cm (5' 3 ) Wt 68.9 kg (152 lb) BMI 26.93 kg/m BMI 26.93 kg/(m^2) Physical Exam Neck: Thyroid: No thyromegaly. Chest: Breasts: Breasts are symmetrical. Right: Tenderness present. No mass, skin change, axillary adenopathy or supraclavicular adenopathy. Left: No inverted nipple, mass, nipple discharge, skin change, tenderness, axillary adenopathy or supraclavicular adenopathy. Musculoskeletal: Right upper arm: Swelling present. Lymphadenopathy: Head: Right side of head: No submental, submandibular or tonsillar adenopathy. Left side of head: No submental, submandibular or tonsillar adenopathy. Cervical: No cervical adenopathy. Upper Body: Right upper body: No supraclavicular or axillary adenopathy. Left upper body: No supraclavicular or axillary adenopathy. Neurological: Mental Status: She is alert and oriented to person, place, and time. Cranial Nerves: Cranial nerves are intact. Plan ASSESSMENT/PLAN Malignant neoplasm of upper-outer quadrant of right breast in female, estrogen receptor positive (HCC) Amber Kellogg is a 45 year old female here today for follow up. She is status post right skin sparing mastectomy, right sentinel lymph node biopsy on 08/31/2020 for invasive ductal carcinoma grade 2, ER+, H2N-. Final pathology showed 4.8 cm cancer with negative margins and 7 lymph nodes positive. Pathologic stage IB [pT2(4.8cm)N2a(7/7)M0]. Completed ddAC-T with Dr Montero. COmpleted radiation with Dr Mobley in May 2021. Plastic surgery is Dr Garcia. No suspicious findings on clinical exam. Stable lymphedema and post mastectomy pain. Continue PT and lyrica. Refilled given. Plan for recon completion with Dr Garcia. Can discuss potential lymphedema surgery too. Follow up with me in 1 year with mammogram. Consider breast MRI. Follow up: Return in about 1 year (around 12/28/2022). Ela Lopez MD 01/28/2022 9:51 AM documented in this encounter [facility] 01-25-2022 History of Present illness Narrative Episode Visit Count: 50 Therapist That Will Oversee The Plan Of Care: Edward Start of Care Date: 09/09/20 Onset Date: 08/28/20 Patient Identified by Name and Date of : Yes REHABILITATION AND SPORTS THERAPY PHYSICAL THERAPY TREATMENT NOTE ASSESSMENT: Amber Kellogg tolerated the session with no issues. She demonstrated difficulty with swelling to hand and forearm. Tenderness to hand. The patient will continue to benefit from ongoing skilled physical therapy to progress toward set goals. PLAN FOR NEXT VISIT: MLD; compression;tissue mobility SUBJECTIVE: Has been wearing tubigrip to bed. Putting compression sleeve on half way through the day. Does slow down her speed at work Pain: Pain Additional Pain Information : Specific pain level not discussed in order to focus on movement/functional goals OBJECTIVE MEASURES WITH LEVEL OF FUNCTION: Upper Extremity Circumferential Measurements R Thumb (proximal phalanx) (cm): 5.8 cm R Index Finger (proximal phalanx) (cm): 5.7 cm R DPC (cm): 18 cm R Distal Wrist Crease (DWC) (cm): 15.5 cm R 8 cm above wrist (cm): 18.1 cm R 16 cm above wrist (cm): 24.6 cm R 24 cm above wrist (cm): 25.2 cm R 32 cm above wrist (cm): 29.1 cm R 40 cm above wrist (cm): 28.5 cm R 44 cm above wrist (cm): 29.5 cm R Upper Extremity Volume: 267.86 TREATMENT: Manual Therapy: 1: measure 2: MLD seq x 40'(proximal clearing and R UE) 4: tissue mobs w dycem x 10 min Skilled Intervention: Manual skills to improve joint mobility, ROM, and decrease pain. Utilized anatomy knowledge of the therapist, and assessment of patient's response to intervention. Billing Manual TherapyTreatment Minutes: 55 Total Treatment Time Minutes (timed/untimed): 55 Shahnaz Sneed PTA documented in this encounter [facility] 01-11-2022 History of Present illness Narrative Pt here for injection of Lupron. Given IM in left buttocks. Pt tolerated well. Mary Jo Wang LPN documented in this encounter [facility] 12-28-2021 Nurse Note Patient here for follow up after mammogram on the left. Patient states she does have some right rib discomfort, her medical oncologist did xrays which were negative. Patient is scheduled to have her right tissue broadcast designer removed and permanent implant placed in March. Patient had left screening today with negative results. Inga Dunne MA documented in this encounter [facility] 12-28-2021 History of Present illness Narrative Episode Visit Count: 47 Therapist That Will Oversee The Plan Of Care: Edward Start of Care Date: 09/09/20 Onset Date: 08/28/20 Patient Identified by Name and Date of : Yes REHABILITATION AND SPORTS THERAPY PHYSICAL THERAPY TREATMENT NOTE ASSESSMENT: Amber Kellogg tolerated the session with no issues. She demonstrated difficulty with swelling in R UE; increase girth since last visit.. The patient will continue to benefit from ongoing skilled physical therapy to progress toward set goals. PLAN FOR NEXT VISIT: MLD; compression;tissue mobility SUBJECTIVE: Arm started swelling and has been back in compression for the most part 16/01. Unsure what caused increase girth. Frustrated. Starts new job tomorrow. Pain: Pain Additional Pain Information : Specific pain level not discussed in order to focus on movement/functional goals OBJECTIVE MEASURES WITH LEVEL OF FUNCTION: Upper Extremity Circumferential Measurements R Thumb (proximal phalanx) (cm): 5.8 cm R Index Finger (proximal phalanx) (cm): 5.8 cm R DPC (cm): 19 cm R Distal Wrist Crease (DWC) (cm): 16.6 cm R 8 cm above wrist (cm): 18.3 cm R 16 cm above wrist (cm): 24.6 cm R 24 cm above wrist (cm): 26 cm R 32 cm above wrist (cm): 29.4 cm R 40 cm above wrist (cm): 29.6 cm R 44 cm above wrist (cm): 31 cm R Upper Extremity Volume: 292.44 TREATMENT: Manual Therapy: 1: measure 2: MLD seq x 35'(proximal clearing and R UE) 3: PROM to R shoulder x 10' 4: tissue mobs w dycem x 10 min Skilled Intervention: Manual skills to improve joint mobility, ROM, and decrease pain. Utilized anatomy knowledge of the therapist, and assessment of patient's response to intervention. Billing Manual TherapyTreatment Minutes: 5 Total Treatment Time Minutes (timed/untimed): 55 Shahnaz Sneed PTA documented in this encounter [facility] 12-21-2021 History of Present illness Narrative Episode Visit Count: 46 Therapist That Will Oversee The Plan Of Care: Edward Start of Care Date: 09/09/20 Onset Date: 08/28/20 REHABILITATION AND SPORTS THERAPY PHYSICAL THERAPY PROGRESS REPORT PLAN OF CARE UPDATE: Assessment: Amber Kellogg demonstrates moderate improvement in reaching behind back, reaching overhead and dressing. She hasprogressed toward goals. Patient continues to present with impairments in range of motion, strength and tissue tenderness that interfere with lifting;physical activities;recreational activities;use hand with arm at shoulder level;reaching overhead . Current prognosis is Good due to: current objective clinical presentation;good overall health status;positive past response to therapy . Girth measurements are stable at this time. Will continue to work on scar/tissue mobility, ROM and strength She will benefit from continued skilled therapy services to meet the updated goals for this plan of care as noted below. Goals for Episode of Care: created on 09/09/20 through 12/08/20 Patient able to verbalize skin care and lymphedema risk reductions: MET Patient/family independent with home exercise program including self MLD, skincare guidelines, scar massage, ROM exercises, strengthening exercises and garment instructions: MET THUS FAR Patient will increase active ROM of R shoulder to WNL to allow patient to achieve neutral postural alignment, for improved performance of ADLs.: MET Patient will decrease pain to: 10 : ONGOING Patient will have supple scar with no tenderness to palpation and demonstrate and understanding of scar management: ONGOING Patient/family able to verbalize all pertinent aspects of CDT: ONGOING Patient/family independent with donning/doffing compression garment and proper wearing schedule and care of garment: MET Patient Goals: increase ROM R shoulder; get compression sleeve Planned Interventions, Frequency, and Duration: , Patient to be seen for PLAN FOR NEXT VISIT: MLD; compression;tissue mobility SUBJECTIVE: . Pt has not been wearing compression. To start new, less stressful job next week. Functional Limitations: lifting;physical activities;recreational activities;use hand with arm at shoulder level;reaching overhead Pain: PROMIS Scales Higher is Better 09/09/2020 02/03/2021 Phys Func - Score 28 (severe dysfunction) - Phys Func - Percentile 1 % - Social Roles - Score 25 (severe dysfunction) - Social Role - Percentile 1 % - GH Physical - Score 39.8 37.4 (Fair) GH Physical - Percentile 15 % 10 % GH Mental - Score 43.5 31.3 (Fair) GH Mental - Percentile 26 % 3 % Self-Eff Symptom - Score 38 (Low) - Self-Eff Symptom - Percentile 12 % - T-scores: mean of general population = 50. 5 points is clinically meaningfully difference Percentiles provide an indication of how the patient's score ranks in relation to the general population. Higher percentile rankings indicate better function/quality of life. 50th percentile is the average of the general population and indicates half of respondents had a worse score. Lower is Better 09/09/2020 Fatigue - Score 58 (mild) Fatigue - Percentile 21 % T-scores: mean of general population = 50. 5 points is clinically meaningfully difference Percentiles provide an indication of how the patient's score ranks in relation to the general population. Higher percentile rankings indicate better function/quality of life. 50th percentile is the average of the general population and indicates half of respondents had a worse score. OBJECTIVE MEASURES WITH LEVEL OF FUNCTION: Upper Extremity Circumferential Measurements R Thumb (proximal phalanx) (cm): 5.7 cm R Index Finger (proximal phalanx) (cm): 5.7 cm R DPC (cm): 17.4 cm R Distal Wrist Crease (DWC) (cm): 15 cm R 8 cm above wrist (cm): 18 cm R 16 cm above wrist (cm): 24.3 cm R 24 cm above wrist (cm): 25.6 cm R 32 cm above wrist (cm): 28.5 cm R 40 cm above wrist (cm): 29.5 cm R 44 cm above wrist (cm): 29.3 cm R Upper Extremity Volume: 275.27 UE PROM R Shoulder Flex: 160 Degrees R Shoulder ABduction: 120 Degrees R Shoulder Internal Rotation: 80 Degrees R Shoulder External Rotation: 90 Degrees TREATMENT: Manual Therapy: 1: measure 2: MLD seq x 35'(proximal clearing and R UE) 3: PROM to R shoulder x 10' 4: tissue mobs w dycem x 10 min Skilled Intervention: Manual skills to improve joint mobility, ROM, and decrease pain. Utilized anatomy knowledge of the therapist, and assessment of patient's response to intervention. Billing Manual TherapyTreatment Minutes: 55 Total Treatment Time Minutes (timed/untimed): 55 Corie Sykes PT documented in this encounter [facility] 12-16-2021 Miscellaneous Notes Left detailed message for pt with below information, advised to call if she had anymore questions. Riya Burr Please inform pt. that there was no abnormality seen on the xray of her R ribs. Follow up as scheduled. Thank you. Lizbeth Wang APRN.SERGIO documented in this encounter [facility] 12-15-2021 History of Present illness Narrative Radiology Service Progress Note PATIENT NAME: Amber Kellogg DATE OF SERVICE: December 15, 2021 TIME: 10:10 AM PATIENT IDENTITY VERIFICATION COMPLETED USING TWO (2) IDENTIFIERS: Name and Date of confirmed by patient verbally. FALL SCREENING: Has the patient had 2 falls in the last year or 1 fall with injury or currently using an Ambulatory Assistive Device (Walker, Cane, Wheelchair, Crutches, etc.)? No PATIENT GENDER DATA: Female. status: : No status: NO. PATIENT RELEVANT IMPLANT DATA REVIEWED: Not Applicable RADIOLOGY DEPARTMENT: General X-ray: Exam(s) Completed: Rib X-Ray: Right PERIPHERAL IV DATA: Not applicable SIGNED BY: RT Venu(R) December 15, 2021 10:10 AM documented in this encounter [facility] 12-15-2021 History of Present illness Narrative Chief Complaint Patient presents with: Established Patient HPI: Amber Kellogg is a 46 year old female who presents here today for urgent visit for complaints of rib pain x past 2 weeks. See phone note. Per Dr. Montero's previous note: H/o 45 year-ole premenopausal (had endometrial ablation) female who appreciated a lump in her right breast around August 2019. She was seen by her account collector who ordered imaging. The mammogram evidently did not show any obvious mass or abnormality. It was interpreted as a BI-RADS 0 study. An ultrasound was performed and it demonstrated a hypoechoic, lobulated mass in the right breast at 9:00 categorized as BI-RADS 4C. She underwent a core needle biopsy on 12/06/2019. Pathology: MICROSCOPIC DIAGNOSIS Right breast at 9 o clock, needle core biopsy: Invasive ductal carcinoma with the following characteristics: Maximal length 1.3 millimeters Nuclear grade 2/3 Other findings focal perineural invasion. ER (clone [id number]) >95%, strong intensity WV (clone 16/1E2) 85%, strong intensity Her-2Neu (clone CB11) 0 MRI Breast at [facility] 12/16/2019: FINDINGS: RIGHT BREAST: The breast tissue is markedly dense with no background enhancement. There is a 12 mm abnormal enhancing masses seen laterally in the right breast at the postbiopsy site. This was biopsied and shown to represent a malignancy. A benign-appearing cyst is identified in the superior outer aspect measuring 13 mm. There are no additional abnormal enhancing masses or areas of non-mass enhancement in the right breast. LEFT BREAST: The breast tissue is markedly dense with no background enhancement. There are no abnormal enhancing masses or areas of non-mass enhancement in the left breast. There are no enlarged or abnormal lymph nodes. There is no abnormality in the visualized regions of the chest or liver. Patient was advised to undergo lumpectomy with sentinel lymph node biopsy. She was seen by genetic counseling at [facility] and then went to [facility] for second opinion as documented in Care Everywhere: On 01/14/2020, the certified genetic counselor from [facility] in [place], [place], Corie Flanagan, issued the following telephone encounter note in the patient's outside electronic medical record chart. They stated: Telephone Encounter - Corie Flanagan CGC - 01/13/2020 8:13 AM EDT: Called Amber to discuss her 12/05/2019; normal BRCAPlus results. No mutation was detected in any of these 8 high and moderate risk breast cancer genes. The CancerNext test is still pending. The BRCAPlus test does not include RNA testing so discussed the small possibility of finding a mutation in one of these genes with RNA testing that would be reported with the CancerNext results. Also discussed that not all hereditary causes of breast cancer are detected with this testing so there's a good possibility that the cause for her personal and family history of cancer is not known at this time. Will fax this reported to Dr. Avila. Will call Amber again when the CancerNext results are back. Amber voiced understanding. On 01/14/2020, the certified genetic counselor from [facility] in [place], [place], Corie Flanagan, issued the following telephone encounter note in the patient's outside electronic medical record chart. They stated: Telephone Encounter - Corie Flanagan CGC - 01/14/2020 5:23 PM EDT: Called Amber to discuss the CancerNext results with RNA testing. 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 The meaning of this finding is not currently known, but most variants are found to be normal once more information is learned. No mutation was detected in any of the other genes that were analyzed. Based on Amber's diagnosis of early-onset breast cancer and her family history of breast cancer including early-onset breast cancer, it s likely that there is a hereditary cause for these cancers that cannot be detected with the testing that is currently available. Amber is not sure what her surgical plans are yet. Discussed the option of bilateral mastectomy since she has a strong personal and family history of cancer. If she has partial mastectomy, recommended that she have annual breast MRI as part of her screening once her treatment is complete. Will mail the results with a summary letter to Amber. Will fax this to her providers. Encouraged her to call with any questions. . . On 01/31/2020, the patient's outside breast imaging was reviewed by Dr. Luiz Ma of [facility] breast Radiology. They stated: EXAM: BREAST IMAGING SECOND OPINION READING, 01/28/2020 12:15 PM. CLINICAL INDICATIONS: 44-year-old female here for second opinion. Patient presented at outside institution on December 05, 2019 for a palpable area of concern in her right breast. This was the patient's baseline mammogram. A right mammogram was obtained and was reported as no findings on mammography and a right breast ultrasound was requested. Right breast breast ultrasound showed a suspicious mass at the 9:00 position of the right breast measuring 12 mm x 7 mm x 8 mm. Ultrasound-guided biopsy was recommended. Biopsy was performed on December 06, 2019 under ultrasound guidance in the physician's office. Imaging was not saved from the procedure and a postbiopsy mammogram was not performed. Pathology results revealed invasive ductal carcinoma ER positive WV positive HER-2/sushant negative. MRI performed on December 14, 2019 demonstrated known malignancy in the right breast measuring 12 mm. Patient is here for second opinion. COMPARISON: No prior studies available for comparison. 12/05/2019 BILATERAL 2-D DIAGNOSTIC MAMMOGRAM FINDINGS: Breast tissue is heterogeneously dense which may limit the sensitivity of mammography. There are microcalcifications involving the majority of the lateral right breast spanning approximately 7.0 cm in anterior/posterior dimension, 3.1 cm in medial/lateral dimension and 5.0 cm in craniocaudal dimension. Otherwise there are no suspicious microcalcifications, masses or areas of architectural distortion in either breast on 2-D mammography. December 05, 2019 ULTRASOUND FINDINGS: Sonography of the 9:00 position the right breast in the palpable area of concern demonstrates a 7 mm x 8 mm x 12 mm irregular hypoechoic mass with angular margins internal vascularity and no posterior acoustic features. Sonography of the 11:00 position demonstrates a 8mm by 13 mm x 13 mm cyst. No other lesions are identified on sonography however a few select images show linear hypoechoic areas at the 12 and 3:00 position which could correspond to the suspicious microcalcifications identified on mammography. December 16, 2019 MRI FINDINGS: Bilateral MRI is nondiagnostic -it is unclear if gadolinium entered the breast. There is no note of gadolinium extravasation. Lack of gadolinium on breast MRI will underestimate extent of disease. IMPRESSION: 1. Suspicious microcalcifications involving the majority of the lateral right breast. Magnification views of the right breast were not obtained. Recommend right CC tomosynthesis, right ML tomosynthesis and magnification views of the lateral right breast in the CC and ML projection. In order to determine extent of disease, a 1-2 site right breast stereotactic biopsy will likely be necessary. 2. Status post ultrasound-guided breast biopsy of suspicious mass at the 9:00 position. Images were not saved and a post biopsy mammogram was not obtained. Evaluation of clip placement can be performed when the patient obtains her right CC and ML mammogram. 3. Outside breast MRI is nondiagnostic. There is limited or no gadolinium identified on the examination which underestimates extent of disease. . . On 01/31/2020, the patient's outside pathology was reviewed by Dr. Joaquín Zaman of [facility]. They stated: Outside Slides: [id number] (12/06/19): A. Right breast at 9 o'clock, needle core biopsy: Invasive ductal carcinoma, grade 1 (score: tubule 2, nuclear 2, mitotic 1), 1.3 cm in greatest length. Manual immunohistochemical quantification using stains performed at the outside institution: Estrogen Receptor: Positive (99%, strong intensity). Progesterone Receptor: Positive (85%, strong intensity). HER2: Negative (Score 0). Submitted controls show appropriate reactivity. Comment: Additional submitted immunohistochemical stains for E-cadherin, calponin, and p40 were reviewed and support the diagnosis. . On 02/04/2020, I personally reviewed the patient's outside breast imaging with Dr. Gustavo Siddiqi of [facility] breast Radiology. Dr. Gustavo Siddiqi of [facility] breast Radiology recommended that in anticipation to the patient for any right breast stereotactic biopsy procedures, that we should repeat a right breast diagnostic digital mammogram to look at clip placement from the patient's prior right breast ultrasound-guided biopsy, as well as reassess the overall distribution of the calcifications within the right breast. Eventually underwent vacuum-assisted stereotactic biopsy of calcifications in the right breast at [facility] on 02/17/2020. Pathology of the calcifications in the right breast at the anterior medial aspect with the Top-Hat clip showed atypical ductal hyperplasia, atypical lobular hyperplasia and flat epithelial atypia. The pathology of the calcifications in the anterior medial posterior group with a stoplight clip demonstrated invasive ductal carcinoma grade 2. Ductal carcinoma in situ, low-grade. Patient did not follow-up at [facility] and then was referred to [facility] for opinion on mastectomy with reconstruction. CT Chest 07/06/2020: Lung parenchyma and airways: No consolidation. No suspicious pulmonary nodule. The central airways are patent. Pleural space: No pleural effusion. No pleural thickening. Lower neck, lymph nodes, and mediastinum: There is borderline enlargement of right axillary nodes. There is no left axillary, mediastinal, or hilar lymphadenopathy. There is a small amount of soft tissue within the anterior mediastinum likely representing some residual thymic tissue. Heart, pericardium, and thoracic vessels: The thoracic aorta and main pulmonary artery are normal in caliber. The cardiac chambers are normal in size. No coronary artery atherosclerotic calcifications are noted, although the study is not optimized for coronary assessment. No pericardial effusion or thickening. Bones and soft tissues: There is a tiny sclerotic density within the T9 vertebral body on image 82 which is probably a small bone island. Otherwise, there are no lytic or blastic changes. Upper abdomen: Discussed on a separate abdominal CT report Nurse Clinician (topogram) images: No additional findings. IMPRESSION: Mild right axillary lymphadenopathy CT A/P 07/06/2020: Liver: There are a few tiny indeterminate hypodensities within the liver. These are noted on images 19, 29, and 33 of series 1. None of these measure more than 4 mm. Biliary: No bile duct dilation. Spleen: No mass. No splenomegaly. Pancreas: No mass or duct dilation. Adrenals: No mass. Kidneys: At the superior pole of the right kidney, there is a 0.5 cm hypodensity which is too small to characterize but is probably a small cyst. Otherwise, the kidneys appear normal. GI tract: No dilation or wall thickening. Lymph nodes: No abdominal or pelvic lymphadenopathy. Mesentery/Peritoneum: No ascites or mass. Retroperitoneum: No mass. Vasculature: The celiac axis and SMA are patent. The portal vein and branches, splenic vein, SMV, and hepatic veins are patent. Pelvis: Trace free fluid is likely physiologic in nature. There are no other pelvic abnormalities. Bones/Soft Tissues: No significant finding. Lower thorax: A chest CT performed will be reported separately. Nurse Clinician (topogram) images: No additional findings. IMPRESSION: 1. Few tiny indeterminate hypodensities within the liver measuring 4 mm or less. Since the patient does have a history of malignancy, attention to these areas on subsequent examinations is recommended. 2. Tiny right renal hypodensity likely representing a small cyst. Bone scan 07/15/2020: IMPRESSION: NO SCINTIGRAPHIC EVIDENCE FOR OSSEOUS METASTATIC DISEASE. Ultimately underwent a right skin sparing mastectomy with sentinel lymph node biopsy followed by immediate right breast reconstruction using medium contour perforated AlloDerm x2 and right breast reconstruction using tissue broadcast designer on 08/28/2020. Pathology: 1. Right breast, skin sparing mastectomy (A) - Invasive ductal carcinoma, Nehemias Grade 3, measuring 48 mm in greatest dimension (please see synoptic report). - Ductal carcinoma in situ, nuclear grades 1 and 2, solid, cribriform and spindling types with comedo necrosis, microcalcifications and involvement of lobules. - Extensive lymphovascular space invasion is identified. - Biopsy clips X3 and biopsy site reparative changes identified. 2. [place] lymph node #1, palpable, sentinel node biopsy (B) - Metastatic carcinoma involving one lymph node (1/1); metastasis measures at least 8 mm in greatest dimension; no definitive extranodal extension identified. 3. [place] lymph node #2, hot and blue, [id number], sentinel node biopsy (C) - Metastatic carcinoma involving two of two lymph nodes (2/2), with largest metastasis measuring at least 18 mm in greatest dimension with 3 mm of extranodal extension. 4. [place] lymph node #3, palpable, sentinel node biopsy (D) - One lymph node, negative for metastatic malignancy (0/1). 5. [place] lymph node #4, palpable, sentinel node biopsy (E) - Metastatic carcinoma involving two of two lymph nodes (2/2), largest metastasis measures at least 10 mm in greatest dimension; no definitive extranodal extension identified. 6. [place] lymph node #5, palpable, sentinel node biopsy (F) - Metastatic carcinoma involving one of one lymph node (1/1), metastasis measures 1 cm in greatest dimension; no definitive extranodal extension identified. SYNOPTIC REPORT OF JOSUE PATHOLOGIC FINDINGS BREAST MASTECTOMY RIGHT: BREAST INVASIVE CARCINOMA WORKSHEET Part: A-F Procedure: Total mastectomy (including nipple-sparing and skin-sparing mastectomy) Specimen Laterality: Right Tumor size: Size of largest invasive carcinoma: Greatest dimension of largest focus of invasion >1 mm: 48 mm Tumor Focality: Single focus of invasive carcinoma Histologic Type of Invasive Carcinoma: Invasive carcinoma of no special type (ductal, not otherwise specified) Histologic Grade: Glandular (Acinar) / Tubular Differentiation: Score 3 Nuclear Pleomorphism: Score 2 Mitotic Rate: Score 3 Overall Grade: Grade III Ductal Carcinoma In Situ: Present Negative for extensive intraductal component (EIC) Architectural Patterns: Architectural Pattern:Cribriform Architectural Pattern:Solid Architectural Pattern:Other: Spindled DCIS Nuclear Grade: Grade II (intermediate) DCIS Necrosis: Present, central (expansive comedo necrosis) Tumor Extension: Skin: Skin is present and uninvolved Nipple: Other: Invasive carcinoma and foci of LVSI involve the base of the nipple Skeletal muscle: No skeletal muscle is present Invasive Carcinoma Margins: Margins uninvolved by invasive carcinoma Distance from closest margin: 1.5 mm Closest margin: Deep Distance of invasive carcinoma to radial margin: 2.8 mm DCIS Margins: Margins uninvolved by DCIS All margins >2 mm Lymph Nodes: Involved by tumor cells Number of lymph nodes with macrometastases (>2 mm): 5 Number of lymph nodes with micrometastases (>0.2 mm to 2 mm and/or >200 cells): 1 Number of lymph nodes with isolated tumor cells (<= 0.2 mm and <= 200 cells): 0 Size of largest metastatic deposit: 18 mm Extranodal extension present >2 mm Total number of lymph nodes examined: 7 Number of sentinel nodes examined (if applicable): 7 Treatment Effect: No known presurgical therapy Lymph-Vascular Invasion: Present Pathologic Stage Classification (pTNM,AJCC 8th ed) TNM Descriptor(s): Not applicable Primary Tumor (Invasive Carcinoma) (pT): pT2 Regional Lymph Nodes (pN): Modifier: Not applicable Category (pN): pN2a Distant metastasis: Distant Metastasis (pM) Not applicable/Not confirmed pathologically in this case Estrogen & progesterone receptors: Previously performed and reported as follows: Estrogen receptor: Positive (99%, strong) Progesterone receptor: Positive (90%, strong) [id number] ([facility]) ERBB2 Status: Previously performed and reported as follows: HER2:Negative Previous therapy: 1) Adjuvant AC followed by T. 2) Adjuvant radiation completed 05/31/2021. Current therapy: Lupron began 06/29/21 Arimidex began 2021 Pt. c/o R lateral rib pain. Denies injury. I don't know exactly when it started but at least 2 weeks ago. Appetite: Fine. Energy level: It's not too bad. Denies fevers or recent illness. Resp:denies cough or sob Cardiac:denies chest pain/palpitations GI:denies abd pain, n/v, moving bowels regularly :denies dysuria/hematuria Extrem:R rib as above, denies pain elsewhere Endo:+hot flashes- Right before bed. It doesn't last it's quick. Neuro:denies neuropathy, nerve pain to R arm -stable on lyrica-improved on lyrica, participating in PT for R arm lymphedema, wearing sleeve prn Skin:denies rashes/lesions Heme:denies bleeding The ROS is otherwise negative. Past medical history, appointments, medications, allergies reviewed. No changes. EXAM: BP 131/93 Pulse 85 Temp 37.3 C (99.2 F) (Temporal) Wt 69.2 kg (152 lb 8 oz) BMI 27.01 kg/m APPEARANCE Well appearing, alert, in no acute distress, well-hydrated, well nourished. HEART RRR with normal S1 and S2, no murmurs LUNG clear to auscultation, no mass/nodule to R lateral ribs LYMPH NODES No cervical lymphadenopathy, No supraclavicular lymphadenopathy and No axillary lymphadenopathy. EXTREMITIES No edema to BLE NEURO Awake, alert and oriented x 3, Normal gait and No involuntary motions. SKIN Skin color, texture, turgor normal, no suspicious rashes or lesions ASSESSMENT/PLAN: 1. Malignant neoplasm of upper-outer quadrant of right breast in female, estrogen receptor positive (HCC) - ICD9: 174.4, V86.0, ICD10: C50.411, Z17.0 (primary diagnosis) pT2 (4.8 cm; grade 3; +LVI) pN2a (5 of 7 SLN positive; 18 mm; extranodal extension present >2 mm) M0 ER/WV positive, HER2 negative stage IIIA invasive ductal carcinoma of the right breast. 2. Lymphedema of right arm - ICD9: 457.1, ICD10: I89.[address] Montero's previous note: Assessment: -The patient is a 45 yo premenopausal female who underwent a right-sided skin sparing mastectomy and sentinel lymph node biopsy on 08/28/2020 for what proved to be a pT2 (4.8 cm; grade 3; +LVI) pN2a (5 of 7 SLN positive; 18 mm; extranodal extension present >2 mm) M0 ER/WV positive, HER2 negative stage IIIA invasive ductal carcinoma of the right breast. -Genetic testing done at [facility]. -Discussed with her the rationale for adjuvant endocrine therapy and recommended ovarian suppression initially with GnRH agonist Lupron followed by possible oophorectomy pending tolerance to Lupron. Also recommended AI therapy with anastrozole to begin the second month of her ovarian suppression therapy. Discussed the rationale based on the results of the soft trial. She has high risk disease as evidenced by 5 of 7 lymph nodes positive with extranodal extension, grade 3 tumor with lymphovascular invasion present and a near 5 cm tumor. I answered all of her questions to her satisfaction and she expressed an understanding and agreement to proceed with therapy. Discussed that if she is intolerant to AI therapy then we could change to tamoxifen. Plan: -Begin Lupron on 06/29. -Office visit about a month later with plans to start aromatase inhibitor at that time. -She will be due for left breast screening mammogram. Can order at time of next OV. -Repeat CT chest in about 3 months. - New right rib pain. - Overall tolerating lupron/arimidex well overall except hot flashes. - L mammogram in November-ordered by surgeon. - Continue arimidex. - Continue PT for RUE lymphedema. - Follow up with Dr. Garcia as scheduled. - CT chest in January. - Lupron as scheduled and continue monthly. - Xray R ribs today. - Follow up as scheduled pending xray. - Pt. aware to call office with any questions/concerns. The patient indicates understanding of these issues and agrees with the plan. All documentation from previous visit of 10/26/21-Dr. Montero/myself was copied and pasted, documentation has been reviewed and edited as necessary for today's visit. Lizbeth Wang APRN.SERGIO documented in this encounter [facility] 12-14-2021 Nurse Note Pt here for injection of Lupron. Given IM in left buttock. Pt tolerated well. Mary Jo Wang LPN documented in this encounter [facility] 12-14-2021 History of Present illness Narrative Episode Visit Count: 45 Therapist That Will Oversee The Plan Of Care: Edward Start of Care Date: 09/09/20 Onset Date: 08/28/20 Patient Identified by Name and Date of : Yes REHABILITATION AND SPORTS THERAPY PHYSICAL THERAPY TREATMENT NOTE ASSESSMENT: Amber Kellogg tolerated the session with increased symptoms. She demonstrated difficulty with pain to lateral chest wall and lowe rib cage. Pt denies any injuries that may have caused increase in sx's; Pt to discuss today when gets injection. The patient will continue to benefit from ongoing skilled physical therapy to progress toward set goals. PLAN FOR NEXT VISIT: MLD; compression;tissue mobility SUBJECTIVE: Having some increase in tenderness to ribs and side of breast. Unsure as to why Pain: Pain Additional Pain Information : Specific pain level not discussed in order to focus on movement/functional goals OBJECTIVE MEASURES WITH LEVEL OF FUNCTION: Upper Extremity Circumferential Measurements R Thumb (proximal phalanx) (cm): 5.8 cm R Index Finger (proximal phalanx) (cm): 5.7 cm R DPC (cm): 18 cm R Distal Wrist Crease (DWC) (cm): 15.8 cm R 8 cm above wrist (cm): 18.5 cm R 16 cm above wrist (cm): 24.4 cm R 24 cm above wrist (cm): 25.8 cm R 32 cm above wrist (cm): 29.8 cm R 40 cm above wrist (cm): 29.8 cm R 44 cm above wrist (cm): 31 cm R Upper Extremity Volume: 294.36 TREATMENT: Manual Therapy: 1: measure 2: MLD seq x 35'(proximal clearing and R UE) 3: PROM to R shoulder x 10' 4: tissue mobs w dycem x 10 min Skilled Intervention: Manual skills to improve joint mobility, ROM, and decrease pain. Utilized anatomy knowledge of the therapist, and assessment of patient's response to intervention. Billing Manual TherapyTreatment Minutes: 55 Total Treatment Time Minutes (timed/untimed): 55 Shahnaz Sneed PTA documented in this encounter [facility] 11-30-2021 History of Present illness Narrative Episode Visit Count: 44 Therapist That Will Oversee The Plan Of Care: Edward Start of Care Date: 09/09/20 Onset Date: 08/28/20 Patient Identified by Name and Date of : Yes REHABILITATION AND SPORTS THERAPY PHYSICAL THERAPY TREATMENT NOTE ASSESSMENT: Amber Kellogg tolerated the session with no issues. She demonstrated difficulty with tightness to chest, and swelling to R UE. The patient will continue to benefit from ongoing skilled physical therapy to progress toward set goals. PLAN FOR NEXT VISIT: MLD; compression;tissue mobility SUBJECTIVE: Surgery scheduled for implants in March. On a cancel list, and hoping it gets moved up Pain: Pain Additional Pain Information : Specific pain level not discussed in order to focus on movement/functional goals OBJECTIVE MEASURES WITH LEVEL OF FUNCTION: TREATMENT: Manual Therapy: 1: measure 2: MLD seq x 35'(proximal clearing and R UE) 3: PROM to R shoulder x 10' 4: tissue mobs w dycem x 10 min Skilled Intervention: Manual skills to improve joint mobility, ROM, and decrease pain. Utilized anatomy knowledge of the therapist, and assessment of patient's response to intervention. Billing Manual TherapyTreatment Minutes: 55 Total Treatment Time Minutes (timed/untimed): 55 Shahnaz Sneed PTA documented in this encounter [facility] 11-16-2021 Nurse Note Lupron injection administered, right buttock,tolerated well, no immediate adverse reactions noted. Shelia Dan LPN documented in this encounter [facility] 11-04-2021 History of Present illness Narrative Plastic Surgery note CC: Follow Up for Breast Reconstruction HPI: Amber Kellogg is a 45 year old that presents today to establish care for breast reconstruction. She is a former patient of Dr. Preston. She is here to discuss the JANETTE procedure scheduled on 12/28/21. -She was last seen and evaluated on 07/21/2021, submitted to insurance for unilateral JANETTE, scheduled for 12/28/2021, she has since changed her mind and would like to have implant placed instead. -She has a hx of right breast cancer. Completed ddAC-T with Dr Montero. Radiation completed, treated 04/20/21 - 05/31/21. Delayed d/t right hand and arm lymphedema and pain to right arm and shoulder, limited ROM, in PT and on gabapentin Date of Surgery: 08/28/20 Surgery: Right Skin sparing mastectomy, sentinel lymph biopsy (7 LNs removed) by Dr Lopez and Right Prepectoral Tissue Immigration Consultant by Dr Preston Time post op: 9 months Tissue Immigration Consultant Volume: 200 cc normal saline REVIEW OF SYSTEMS All negative except for: GENERAL: []weight loss []malaise []fevers HEENT: []frequent or significant headaches []changes in hearing []change in vision []nose bleeds []other nasal problems NECK: []lumps []goiter []pain and significant neck swelling RESPIRATORY: []cough []hemoptysis []wheezing []COPD []dyspnea []shortness of breath CARDIOVASCULAR: []chest pain []leg swelling []hypertension []CHF []palpitations GI: []nausea []vomiting []diarrhea MUSCULOSKELETAL: [] joint pain or swelling [] back pain []muscle pain +R arm/shoulder pain SKIN: [] skin lesions []rash []itching +R arm/hand swelling; lymphedema PSYCH: []sleep disturbance []mood disorder []recent psychosocial stressors HEMATOLOGY/LYMPHOLOGY: []prolonged bleeding []bruising easily []swollen nodes ENDOCRINE: []cold intolerance []heat intolerance []polyuria []polydipsia []goiter [] Diabetes Allergies: No Known Allergies Tobacco use: No PAST MEDICAL HISTORY Diagnosis Date Malignant neoplasm of right breast (HCC) 11/2019 PAST SURGICAL HISTORY Procedure Laterality Date BREAST BIOPSY HX Right 2019 X2 NOVEMBER AND Jan D&C, DIAG AND/OR THERAPEUTIC 2019 ENDOMETRIAL ABLATION-TEAM TRIAL 2019 MASTECTOMY, SIMPLE, COMPLETE Right 08/28/2020 PORT REMOVAL Port-A-Cath removed 09/08/21 [facility] Current Outpatient Medications on File Prior to Visit Medication Sig pregabalin (LYRICA) 75 mg capsule Take 1 capsule by mouth daily at bedtime for 90 days. oxyCODONE-acetaminophen (PERCOCET) 5-325 mg tablet Take 1 tablet by mouth every 6 hours as needed. promethazine (PHENERGAN) 25 mg tablet Take 1 tablet by mouth every 6 hours as needed for Nausea/Vomiting. acetaminophen (TYLENOL EXTRA STRENGTH) 500 mg tablet Take 1,000 mg by mouth every 6 hours as needed. ibuprofen (MOTRIN) 200 mg tablet Take 400 mg by mouth every 6 hours as needed. lidocaine-prilocaine (EMLA) 2.5-2.5 % cream Apply 1 application to affected area as needed. No current facility-administered medications on file prior to visit. PE: Abdomen soft, no scars, possible donor site for JANETTE flaps Back w/ no scars, latissimus intact Swelling to left hand, soft, not fibrous yet Swelling to the dorsal hand Breast Exam: Right breast Incision well healed without erythema or drainage. Right breast tissue broadcast designer in place, no evidence of hematoma or seroma Right breast grade 3 capsular contracture Scars: Right Transverse mastectomy scar well healed L: Grade II Abdomen soft, no scars, possible donor site for JANETTE flaps Back w/ no scars, latissimus intact Swelling to left hand, soft Note: measurements are in centimeters SN to NIPPLE: L: 23 WIDTH: L: 13.5 IMF to NIPPLE: L: 10 ASSESSMENT/PLAN: -Amber Kellogg is a 45 year old with hx of right breast cancer, s/p right breast reconstruction w/ tissue broadcast designer, lymphedema to RUE -Continue w/ lymphedema and compression to right hand and arm. -will schedule unilateral JANETTE -An extensive discussion was undertaken with the patient regarding her breast reconstruction and I have advised her to contact me at any time with further questions she may have regarding breast reconstruction. The patient understands the specific risks of a silicone breast implant to include but not be limited to the following list: JAC-ALCL (Breast Implant Associated Anaplastic Large Cell Lymphoma; up to 0.03%) Systemic illness associated with implants (Commonly BII or Breast Implant Illness: muscle aches, fatigue, joint pain and others; undefined incidence) Infection Reoperation for malposition and asymmetry (up to 71%) Capsular contracture (up to 52%) Rupture (up to 35%) Pain (up to 33%) Breast feeding issues (up to 30%) Rippling (up to 25%) Changes in sensation to the breasts (up to 10%) Seroma and/or swelling (up to 9%) Scarring (up to 7%) Loss of skin (up to 4%) Bleeding or Hematoma (up to 2%) May affect quality of screening studies (mammogram or ultrasound) of the breasts Implants have limited use in patients with autoimmune diseases or on immunosuppression (such as lupus, rheumatoid arthritis, chemotherapy and others) The patient also understands that being overweight, smoking and diabetes all significantly increase the risk of complications. Patients with a current diagnosis of depression or mental health disorders should wait for resolution or stabilization of their condition. In addition, the patient understands breast implants are associated with a significant rate of removal or replacement over a lifetime and should therefore be considered temporary devices which will contribute to permanent changes in the shape and function of the breasts (ptosis and stretch mendoza). Regular follow up with a plastic surgeon should continue throughout life to determine the potential need for studies to detect the above listed potential complications. It is recommended patients with implants undergo ultrasound or MRI screening of the breasts 5 years after implant surgery and then every 2 years after that. These studies should also be considered at the time of any of the above symptoms. The patient also realizes that these studies may not be covered by their insurance therefore incurring the expenses themselves. A document with details about items on the list above will be sent home with the patient for review. The patient will attest to reading and understanding the provided list and return the initialed and signed list on the day of or prior to their surgery attesting to their understanding of the list and any that any questions they might have regarding breast implants have been answered. The patient is seen and examined by Dr. Garcia and the following reflects her service. Scribed by Francisca Lord RN I agree with the Chief Complaint, ROS, and Past Histories independently gathered by the clinical technology support analyst and the remaining scribed note accurately describes my personal service to the patient. She is wanting to cancel the JANETTE flap. She is wanting to move forward with with: Right implant exchange, fat grafting to right breast, and left breast mastopexy for symmetry. 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 I discussed that she has a right radiated breats and is at a higher risk for complications. Depending on how capsular work I need to do will relate to how much I can fat graft to the right breast. I discussed significant asymmetries. I discussed risks and benefits of revision and fat grafting including but not limited to: bleeding, infection, nipple loss, tissue loss, fat necrosis leading to mammogram findings or a biopsy, fat oil cysts, redundant tissue, intraabdominal injury, contour deformities. I discussed risks and benefits of breast reduction including but not limited to: bleeding, infection, partial or full nipple loss, possible free nipple graft, fat necrosis, delayed wound healing, scarring, unacceptable cosmetic results, undesirable size, asymmetry and loss of breast feeding potential, and need for future breast reductions for breasts continuing to grow in size. Quin Garcia MD documented in this encounter [facility] 11-02-2021 History of Present illness Narrative Episode Visit Count: 41 Therapist That Will Oversee The Plan Of Care: Edward Start of Care Date: 09/09/20 Onset Date: 08/28/20 Patient Identified by Name and Date of : Yes REHABILITATION AND SPORTS THERAPY PHYSICAL THERAPY TREATMENT NOTE ASSESSMENT: Amber Kellogg tolerated the session with expected muscle soreness. She demonstrated stability in girth measurements. Difficulty with axillary cording. The patient will continue to benefit from ongoing skilled physical therapy to progress toward set goals. PLAN FOR NEXT VISIT: MLD; compression;tissue mobility SUBJECTIVE: Appointment of the 12th with Dr. Garcia to discuss reconstruction. Elbow achy today. Pain: Pain Pain Level: 3 Pain Location: Elbow - Right Description: Sore Frequency: Intermittent OBJECTIVE MEASURES WITH LEVEL OF FUNCTION: Upper Extremity Circumferential Measurements R Thumb (proximal phalanx) (cm): 5.6 cm R Index Finger (proximal phalanx) (cm): 5.6 cm R DPC (cm): 18 cm R Distal Wrist Crease (DWC) (cm): 15.4 cm R 8 cm above wrist (cm): 18.5 cm R 16 cm above wrist (cm): 24.8 cm R 24 cm above wrist (cm): 25.8 cm R 32 cm above wrist (cm): 29 cm R 36 cm above wrist (cm): 30 cm R 40 cm above wrist (cm): 29.3 cm R 44 cm above wrist (cm): 30 cm R Upper Extremity Volume: 837.15 TREATMENT: Manual Therapy: 1: measure 2: MLD seq x 35'(proximal clearing and R UE) 3: PROM to R shoulder x 10' 4: tissue mobs w dycem x 10 min Skilled Intervention: Manual skills to improve joint mobility, ROM, and decrease pain. Utilized anatomy knowledge of the therapist, and assessment of patient's response to intervention. Billing Manual TherapyTreatment Minutes: 55 Total Treatment Time Minutes (timed/untimed): 55 Shahnaz Sneed PTA documented in this encounter [facility] 10-26-2021 History of Present illness Narrative Episode Visit Count: 40 Therapist That Will Oversee The Plan Of Care: Edward Start of Care Date: 09/09/20 Onset Date: 08/28/20 REHABILITATION AND SPORTS THERAPY PHYSICAL THERAPY TREATMENT NOTE ASSESSMENT: Amber Kellogg tolerated the session with no issues. She demonstrated difficulty with tightness to R axilla and improvements in swelling to R UE/ firmness. The patient will continue to benefit from ongoing skilled physical therapy to progress toward set goals. PLAN FOR NEXT VISIT: MLD; compression;tissue mobility SUBJECTIVE: Pt reports that she is having increased tightness in R axilla Pain: OBJECTIVE MEASURES WITH LEVEL OF FUNCTION: TREATMENT: Manual Therapy: 2: MLD seq x 35'(proximal clearing and R UE) 3: PROM to R shoulder x 10' 4: tissue mobs w dycem x 10 min Skilled Intervention: Manual skills to improve joint mobility, ROM, and decrease pain. Utilized anatomy knowledge of the therapist, and assessment of patient's response to intervention. Billing Manual TherapyTreatment Minutes: 55 Total Treatment Time Minutes (timed/untimed): 55 Corie Sykes PT documented in this encounter [facility] 10-26-2021 History of Present illness Narrative Chief Complaint Patient presents with: Established Patient HPI: Amber Kellogg is a 46 year old female who presents here today for follow up breast cancer. Per Dr. Montero's previous note: H/o 45 year-ole premenopausal (had endometrial ablation) female who appreciated a lump in her right breast around August 2019. She was seen by her account collector who ordered imaging. The mammogram evidently did not show any obvious mass or abnormality. It was interpreted as a BI-RADS 0 study. An ultrasound was performed and it demonstrated a hypoechoic, lobulated mass in the right breast at 9:00 categorized as BI-RADS 4C. She underwent a core needle biopsy on 12/06/2019. Pathology: MICROSCOPIC DIAGNOSIS Right breast at 9 o clock, needle core biopsy: Invasive ductal carcinoma with the following characteristics: Maximal length 1.3 millimeters Nuclear grade 2/3 Other findings focal perineural invasion. ER (clone [id number]) >95%, strong intensity [place] (clone 16/1E2) 85%, strong intensity Her-2Neu (clone [id number]) 0 MRI Breast at [facility] 12/16/2019: FINDINGS: RIGHT BREAST: The breast tissue is markedly dense with no background enhancement. There is a 12 mm abnormal enhancing masses seen laterally in the right breast at the postbiopsy site. This was biopsied and shown to represent a malignancy. A benign-appearing cyst is identified in the superior outer aspect measuring 13 mm. There are no additional abnormal enhancing masses or areas of non-mass enhancement in the right breast. LEFT BREAST: The breast tissue is markedly dense with no background enhancement. There are no abnormal enhancing masses or areas of non-mass enhancement in the left breast. There are no enlarged or abnormal lymph nodes. There is no abnormality in the visualized regions of the chest or liver. Patient was advised to undergo lumpectomy with sentinel lymph node biopsy. She was seen by genetic counseling at [facility] and then went to [facility] for second opinion as documented in Care Everywhere: On 01/14/2020, the certified genetic counselor from [facility] in [place], [place], Corie Flanagan, issued the following telephone encounter note in the patient's outside electronic medical record chart. They stated: Telephone Encounter - Corie Flanagan CGC - 01/13/2020 8:13 AM EDT: Called Amber to discuss her 12/05/2019; normal BRCAPlus results. No mutation was detected in any of these 8 high and moderate risk breast cancer genes. The CancerNext test is still pending. The BRCAPlus test does not include RNA testing so discussed the small possibility of finding a mutation in one of these genes with RNA testing that would be reported with the CancerNext results. Also discussed that not all hereditary causes of breast cancer are detected with this testing so there's a good possibility that the cause for her personal and family history of cancer is not known at this time. Will fax this reported to Dr. Avila. Will call Amber again when the CancerNext results are back. Amber voiced understanding. On 01/14/2020, the certified genetic counselor from [facility] in [place], [place], Corie Flanagan, issued the following telephone encounter note in the patient's outside electronic medical record chart. They stated: Telephone Encounter - Corie Flanagan CGC - 01/14/2020 5:23 PM EDT: Called Amber to discuss the CancerNext results with RNA testing. 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 The meaning of this finding is not currently known, but most variants are found to be normal once more information is learned. No mutation was detected in any of the other genes that were analyzed. Based on Amber's diagnosis of early-onset breast cancer and her family history of breast cancer including early-onset breast cancer, it s likely that there is a hereditary cause for these cancers that cannot be detected with the testing that is currently available. Amber is not sure what her surgical plans are yet. Discussed the option of bilateral mastectomy since she has a strong personal and family history of cancer. If she has partial mastectomy, recommended that she have annual breast MRI as part of her screening once her treatment is complete. Will mail the results with a summary letter to Amber. Will fax this to her providers. Encouraged her to call with any questions. . . On 01/31/2020, the patient's outside breast imaging was reviewed by Dr. Luiz [facility]. They stated: EXAM: BREAST IMAGING SECOND OPINION READING, 01/28/2020 12:15 PM. CLINICAL INDICATIONS: 44-year-old female here for second opinion. Patient presented at outside institution on December 05, 2019 for a palpable area of concern in her right breast. This was the patient's baseline mammogram. A right mammogram was obtained and was reported as no findings on mammography and a right breast ultrasound was requested. Right breast breast ultrasound showed a suspicious mass at the 9:00 position of the right breast measuring 12 mm x 7 mm x 8 mm. Ultrasound-guided biopsy was recommended. Biopsy was performed on December 06, 2019 under ultrasound guidance in the physician's office. Imaging was not saved from the procedure and a postbiopsy mammogram was not performed. Pathology results revealed invasive ductal carcinoma ER positive W[place] positive HER-2/sushant negative. MRI performed on December 14, 2019 demonstrated known malignancy in the right breast measuring 12 mm. Patient is here for second opinion. COMPARISON: No prior studies available for comparison. 12/05/2019 BILATERAL 2-D DIAGNOSTIC MAMMOGRAM FINDINGS: Breast tissue is heterogeneously dense which may limit the sensitivity of mammography. There are microcalcifications involving the majority of the lateral right breast spanning approximately 7.0 cm in anterior/posterior dimension, 3.1 cm in medial/lateral dimension and 5.0 cm in craniocaudal dimension. Otherwise there are no suspicious microcalcifications, masses or areas of architectural distortion in either breast on 2-D mammography. December 05, 2019 ULTRASOUND FINDINGS: Sonography of the 9:00 position the right breast in the palpable area of concern demonstrates a 7 mm x 8 mm x 12 mm irregular hypoechoic mass with angular margins internal vascularity and no posterior acoustic features. Sonography of the 11:00 position demonstrates a 8mm by 13 mm x 13 mm cyst. No other lesions are identified on sonography however a few select images show linear hypoechoic areas at the 12 and 3:00 position which could correspond to the suspicious microcalcifications identified on mammography. December 16, 2019 MRI FINDINGS: Bilateral MRI is nondiagnostic -it is unclear if gadolinium entered the breast. There is no note of gadolinium extravasation. Lack of gadolinium on breast MRI will underestimate extent of disease. IMPRESSION: 1. Suspicious microcalcifications involving the majority of the lateral right breast. Magnification views of the right breast were not obtained. Recommend right CC tomosynthesis, right ML tomosynthesis and magnification views of the lateral right breast in the CC and ML projection. In order to determine extent of disease, a 1-2 site right breast stereotactic biopsy will likely be necessary. 2. Status post ultrasound-guided breast biopsy of suspicious mass at the 9:00 position. Images were not saved and a post biopsy mammogram was not obtained. Evaluation of clip placement can be performed when the patient obtains her right CC and ML mammogram. 3. Outside breast MRI is nondiagnostic. There is limited or no gadolinium identified on the examination which underestimates extent of disease. . . On 01/31/2020, the patient's outside pathology was reviewed by Dr. Joaquín Zaman of [facility] pathology. They stated: Outside Slides: [id number] (12/06/19): A. Right breast at 9 o'clock, needle core biopsy: Invasive ductal carcinoma, grade 1 (score: tubule 2, nuclear 2, mitotic 1), 1.3 cm in greatest length. Manual immunohistochemical quantification using stains performed at the outside institution: Estrogen Receptor: Positive (99%, strong intensity). Progesterone Receptor: Positive (85%, strong intensity). HER2: Negative (Score 0). Submitted controls show appropriate reactivity. Comment: Additional submitted immunohistochemical stains for E-cadherin, calponin, and p40 were reviewed and support the diagnosis. . On 02/04/2020, I personally reviewed the patient's outside breast imaging with Dr. Gustavo Siddiqi of [facility] breast Radiology. Dr. Gustavo Siddiqi of [facility] breast Radiology recommended that in anticipation to the patient for any right breast stereotactic biopsy procedures, that we should repeat a right breast diagnostic digital mammogram to look at clip placement from the patient's prior right breast ultrasound-guided biopsy, as well as reassess the overall distribution of the calcifications within the right breast. Eventually underwent vacuum-assisted stereotactic biopsy of calcifications in the right breast at [facility] on 02/17/2020. Pathology of the calcifications in the right breast at the anterior medial aspect with the Top-Hat clip showed atypical ductal hyperplasia, atypical lobular hyperplasia and flat epithelial atypia. The pathology of the calcifications in the anterior medial posterior group with a stoplight clip demonstrated invasive ductal carcinoma grade 2. Ductal carcinoma in situ, low-grade. Patient did not follow-up at [facility] and then was referred to [facility] for opinion on mastectomy with reconstruction. CT Chest 07/06/2020: Lung parenchyma and airways: No consolidation. No suspicious pulmonary nodule. The central airways are patent. Pleural space: No pleural effusion. No pleural thickening. Lower neck, lymph nodes, and mediastinum: There is borderline enlargement of right axillary nodes. There is no left axillary, mediastinal, or hilar lymphadenopathy. There is a small amount of soft tissue within the anterior mediastinum likely representing some residual thymic tissue. Heart, pericardium, and thoracic vessels: The thoracic aorta and main pulmonary artery are normal in caliber. The cardiac chambers are normal in size. No coronary artery atherosclerotic calcifications are noted, although the study is not optimized for coronary assessment. No pericardial effusion or thickening. Bones and soft tissues: There is a tiny sclerotic density within the T9 vertebral body on image 82 which is probably a small bone island. Otherwise, there are no lytic or blastic changes. Upper abdomen: Discussed on a separate abdominal CT report Nurse Clinician (topogram) images: No additional findings. IMPRESSION: Mild right axillary lymphadenopathy CT A/P 07/06/2020: Liver: There are a few tiny indeterminate hypodensities within the liver. These are noted on images 19, 29, and 33 of series 1. None of these measure more than 4 mm. Biliary: No bile duct dilation. Spleen: No mass. No splenomegaly. Pancreas: No mass or duct dilation. Adrenals: No mass. Kidneys: At the superior pole of the right kidney, there is a 0.5 cm hypodensity which is too small to characterize but is probably a small cyst. Otherwise, the kidneys appear normal. GI tract: No dilation or wall thickening. Lymph nodes: No abdominal or pelvic lymphadenopathy. Mesentery/Peritoneum: No ascites or mass. Retroperitoneum: No mass. Vasculature: The celiac axis and SMA are patent. The portal vein and branches, splenic vein, SMV, and hepatic veins are patent. Pelvis: Trace free fluid is likely physiologic in nature. There are no other pelvic abnormalities. Bones/Soft Tissues: No significant finding. Lower thorax: A chest CT performed will be reported separately. Nurse Clinician (topogram) images: No additional findings. IMPRESSION: 1. Few tiny indeterminate hypodensities within the liver measuring 4 mm or less. Since the patient does have a history of malignancy, attention to these areas on subsequent examinations is recommended. 2. Tiny right renal hypodensity likely representing a small cyst. Bone scan 07/15/2020: IMPRESSION: NO SCINTIGRAPHIC EVIDENCE FOR OSSEOUS METASTATIC DISEASE. Ultimately underwent a right skin sparing mastectomy with sentinel lymph node biopsy followed by immediate right breast reconstruction using medium contour perforated AlloDerm x2 and right breast reconstruction using tissue broadcast designer on 08/28/2020. Pathology: 1. Right breast, skin sparing mastectomy (A) - Invasive ductal carcinoma, Nehemias Grade 3, measuring 48 mm in greatest dimension (please see synoptic report). - Ductal carcinoma in situ, nuclear grades 1 and 2, solid, cribriform and spindling types with comedo necrosis, microcalcifications and involvement of lobules. - Extensive lymphovascular space invasion is identified. - Biopsy clips X3 and biopsy site reparative changes identified. 2. [place] lymph node #1, palpable, sentinel node biopsy (B) - Metastatic carcinoma involving one lymph node (06/26); metastasis measures at least 8 mm in greatest dimension; no definitive extranodal extension identified. 3. [place] lymph node #2, hot and blue, [id number], sentinel node biopsy (C) - Metastatic carcinoma involving two of two lymph nodes (2/2), with largest metastasis measuring at least 18 mm in greatest dimension with 3 mm of extranodal extension. 4. [place] lymph node #3, palpable, sentinel node biopsy (D) - One lymph node, negative for metastatic malignancy (0/1). 5. [place] lymph node #4, palpable, sentinel node biopsy (E) - Metastatic carcinoma involving two of two lymph nodes (2/2), largest metastasis measures at least 10 mm in greatest dimension; no definitive extranodal extension identified. 6. [place] lymph node #5, palpable, sentinel node biopsy (F) - Metastatic carcinoma involving one of one lymph node (1/1), metastasis measures 1 cm in greatest dimension; no definitive extranodal extension identified. SYNOPTIC REPORT OF JOSUE PATHOLOGIC FINDINGS BREAST MASTECTOMY RIGHT: BREAST INVASIVE CARCINOMA WORKSHEET Part: A-F Procedure: Total mastectomy (including nipple-sparing and skin-sparing mastectomy) Specimen Laterality: Right Tumor size: Size of largest invasive carcinoma: Greatest dimension of largest focus of invasion >1 mm: 48 mm Tumor Focality: Single focus of invasive carcinoma Histologic Type of Invasive Carcinoma: Invasive carcinoma of no special type (ductal, not otherwise specified) Histologic Grade: Glandular (Acinar) / Tubular Differentiation: Score 3 Nuclear Pleomorphism: Score 2 Mitotic Rate: Score 3 Overall Grade: Grade III Ductal Carcinoma In Situ: Present Negative for extensive intraductal component (EIC) Architectural Patterns: Architectural Pattern:Cribriform Architectural Pattern:Solid Architectural Pattern:Other: Spindled DCIS Nuclear Grade: Grade II (intermediate) DCIS Necrosis: Present, central (expansive comedo necrosis) Tumor Extension: Skin: Skin is present and uninvolved Nipple: Other: Invasive carcinoma and foci of LVSI involve the base of the nipple Skeletal muscle: No skeletal muscle is present Invasive Carcinoma Margins: Margins uninvolved by invasive carcinoma Distance from closest margin: 1.5 mm Closest margin: Deep Distance of invasive carcinoma to radial margin: 2.8 mm DCIS Margins: Margins uninvolved by DCIS All margins >2 mm Lymph Nodes: Involved by tumor cells Number of lymph nodes with macrometastases (>2 mm): 5 Number of lymph nodes with micrometastases (>0.2 mm to 2 mm and/or >200 cells): 1 Number of lymph nodes with isolated tumor cells (<= 0.2 mm and <= 200 cells): 0 Size of largest metastatic deposit: 18 mm Extranodal extension present >2 mm Total number of lymph nodes examined: 7 Number of sentinel nodes examined (if applicable): 7 Treatment Effect: No known presurgical therapy Lymph-Vascular Invasion: Present Pathologic Stage Classification (pTNM,AJCC 8th ed) TNM Descriptor(s): Not applicable Primary Tumor (Invasive Carcinoma) (pT): pT2 Regional Lymph Nodes (pN): Modifier: Not applicable Category (pN): pN2a Distant metastasis: Distant Metastasis (pM) Not applicable/Not confirmed pathologically in this case Estrogen & progesterone receptors: Previously performed and reported as follows: Estrogen receptor: Positive (99%, strong) Progesterone receptor: Positive (90%, strong) Specimen number #: [facility] Accesion [id number] (HER2) ERBB2 Status: Previously performed and reported as follows: HER2:Negative Previous therapy: 1) Adjuvant AC followed by T. 2) Adjuvant radiation completed 05/31/2021. Current therapy: Lupron began 06/29/21 Arimidex began 2021 No new concerns today. I don't feel too bad. I don't have the hot flashes everyday. I feel like my fatigue is better. Life is crazy. My son is graduating. I have good days and bad days with my arm. Port was removed. Appetite: Good. Energy level: I would say overall between 6-7. Not napping everyday now. Denies fevers or recent illness. Resp:denies cough or sob Cardiac:denies chest pain/palpitations GI:denies abd pain, n/v, moving bowels regularly :denies dysuria/hematuria Extrem:denies pain Endo:+hot flashes-improved as above in the evenings or before bed. Neuro:denies neuropathy, nerve pain to R arm -stable on lyrica-improved on lyrica, participating in PT for R arm lymphedema, wearing sleeve as ordered Skin:denies rashes/lesions Heme:denies bleeding The ROS is otherwise negative. Past medical history, appointments, medications, allergies reviewed. No changes. EXAM: BP 135/92 Pulse 87 Temp 36.9 C (98.4 F) (Temporal) Wt 68.7 kg (151 lb 8 oz) BMI 26.84 kg/m APPEARANCE Well appearing, alert, in no acute distress, well-hydrated, well nourished. HEART RRR with normal S1 and S2, no murmurs LUNG clear to auscultation BREAST FEMALE broadcast designer in place to R, no surrounding mass/nodule LYMPH NODES No cervical lymphadenopathy, No supraclavicular lymphadenopathy and No axillary lymphadenopathy. ABDOMEN bowel sounds normoactive, soft, non-tender, non-distended, without organomegaly or palpable masses EXTREMITIES No edema NEURO Awake, alert and oriented x 3, Normal gait and No involuntary motions. SKIN Skin color, texture, turgor normal, no suspicious rashes or lesions RADIOLOGY: CT chest 09/14/21: IMPRESSION: Stable tiny nodule in the right lower lobe. Interval resolution of a few nodular densities in the right middle lobe. No new or enlarging nodules identified. Interval development of small patchy consolidations and reticulations in the right upper lobe and in right middle lobe, likely representing post radiation pneumonitis. Please clinically correlate. No CT evidence of lymphadenopathy in the chest. ASSESSMENT/PLAN: 1. Malignant neoplasm of upper-outer quadrant of right breast in female, estrogen receptor positive (HCC) - ICD9: 174.4, V86.0, ICD10: C50.411, Z17.0 (primary diagnosis) pT2 (4.8 cm; grade 3; +LVI) pN2a (5 of 7 SLN positive; 18 mm; extranodal extension present >2 mm) M0 ER/WV positive, HER2 negative stage IIIA invasive ductal carcinoma of the right breast. 2. Lymphedema of right arm - ICD9: 457.1, ICD10: I89.[address] Montero's previous note: Assessment: -The patient is a 45 yo premenopausal female who underwent a right-sided skin sparing mastectomy and sentinel lymph node biopsy on 08/28/2020 for what proved to be a pT2 (4.8 cm; grade 3; +LVI) pN2a (5 of 7 SLN positive; 18 mm; extranodal extension present >2 mm) M0 ER/WV positive, HER2 negative stage IIIA invasive ductal carcinoma of the right breast. -Genetic testing done at [facility]. -Discussed with her the rationale for adjuvant endocrine therapy and recommended ovarian suppression initially with GnRH agonist Lupron followed by possible oophorectomy pending tolerance to Lupron. Also recommended AI therapy with anastrozole to begin the second month of her ovarian suppression therapy. Discussed the rationale based on the results of the soft trial. She has high risk disease as evidenced by 5 of 7 lymph nodes positive with extranodal extension, grade 3 tumor with lymphovascular invasion present and a near 5 cm tumor. I answered all of her questions to her satisfaction and she expressed an understanding and agreement to proceed with therapy. Discussed that if she is intolerant to AI therapy then we could change to tamoxifen. Plan: -Begin Lupron on 06/29. -Office visit about a month later with plans to start aromatase inhibitor at that time. -She will be due for left breast screening mammogram. Can order at time of next OV. -Repeat CT chest in about 3 months. - No concerning findings on exam. - Overall tolerating lupron/arimidex well overall except hot flashes. - L mammogram in November-ordered by surgeon. - Continue arimidex. - Continue PT for RUE lymphedema. - Follow up with Dr. Garcia as scheduled. - CT chest in 3 months. - Lupron as scheduled this month and continue monthly. - Follow up in 3 months. - Pt. aware to call office with any questions/concerns. The patient indicates understanding of these issues and agrees with the plan. All documentation from previous visit of 08/24/21-Dr. Montero/myself was copied and pasted, documentation has been reviewed and edited as necessary for today's visit. Lizbeth Wang APRN.SERGIO documented in this encounter [facility] 10-19-2021 History of Present illness Narrative Episode Visit Count: 39 Therapist That Will Oversee The Plan Of Care: Edward Start of Care Date: 09/09/20 Onset Date: 08/28/20 Patient Identified by Name and Date of : Yes REHABILITATION AND SPORTS THERAPY PHYSICAL THERAPY TREATMENT NOTE ASSESSMENT: Amber Kellogg tolerated the session with no issues. She demonstrated difficulty with axillary cording to R axilla and swelling to UE. The patient will continue to benefit from ongoing skilled physical therapy to progress toward set goals. PLAN FOR NEXT VISIT: MLD; compression;tissue mobility SUBJECTIVE: Elbow is sore today. Shoulder better, but on verge of hurting. Has an appointment with Dr. Garcia on November 04 to finalize reconstruction plans Pain: Pain Pain Level: 3 Pain Location: Elbow - Right Description: Sore OBJECTIVE MEASURES WITH LEVEL OF FUNCTION: TREATMENT: Manual Therapy: 1: measure 2: MLD seq x 30'(proximal clearing and R UE) 3: PROM to R shoulder x 10' 4: tissue mobs w dycem x 10 min Skilled Intervention: Manual skills to improve joint mobility, ROM, and decrease pain. Utilized anatomy knowledge of the therapist, and assessment of patient's response to intervention. Billing Manual TherapyTreatment Minutes: 55 Total Treatment Time Minutes (timed/untimed): 55 Shahnaz Sneed PTA documented in this encounter [facility] 10-12-2021 History of Present illness Narrative Episode Visit Count: 38 Therapist That Will Oversee The Plan Of Care: Edward Start of Care Date: 09/09/20 Onset Date: 08/28/20 REHABILITATION AND SPORTS THERAPY PHYSICAL THERAPY PROGRESS REPORT PLAN OF CARE UPDATE: Assessment: Amber Kellogg demonstrates moderate improvement in swelling and reaching overhead. She hasprogressed toward goals. Patient continues to present with impairments in flexibility, overall function, range of motion, strength , tissue tenderness and girth measurements that interfere with lifting;physical activities;recreational activities;reaching behind back;reaching overhead;use hand with arm at shoulder level . Current prognosis is Good due to: current objective clinical presentation;good overall health status;positive past response to therapy . UE edema is much softer with improved tissue mobility. Still has limited ROM for ABD. She will benefit from continued skilled therapy services to meet the updated goals for this plan of care as noted below. Goals for Episode of Care: created on 09/09/20 through 12/08/20 Patient able to verbalize skin care and lymphedema risk reductions: MET Patient/family independent with home exercise program including self MLD, skincare guidelines, scar massage, ROM exercises, strengthening exercises and garment instructions: MET THUS FAR Patient will increase active ROM of R shoulder to WNL to allow patient to achieve neutral postural alignment, for improved performance of ADLs.: MET Patient will decrease pain to: 2/10 : ONGOING Patient will have supple scar with no tenderness to palpation and demonstrate and understanding of scar management: ONGOING Patient/family able to verbalize all pertinent aspects of CDT: ONGOING Patient/family independent with donning/doffing compression garment and proper wearing schedule and care of garment: MET Patient Goals: increase ROM R shoulder; get compression sleeve Planned Interventions, Frequency, and Duration: 1x/week, 8 weeks Total Number of Visits Planned: 8 Patient to be seen for Therapeutic exercise (56266);Manual therapy (79953);Therapeutic activities (14857);Self-penitentiary management (23036);Patient/Family/Caregiver Education PLAN FOR NEXT VISIT: MLD; compression;tissue mobility SUBJECTIVE: . Pt reports that she feels like her arm swelling is doing better. Rn Interventional wondering if she has gout? Functional Limitations: lifting;physical activities;recreational activities;reaching behind back;reaching overhead;use hand with arm at shoulder level Pain: PROMIS Scales Higher is Better 09/09/2020 02/03/2021 Phys Func - Score 28 (severe dysfunction) - Phys Func - Percentile 1 % - Social Roles - Score 25 (severe dysfunction) - Social Role - Percentile 1 % - GH Physical - Score 39.8 37.4 (Fair) GH Physical - Percentile 15 % 10 % GH Mental - Score 43.5 31.3 (Fair) GH Mental - Percentile 26 % 3 % Self-Eff Symptom - Score 38 (Low) - Self-Eff Symptom - Percentile 12 % - T-scores: mean of general population = 50. 5 points is clinically meaningfully difference Percentiles provide an indication of how the patient's score ranks in relation to the general population. Higher percentile rankings indicate better function/quality of life. 50th percentile is the average of the general population and indicates half of respondents had a worse score. Lower is Better 09/09/2020 Fatigue - Score 58 (mild) Fatigue - Percentile 21 % T-scores: mean of general population = 50. 5 points is clinically meaningfully difference Percentiles provide an indication of how the patient's score ranks in relation to the general population. Higher percentile rankings indicate better function/quality of life. 50th percentile is the average of the general population and indicates half of respondents had a worse score. OBJECTIVE MEASURES WITH LEVEL OF FUNCTION: Upper Extremity Circumferential Measurements R Thumb (proximal phalanx) (cm): 5.7 cm R Index Finger (proximal phalanx) (cm): 5.6 cm R DPC (cm): 18 cm R Distal Wrist Crease (DWC) (cm): 15 cm R 8 cm above wrist (cm): 18.5 cm R 16 cm above wrist (cm): 24.4 cm R 24 cm above wrist (cm): 25.3 cm R 32 cm above wrist (cm): 28.2 cm R 40 cm above wrist (cm): 28.7 cm R 44 cm above wrist (cm): 29.1 cm R Upper Extremity Volume: 265.99 UE PROM R Shoulder Flex: 160 Degrees R Shoulder ABduction: 120 Degrees R Shoulder Internal Rotation: 80 Degrees R Shoulder External Rotation: 90 Degrees TREATMENT: Manual Therapy: 1: measure 2: MLD seq x 30'(proximal clearing and R UE) 3: PROM to R shoulder x 10' 4: tissue mobs w dycem x 10 min Skilled Intervention: Manual skills to improve joint mobility, ROM, and decrease pain. Utilized anatomy knowledge of the therapist, and assessment of patient's response to intervention. Billing Manual TherapyTreatment Minutes: 55 Total Treatment Time Minutes (timed/untimed): 55 Corie Sykes PT documented in this encounter [facility] 10-05-2021 History of Present illness Narrative Episode Visit Count: 37 Therapist That Will Oversee The Plan Of Care: Edward Start of Care Date: 09/09/20 Onset Date: 08/28/20 Patient Identified by Name and Date of : Yes REHABILITATION AND SPORTS THERAPY PHYSICAL THERAPY TREATMENT NOTE ASSESSMENT: Amber Kellogg tolerated the session with expected muscle soreness. She demonstrated improvements in pain to B shoulders. Swelling present in R UE. The patient will continue to benefit from ongoing skilled physical therapy to progress toward set goals. PLAN FOR NEXT VISIT: MLD; compression;tissue mobility SUBJECTIVE: Reconstruction scheduled for March 15, but hoping to move up to the summer. Pain: Pain Pain Level: 1 Pain Location: Shoulder - Right Description: Sore Frequency: Intermittent OBJECTIVE MEASURES WITH LEVEL OF FUNCTION: Upper Extremity Circumferential Measurements R Thumb (proximal phalanx) (cm): 5.7 cm R Index Finger (proximal phalanx) (cm): 5.6 cm R DPC (cm): 17.7 cm R Distal Wrist Crease (DWC) (cm): 15.4 cm R 8 cm above wrist (cm): 19.5 cm R 16 cm above wrist (cm): 25.5 cm R 24 cm above wrist (cm): 25 cm R 32 cm above wrist (cm): 28.5 cm R 36 cm above wrist (cm): 28 cm R 40 cm above wrist (cm): 28.7 cm R 44 cm above wrist (cm): 29.1 cm R Upper Extremity Volume: 776.14 TREATMENT: Manual Therapy: 1: measure 2: MLD seq x 30'(proximal clearing and R UE) 3: PROM to R shoulder x 10' 4: tissue mobs w dycem x 10 min Skilled Intervention: Manual skills to improve joint mobility, ROM, and decrease pain. Utilized anatomy knowledge of the therapist, and assessment of patient's response to intervention. Billing Manual TherapyTreatment Minutes: 55 Total Treatment Time Minutes (timed/untimed): 55 Shahnaz Sneed PTA documented in this encounter [facility] 09-28-2021 History of Present illness Narrative Episode Visit Count: 36 Therapist That Will Oversee The Plan Of Care: Edward Start of Care Date: 09/09/20 Onset Date: 08/28/20 REHABILITATION AND SPORTS THERAPY PHYSICAL THERAPY TREATMENT NOTE ASSESSMENT: Amber Kellogg tolerated the session with no issues. She demonstrated improvements in ROM, but continues to have intermittent pain in R shoulder/arm. The patient will continue to benefit from ongoing skilled physical therapy to progress toward set goals. Wondering if symptoms in B UE are secondary to anastrazole and/or lupron shots. Pt will discuss with MD PLAN FOR NEXT VISIT: MLD; compression;tissue mobility SUBJECTIVE: Pt reports that R shoulder still feels like it is on the edge of painful symptoms returning. Had same pain in L shoulder for a short time. Pain: OBJECTIVE MEASURES WITH LEVEL OF FUNCTION: Upper Extremity Circumferential Measurements R Thumb (proximal phalanx) (cm): 5.7 cm R Index Finger (proximal phalanx) (cm): 5.6 cm R DPC (cm): 17.6 cm R Distal Wrist Crease (DWC) (cm): 15 cm R 8 cm above wrist (cm): 19.5 cm R 16 cm above wrist (cm): 25.2 cm R 24 cm above wrist (cm): 24.7 cm R 32 cm above wrist (cm): 28.3 cm R 40 cm above wrist (cm): 28.5 cm R 44 cm above wrist (cm): 29.1 cm R Upper Extremity Volume: 264.16 TREATMENT: Manual Therapy: 1: measure 2: MLD seq x 30'(proximal clearing and R UE) 3: PROM to R shoulder x 10' 4: tissue mobs w dycem x 10 min Skilled Intervention: Manual skills to improve joint mobility, ROM, and decrease pain. Utilized anatomy knowledge of the therapist, and assessment of patient's response to intervention. Billing Manual TherapyTreatment Minutes: 55 Total Treatment Time Minutes (timed and untimed codes) : 55 Corie Sykes PT documented in this encounter [facility] 09-24-2021 Miscellaneous Notes Patient left a message requesting a Pregabalin medication refill. Please advise. She is scheduled on 11/30/21 for screening mammogram and cbe with Dr. Lopez. Mayank Murrieta documented in this encounter [facility] 09-21-2021 History of Present illness Narrative Episode Visit Count: 35 Therapist That Will Oversee The Plan Of Care: Edward Start of Care Date: 09/09/20 Onset Date: 08/28/20 Patient Identified by Name and Date of : Yes REHABILITATION AND SPORTS THERAPY PHYSICAL THERAPY TREATMENT NOTE ASSESSMENT: Amber Kellogg tolerated the session with no issues. She demonstrated difficulty with B shoulder pain and swelling in R forearm.. The patient will continue to benefit from ongoing skilled physical therapy to progress toward set goals. PLAN FOR NEXT VISIT: MLD; compression;tissue mobility SUBJECTIVE: Now having R shoulder pain from cleaning kids bathroom. Has been wrapping more than not wrapping. Pain: OBJECTIVE MEASURES WITH LEVEL OF FUNCTION: Upper Extremity Circumferential Measurements R Thumb (proximal phalanx) (cm): 5.8 cm R Index Finger (proximal phalanx) (cm): 5.6 cm R DPC (cm): 18 cm R Distal Wrist Crease (DWC) (cm): 15 cm R 8 cm above wrist (cm): 18.5 cm R 16 cm above wrist (cm): 24.7 cm R 24 cm above wrist (cm): 25.3 cm R 32 cm above wrist (cm): 28.3 cm R 36 cm above wrist (cm): 28 cm R 40 cm above wrist (cm): 28 cm R 44 cm above wrist (cm): 28.5 cm R Upper Extremity Volume: 756.21 TREATMENT: Manual Therapy: 1: measure 2: MLD seq x 30'(proximal clearing and R UE) 3: PROM to R shoulder x 10' 4: tissue mobs w dycem x 10 min Skilled Intervention: Manual skills to improve joint mobility, ROM, and decrease pain. Utilized anatomy knowledge of the therapist, and assessment of patient's response to intervention. Billing Manual TherapyTreatment Minutes: 55 Total Treatment Time Minutes (timed and untimed codes) : 55 Shahnaz Sneed PTA documented in this encounter [facility] 09-14-2021 History of Present illness Narrative Episode Visit Count: 34 Therapist That Will Oversee The Plan Of Care: Edward Start of Care Date: 09/09/20 Onset Date: 08/28/20 REHABILITATION AND SPORTS THERAPY PHYSICAL THERAPY PROGRESS REPORT PLAN OF CARE UPDATE: Assessment: Amber Kellogg demonstrates moderate improvement in girth measurements, ROM and overall function. She hasprogressed toward goals. Patient continues to present with impairments in range of motion and swelling that interfere with lifting;physical activities;recreational activities;reaching behind back;reaching overhead;use hand with arm at shoulder level . Current prognosis is Good due to: current objective clinical presentation;good overall health status;positive past response to therapy . Pt presents with some visible cording in R axilla. She will benefit from continued skilled therapy services to meet the updated goals for this plan of care as noted below. Goals for Episode of Care: created on 09/09/20 through 12/08/20 Patient able to verbalize skin care and lymphedema risk reductions: MET Patient/family independent with home exercise program including self MLD, skincare guidelines, scar massage, ROM exercises, strengthening exercises and garment instructions: MET THUS FAR Patient will increase active ROM of R shoulder to WNL to allow patient to achieve neutral postural alignment, for improved performance of ADLs.: MET Patient will decrease pain to: 10 : ONGOING Patient will have supple scar with no tenderness to palpation and demonstrate and understanding of scar management: ONGOING Patient/family able to verbalize all pertinent aspects of CDT: ONGOING Patient/family independent with donning/doffing compression garment and proper wearing schedule and care of garment: MET Patient Goals: increase ROM R shoulder; get compression sleeve Planned Interventions, Frequency, and Duration: , Patient to be seen for PLAN FOR NEXT VISIT: MLD; compression;tissue mobility SUBJECTIVE: . Pt reports that R arm symptoms are right on the edge . Not horrible, but still there. Functional Limitations: lifting;physical activities;recreational activities;reaching behind back;reaching overhead;use hand with arm at shoulder level Pain: PROMIS Scales Higher is Better 09/09/2020 02/03/2021 Phys Func - Score 28 (severe dysfunction) - Phys Func - Percentile 1 % - Social Roles - Score 25 (severe dysfunction) - Social Role - Percentile 1 % - GH Physical - Score 39.8 37.4 (Fair) GH Physical - Percentile 15 % 10 % GH Mental - Score 43.5 31.3 (Fair) GH Mental - Percentile 26 % 3 % Self-Eff Symptom - Score 38 (Low) - Self-Eff Symptom - Percentile 12 % - T-scores: mean of general population = 50. 5 points is clinically meaningfully difference Percentiles provide an indication of how the patient's score ranks in relation to the general population. Higher percentile rankings indicate better function/quality of life. 50th percentile is the average of the general population and indicates half of respondents had a worse score. Lower is Better 09/09/2020 Fatigue - Score 58 (mild) Fatigue - Percentile 21 % T-scores: mean of general population = 50. 5 points is clinically meaningfully difference Percentiles provide an indication of how the patient's score ranks in relation to the general population. Higher percentile rankings indicate better function/quality of life. 50th percentile is the average of the general population and indicates half of respondents had a worse score. OBJECTIVE MEASURES WITH LEVEL OF FUNCTION: Upper Extremity Circumferential Measurements R Thumb (proximal phalanx) (cm): 5.8 cm R Index Finger (proximal phalanx) (cm): 5.6 cm R DPC (cm): 17.7 cm R Distal Wrist Crease (DWC) (cm): 15 cm R 8 cm above wrist (cm): 18.8 cm R 16 cm above wrist (cm): 24.7 cm R 24 cm above wrist (cm): 25.3 cm R 32 cm above wrist (cm): 28.3 cm R 40 cm above wrist (cm): 27.4 cm R 44 cm above wrist (cm): 28.5 cm R Upper Extremity Volume: 248.82 TREATMENT: Manual Therapy: 1: measure 2: MLD seq x 30'(proximal clearing and R UE) 3: PROM to R shoulder x 10' 4: tissue mobs w dycem x 10 min Skilled Intervention: Manual skills to improve joint mobility, ROM, and decrease pain. Utilized anatomy knowledge of the therapist, and assessment of patient's response to intervention. Billing Manual TherapyTreatment Minutes: 55 Total Treatment Time Minutes (timed and untimed codes) : 55 Corie Sykes PT documented in this encounter [facility] 09-14-2021 History of Present illness Narrative Radiology Service Progress Note DATE OF SERVICE: September 14, 2021 TIME: 3:33 PM PATIENT IDENTITY VERIFICATION COMPLETED USING TWO (2) STANDARD IDENTIFIERS: Name and Date of confirmed by patient verbally. FALL SCREENING: Has the patient had 2 falls in the last year or 1 fall with injury or currently using an Ambulatory Assistive Device (Walker, Cane, Wheelchair, Crutches, etc.)? No PATIENT GENDER DATA: Female. status: : No status: NO. PATIENT RELEVANT IMPLANT DATA REVIEWED: Yes ALLERGIES: Reviewed and unchanged CONTRAST ALLERGY: NO. EXAM: CT -CONTRAST INDUCED NEPHROPATHY RISK FACTORS: Not applicable CREATININE: Creatinine Date Value Ref Range Status 06/29/2021 0.51 (L) 0.58 - 0.96 mg/dL Final 04/28/2021 0.62 0.58 - 0.96 mg/dL Final 02/03/2021 0.51 (L) 0.58 - 0.96 mg/dL Final eGFR-All Other Races Date Value Ref Range Status 06/29/2021 >60 . Final Comment: eGFR (Estimated GFR) Units of measure: mL/min/1.73 meters squared eGFR is derived from the reexpressed MDRD Study equation using the following parameters: serum creatinine, age, gender and race. The creatinine assay has been calibrated to be traceable to IDMS. An eGFR <60 mL/min/1.73m2 for >3 months is consistent with chronic kidney disease. Refer to KDOQI guidelines for clinical interpretation. In patients with unstable renal function, e.g. those with acute kidney injury, the eGFR may not accurately reflect actual GFR. Note: On 08/21/2021, the eGFR calculation will be updated to the NKF-ASN Task Force recommended 2020 CKD-EPI creatinine equation which does not include a race variable. For more information or to access a 2020 CKD-EPI calculator, visit the [employer] website at kidney.org/professionals/kdoqi/gfr _calculator. eGFR- Date Value Ref Range Status 06/29/2021 >60 Final P.O.C.T. RESULTS: POC done: Yes, See Lab Tab September 14, 2021 TREATMENT: N/A PERIPHERAL IV DATA: Ambulatory: A peripheral IV was started in the Left antecubital site with a Angio cath: 22 gauge. RADIOLOGY DEPARTMENT: CT; Exam(s) Completed: Chest SIGNATURE: RT Bakari(R) PATIENT NAME: Amber Kellogg DATE: September 14, 2021 TIME: 3:33 PM documented in this encounter [facility] Malignant neoplasm of upper-outer quadrant of right breast in female, estrogen receptor positive (HCC) Lung nodules Other nonspecific abnormal finding of lung field [facility] Lymphedema of arm- Primary Other lymphedema [facility] Diagnosis Lymphedema of arm- Primary Other lymphedema S/P breast reconstruction Breast replaced by other means [facility] Post-mastectomy pain syndrome Lymphedema of arm Other lymphedema S/P breast reconstruction Breast replaced by other means [facility] Diagnosis Lymphedema of arm- Primary Other lymphedema S/P breast reconstruction Breast replaced by other means [facility] Diagnosis Lymphedema of arm- Primary Other lymphedema S/P breast reconstruction Breast replaced by other means [facility] Diagnosis Lymphedema of arm- Primary Other lymphedema S/P breast reconstruction Breast replaced by other means [facility] Diagnosis Lymphedema of arm- Primary Other lymphedema S/P breast reconstruction Breast replaced by other means [facility] Diagnosis Malignant neoplasm of upper-outer quadrant of right breast in female, estrogen receptor positive (HCC)- Primary Lymphedema of right arm S/P breast reconstruction Breast replaced by other means [facility] Diagnosis Lymphedema of arm- Primary Other lymphedema S/P breast reconstruction Breast replaced by other means [facility] Diagnosis History of breast cancer- Primary Personal history of malignant neoplasm of breast History of breast reconstruction Breast replaced by other means History of mastectomy, right Breast asymmetry between [place]hoe breast and reconstructed breast Disproportion of reconstructed breast S/P breast reconstruction Breast replaced by other means [facility] Diagnosis Malignant neoplasm of upper-outer quadrant of right breast in female, estrogen receptor positive (HCC)- Primary [facility] Diagnosis Lymphedema of arm- Primary Other lymphedema [facility] Diagnosis Lymphedema of arm- Primary Other lymphedema History of breast reconstruction Breast replaced by other means History of mastectomy, right Breast asymmetry between [place]hoe breast and reconstructed breast Disproportion of reconstructed breast [facility] Diagnosis Malignant neoplasm of upper-outer quadrant of right breast in female, estrogen receptor positive (HCC)- Primary History of breast reconstruction Breast replaced by other means History of mastectomy, right Breast asymmetry between [place] breast and reconstructed breast Disproportion of reconstructed breast [facility] Diagnosis Malignant neoplasm of upper-outer quadrant of right breast in female, estrogen receptor positive (HCC)- Primary Lymphedema of right arm Rib pain on right side Chest pain, unspecified Lung nodules Other nonspecific abnormal finding of lung field History of breast reconstruction Breast replaced by other means History of mastectomy, right Breast asymmetry between [place] breast and reconstructed breast Disproportion of reconstructed breast [facility] Diagnosis Malignant neoplasm of upper-outer quadrant of right breast in female, estrogen receptor positive (HCC) Rib pain on right side Chest pain, unspecified History of breast reconstruction Breast replaced by other means History of mastectomy, right Breast asymmetry between [place]hoe breast and reconstructed breast Disproportion of reconstructed breast [facility] Diagnosis Lymphedema of arm- Primary Other lymphedema History of breast reconstruction Breast replaced by other means History of mastectomy, right Breast asymmetry between [place] breast and reconstructed breast Disproportion of reconstructed breast [facility] Diagnosis Malignant neoplasm of upper-outer quadrant of right breast in female, estrogen receptor positive (HCC)- Primary History of breast reconstruction Breast replaced by other means History of mastectomy, right Breast asymmetry between [place] breast and reconstructed breast Disproportion of reconstructed breast [facility] Diagnosis Lymphedema of arm- Primary Other lymphedema History of breast reconstruction Breast replaced by other means History of mastectomy, right Breast asymmetry between [place] breast and reconstructed breast Disproportion of reconstructed breast [facility]* Diagnosis Post-mastectomy pain syndrome Lymphedema of arm Other lymphedema History of breast reconstruction Breast replaced by other means History of mastectomy, right Breast asymmetry between [place] breast and reconstructed breast Disproportion of reconstructed breast [facility] Diagnosis Breast screening- Primary Breast screening, unspecified Post-mastectomy pain syndrome Lymphedema of arm Other lymphedema Malignant neoplasm of upper-outer quadrant of right breast in female, estrogen receptor positive (HCC) History of breast reconstruction Breast replaced by other means History of mastectomy, right Breast asymmetry between [place] breast and reconstructed breast Disproportion of reconstructed breast [facility] Diagnosis Lymphedema of arm- Primary Other lymphedema History of breast reconstruction Breast replaced by other means History of mastectomy, right Breast asymmetry between [place]hoe breast and reconstructed breast Disproportion of reconstructed breast [facility] Diagnosis Malignant neoplasm of upper-outer quadrant of right breast in female, estrogen receptor positive (HCC) Lung nodules Other nonspecific abnormal finding of lung field History of breast reconstruction Breast replaced by other means History of mastectomy, right Breast asymmetry between [place]hoe breast and reconstructed breast Disproportion of reconstructed breast [facility] Diagnosis Malignant neoplasm of upper-outer quadrant of right breast in female, estrogen receptor positive (HCC)- Primary History of breast reconstruction Breast replaced by other means History of mastectomy, right Breast asymmetry between [place] breast and reconstructed breast Disproportion of reconstructed breast [facility] Diagnosis Lymphedema of arm- Primary Other lymphedema History of breast reconstruction Breast replaced by other means History of mastectomy, right Breast asymmetry between [place] breast and reconstructed breast Disproportion of reconstructed breast [facility] Diagnosis Lymphedema of arm- Primary Other lymphedema History of breast reconstruction Breast replaced by other means History of mastectomy, right Breast asymmetry between [place]hoe breast and reconstructed breast Disproportion of reconstructed breast [facility] Diagnosis Lymphedema of arm- Primary Other lymphedema History of breast reconstruction Breast replaced by other means History of mastectomy, right Breast asymmetry between [place] breast and reconstructed breast Disproportion of reconstructed breast [facility] Diagnosis Malignant neoplasm of upper-outer quadrant of right breast in female, estrogen receptor positive (HCC)- Primary History of breast reconstruction Breast replaced by other means History of mastectomy, right Breast asymmetry between [place] breast and reconstructed breast Disproportion of reconstructed breast [facility] Diagnosis Lymphedema of arm- Primary Other lymphedema History of breast reconstruction Breast replaced by other means History of mastectomy, right Breast asymmetry between [place] breast and reconstructed breast Disproportion of reconstructed breast [facility] Diagnosis Pre-operative examination- Primary Preoperative examination, unspecified Lymphedema of arm Other lymphedema History of breast reconstruction Breast replaced by other means History of mastectomy, right Breast asymmetry between [place] breast and reconstructed breast Disproportion of reconstructed breast [facility] Diagnosis History of breast cancer- Primary Personal history of malignant neoplasm of breast History of breast reconstruction Breast replaced by other means History of breast reconstruction Breast replaced by other means History of mastectomy, right Breast asymmetry between [place] breast and reconstructed breast Disproportion of reconstructed breast [facility] Diagnosis Lymphedema of arm- Primary Other lymphedema History of breast reconstruction Breast replaced by other means History of mastectomy, right Breast asymmetry between [place]hoe breast and reconstructed breast Disproportion of reconstructed breast [facility] Diagnosis Post-operative state- Primary Other postprocedural status [facility] Diagnosis Malignant neoplasm of upper-outer quadrant of right breast in female, estrogen receptor positive (HCC)- Primary [facility]* Diagnosis Lymphedema of arm- Primary Other lymphedema [facility]* Diagnosis Lymphedema of arm- Primary Other lymphedema [facility]* Diagnosis Post-operative state- Primary Other postprocedural status [facility]* Diagnosis Lymphedema of arm- Primary Other lymphedema [facility]* Diagnosis Lymphedema of arm- Primary Other lymphedema [facility]* Diagnosis Lymphedema of arm- Primary Other lymphedema [facility]* Diagnosis Post-mastectomy pain syndrome Lymphedema of arm Other lymphedema [facility]* Diagnosis Post-mastectomy pain syndrome Lymphedema of arm Other lymphedema [facility]* Diagnosis Malignant neoplasm of upper-outer quadrant of right breast in female, estrogen receptor positive (HCC)- Primary Lung nodules Other nonspecific abnormal finding of lung field [facility]* Diagnosis Lymphedema of arm- Primary Other lymphedema [facility]* Diagnosis Lymphedema of arm- Primary Other lymphedema [facility]* Diagnosis Malignant neoplasm of upper-outer quadrant of right breast in female, estrogen receptor positive (HCC)- Primary [facility]* Diagnosis Lymphedema of arm- Primary Other lymphedema [facility]* Diagnosis Post-mastectomy pain syndrome Lymphedema of arm Other lymphedema [facility]* Diagnosis Lymphedema of arm- Primary Other lymphedema [facility] Diagnosis Lymphedema of arm- Primary Other lymphedema documented in this encounter [facility] note* Diagnosis History of breast reconstruction- Primary Breast replaced by other means History of mastectomy, right documented in this encounter [facility] note* Diagnosis Lymphedema of arm- Primary Other lymphedema documented in this encounter [facility] note* Diagnosis Malignant neoplasm of upper-outer quadrant of right breast in female, estrogen receptor positive (HCC)- Primary documented in this encounter [facility] note* Diagnosis Lymphedema of arm- Primary Other lymphedema documented in this encounter [facility] note* Diagnosis Lymphedema of arm- Primary Other lymphedema documented in this encounter [facility] note* Diagnosis Breast pain- Primary Mastodynia documented in this encounter [facility] note* Diagnosis Malignant neoplasm of upper-outer quadrant of right breast in female, estrogen receptor positive (HCC)- Primary documented in this encounter [facility] note* Diagnosis Lymphedema of arm- Primary Other lymphedema documented in this encounter [facility] note* Diagnosis Lymphedema of arm- Primary Other lymphedema documented in this encounter [facility] note* Diagnosis Malignant neoplasm of upper-outer quadrant of right breast in female, estrogen receptor positive (HCC)- Primary documented in this encounter [facility] note* Diagnosis Lymphedema of arm- Primary Other lymphedema documented in this encounter [facility] note* Diagnosis History of breast cancer- Primary Personal history of malignant neoplasm of breast documented in this encounter [facility] note* Diagnosis Lymphedema of arm- Primary Other lymphedema documented in this encounter [facility] note* Diagnosis History of breast cancer Personal history of malignant neoplasm of breast documented in this encounter [facility] note* Diagnosis Malignant neoplasm of upper-outer quadrant of right breast in female, estrogen receptor positive (HCC) documented in this encounter [facility] note* Diagnosis Malignant neoplasm of upper-outer quadrant of right breast in female, estrogen receptor positive (HCC)- Primary documented in this encounter [facility] note* Diagnosis Lymphedema of arm- Primary Other lymphedema documented in this encounter [facility] note* Diagnosis Malignant neoplasm of upper-outer quadrant of right breast in female, estrogen receptor positive (HCC) (HCC)- Primary [facility] Diagnosis APPOINTMENT CANCELLED- Primary [facility] Diagnosis Pre-op exam- Primary Preoperative examination, unspecified History of breast cancer Personal history of malignant neoplasm of breast documented in this encounter [facility] for referral (narrative)* Diagnostic Procedure Only (Routine) - Closed Specialty Diagnoses / Procedures [facility] To Contact XR IMAGING Diagnoses Malignant neoplasm of upper-outer quadrant of right breast in female, estrogen receptor positive (HCC) Rib pain on right side Procedures XR RIBS 2V AP/OBL RIGHT RADEX RIBS UNILATERAL 2 VIEWS Lizbeth Wang APRN.CNP [address] [place] [address] Xr Imaging Referral ID Status Reason Start Date Expiration Date V isits Requested Visits Authorized [id number] Closed Auto-Generate d Referral 12/15/2021 01/14/2023 1 1 [facility] for referral (narrative)* Diagnostic Procedure Only (Routine) - Authorized Specialty Diagnoses / Procedures [facility] Ref[facility] To Contact BR IMAGING Diagnoses Breast screening Procedures JESI SCREENING W ASHIA SCREENING DIGITAL BREAST TOMOSYNTHESIS BI SCREENING MAMMOGRAPHY BI 2-VIEW BREAST INC CAD Ela Lopez MD [address] [place] [address] [facility] [address] [place] [address] Referral ID Status Reason Start Date Expiration Date Visits Requested Visits Authorized [id number] Authorized Auto-Generat ed Referral 12/29/2022 01/27/2023 1 1 [facility] for referral (narrative)* Diagnostic Procedure Only (Routine) - Closed Specialty Diagnoses / Procedures [facility] Referred To Contact US IMAGING Diagnoses History of breast cancer Procedures US FEMALE PELVIS TRANSVAG US TRANSVAGINAL Elza Fraga MD [address] [place] [address] [place] [address] Referral ID Status Reason Start Date Expiration Date V isits Requested Visits Authorized [id number] Closed Auto-Generate d Referral 04/10/2023 05/09/2024 1 1 * Diagnostic Procedure Only (Routine) - Pending Review Specialty Diagnoses / Procedures Referred By Contac t Referred To Contact [facility] Diagnoses History of breast cancer Procedures PELVIC US WHI US PELVIC NONOBSTETRIC REAL-TIME IMAGE COMPLETE Elza Fraga MD [address] [place] [address] [facility] [address] [place] [address] Referral ID Status Reason Start Date Expiration Date Visits Requested Visits Authorized [id number] Pending Review Auto-Generat ed Referral 04/09/2024 1 1 [facility] for referral (narrative)* Diagnostic Procedure Only (Routine) - Closed Specialty Diagnoses / Procedures Referred By [facility] Referred To Contact US IMAGING Diagnoses History of breast cancer Procedures US FEMALE PELVIS TRANSVAG US TRANSVAGINAL Elza Fraga MD [address] [place] [address] [place] [address] Referral ID Status Reason Start Date Expiration Date V isits Requested Visits Authorized [id number] Closed Auto-Generate d Referral 04/10/2023 05/09/2024 1 1 [facility] for visit Narrative* Diagnostic Procedure Only (Routine) - Closed Specialty Diagnoses / Procedures Referred By Contac t Referred To Contact XR IMAGING Diagnoses Malignant neoplasm of upper-outer quadrant of right breast in female, estrogen receptor positive (HCC) Rib pain on right side Procedures XR RIBS 2V AP/OBL RIGHT RADEX RIBS UNILATERAL 2 VIEWS Lizbeth Wang APRN.COMMERCIAL ADMINISTRATOR [address] [place] [address] Xr Imaging Referral ID Status Reason Start Date Expiration Date V isits Requested Visits Authorized [id number] Closed Auto-Generate d Referral 12/15/2021 01/14/2023 1 1 [facility] for visit Narrative* Diagnostic Procedure Only (Routine) - Closed Specialty Diagnoses / Procedures Referred By Contsudhir t Referred To Contact US IMAGING Diagnoses History of breast cancer Procedures US FEMALE PELVIS TRANSVAG US TRANSVAGINAL Elza Fraga MD [address] [place] [address] [place] [address] Referral ID Status Reason Start Date Expiration Date V isits Requested Visits Authorized [id number] Closed Auto-Generate d Referral 04/10/2023 05/09/2024 1 1 [facility] Summary Purpose Family History No Family History Records FoundNo Family History Records FoundNo Family History Records FoundNo Family History Records FoundNo Family History Records Found Advance Directives Documents on File Type Date Recorded Patient Paediatric Thoracic Physician Expl anation Advance Directive(s) 08/28/2020 10:07 AM Documents on File Type Date Recorded Patient Paediatric Thoracic Physician Expl anation Advance Directive(s) 08/28/2020 10:07 AM History of Present Illness * Ela Lopez - 06/16/2020 2:43 PM EST Ela Lopez MD [facility] [address] [place] [address] SUBJECTIVE Chief Complaint: Patient presents with: Breast Cancer . HPI Amber Kellogg is a 44 year old female here for evaluation of right breast cancer. Underwent ultrasound guided biopsy in [place]. Returned invasive ductal carcinoma, ER+, H2N-. Had 2site stereo done at [facility] that returned cancer and atypia. Initial diagnosis in November 2019. Noted pain at the lump but stable in size. Genetic testing VUS BRIP1. Nursing Notes: Anna Oliveros MA 06/16/2020 2:25 PM Signed Race: Age at first menstrual period: 13 Age at first : 27 Number of full term pregnancies: 2 Oral Contraceptives: NO took for about 4 years Estrogen therapy: NO Patient presents for 2nd opinion regarding right breast invasive ductal carcinoma diagnosed in November2019 at [facility]. Anna Oliveros MA AGE AT [place] 13 AGE AT FIRST 27 (2/4) FAMILY HISTORY OF BREAST CANCER Yes (maternal grandmother and maternal aunt) (IF YES) NUMBER OF FIRST DEGREE RELATIVES WITH BREAST CANCER 0 PREVIOUS BREAST BIOPSIES Yes RACE MADIE MODEL RISK 5 YEAR recent diagnosis of breast cancer GENETIC TESTING VUS Review of Systems Constitutional: Negative for fever, malaise/fatigue and weight loss. Breast: See HPI PAST MEDICAL HISTORY Diagnosis Date Malignant neoplasm of right breast (HCC) 11/2019 PAST SURGICAL HISTORY Procedure Laterality Date D&C, DIAG AND/OR THERAPEUTIC Social History Tobacco Use Smoking status: Never Smoker Smokeless tobacco: Never Used Substance Use Topics Alcohol use: Never Drug use: Not on file FAMILY HISTORY Problem Relation Age of Onset Breast Cancer Maternal Grandmother Breast Cancer Maternal Aunt The ROS, medical, surgical, family, and social history were reviewed by Ela Lopez MD ALLERGIES No Known Allergies No current outpatient medications on file. No current facility-administered medications for this visit. OBJECTIVE BP 131/76 Pulse 108 Ht 160 cm (5' 3 ) Wt 56.7 kg (125 lb) BMI 22.14 kg/m BMI 22.14 kg/(m^2) Physical Exam Constitutional: She is oriented to person, place, and time and well-developed, well-nourished, and in no distress. Neck: No thyromegaly present. Pulmonary/Chest: Right breast exhibits mass (5 cm x 5 cm mobile mass at 8:30 5 CFN). Right breast exhibits no inverted nipple, no nipple discharge, no skin change and no tenderness. Left breast exhibits no inverted nipple, no mass, no nipple discharge, no skin change and no tenderness. Breasts are symmetrical. Lymphadenopathy: Head (right side): No submental, no submandibular and no tonsillar adenopathy present. Head (left side): No submental, no submandibular and no tonsillar adenopathy present. She has no cervical adenopathy. She has no axillary adenopathy. Right: No supraclavicular adenopathy present. Left: No supraclavicular adenopathy present. Neurological: She is alert and oriented to person, place, and time. She has intact cranial nerves. Plan ASSESSMENT/PLAN Malignant neoplasm of upper-outer quadrant of right breast in female, estrogen receptor positive (HCC) Amber Kellogg is a 44 year old female here for evaluation of right breast cancer. Underwent ultrasound guided biopsy in [place]. Returned invasive ductal carcinoma, ER+, H2N-. Had 2site stereo done at [facility] that returned cancer and atypia. Initial diagnosis in November 2019. Patient unwilling to undergo treatment at that time. Genetic testing VUS BRIP1. Needs updated imaging. Patient unwilling to do mammograms but is agreeable to right ultrasound. Will need mastectomy as calcs span almost 7 cm +/- reconstruction. Discussed sentinel lymph node biopsy but patient wishes for only mastectomy at this time. She understands it could lead to inaccurate staging that may ultimately end in from cancer progression. Follow up with me after imaging for surgical decision. Follow up: Return in about 2 weeks (around 06/30/2020). Ela Lopez MD 06/16/2020 3:05 PM documented in this encounter* Ela Lopez - 06/16/2020 2:43 PM EST Ela Lopez [facility] [address] [place] [address] SUBJECTIVE Chief Complaint: Patient presents with: Breast Cancer . HPI Amber Kellogg is a 44 year old female here for evaluation of right breast cancer. Underwent ultrasound guided biopsy in [place]. Returned invasive ductal carcinoma, ER+, H2N-. Had 2site stereo done at [facility] that returned cancer and atypia. Initial diagnosis in November 2019. Noted pain at the lump but stable in size. Genetic testing VUS BRIP1. Nursing Notes: Anna Oliveros MA 06/16/2020 2:25 PM Signed Race: Age at first menstrual period: 13 Age at first : 27 Number of full term pregnancies: 2 Oral Contraceptives: NO took for about 4 years Estrogen therapy: NO Patient presents for 2nd opinion regarding right breast invasive ductal carcinoma diagnosed in November2019 at [facility]. Anna Oliveros MA AGE AT [place] 13 AGE AT FIRST 27 (2/4) FAMILY HISTORY OF BREAST CANCER Yes (maternal grandmother and maternal aunt) (IF YES) NUMBER OF FIRST DEGREE RELATIVES WITH BREAST CANCER 0 PREVIOUS BREAST BIOPSIES Yes RACE MADIE MODEL RISK 5 YEAR recent diagnosis of breast cancer GENETIC TESTING VUS Review of Systems Constitutional: Negative for fever, malaise/fatigue and weight loss. Breast: See HPI PAST MEDICAL HISTORY Diagnosis Date Malignant neoplasm of right breast (HCC) 11/2019 PAST SURGICAL HISTORY Procedure Laterality Date D&C, DIAG AND/OR THERAPEUTIC Social History Tobacco Use Smoking status: Never Smoker Smokeless tobacco: Never Used Substance Use Topics Alcohol use: Never Drug use: Not on file FAMILY HISTORY Problem Relation Age of Onset Breast Cancer Maternal Grandmother Breast Cancer Maternal Aunt The ROS, medical, surgical, family, and social history were reviewed by Ela Lopez MD ALLERGIES No Known Allergies No current outpatient medications on file. No current facility-administered medications for this visit. OBJECTIVE BP 131/76 Pulse 108 Ht 160 cm (5' 3 ) Wt 56.7 kg (125 lb) BMI 22.14 kg/m BMI 22.14 kg/(m^2) Physical Exam Constitutional: She is oriented to person, place, and time and well-developed, well-nourished, and in no distress. Neck: No thyromegaly present. Pulmonary/Chest: Right breast exhibits mass (5 cm x 5 cm mobile mass at 8:30 5 CFN). Right breast exhibits no inverted nipple, no nipple discharge, no skin change and no tenderness. Left breast exhibits no inverted nipple, no mass, no nipple discharge, no skin change and no tenderness. Breasts are symmetrical. Lymphadenopathy: Head (right side): No submental, no submandibular and no tonsillar adenopathy present. Head (left side): No submental, no submandibular and no tonsillar adenopathy present. She has no cervical adenopathy. She has no axillary adenopathy. Right: No supraclavicular adenopathy present. Left: No supraclavicular adenopathy present. Neurological: She is alert and oriented to person, place, and time. She has intact cranial nerves. Plan ASSESSMENT/PLAN Malignant neoplasm of upper-outer quadrant of right breast in female, estrogen receptor positive (HCC) Amber Kellogg is a 44 year old female here for evaluation of right breast cancer. Underwent ultrasound guided biopsy in [place]. Returned invasive ductal carcinoma, ER+, H2N-. Had 2site stereo done at [facility] that returned cancer and atypia. Initial diagnosis in November 2019. Patient unwilling to undergo treatment at that time. Genetic testing VUS BRIP1. Needs updated imaging. Patient unwilling to do mammograms but is agreeable to right ultrasound. Will need mastectomy as calcs span almost 7 cm +/- reconstruction. Discussed sentinel lymph node biopsy but patient wishes for only mastectomy at this time. She understands it could lead to inaccurate staging that may ultimately end in from cancer progression. Follow up with me after imaging for surgical decision. Follow up: Return in about 2 weeks (around 06/30/2020). Ela Lopez MD 06/16/2020 3:05 PM documented in this encounter* Ela Lopez - 06/29/2020 10:18 AM EST Ela Lopez MD [facility] [address] [place] [address] SUBJECTIVE Chief Complaint: Patient presents with: Breast Cancer: Discuss Surgical Plans . HPI Amber Kellogg is a 44 year old female with right breast cancer here for imaging follow up. Underwent ultrasound guided biopsy in [place]. Returned invasive ductal carcinoma, ER+, H2N-. Had 2site stereo done at [facility] that returned cancer and atypia. Pathology reviewed internal and agree withdiagnosis. Initial diagnosis in November 2019. Genetic testing VUS BRIP1. Right ultrasound done today showed multiple various size enlarged lymph nodes in the right axilla are consistent with an enlarged lymph node and are suspicious of malignancy. An ultrasound guided biopsy or a surgical consult are recommended. The 2 cm x 2.6 cm x 1.3 cm irregular mass in the right breast at 9 o'clock middle depth is consistent with the known carcinoma and is a known biopsy positive for malignancy. A surgical consult is recommended. This previously measured 1.2 x 0.7 x 0.8 cm. BIRADS 6. Nursing Notes: Inga Dunne CMA 06/29/2020 10:17 AM Signed Patient here to follow up right breast ultrasound and discuss surgical plans for known breast cancer. Inga uDnne CMA No question data found. Review of Systems Constitutional: Negative for fever, malaise/fatigue and weight loss. Breast: See HPI PAST MEDICAL HISTORY Diagnosis Date Malignant neoplasm of right breast (HCC) 11/2019 PAST SURGICAL HISTORY Procedure Laterality Date D&C, DIAG AND/OR THERAPEUTIC Social History Tobacco Use Smoking status: Never Smoker Smokeless tobacco: Never Used Substance Use Topics Alcohol use: Never Drug use: Not on file FAMILY HISTORY Problem Relation Age of Onset Breast Cancer Maternal Grandmother Breast Cancer Maternal Aunt The ROS, medical, surgical, family, and social history were reviewed by Ela Lopez MD ALLERGIES No Known Allergies Current Outpatient Medications Medication Sig iv contrast (will be provided with radiology test) CT Chest ABD/PEL-Inject, intravenously, once for1 dose.No IV access, insert saline lock prior to the beginning of sedation, infusion, injection of imaging exam. Discontinue saline lock post exam. If Pt. has a central line or IVAD, may access for administration according to line specific nursing protocol. Once exam is complete flush line and de-access according to line specific nursing protocol in the CT contrast administration guidelines link. enteric contrast (will be provided with radiology test) For CT CHESTABD/PEL W IVCON Routine order Administer, As Directed One Time Only, via Oral, Rectal, both Oral and Rectal, Enteric Tube, Stoma orIndwelling Catheter, Enteric Contrast as designated per enteric contrast guidelines No current facility-administered medications for this visit. OBJECTIVE BP 128/66 Pulse 85 Ht 160 cm (5' 3 ) Wt 56.7 kg (125 lb) BMI 22.14 kg/m BMI 22.14 kg/(m^2) Physical Exam Constitutional: She is oriented to person, place, and time and well-developed, well-nourished, and in no distress. Neck: No thyromegaly present. Pulmonary/Chest: Right breast exhibits mass (5 cm x 5 cm mobile mass at 8:30 5 CFN). . Right breastexhibits no inverted nipple, no nipple discharge, no skin change and no tenderness. Left breast exhibits no inverted nipple, no mass, no nipple discharge, no skin change and no tenderness. Breasts are symmetrical. Lymphadenopathy: Head (right side): No submental, no submandibular and no tonsillar adenopathy present. Head (left side): No submental, no submandibular and no tonsillar adenopathy present. She has no cervical adenopathy. She has no axillary adenopathy. Right: No supraclavicular adenopathy present. Left: No supraclavicular adenopathy present. Neurological: She is alert and oriented to person, place, and time. She has intact cranial nerves. Plan ASSESSMENT/PLAN Malignant neoplasm of upper-outer quadrant of right breast in female, estrogen receptor positive (HCC) Amber Kellogg is a 44 year old female here for evaluation of right breast cancer. Underwent ultrasound guided biopsy in [place]. Returned invasive ductal carcinoma, ER+, H2N-. Had 2site stereo done at [facility] that returned cancer and atypia. Initial diagnosis in November 2019. Patient unwilling to undergo treatment at that time. Genetic testing VUS BRIP1. Right ultrasound done today showed massed doubled in size and now several enlarged suspicious lymphnodes. Will need mastectomy as calcs span almost 7 cm +/- reconstruction. Discussed sentinel lymph node biopsy and possible axillary lymph node dissection. Due to lymph nodes and length of time from diagnosis recommend staging CT chest/abd/pel and bone scan. She understands that delaying her treatment may ultimately end in from cancer progression. Discussed desire for reconstruction. Referred to plastic surgery. Follow up with me after staging studies and plastics for pre op appointment. Follow up: Return in about 2 weeks (around 07/13/2020). Ela Lopez MD 06/29/2020 10:37 AM documented in this encounter* Rachel Grijalva - 07/03/2020 2:15 PM EST [facility] Department of Plastic Surgery BREAST RECONSTRUCTION EVALUATION Name: Amber Kellogg : 1975 Comorbidities: None Type of Mastectomy: Right Mastectomy Side of Diagnosis: right Prior Breast Surgery: Biopsy Prior Abdominal Surgery: None History of Bleeding Disorder: No History of DVT/Pulmonary Embolism: No History of MRSA: No MRSA Infection History of Diabetes: No History of Sleep Apnea: No History of HTN: No History of Nicotine Use: No CC: breast cancer HPI: Amber Kellogg is a 44 year old female that presents today for breast reconstruction evaluation. Amber Kellogg was found to have right breast cancer by recent biopsy. She would like to learn more about her options for reconstruction decide if she would like to proceed with reconstructive surgery. The patient has met with Dr. Lopez and has elected to proceed with Right Mastectomy. Current Bra Size: 34 B Date of diagnosis: November 2019 Breast Pathology: invasive ductal Genetic Testing Results: VUS BRIP1 Radiation Therapy: Yes - likely given node involvement Chemotherapy: unknown Breast Surgeon: Jessica Oncologist: none currently Prior Mammogram: Yes, date: November 2019, results: abnormal Family History of Breast Cancer: Yes: maternal grandmother and maternal aunt Family History of Bleeding Disorder: No OB HISTORY: OB History No obstetric history on file. PMH: PAST MEDICAL HISTORY Diagnosis Date Malignant neoplasm of right breast (HCC) 11/2019 PSH: PAST SURGICAL HISTORY Procedure Laterality Date D&C, DIAG AND/OR THERAPEUTIC Social History Tobacco Use Smoking status: Never Smoker Smokeless tobacco: Never Used Substance Use Topics Alcohol use: Never Drug use: Not on file Breast Fed: Yes REVIEW OF SYSTEMS: CONSTITUTIONAL: Weight loss SKIN: Negative for lesions, rash, and itching. NEURO: Oriented to person, place and time, alert, cooperative, gait coordinated. ABDOMEN: Abdomen is soft, nontender, without organomegaly or masses. Meds: No current outpatient medications on file. No current facility-administered medications for this visit. Use of OTC or Vitamins/Supplements: Yes PHYSICAL EXAM: There were no vitals taken for this visit. Breast Exam/Assessment: Asymmetry: Minimal Masses: yes right breast Subaxillary Rolls: No Notch to Nipple: L 23 R 22 Nipple to Crease: L 6 R 6 Base Diameter: L10 R10 Note: measurements are in centimeters Ptosis: R: Grade III L: Grade III Medial Displacement of the Nipple: None Striae of the breast skin: Yes Plan: Patient is very upset that her cannot come back into room with her. She states she isdying from cancer, not COVID. She was allowed to bring her back with her at [facility] and cannot understand why he cannot come back here. She cried through most of her visit. We suggested sheget him on the phone so her can hear what we discuss, but she did not. We showed Amber what a gelimplant looks like. She does not know if she will need radiation. We discussed restoring left breast at a later date. We showed her a tissue broadcast designer, explained it will have air that we will later exchange with saline. Many months after her radiation is complete, then we will reconstruct the right breast. She will need to have a drain placed. She will be able to shower the next day, no lifting more than 10 pounds, no exercise for 3 weeks. We will reconstruct her nipple three months after first surgery. We use the skin to create the nipple, then she will need to have nipple tattooed. Amber is on her way to get a scan today, she will return with questions, and will sign consent atthat time. DID NOT HAVE TIME TO GET PHOTO'S TODAY. I have counseled patient for greater than 30 minutes on her breast reconstructive options. Planned procedure: Right tissue broadcast designer Silicone Breast Implants: Benefits: Many Women believe they are more natural feeling implants. Generally smoother and softer to the touch. Less likely to wrinkle or ripple than saline implants. If a Silicone implant ruptures the woman will not see a physical difference for some time if at all. Downfall: MRIs needed every 5 years to detect ruptured implants. I have discussed single stage 1 and 2 stage reconstruction with placement of tissue broadcast designer with subsequent permanent implant. She understands that 2 stage reconstruction will require at least 2 surgeries and a matching procedure for the unaffected breast. She understands that she may not be a candidate for this procedure if she is having radiation therapy. If radiation therapy is part of her treatment, she understands that there can be wound healing complications and/or infections that can necessitate the removal of the broadcast designer and implant. The patient is aware that there can be up to 40% complication rate and 15% implant extrusion rate with radiation following immediate broadcast designer placement. Depending upon tumor location and size, she may have placement of the expanders with need for immediate chest wall irradiation, ( margins are close/involved). Air will be placed in the broadcast designer at the time of surgery and the air will be exchanged for saline in the office setting. She is aware that post-radiotherapy filling is more uncomfortable as the irradiated/irritated skin becomes fibrotic, dry, and less easily stretched without discomfort. This is less uncomfortable for the patient. We will wait 9-12 months after the radiation is complete to discuss exchange of the broadcast designer for a implant. JANETTE FLAP: I also educated her on free flap reconstruction with JANETTE flaps. We discussed the use of abdominal wall tissue and the consequent incision and scaring, we discussed the inset of the flap including loss of rib. The risks and benefits were discussed including, but limited to loss of flap, diminished abdominal wall strength, possible hernia formation, seromas, hematomas, prolonged hospital stay including further surgeries. We discussed the oysterman use of Aspirin after discharge. She will not have a tummy tuck and will have different scaring. She understands that these can be lengthy surgeries with higher anesthesia risks and higher likelihood of anastomotic complications. I informed the patient on the risks and benefits of nipple sparing mastectomies including but not limited to contour irregularities, asymmetries ,partial nipple loss, complete loss of nipple, loss ofnipple sensation, loss of erectile function and necessity for further surgery, The patient was informed of the limitations including stretch mendoza above the ideal nipple position and consequent breast ptosis. The patient was informed of the subaxillary tissue contour that will not be part of the mastectomy nor the reconstructive surgery.I have informed the patient that no matter what option is performed, that symmetry and similar shape between each breast will be the goal. I have informed the patient of the surgical limits to shape and size and that sizes cannot be guaranteed and contour irregularities are common . However, a reconstructed breast will never appear the same as the washoe breast and to expect some differences between each breasts. There is a likelihood more than one surgeryfor revisions. I have answered all the questions to the best of my ability and patients satisfaction. I informed the patient on the risks and benefits of nipple sparing mastectomies including but limited to infection, hematoma, seroma, contour irregularities, asymmetries I have informed the patientthat no matter which option is performed, that symmetry and similar shape between each breast will be the goal. However, a reconstructed breast will never appear the same as a washoe breast and to expect sone differences between each breasts. There is a likleyhood for needing more than one surgery for revisions. The risks, benefits and options were discussed with the pt. The risks included but not limited to pain, bleeding, infection, heavy scarring, damage to surrounding structures, and need for further procedures. Other risks including but not limited to asymmetry, loss of nipple or/and areola, loss of sensation to nipple and areola, inability to breast feed, seroma, hematoma, implant failure, capsularcontracture, and fat necrosis, hgerina formation, deep venious thrombosis, Pulmonary embolism, werealso discussed with the patient. All of her questions were answered to the best of my ability and to the patients satisfaction. Right Breast Reconstruction with Implant and Alloderm, possible Tissue Immigration Consultant under General Anesthesia [id number], SRY [id number], Alloderm x 2, Back up tissue broadcast designer [id number] Rachel Grijalva MD Scribe Attestation Statement Scribe Statement: I, Dakota Pugh, am scribing for, and in the presence of Rachel Grijalva MD. Scribe: Dakota Pugh MA Clinician Attestation Statement: The information in this document, created by the medical doctor for me, accurately reflects the services I personally performed and the decisions made by me. I have reviewed and approved this document for accuracy. Rachel Grijalva MD documented in this encounter* Timo Trujillo ([facility]), Tech - 07/03/2020 4:30 PM EST Radiology Service Progress Note DATE OF SERVICE: July 03, 2020 TIME: 5:05 PM PATIENT IDENTITY VERIFICATION COMPLETED USING TWO (2) STANDARD IDENTIFIERS: Name and Date of confirmed by patient verbally and Name and Date of confirmed by identification band. FALL SCREENING: Has the patient had 2 falls in the last year or 1 fall with injury or currently using an Ambulatory Assistive Device (Walker, Cane, Wheelchair, Crutches, etc.)? No PATIENT GENDER DATA: Female. status: : No status: NO. PATIENT RELEVANT IMPLANT DATA REVIEWED: Not Applicable ALLERGIES: Reviewed and unchanged CONTRAST ALLERGY: NO. EXAM: CT -CONTRAST INDUCED NEPHROPATHY RISK FACTORS: Not applicable CREATININE: No results found for: CREAT, EGFROTH, EGFRAA P.O.C.T. RESULTS: N/A July 03, 2020 TREATMENT: N/A PERIPHERAL IV DATA: Ambulatory: 24 diffusics, right AC RADIOLOGY DEPARTMENT: CT; Exam(s) Completed: Chest Abdomen Pelvis SIGNATURE: Leisa Rivera PATIENT NAME: Amber Kellogg DATE: July 03, 2020 TIME: 5:05 PM documented in this encounter* Norma Davidson)Leisa - 06/29/2020 8:30 AM EST Radiology Service Progress Note PATIENT NAME: Amber Kellogg DATE OF SERVICE: June 29, 2020 TIME: 10:21 AM PATIENT IDENTITY VERIFICATION COMPLETED USING TWO (2) IDENTIFIERS: Name and Date of confirmedby patient verbally. FALL SCREENING: Has the patient had 2 falls in the last year or 1 fall with injury or currently using an Ambulatory Assistive Device (Walker, Cane, Wheelchair, Crutches, etc.)? No PATIENT GENDER DATA: Female. status: : No status: NO. PATIENT RELEVANT IMPLANT DATA REVIEWED: Not Applicable RADIOLOGY DEPARTMENT: Ultrasound PERIPHERAL IV DATA: Not applicable SIGNED BY: RT Evelin June 29, 2020 10:21 AM documented in this encounter Assessments Diagnosis Malignant neoplasm of upper-outer quadrant of right breast in female, estrogen receptor positive (HCC)- Primary Diagnosis Malignant neoplasm of upper-outer quadrant of right breast in female, estrogen receptor positive (HCC)- Primary Diagnosis Malignant neoplasm of areola of right breast in female, estrogen receptor positive (HCC)- Primary Diagnosis Malignant neoplasm of upper-outer quadrant of right breast in female, estrogen receptor positive (HCC) Diagnosis Malignant neoplasm of upper-outer quadrant of right breast in female, estrogen receptor positive (HCC)- Primary Liver lesion Other specified disorders of liver Diagnosis Liver lesion- Primary Other specified disorders of liver Diagnosis Malignant neoplasm of upper-outer quadrant of right breast in female, estrogen receptor positive (HCC) Procedure Findings Note MG-BILAT DIAGNOSTIC IMPORT ( 12/05/2019 12:00 AM EDT) Specimen Narrative Performed At Images were obtained outside of [facility] Procedure Note Radiology, Oru In - 06/23/2020 2:23 PM EST Images were obtained outside of [facility] [address] [place] [address] Note US-BREAST RT COMPLETE IMPORT (12/05/2019 12:00 AM EDT) Specimen Narrative Performed At Images were obtained outside of [facility] Procedure Note Radiology, Oru In - 06/23/2020 2:23 PM EST Images were obtained outside of [facility] [address] [place] [address] Reason for Referral Status Reason Specialty Diagnoses / Procedures Referred By Contact Referred To Contact Pending Review PCP Requested Referral MOLECULAR & FUNCTIONAL IMAGING Diagnoses Malignant neoplasm of upper-outer quadrant of right breast in female, estrogen receptor positive (HCC) Procedures NM BONE WHOLE BODY R N BONE SCAN / WHOLE BODY Ela Lopez [id number] [facility] [place] [address] Molecular & Functional Imaging [address] [place] [address] Status Reason Specialty Diagnoses / Procedures Referred By Contact Referred To Contact Authorized Auto-Generated Referral CT IMAGING Diagnoses Malignant neoplasm of upper-outer quadrant of right breast in female, estrogen receptor positive (HCC) Procedures CT CHEST W IVCON CAT SCAN OF CHEST CONTRAST Ela Lopez [id number] [facility] [place] [address] Ct Imaging Status Reason Specialty Diagnoses / Procedures Referred By Contact Referred To Contact Pending Review Auto-Generated Referral CT IMAGING Diagnoses Malignant neoplasm of upper-outer quadrant of right breast in female, estrogen receptor positive (HCC) Procedures CT ABD/PEL W IVCON CT ABD & PELVIS W/CONTRAST Ela Lopez 1 [facility] [address] [place] [address] Ct Imaging Status Reason Specialty Diagnoses / Procedures Referred By Contact Referred To Contact Authorized PCP Requested Referral Plastic Surgery Diagnoses Malignant neoplasm of upper-outer quadrant of right breast in female, estrogen receptor positive (HCC) Procedures CONSULT TO PLASTIC SURGERY NEW PATIENT VISIT LEVEL 5 El[address] Lopez [address] [place] [address] Rachel Grijalva [address] [place] [address] Status Reason Specialty Diagnoses / Procedures Referred By Contact Referred To Contact Authorized Auto-Generated Referral Patient Cleared - Admin/Scleroscope Tester/ Director advise to proceed CT IMAGING Diagnoses Malignant neoplasm of upper-outer quadrant of right breast in female, estrogen receptor positive (HCC) Procedures CT ABD/PEL W IVCON CT ABD & PELVIS W/CONTRAST Ela Lopez [address]LR [facility] [place] [address] Ct Imaging Status Reason Specialty Diagnoses / Procedures Referred By Contact Referred To Contact Pending Review Auto-Generated Referral MR IMAGING Diagnoses Malignant neoplasm of upper-outer quadrant of right breast in female, estrogen receptor positive (HCC) Liver lesion Procedures MRI LIVER WO IVCON MRI, ABDOMEN (MRI) Ela Lopez [address] [place] [address] Mr Imaging Status Reason Specialty Diagnoses / Procedures Referred By Contact Referred To Contact Authorized Auto-Generated Referral MR IMAGING Diagnoses Liver lesion Procedures MRI ABDOMEN WO/W IVCON MRI,ABDOMEN,W&WO CONTRS Ela Lopez 1 [facility] [address] F[address] [facility] [place] [address] Mr Imaging Specialty Diagnoses / Procedures Referred By Contac t Referred To Contact CT IMAGING Diagnoses Malignant neoplasm of upper-outer quadrant of right breast in female, estrogen receptor positive (HCC) Lung nodules Procedures CT CHEST W IVCON DIAGNOSTIC COMPUTED TOMOGRAPHY THORAX W/CONTRAST Lizbeth Wang, FRUIT HARVESTER MACHINE OPERATOR.COMMERCIAL ADMINISTRATOR [address] [place] [address] Ct Imaging Referral ID Status Reason Start Date Expiration Date V isits Requested Visits Authorized [id number] Closed Auto-Generate d Referral 08/24/2021 10/15/2021 1 1 Referral ID Status Reason Start Date Expiration Date Visits Requested Visits Authorized [id number] Pending Review Auto-Generat ed Referral 12/15/2021 01/14/2023 1 1 Specialty Diagnoses / Procedures Referred By Contac t Referred To Contact XR IMAGING Diagnoses Malignant neoplasm of upper-outer quadrant of right breast in female, estrogen receptor positive (HCC) Rib pain on right side Procedures XR RIBS 2V AP/OBL RIGHT RADEX RIBS UNILATERAL 2 VIEWS Lizbeth Wang, NIALL.COMMERCIAL ADMINISTRATOR [address] [place] [address] Xr Imaging Referral ID Status Reason Start Date Expiration Date V isits Requested Visits Authorized [id number] Closed Auto-Generate d Referral 12/15/2021 01/14/2023 1 1 Referral ID Status Reason Start Date Expiration Date V isits Requested Visits Authorized [id number] Closed Auto-Generate d Referral 12/15/2021 02/18/2022 1 1 Specialty Diagnoses / Procedures Referred By Contac t Referred To Contact [facility] Diagnoses Post-operative state Procedures CONSULT TO BREAST REHAB PROGRAM THERAPEUTIC EXERCISES RE, EA 15 MIN. THERAPEUT ACTVITY DIRECT PT CONTACT EACH 15 MIN Quin Garcia MD [address] [place] [address] [facility] [address] [address] Referral ID Status Reason Start Date Expiration Date Visits Requested Visits Authorized [id number] Authorized PCP Requested Referral Auto-Generate d Referral 05/26/2022 05/26/2023 1 1 Specialty Diagnoses / Procedures Referred By Contac t Referred To Contact [facility] Diagnoses Lymphedema of arm Procedures PT REHAB FOLLOW UP ORDER THERAPEUTIC EXERCISES RE, EA 15 MIN. Pt [facility] [address] [place] [address] [facility] [address] [address] Referral ID Status Reason Start Date Expiration Date Visits Requested Visits Authorized [id number] Pending Review PCP Requested Referral Auto-Generate d Referral 05/27/2022 08/25/2022 1 1 Referral ID Status Reason Start Date Expiration Date Visits Requested Visits Authorized [id number] Pending Review PCP Requested Referral Auto-Generate d Referral 06/02/2022 08/31/2022 1 1 Referral ID Status Reason Start Date Expiration Date Visits Requested Visits Authorized [id number] Pending Review PCP Requested Referral Auto-Generate d Referral 08/19/2022 11/17/2022 1 1 Referral ID Status Reason Start Date Expiration Date Visits Requested Visits Authorized [id number] Pending Review PCP Requested Referral Auto-Generate d Referral 09/01/2022 11/30/2022 1 1 Referral ID Status Reason Start Date Expiration Date Visits Requested Visits Authorized [id number] Authorized Auto-Generat ed Referral 09/06/2022 10/06/2023 1 1 Referral ID Status Reason Start Date Expiration Date Visits Requested Visits Authorized [id number] Pending Review PCP Requested Referral Auto-Generate d Referral 09/23/2022 12/22/2022 1 1 Referral ID Status Reason Start Date Expiration Date Visits Requested Visits Authorized [id number] Pending Review PCP Requested Referral Auto-Generate d Referral 09/29/2022 12/28/2022 1 1 Referral ID Status Reason Start Date Expiration Date Visits Requested Visits Authorized [id number] Pending Review PCP Requested Referral Auto-Generate d Referral 10/14/2022 01/12/2023 1 1 Referral ID Status Reason Start Date Expiration Date Visits Requested Visits Authorized [id number] Pending Review PCP Requested Referral Auto-Generate d Referral 10/27/2022 01/25/2023 1 1 Referral ID Status Reason Start Date Expiration Date Visits Requested Visits Authorized [id number] Pending Review PCP Requested Referral Auto-Generate d Referral 12/08/2022 03/08/2023 1 1 Referral ID Status Reason Start Date Expiration Date Visits Requested Visits Authorized [id number] Pending Review PCP Requested Referral Auto-Generate d Referral 12/30/2022 03/30/2023 1 1 Specialty Diagnoses / Procedures Referred By Onelia ortega Referred To Contact CT IMAGING Diagnoses Malignant neoplasm of upper-outer quadrant of right breast in female, estrogen receptor positive (HCC) Procedures CT CHEST W IVCON DIAGNOSTIC COMPUTED TOMOGRAPHY THORAX W/CONTRAST Lizbeth Wang APRN.COMMERCIAL ADMINISTRATOR [address] [place] [address] [place] [address] Referral ID Status Reason Start Date Expiration Date V isits Requested Visits Authorized [id number] Closed Auto-Generate d Referral 05/17/2022 06/16/2023 1 1 Medications Administered Section Inactive Administered Medications - up to 3 most recent administrations Medication Order MAR Action Action Date Dose Rate Site leuprolide 3.75 mg injection (LUPRON DEPOT) 3.75 mg, INTRAMUSCULAR, ONCE, 1 dose, On Mon11/16/21 at 1030, Hazardous Chemotherapy Drug: Use appropriate PPE. Given 11/16/2021 10:27 AM EDT 3.75 mg Buttocks, Right Inactive Administered Medications - up to 3 most recent administrations Medication Order MAR Action Action Date Dose Rate Site leuprolide 3.75 mg injection (LUPRON DEPOT) 3.75 mg, INTRAMUSCULAR, ONCE, 1 dose, On Mon12/14/21 at 1200, Hazardous Chemotherapy Drug: Use appropriate PPE. Given 12/14/2021 12:10 PM EDT 3.75 mg Buttocks, Left Inactive Administered Medications - up to 3 most recent administrations Medication Order MAR Action Action Date Dose Rate Site leuprolide 3.75 mg injection (LUPRON DEPOT) 3.75 mg, INTRAMUSCULAR, ONCE, 1 dose, On Mon01/11/22 at 1130, Hazardous Chemotherapy Drug: Use appropriate PPE. Given 01/11/2022 11:33 AM EDT 3.75 mg Buttocks, Left Inactive Administered Medications - up to 3 most recent administrations Medication Order MAR Action Action Date Dose Rate Site leuprolide 3.75 mg injection (LUPRON DEPOT) 3.75 mg, INTRAMUSCULAR, ONCE, 1 dose, On Mon03/15/22 at 1130, Hazardous Chemotherapy Drug: Use appropriate PPE. Given 03/15/2022 11:24 AM EDT 3.75 mg Buttocks, Left Inactive Administered Medications - up to 3 most recent administrations Medication Order MAR Action Action Date Dose Rate Site leuprolide 3.75 mg injection (LUPRON DEPOT) 3.75 mg, INTRAMUSCULAR, ONCE, 1 dose, On e 04/19/22 at 1030, Hazardous Chemotherapy Drug: Use appropriate PPE. Given 04/19/2022 10:22 AM EDT 3.75 mg Buttocks, Right Inactive Administered Medications - up to 3 most recent administrations Medication Order MAR Action Action Date Dose Rate Site leuprolide 3.75 mg injection (LUPRON DEPOT) 3.75 mg, INTRAMUSCULAR, ONCE, 1 dose, On Mon06/14/22 at 1000, Hazardous Chemotherapy Drug: Use appropriate PPE. Given 06/14/2022 10:02 AM EST 3.75 mg Buttocks, Left Inactive Administered Medications - up to 3 most recent administrations Medication Order MAR Action Action Date Dose Rate Site leuprolide 3.75 mg injection (LUPRON DEPOT) 3.75 mg, INTRAMUSCULAR, ONCE, 1 dose, On Mon07/12/22 at 1000, Hazardous Chemotherapy Drug: Use appropriate PPE. Given 07/12/2022 9:50 AM EST 3.75 mg Buttocks, Right Inactive Administered Medications - up to 3 most recent administrations Medication Order MAR Action Action Date Dose Rate Site leuprolide 3.75 mg injection (LUPRON DEPOT) 3.75 mg, INTRAMUSCULAR, ONCE, 1 dose, On Mon08/09/22 at 1000, Hazardous Chemotherapy Drug: Use appropriate PPE. Given 08/09/2022 9:43 AM EST 3.75 mg Buttocks, Left Inactive Administered Medications - up to 3 most recent administrations Medication Order MAR Action Action Date Dose Rate Site leuprolide 3.75 mg injection (LUPRON DEPOT) 3.75 mg, INTRAMUSCULAR, ONCE, 1 dose, On Mon09/06/22 at 1000, Hazardous Chemotherapy Drug: Use appropriate PPE. Given 09/06/2022 10:22 AM EDT 3.75 mg Buttocks, Right Inactive Administered Medications - up to 3 most recent administrations Medication Order MAR Action Action Date Dose Rate Site leuprolide 3.75 mg injection (LUPRON DEPOT) 3.75 mg, INTRAMUSCULAR, ONCE, 1 dose, On Mon11/01/22 at 1000, Hazardous Chemotherapy Drug: Use appropriate PPE. Given 11/01/2022 9:43 AM EDT 3.75 mg Buttocks, Right Inactive Administered Medications - up to 3 most recent administrations Medication Order MAR Action Action Date Dose Rate Site leuprolide 3.75 mg injection (LUPRON DEPOT) 3.75 mg, INTRAMUSCULAR, ONCE, 1 dose, On Mon11/29/22 at 1030, Hazardous Chemotherapy Drug: Use appropriate PPE. Given 11/29/2022 10:46 AM EDT 3.75 mg Buttocks, Left Inactive Administered Medications - up to 3 most recent administrations Medication Order MAR Action Action Date Dose Rate Site leuprolide 3.75 mg injection (LUPRON DEPOT) 3.75 mg, INTRAMUSCULAR, ONCE, 1 dose, On Mon02/07/23 at 0900, Hazardous Chemotherapy Drug: Use appropriate PPE. Given 02/07/2023 8:55 AM EDT 3.75 mg Buttocks, Left Inactive Administered Medications - up to 3 most recent administrations Medication Order MAR Action Action Date Dose Rate Site leuprolide 3.75 mg injection (LUPRON DEPOT) 3.75 mg, INTRAMUSCULAR, ONCE, 1 dose, On Mon04/04/23 at 0900, Hazardous Chemotherapy Drug: Use appropriate PPE. Given 04/04/2023 9:03 AM EDT 3.75 mg Buttocks, Right Inactive Administered Medications - up to 3 most recent administrations Medication Order MAR Action Action Date Dose Rate Site leuprolide 3.75 mg injection (LUPRON DEPOT) 3.75 mg, INTRAMUSCULAR, ONCE, 1 dose, On Mon05/30/23 at 0900, Hazardous Chemotherapy Drug: Use appropriate PPE. Given 05/30/2023 8:57 AM EST 3.75 mg Buttocks, Left Additional Source Comments INFORMATION SOURCE (unrecogn ized section and content) DATE CREATED AUTHOR AUTHOR'S ORGANIZ ATION 04/20/2021 [facility] DATE CREATED AUTHOR AUTHOR'S ORGANIZ ATION 09/28/2021 [facility] DATE CREATED AUTHOR AUTHOR'S ORGANIZ ATION 08/12/2023 [facility] DATE CREATED AUTHOR AUTHOR'S ORGANIZ ATION 08/12/2023 [facility] Source Comments (unrecognize d section and content) In the event this informatio n is protected by the Federal Confidentiality of Alcohol and Drug Abuse Patient Records regulations: The Federal rules restrict any use of the information to criminally investigate or prosecute any alcohol or drug abuse patient.[facility] the event this information is protected by the Federal Confidentiality of Alcohol and Drug Abuse Patient Records regulations: The Federal rules restrict any use of the information to criminally investigate or prosecute any alcohol or drug abuse patient.[facility] HospitalIn the event this information is protected by the Federal Confidentiality of Alcohol and Drug Abuse Patient Records regulations: The Federal rules restrict any use of the information to criminally investigate or prosecute any alcohol or drug abuse patient.[facility] HospitalIn the event this information is protected by the Federal Confidentiality of Alcohol and Drug Abuse Patient Records regulations: The Federal rules restrict any use of the information to criminally investigate or prosecute any alcohol or drug abuse patient.[facility] HospitalIn the event this information is protected by the Federal Confidentiality of Alcohol and Drug Abuse Patient Records regulations: The Federal rules restrict any use of the information to criminally investigate or prosecute any alcohol or drug abuse patient.[facility] HospitalIn the event this information is protected by the Federal Confidentiality of Alcohol and Drug Abuse Patient Records regulations: The Federal rules restrict any use of the information to criminally investigate or prosecute any alcohol or drug abuse patient.[facility] HospitalIn the event this information is protected by the Federal Confidentiality of Alcohol and Drug Abuse Patient Records regulations: The Federal rules restrict any use of the information to criminally investigate or prosecute any alcohol or drug abuse patient.[facility] HospitalIn the event this information is protected by the Federal Confidentiality of Alcohol and Drug Abuse Patient Records regulations: The Federal rules restrict any use of the information to criminally investigate or prosecute any alcohol or drug abuse patient.[facility] HospitalIn the event this information is protected by the Federal Confidentiality of Alcohol and Drug Abuse Patient Records regulations: The Federal rules restrict any use of the information to criminally investigate or prosecute any alcohol or drug abuse patient.[facility] HospitalIn the event this information is protected by the Federal Confidentiality of Alcohol and Drug Abuse Patient Records regulations: The Federal rules restrict any use of the information to criminally investigate or prosecute any alcohol or drug abuse patient.[facility] HospitalIn the event this information is protected by the Federal Confidentiality of Alcohol and Drug Abuse Patient Records regulations: The Federal rules restrict any use of the information to criminally investigate or prosecute any alcohol or drug abuse patient.[facility] HospitalIn the event this information is protected by the Federal Confidentiality of Alcohol and Drug Abuse Patient Records regulations: The Federal rules restrict any use of the information to criminally investigate or prosecute any alcohol or drug abuse patient.[facility] HospitalIn the event this information is protected by the Federal Confidentiality of Alcohol and Drug Abuse Patient Records regulations: The Federal rules restrict any use of the information to criminally investigate or prosecute any alcohol or drug abuse patient.[facility] HospitalIn the event this information is protected by the Federal Confidentiality of Alcohol and Drug Abuse Patient Records regulations: The Federal rules restrict any use of the information to criminally investigate or prosecute any alcohol or drug abuse patient.[facility] HospitalIn the event this information is protected by the Federal Confidentiality of Alcohol and Drug Abuse Patient Records regulations: The Federal rules restrict any use of the information to criminally investigate or prosecute any alcohol or drug abuse patient.[facility] HospitalIn the event this information is protected by the Federal Confidentiality of Alcohol and Drug Abuse Patient Records regulations: The Federal rules restrict any use of the information to criminally investigate or prosecute any alcohol or drug abuse patient.[facility] HospitalIn the event this information is protected by the Federal Confidentiality of Alcohol and Drug Abuse Patient Records regulations: The Federal rules restrict any use of the information to criminally investigate or prosecute any alcohol or drug abuse patient.[facility] HospitalIn the event this information is protected by the Federal Confidentiality of Alcohol and Drug Abuse Patient Records regulations: The Federal rules restrict any use of the information to criminally investigate or prosecute any alcohol or drug abuse patient.[facility] HospitalIn the event this information is protected by the Federal Confidentiality of Alcohol and Drug Abuse Patient Records regulations: The Federal rules restrict any use of the information to criminally investigate or prosecute any alcohol or drug abuse patient.[facility] HospitalIn the event this information is protected by the Federal Confidentiality of Alcohol and Drug Abuse Patient Records regulations: The Federal rules restrict any use of the information to criminally investigate or prosecute any alcohol or drug abuse patient.[facility] HospitalIn the event this information is protected by the Federal Confidentiality of Alcohol and Drug Abuse Patient Records regulations: The Federal rules restrict any use of the information to criminally investigate or prosecute any alcohol or drug abuse patient.[facility] HospitalIn the event this information is protected by the Federal Confidentiality of Alcohol and Drug Abuse Patient Records regulations: The Federal rules restrict any use of the information to criminally investigate or prosecute any alcohol or drug abuse patient.[facility] HospitalIn the event this information is protected by the Federal Confidentiality of Alcohol and Drug Abuse Patient Records regulations: The Federal rules restrict any use of the information to criminally investigate or prosecute any alcohol or drug abuse patient.[facility] HospitalIn the event this information is protected by the Federal Confidentiality of Alcohol and Drug Abuse Patient Records regulations: The Federal rules restrict any use of the information to criminally investigate or prosecute any alcohol or drug abuse patient.[facility] HospitalIn the event this information is protected by the Federal Confidentiality of Alcohol and Drug Abuse Patient Records regulations: The Federal rules restrict any use of the information to criminally investigate or prosecute any alcohol or drug abuse patient.[facility] HospitalIn the event this information is protected by the Federal Confidentiality of Alcohol and Drug Abuse Patient Records regulations: The Federal rules restrict any use of the information to criminally investigate or prosecute any alcohol or drug abuse patient.[facility] HospitalIn the event this information is protected by the Federal Confidentiality of Alcohol and Drug Abuse Patient Records regulations: The Federal rules restrict any use of the information to criminally investigate or prosecute any alcohol or drug abuse patient.[facility] HospitalIn the event this information is protected by the Federal Confidentiality of Alcohol and Drug Abuse Patient Records regulations: The Federal rules restrict any use of the information to criminally investigate or prosecute any alcohol or drug abuse patient.[facility] HospitalIn the event this information is protected by the Federal Confidentiality of Alcohol and Drug Abuse Patient Records regulations: The Federal rules restrict any use of the information to criminally investigate or prosecute any alcohol or drug abuse patient.[facility] HospitalIn the event this information is protected by the Federal Confidentiality of Alcohol and Drug Abuse Patient Records regulations: The Federal rules restrict any use of the information to criminally investigate or prosecute any alcohol or drug abuse patient.[facility] HospitalIn the event this information is protected by the Federal Confidentiality of Alcohol and Drug Abuse Patient Records regulations: The Federal rules restrict any use of the information to criminally investigate or prosecute any alcohol or drug abuse patient.[facility] HospitalIn the event this information is protected by the Federal Confidentiality of Alcohol and Drug Abuse Patient Records regulations: The Federal rules restrict any use of the information to criminally investigate or prosecute any alcohol or drug abuse patient.[facility] HospitalIn the event this information is protected by the Federal Confidentiality of Alcohol and Drug Abuse Patient Records regulations: The Federal rules restrict any use of the information to criminally investigate or prosecute any alcohol or drug abuse patient.[facility] HospitalIn the event this information is protected by the Federal Confidentiality of Alcohol and Drug Abuse Patient Records regulations: The Federal rules restrict any use of the information to criminally investigate or prosecute any alcohol or drug abuse patient.[facility] HospitalIn the event this information is protected by the Federal Confidentiality of Alcohol and Drug Abuse Patient Records regulations: The Federal rules restrict any use of the information to criminally investigate or prosecute any alcohol or drug abuse patient.[facility] HospitalIn the event this information is protected by the Federal Confidentiality of Alcohol and Drug Abuse Patient Records regulations: The Federal rules restrict any use of the information to criminally investigate or prosecute any alcohol or drug abuse patient.[facility] HospitalIn the event this information is protected by the Federal Confidentiality of Alcohol and Drug Abuse Patient Records regulations: The Federal rules restrict any use of the information to criminally investigate or prosecute any alcohol or drug abuse patient.[facility] HospitalIn the event this information is protected by the Federal Confidentiality of Alcohol and Drug Abuse Patient Records regulations: The Federal rules restrict any use of the information to criminally investigate or prosecute any alcohol or drug abuse patient.[facility] HospitalIn the event this information is protected by the Federal Confidentiality of Alcohol and Drug Abuse Patient Records regulations: The Federal rules restrict any use of the information to criminally investigate or prosecute any alcohol or drug abuse patient.[facility] HospitalIn the event this information is protected by the Federal Confidentiality of Alcohol and Drug Abuse Patient Records regulations: The Federal rules restrict any use of the information to criminally investigate or prosecute any alcohol or drug abuse patient.[facility] HospitalIn the event this information is protected by the Federal Confidentiality of Alcohol and Drug Abuse Patient Records regulations: The Federal rules restrict any use of the information to criminally investigate or prosecute any alcohol or drug abuse patient.[facility] HospitalIn the event this information is protected by the Federal Confidentiality of Alcohol and Drug Abuse Patient Records regulations: The Federal rules restrict any use of the information to criminally investigate or prosecute any alcohol or drug abuse patient.[facility] HospitalIn the event this information is protected by the Federal Confidentiality of Alcohol and Drug Abuse Patient Records regulations: The Federal rules restrict any use of the information to criminally investigate or prosecute any alcohol or drug abuse patient.[facility] HospitalIn the event this information is protected by the Federal Confidentiality of Alcohol and Drug Abuse Patient Records regulations: The Federal rules restrict any use of the information to criminally investigate or prosecute any alcohol or drug abuse patient.[facility] HospitalIn the event this information is protected by the Federal Confidentiality of Alcohol and Drug Abuse Patient Records regulations: The Federal rules restrict any use of the information to criminally investigate or prosecute any alcohol or drug abuse patient.[facility] HospitalIn the event this information is protected by the Federal Confidentiality of Alcohol and Drug Abuse Patient Records regulations: The Federal rules restrict any use of the information to criminally investigate or prosecute any alcohol or drug abuse patient.[facility] HospitalIn the event this information is protected by the Federal Confidentiality of Alcohol and Drug Abuse Patient Records regulations: The Federal rules restrict any use of the information to criminally investigate or prosecute any alcohol or drug abuse patient.[facility] HospitalIn the event this information is protected by the Federal Confidentiality of Alcohol and Drug Abuse Patient Records regulations: The Federal rules restrict any use of the information to criminally investigate or prosecute any alcohol or drug abuse patient.[facility] HospitalIn the event this information is protected by the Federal Confidentiality of Alcohol and Drug Abuse Patient Records regulations: The Federal rules restrict any use of the information to criminally investigate or prosecute any alcohol or drug abuse patient.[facility] HospitalIn the event this information is protected by the Federal Confidentiality of Alcohol and Drug Abuse Patient Records regulations: The Federal rules restrict any use of the information to criminally investigate or prosecute any alcohol or drug abuse patient.[facility] HospitalIn the event this information is protected by the Federal Confidentiality of Alcohol and Drug Abuse Patient Records regulations: The Federal rules restrict any use of the information to criminally investigate or prosecute any alcohol or drug abuse patient.[facility] HospitalIn the event this information is protected by the Federal Confidentiality of Alcohol and Drug Abuse Patient Records regulations: The Federal rules restrict any use of the information to criminally investigate or prosecute any alcohol or drug abuse patient.[facility] HospitalIn the event this information is protected by the Federal Confidentiality of Alcohol and Drug Abuse Patient Records regulations: The Federal rules restrict any use of the information to criminally investigate or prosecute any alcohol or drug abuse patient.[facility] HospitalIn the event this information is protected by the Federal Confidentiality of Alcohol and Drug Abuse Patient Records regulations: The Federal rules restrict any use of the information to criminally investigate or prosecute any alcohol or drug abuse patient.[facility] HospitalIn the event this information is protected by the Federal Confidentiality of Alcohol and Drug Abuse Patient Records regulations: The Federal rules restrict any use of the information to criminally investigate or prosecute any alcohol or drug abuse patient.[facility] HospitalIn the event this information is protected by the Federal Confidentiality of Alcohol and Drug Abuse Patient Records regulations: The Federal rules restrict any use of the information to criminally investigate or prosecute any alcohol or drug abuse patient.[facility] HospitalIn the event this information is protected by the Federal Confidentiality of Alcohol and Drug Abuse Patient Records regulations: The Federal rules restrict any use of the information to criminally investigate or prosecute any alcohol or drug abuse patient.[facility] HospitalIn the event this information is protected by the Federal Confidentiality of Alcohol and Drug Abuse Patient Records regulations: The Federal rules restrict any use of the information to criminally investigate or prosecute any alcohol or drug abuse patient.[facility] HospitalIn the event this information is protected by the Federal Confidentiality of Alcohol and Drug Abuse Patient Records regulations: The Federal rules restrict any use of the information to criminally investigate or prosecute any alcohol or drug abuse patient.[facility] HospitalIn the event this information is protected by the Federal Confidentiality of Alcohol and Drug Abuse Patient Records regulations: The Federal rules restrict any use of the information to criminally investigate or prosecute any alcohol or drug abuse patient.[facility] HospitalIn the event this information is protected by the Federal Confidentiality of Alcohol and Drug Abuse Patient Records regulations: The Federal rules restrict any use of the information to criminally investigate or prosecute any alcohol or drug abuse patient.[facility] HospitalIn the event this information is protected by the Federal Confidentiality of Alcohol and Drug Abuse Patient Records regulations: The Federal rules restrict any use of the information to criminally investigate or prosecute any alcohol or drug abuse patient.[facility] HospitalIn the event this information is protected by the Federal Confidentiality of Alcohol and Drug Abuse Patient Records regulations: The Federal rules restrict any use of the information to criminally investigate or prosecute any alcohol or drug abuse patient.[facility] HospitalIn the event this information is protected by the Federal Confidentiality of Alcohol and Drug Abuse Patient Records regulations: The Federal rules restrict any use of the information to criminally investigate or prosecute any alcohol or drug abuse patient.[facility] HospitalIn the event this information is protected by the Federal Confidentiality of Alcohol and Drug Abuse Patient Records regulations: The Federal rules restrict any use of the information to criminally investigate or prosecute any alcohol or drug abuse patient.[facility] HospitalIn the event this information is protected by the Federal Confidentiality of Alcohol and Drug Abuse Patient Records regulations: The Federal rules restrict any use of the information to criminally investigate or prosecute any alcohol or drug abuse patient.[facility] HospitalIn the event this information is protected by the Federal Confidentiality of Alcohol and Drug Abuse Patient Records regulations: The Federal rules restrict any use of the information to criminally investigate or prosecute any alcohol or drug abuse patient.[facility] HospitalIn the event this information is protected by the Federal Confidentiality of Alcohol and Drug Abuse Patient Records regulations: The Federal rules restrict any use of the information to criminally investigate or prosecute any alcohol or drug abuse patient.[facility] HospitalIn the event this information is protected by the Federal Confidentiality of Alcohol and Drug Abuse Patient Records regulations: The Federal rules restrict any use of the information to criminally investigate or prosecute any alcohol or drug abuse patient.[facility] HospitalIn the event this information is protected by the Federal Confidentiality of Alcohol and Drug Abuse Patient Records regulations: The Federal rules restrict any use of the information to criminally investigate or prosecute any alcohol or drug abuse patient.[facility] HospitalIn the event this information is protected by the Federal Confidentiality of Alcohol and Drug Abuse Patient Records regulations: The Federal rules restrict any use of the information to criminally investigate or prosecute any alcohol or drug abuse patient.[facility] HospitalIn the event this information is protected by the Federal Confidentiality of Alcohol and Drug Abuse Patient Records regulations: The Federal rules restrict any use of the information to criminally investigate or prosecute any alcohol or drug abuse patient.[facility] HospitalIn the event this information is protected by the Federal Confidentiality of Alcohol and Drug Abuse Patient Records regulations: The Federal rules restrict any use of the information to criminally investigate or prosecute any alcohol or drug abuse patient.[facility] HospitalIn the event this information is protected by the Federal Confidentiality of Alcohol and Drug Abuse Patient Records regulations: The Federal rules restrict any use of the information to criminally investigate or prosecute any alcohol or drug abuse patient.[facility] HospitalIn the event this information is protected by the Federal Confidentiality of Alcohol and Drug Abuse Patient Records regulations: The Federal rules restrict any use of the information to criminally investigate or prosecute any alcohol or drug abuse patient.[facility] HospitalIn the event this information is protected by the Federal Confidentiality of Alcohol and Drug Abuse Patient Records regulations: The Federal rules restrict any use of the information to criminally investigate or prosecute any alcohol or drug abuse patient.[facility] HospitalIn the event this information is protected by the Federal Confidentiality of Alcohol and Drug Abuse Patient Records regulations: The Federal rules restrict any use of the information to criminally investigate or prosecute any alcohol or drug abuse patient.[facility] HospitalIn the event this information is protected by the Federal Confidentiality of Alcohol and Drug Abuse Patient Records regulations: The Federal rules restrict any use of the information to criminally investigate or prosecute any alcohol or drug abuse patient.[facility] HospitalIn the event this information is protected by the Federal Confidentiality of Alcohol and Drug Abuse Patient Records regulations: The Federal rules restrict any use of the information to criminally investigate or prosecute any alcohol or drug abuse patient.[facility] HospitalIn the event this information is protected by the Federal Confidentiality of Alcohol and Drug Abuse Patient Records regulations: The Federal rules restrict any use of the information to criminally investigate or prosecute any alcohol or drug abuse patient.[facility] HospitalIn the event this information is protected by the Federal Confidentiality of Alcohol and Drug Abuse Patient Records regulations: The Federal rules restrict any use of the information to criminally investigate or prosecute any alcohol or drug abuse patient.[facility] HospitalIn the event this information is protected by the Federal Confidentiality of Alcohol and Drug Abuse Patient Records regulations: The Federal rules restrict any use of the information to criminally investigate or prosecute any alcohol or drug abuse patient.[facility] HospitalIn the event this information is protected by the Federal Confidentiality of Alcohol and Drug Abuse Patient Records regulations: The Federal rules restrict any use of the information to criminally investigate or prosecute any alcohol or drug abuse patient.[facility] HospitalIn the event this information is protected by the Federal Confidentiality of Alcohol and Drug Abuse Patient Records regulations: The Federal rules restrict any use of the information to criminally investigate or prosecute any alcohol or drug abuse patient.[facility] HospitalIn the event this information is protected by the Federal Confidentiality of Alcohol and Drug Abuse Patient Records regulations: The Federal rules restrict any use of the information to criminally investigate or prosecute any alcohol or drug abuse patient.[facility] HospitalIn the event this information is protected by the Federal Confidentiality of Alcohol and Drug Abuse Patient Records regulations: The Federal rules restrict any use of the information to criminally investigate or prosecute any alcohol or drug abuse patient.[facility] HospitalIn the event this information is protected by the Federal Confidentiality of Alcohol and Drug Abuse Patient Records regulations: The Federal rules restrict any use of the information to criminally investigate or prosecute any alcohol or drug abuse patient.[facility] HospitalIn the event this information is protected by the Federal Confidentiality of Alcohol and Drug Abuse Patient Records regulations: The Federal rules restrict any use of the information to criminally investigate or prosecute any alcohol or drug abuse patient.[facility] HospitalIn the event this information is protected by the Federal Confidentiality of Alcohol and Drug Abuse Patient Records regulations: The Federal rules restrict any use of the information to criminally investigate or prosecute any alcohol or drug abuse patient.[facility] HospitalIn the event this information is protected by the Federal Confidentiality of Alcohol and Drug Abuse Patient Records regulations: The Federal rules restrict any use of the information to criminally investigate or prosecute any alcohol or drug abuse patient.[facility] HospitalIn the event this information is protected by the Federal Confidentiality of Alcohol and Drug Abuse Patient Records regulations: The Federal rules restrict any use of the information to criminally investigate or prosecute any alcohol or drug abuse patient.[facility] HospitalIn the event this information is protected by the Federal Confidentiality of Alcohol and Drug Abuse Patient Records regulations: The Federal rules restrict any use of the information to criminally investigate or prosecute any alcohol or drug abuse patient.[facility] HospitalIn the event this information is protected by the Federal Confidentiality of Alcohol and Drug Abuse Patient Records regulations: The Federal rules restrict any use of the information to criminally investigate or prosecute any alcohol or drug abuse patient.[facility] HospitalIn the event this information is protected by the Federal Confidentiality of Alcohol and Drug Abuse Patient Records regulations: The Federal rules restrict any use of the information to criminally investigate or prosecute any alcohol or drug abuse patient.[facility] HospitalIn the event this information is protected by the Federal Confidentiality of Alcohol and Drug Abuse Patient Records regulations: The Federal rules restrict any use of the information to criminally investigate or prosecute any alcohol or drug abuse patient.[facility] HospitalIn the event this information is protected by the Federal Confidentiality of Alcohol and Drug Abuse Patient Records regulations: The Federal rules restrict any use of the information to criminally investigate or prosecute any alcohol or drug abuse patient.[facility] HospitalIn the event this information is protected by the Federal Confidentiality of Alcohol and Drug Abuse Patient Records regulations: The Federal rules restrict any use of the information to criminally investigate or prosecute any alcohol or drug abuse patient.[facility] HospitalIn the event this information is protected by the Federal Confidentiality of Alcohol and Drug Abuse Patient Records regulations: The Federal rules restrict any use of the information to criminally investigate or prosecute any alcohol or drug abuse patient.[facility] HospitalIn the event this information is protected by the Federal Confidentiality of Alcohol and Drug Abuse Patient Records regulations: The Federal rules restrict any use of the information to criminally investigate or prosecute any alcohol or drug abuse patient.[facility] HospitalIn the event this information is protected by the Federal Confidentiality of Alcohol and Drug Abuse Patient Records regulations: The Federal rules restrict any use of the information to criminally investigate or prosecute any alcohol or drug abuse patient.[facility] HospitalIn the event this information is protected by the Federal Confidentiality of Alcohol and Drug Abuse Patient Records regulations: The Federal rules restrict any use of the information to criminally investigate or prosecute any alcohol or drug abuse patient.[facility] HospitalIn the event this information is protected by the Federal Confidentiality of Alcohol and Drug Abuse Patient Records regulations: The Federal rules restrict any use of the information to criminally investigate or prosecute any alcohol or drug abuse patient.[facility] HospitalIn the event this information is protected by the Federal Confidentiality of Alcohol and Drug Abuse Patient Records regulations: The Federal rules restrict any use of the information to criminally investigate or prosecute any alcohol or drug abuse patient.[facility] HospitalIn the event this information is protected by the Federal Confidentiality of Alcohol and Drug Abuse Patient Records regulations: The Federal rules restrict any use of the information to criminally investigate or prosecute any alcohol or drug abuse patient.[facility] HospitalIn the event this information is protected by the Federal Confidentiality of Alcohol and Drug Abuse Patient Records regulations: The Federal rules restrict any use of the information to criminally investigate or prosecute any alcohol or drug abuse patient.[facility] HospitalIn the event this information is protected by the Federal Confidentiality of Alcohol and Drug Abuse Patient Records regulations: The Federal rules restrict any use of the information to criminally investigate or prosecute any alcohol or drug abuse patient.[facility] HospitalIn the event this information is protected by the Federal Confidentiality of Alcohol and Drug Abuse Patient Records regulations: The Federal rules restrict any use of the information to criminally investigate or prosecute any alcohol or drug abuse patient.[facility] HospitalIn the event this information is protected by the Federal Confidentiality of Alcohol and Drug Abuse Patient Records regulations: The Federal rules restrict any use of the information to criminally investigate or prosecute any alcohol or drug abuse patient.[facility] HospitalIn the event this information is protected by the Federal Confidentiality of Alcohol and Drug Abuse Patient Records regulations: The Federal rules restrict any use of the information to criminally investigate or prosecute any alcohol or drug abuse patient.[facility] HospitalIn the event this information is protected by the Federal Confidentiality of Alcohol and Drug Abuse Patient Records regulations: The Federal rules restrict any use of the information to criminally investigate or prosecute any alcohol or drug abuse patient.[facility] HospitalIn the event this information is protected by the Federal Confidentiality of Alcohol and Drug Abuse Patient Records regulations: The Federal rules restrict any use of the information to criminally investigate or prosecute any alcohol or drug abuse patient.[facility] HospitalIn the event this information is protected by the Federal Confidentiality of Alcohol and Drug Abuse Patient Records regulations: The Federal rules restrict any use of the information to criminally investigate or prosecute any alcohol or drug abuse patient.[facility] HospitalIn the event this information is protected by the Federal Confidentiality of Alcohol and Drug Abuse Patient Records regulations: The Federal rules restrict any use of the information to criminally investigate or prosecute any alcohol or drug abuse patient.[facility] HospitalIn the event this information is protected by the Federal Confidentiality of Alcohol and Drug Abuse Patient Records regulations: The Federal rules restrict any use of the information to criminally investigate or prosecute any alcohol or drug abuse patient.[facility] HospitalIn the event this information is protected by the Federal Confidentiality of Alcohol and Drug Abuse Patient Records regulations: The Federal rules restrict any use of the information to criminally investigate or prosecute any alcohol or drug abuse patient.[facility] HospitalIn the event this information is protected by the Federal Confidentiality of Alcohol and Drug Abuse Patient Records regulations: The Federal rules restrict any use of the information to criminally investigate or prosecute any alcohol or drug abuse patient.[facility] HospitalIn the event this information is protected by the Federal Confidentiality of Alcohol and Drug Abuse Patient Records regulations: The Federal rules restrict any use of the information to criminally investigate or prosecute any alcohol or drug abuse patient.[facility] HospitalIn the event this information is protected by the Federal Confidentiality of Alcohol and Drug Abuse Patient Records regulations: The Federal rules restrict any use of the information to criminally investigate or prosecute any alcohol or drug abuse patient.[facility] HospitalIn the event this information is protected by the Federal Confidentiality of Alcohol and Drug Abuse Patient Records regulations: The Federal rules restrict any use of the information to criminally investigate or prosecute any alcohol or drug abuse patient.[facility] HospitalIn the event this information is protected by the Federal Confidentiality of Alcohol and Drug Abuse Patient Records regulations: The Federal rules restrict any use of the information to criminally investigate or prosecute any alcohol or drug abuse patient.[facility] HospitalIn the event this information is protected by the Federal Confidentiality of Alcohol and Drug Abuse Patient Records regulations: The Federal rules restrict any use of the information to criminally investigate or prosecute any alcohol or drug abuse patient.[facility] HospitalIn the event this information is protected by the Federal Confidentiality of Alcohol and Drug Abuse Patient Records regulations: The Federal rules restrict any use of the information to criminally investigate or prosecute any alcohol or drug abuse patient.[facility] HospitalIn the event this information is protected by the Federal Confidentiality of Alcohol and Drug Abuse Patient Records regulations: The Federal rules restrict any use of the information to criminally investigate or prosecute any alcohol or drug abuse patient.[facility] Reason for Visit (unrecogniz ed section and content) Specialty Diagnoses / Procedures Referred By Contac t Referred To Contact Physical Therapy / PHYSICAL THERAPY Diagnoses Malignant neoplasm of upper-outer quadrant of right breast in female, estrogen receptor positive (HCC) [C50.411, Z17.0] Procedures EST RS PT LYMPHEDEMA Ela Lopez MD [address] [place] [address] Shahnaz Sneed PTA 1 [place] [address] Referral ID Status Reason Start Date Expiration Date V isits Requested Visits Authorized [id number] Authorized 06/29/2021 06/25/2022 40 40 Reason Comments Physical Therapy Specialty Diagnoses / Procedures Referred By Contac t Referred To Contact Physical Therapy / PHYSICAL THERAPY Diagnoses Malignant neoplasm of upper-outer quadrant of right breast in female, estrogen receptor positive (HCC) [C50.411, Z17.0] Procedures EST RS PT LYMPHEDEMA Ela Lopez MD [address] [place] [address] Shahnaz Sneed PTA 1 [place] [address] Reason Comments PT Progress Note Reason Comments Breast Cancer Status Reason Specialty Diagnoses / Procedures Referred By Contact Referred To Contact Closed OON/Self Pay Override GENERAL SURGERY AG Diagnoses breast cancer Procedures NEW PATIENT VISIT LEVEL 4 consultation Lopez, Eal Francis 1 [facility] [address]ST [place] [address] Gens Acc Brcr [address] [place] [address] Reason Comments Breast Cancer Discuss Surgical Jason ns Status Reason Specialty Diagnoses / Procedures Referred By Contact Referred To Contact Authorized Auto-Generated Referral Patient Cleared - Admin/Scleroscope Tester/ Director advise to proceed CT IMAGING Diagnoses Malignant neoplasm of upper-outer quadrant of right breast in female, estrogen receptor positive (HCC) Procedures CT ABD/PEL W IVCON CT ABD & PELVIS W/CONTRAST Lopez, Ela M 1 [facility] [address] [place] [address] Ct Imaging Status Reason Specialty Diagnoses / Procedures Referred By Contact Referred To Contact Authorized Auto-Generated Referral CT IMAGING Diagnoses Malignant neoplasm of upper-outer quadrant of right breast in female, estrogen receptor positive (HCC) Procedures CT CHEST W IVCON CAT SCAN OF CHEST CONTRAST Lopez, Ela Francis 1 [facility] [address] [place] [address] Ct Imaging Reason Comments Results Reason Comments Results Status Reason Specialty Diagnoses / Procedures Referred By Contact Referred To Contact Closed PCP Requested Referral MOLECULAR & FUNCTIONAL IMAGING Diagnoses Malignant neoplasm of upper-outer quadrant of right breast in female, estrogen receptor positive (HCC) Procedures NM BONE WHOLE BODY R N BONE SCAN / WHOLE BODY Jessica Ela M 1 [facility] [place] [address] Molecular & Functional Imaging [address] [place] [address] Reason Comments Patient Question Reason Comments Orders MRI Abdomen Reason Comments Radiology CT Specialty Diagnoses / Procedures [facility] Ref[facility] To Contact CT IMAGING Diagnoses Malignant neoplasm of upper-outer quadrant of right breast in female, estrogen receptor positive (HCC) Lung nodules Procedures CT CHEST W IVCON DIAGNOSTIC COMPUTED TOMOGRAPHY THORAX W/CONTRAST Lizbeth Wang, NIALL.COMMERCIAL ADMINISTRATOR [address] [place] [address] Ct Imaging Referral ID Status Reason Start Date Expiration Date V isits Requested Visits Authorized [id number] Closed Auto-Generate d Referral 08/24/2021 10/15/2021 1 1 Reason Comments Prescription Refills Pregabalin Reason Comments Established Patient Reason Comments Follow Up Reason Comments Imm/Inj Specialty Diagnoses / Procedures [facility] Referred To Contact Diagnoses Malignant neoplasm of upper-outer quadrant of right breast in female, estrogen receptor positive (HCC) Procedures LEUPROLIDE ACETATE /3.75 MG Masci, Golden A, DO [facility] [address] [place] [address] Referral ID Status Reason Start Date Expiration Date V isits Requested Visits Authorized [id number] Authorized 06/15/2021 06/25/2022 99 99 Specialty Diagnoses / Procedures [facility] Referred To Contact Diagnoses Malignant neoplasm of upper-outer quadrant of right breast in female, estrogen receptor positive (HCC) Procedures LEUPROLIDE ACETATE /3.75 MG Masci, Golden A, DO [address] [place] [address] [facility] [address] [place] [address] Reason Comments Established Patient Reason Comments 6 Month Exam Referral ID Status Reason Start Date Expiration Date V isits Requested Visits Authorized [id number] Closed Auto-Generate d Referral 12/15/2021 02/18/2022 1 1 Reason Comments Pre-Op Visit Reason Comments Pre-Op Exam Reason Comments Patient Question Medication refill Returning Patient's Call Reason Comments Post Op Reason Comments Physical Therapy Reason Comments Cancer Survivorship Reason Comments PHOTOS TAKEN Reason Comments Post Op Reason Comments Physical Therapy Referral ID Status Reason Start Date Expiration Date V isits Requested Visits Authorized [id number] Authorized 06/15/2021 06/25/2023 99 99 Specialty Diagnoses / Procedures Referred By Contac t Referred To Contact Physical Therapy / PHYSICAL THERAPY Diagnoses Malignant neoplasm of upper-outer quadrant of right breast in female, estrogen receptor positive (HCC) [C50.411, Z17.0] Procedures EST RS PT LYMPHEDEMA Ela Lopez MD 1 [facility] [place] [address] Shahnaz Sneed PICTURE FRAME MAKER [address] [place] [address] Referral ID Status Reason Start Date Expiration Date V isits Requested Visits Authorized [id number] Authorized 06/26/2022 06/25/2023 40 40 Reason Onset Date Comments Refill Request 07/27/2022 Specialty Diagnoses / Procedures [facility] Referred To Contact Physical Therapy / PHYSICAL THERAPY Diagnoses Malignant neoplasm of upper-outer quadrant of right breast in female, estrogen receptor positive (HCC) [C50.411, Z17.0] Procedures EST RS PT LYMPHEDEMA Ela Lopez MD [address]ST [facility] [place] [address] Shahnaz Sneed, PICTURE FRAME MAKER [address] [place] [address] Reason Onset Date Comments Refill Request 08/26/2022 Reason Comments Established Patient Reason Onset Date Comments Refill Request 11/28/2022 Specialty Diagnoses / Procedures [facility] Referred To Contact Diagnoses Malignant neoplasm of upper-outer quadrant of right breast in female, estrogen receptor positive (HCC) Procedures LEUPROLIDE ACETATE /3.75 MG Golden Montero DO [address] [place] [address] [facility] [address] [place] [address] Referral ID Status Reason Start Date Expiration Date V isits Requested Visits Authorized [id number] Authorized 06/15/2021 02/19/2024 0 99 Reason Comments Physical Therapy Reason Comments New Patient Discuss poss hystere ctomy Specialty Diagnoses / Procedures Referred By Contac t Referred To Contact CT IMAGING Diagnoses Malignant neoplasm of upper-outer quadrant of right breast in female, estrogen receptor positive (HCC) Procedures CT CHEST W IVCON DIAGNOSTIC COMPUTED TOMOGRAPHY THORAX W/CONTRAST Lizbeth Wang, NIALL.COMMERCIAL ADMINISTRATOR [address] [place] [address] [place] [address] Referral ID Status Reason Start Date Expiration Date V isits Requested Visits Authorized [id number] Closed Auto-Generate d Referral 05/17/2022 06/16/2023 1 1 Referral ID Status Reason Start Date Expiration Date V isits Requested Visits Authorized [id number] Authorized 06/15/2021 02/19/2024 35 35 Specialty Diagnoses / Procedures [facility] Referred To Contact Physical Therapy / PHYSICAL THERAPY Diagnoses lymp Procedures EST RS PT LYMPHEDEMA Ela Lopez MD [address] [place] [address] Shahnaz Sneed PTA 1 [place] [address] Referral ID Status Reason Start Date Expiration Date V isits Requested Visits Authorized [id number] Authorized 06/30/2023 06/25/2024 40 40 Specialty Diagnoses / Procedures [facility] Referred To Contact Diagnoses Malignant neoplasm of upper-outer quadrant of right breast in female, estrogen receptor positive (HCC) (HCC) Procedures LEUPROLIDE ACETATE /3.75 MG Golden Montero, DO [address] [place] [address] [facility] [address] [place] [address] Anna Oliveros) - 06/16/2020 2:20 PM Anna Turcios) - 06/16/2020 2:20 PM Inga Suazo) - 06/29/2020 10:17 AM EST Nursing Notes (unrecognized section and content) Race: Age at first menstrual period: 13 Age at first : 27 Number of full term pregnancies: 2 Oral Contraceptives: NO took for about 4 years Estrogen therapy: NO Patient presents for 2nd opinion regarding right breast invasive ductal carcinoma diagnosed in November 2019 at [facility]. Anna Oliveros MA documented in this encounter Race: Age at first menstrual period: 13 Age at first : 27 Number of full term pregnancies: 2 Oral Contraceptives: NO took for about 4 years Estrogen therapy: NO Patient presents for 2nd opinion regarding right breast invasive ductal carcinoma diagnosed in November 2019 at [facility]. Anna Oliveros MA documented in this encounter Patient here to follow up right breast ultrasound and discuss surgical plans for known breast cancer. Inga Dunne CMA documented in this encounter Telephone Encounter - Anne Gillespie (Alice) - 07/07/2020 4:04 PM ESTTelephone Encounter - Ela Lopez - 07/07/2020 2:33 PM ESTTelephone Encounter - Anne Gillespie) - 07/16/2020 8:39 AM EST Miscellaneous Notes (unrecog nized section and content) Patient was called and given results for CT and need for MRI of liver-pt tearful support given- Pt states she has anxiety with MRI and will discuss with Dr. Lopez at her appt 07/22/20 Anne Gillespie RN documented in this encounter Please notify patient that CT showed small spots in her liver. I have ordered an MRI of her liver to evaluate these spots. Please have her scheduled. Thank you! Ela Lopez MD documented in this encounter Called to reschedule follow up- spoke with pt- shared reason for MRI- feels that if she is getting treatment why donohue she need it-shared it can direct type of tx- pt expressing severe anxiety over test- offered to see about med prior but pt will try test. Anne Gillespie RN documented in this encounter MRI Abdomen not covered as ordered without contrast. Okay to switch order to be with contrast? Please sign new order. Inga Dunne CMA documented in this encounter Care Teams (unrecognized sec tion and content) Jukebox Route Driver Relationship Specialty Start Date End Date Susi Baker PA [address] [place] [address] PCP - General Family Practice 06/16/20 Rufina Mobley MD, [address] [place], [place] [id number] Physician Radiation Oncology 09/10/20 Brenda Jacobo RN Specialty Foot Caster Oncology 09/18/20 Ela Lopez MD 1 [facility] 1ST [facility] [place] [address] Surgeon Breast Diseases 06/16/20 Jukebox Route Driver Relationship Specialty Start Date End Date Susi Baker PA [address] [place], [place] [id number] PCP - General Family Practice 06/16/20 Rufina Mobley MD, [address] [facility] [place], [place] [address] [phone] Physician Radiation Oncology 09/10/20 Brenda Jacobo RN Specialty Foot Caster Oncology 09/18/20 Ela oLpez MD [address] [place] [address] Surgeon Breast Diseases 06/16/20 Jukebox Route Driver Relationship Specialty Start Date End Date Susi Baker PA [address] [place], [place] [id number] PCP - General Family Practice 06/16/20 Rufina Mobley MD, [address] [facility] [place] [address] Physician Radiation Oncology 09/10/20 Brenda Jacobo RN Specialty Foot Caster Oncology 09/18/20 Ela Lopez MD [address] [place] [address] Surgeon Breast Diseases 06/16/20 Jukebox Route Driver Relationship Specialty Start Date End Date Susi Baker PA [address] [facility] [address] [place], [place] [id number] PCP - General Family Practice 06/16/20 Rufina Mobley MD, [address] [facility] [place] [address] Physician Radiation Oncology 09/10/20 Brenda Jacobo RN Specialty Foot Caster Oncology 09/18/20 Ela Lopez MD [address] [place] [address] Surgeon Breast Diseases 06/16/20 Jukebox Route Driver Relationship Specialty Start Date End Date Susi Baker PA [address] [place] [address] PCP - General Family Practice 06/16/20 Rufina Mobley MD, [address] [place] [address] Physician Radiation Oncology 09/10/20 Brenda Jacobo, RN Specialty Foot Caster Oncology 09/18/20 Ela Lopez MD [address] [place], [place] [id number] Surgeon Breast Diseases 06/16/20 Jukebox Route Driver Relationship Specialty Start Date End Date Susi Baker PA [address] [place] [address] PCP - General Family Practice 06/16/20 Rufina Mobley MD, [address] [place] [address] Physician Radiation Oncology 09/10/20 Brenda Jacobo RN Specialty Foot Caster Oncology 09/18/20 Ela Lopez MD [address] [address] [place] [address] Surgeon Breast Diseases 06/16/20 Jukebox Route Driver Relationship Specialty Start Date End Date Susi Baker PA [address] [facility] [place] [address] PCP - General Family Practice 06/16/20 Rufina Mobley MD, [address] [place] [address] Physician Radiation Oncology 09/10/20 Brenda Jacobo RN Specialty Foot Caster Oncology 09/18/20 Ela Lopez MD [address] [place] [address] Surgeon Breast Diseases 06/16/20 Jukebox Route Driver Relationship Specialty Start Date End Date Susi Baker PA [address] [place] [address] [place] [address] PCP - General Family Practice 06/16/20 Rufina Mobley MD, [address] [facility] [place] [facility] [place] [address] Physician Radiation Oncology 09/10/20 Brenda Jacobo RN Specialty Foot Caster Oncology 09/18/20 Ela Lopez MD [address] [place] [address] Surgeon Breast Diseases 06/16/20 Jukebox Route Driver Relationship Specialty Start Date End Date Susi Baker PA-C PCP - General Family Practice 06/16/20 Rufina Mobley MD, [address] [facility] [address] [place], [place] [address] [phone] Physician Radiation Oncology 09/10/20 Brenda Jacobo RN Specialty Foot Caster Oncology 09/18/20 Ela Lopez MD [address] [place] [address] Surgeon Breast Diseases 06/16/20 Jukebox Route Driver Relationship Specialty Start Date End Date Susi Baker PA-C PCP - General Family Practice 06/16/20 Rufina Mobley MD, [address] [facility] [place] [address] Physician Radiation Oncology 09/10/20 Brenda Jacobo RN Specialty Foot Caster Oncology 09/18/20 Ela Lopez MD [address] [place] [address] Surgeon Breast Diseases 06/16/20 Jukebox Route Driver Relationship Specialty Start Date End Date Susi Baker PA-C PCP - General Family Practice 06/16/20 Rufina Mobley MD, [address] [place] [address] Physician Radiation Oncology 09/10/20 Brenda Jacobo RN Specialty Foot Caster Oncology 09/18/20 Ela Lopez MD [address] [place] [address] Surgeon Breast Diseases 06/16/20 Jukebox Route Driver Relationship Specialty Start Date End Date Susi Baker PA-C PCP - General Family Practice 06/16/20 Rufina Mobley MD, [address] [place] [address] Physician Radiation Oncology 09/10/20 Brenda Jacobo RN Specialty Foot Caster Oncology 09/18/20 Ela Lopez MD [address] [place] [address] [place] [address] Surgeon Breast Diseases 06/16/20 Jukebox Route Driver Relationship Specialty Start Date End Date Susi Baker PA-C PCP - General Family Practice 06/16/20 Rufina Mobley MD, [address] [place] [address] Physician Radiation Oncology 09/10/20 Brenda Jacobo RN Specialty Foot Caster Oncology 09/18/20 Ela Lopez MD [address] [place] [address] [place] [address] Surgeon Breast Diseases 06/16/20 Jukebox Route Driver Relationship Specialty Start Date End Date Susi Baker PA-C PCP - General Family Practice 06/16/20 Rufina Mobley MD, [address] [place] [address] Physician Radiation Oncology 09/10/20 Brenda Jacobo RN Specialty Foot Caster Oncology 09/18/20 Ela Lopez MD [address] [place] [address] [facility] [place], [place] [id number] Surgeon Breast Diseases 06/16/20 Jukebox Route Driver Relationship Specialty Start Date End Date Susi Baker PA-C PCP - General Family Practice 06/16/20 Rufina Mobley MD, [address] [place] [address] Physician Radiation Oncology 09/10/20 Brenda Jacobo RN Specialty Foot Caster Oncology 09/18/20 Ela Lopez MD [address] [place] [address] [place] [address] Surgeon Breast Diseases 06/16/20 Jukebox Route Driver Relationship Specialty Start Date End Date Susi Baker PA-C PCP - General Family Practice 06/16/20 Rufina Mobley MD, [address] [place] [address] Physician Radiation Oncology 09/10/20 Brenda Jacobo RN Specialty Foot Caster Oncology 09/18/20 Ela Lopez MD [address] [place] [address] [place] [address] Surgeon Breast Diseases 06/16/20 Jukebox Route Driver Relationship Specialty Start Date End Date Susi Baker PA-C PCP - General Family Practice 06/16/20 Rufina Mobley MD, [address] [place] [address] Physician Radiation Oncology 09/10/20 Brenda Jacobo RN Specialty Foot Caster Oncology 09/18/20 Ela Lopez MD [address] [place] [address] [place] [address] Surgeon Breast Diseases 06/16/20 Jukebox Route Driver Relationship Specialty Start Date End Date Susi Baker PA-C PCP - General Family Practice 06/16/20 Rufina Mobley MD, [address] [place] [address] Physician Radiation Oncology 09/10/20 Brenda Jacobo RN Specialty Foot Caster Oncology 09/18/20 Ela Lopez MD [address] [place] [address] [place] [address] Surgeon Breast Diseases 06/16/20 Jukebox Route Driver Relationship Specialty Start Date End Date Susi Baker PA-C PCP - General Family Practice 06/16/20 Rufina Mobley MD, [address] [place] [address] Physician Radiation Oncology 09/10/20 Brenda Jacobo RN Specialty Foot Caster Oncology 09/18/20 Ela Lopez MD [address] [place] [address] [place] [address] Surgeon Breast Diseases 06/16/20 Jukebox Route Driver Relationship Specialty Start Date End Date uSsi Baker PA-C PCP - General Family Medicine 06/16/20 Rufina Mobley MD, [address] [place] [address] Physician Radiation Oncology 09/10/20 Brenda Jacobo RN Specialty Foot Caster Oncology 09/18/20 Ela Lopez MD [address] [place] [address] [place] [address] Surgeon Breast Diseases 06/16/20 Jukebox Route Driver Relationship Specialty Start Date End Date Susi Baker PA-C PCP - General Family Medicine 06/16/20 Rufina Mobley MD, MD [address] [place] [address] Physician Radiation Oncology 09/10/20 Brenda Jacobo RN Specialty Foot Caster Oncology 09/18/20 Ela Lopez MD [address] [place] [address] [place] [address] Surgeon Breast Diseases 06/16/20 Jukebox Route Driver Relationship Specialty Start Date End Date Susi Baker PA-C PCP - General Family Medicine 06/16/20 Rufina Mobley MD, [address] [place] [address] Physician Radiation Oncology 09/10/20 Brenda Jacobo RN Specialty Foot Caster Oncology 09/18/20 Ela Lopez MD [address] [address] [place] [address] Surgeon Breast Diseases 06/16/20 Jukebox Route Driver Relationship Specialty Start Date End Date Susi Baker PA-C PCP - General Family Medicine 06/16/20 Rufina Mobley MD, [address] [place] [address] Physician Radiation Oncology 09/10/20 Brenda Jacobo RN Specialty Foot Caster Oncology 09/18/20 Ela Lopez MD [address] [place] [address] [place] [address] Surgeon Breast Diseases 06/16/20 Jukebox Route Driver Relationship Specialty Start Date End Date Susi Baker PA-C PCP - General Family Medicine 06/16/20 Rufina Mobley MD, [address] [place] [address] Physician Radiation Oncology 09/10/20 Brenda Jacobo RN Specialty Foot Caster Oncology 09/18/20 Ela Lopez MD [address] [place] [address] [place] [address] Surgeon Breast Diseases 06/16/20 Jukebox Route Driver Relationship Specialty Start Date End Date Susi Baker PA-C PCP - General Family Medicine 06/16/20 Rufina Mobley MD, [address] [place] [address] Physician Radiation Oncology 09/10/20 Doup, Brenda, RN Specialty Foot Caster Oncology 09/18/20 Ela Lopez MD [address] [place] [address] [place] [address] Surgeon Breast Diseases 06/16/20 Jukebox Route Driver Relationship Specialty Start Date End Date Susi Baker PA-C PCP - General Family Medicine 06/16/20 Rufina Mobley MD, [address] [place] [address] Physician Radiation Oncology 09/10/20 Brenda Jacobo, ALICE Specialty Foot Caster Oncology 09/18/20 Ela Lopez MD [address] [place] [address] [place] [address] Surgeon Breast Diseases 06/16/20 Jukebox Route Driver Relationship Specialty Start Date End Date Susi Baker PA-C PCP - General Family Medicine 06/16/20 Rufina Mobley MD, [address] [place] [address] Physician Radiation Oncology 09/10/20 Brenda Jacobo RN Specialty Foot Caster Oncology 09/18/20 Ela Lopez MD [address] [place] [address] [place] [address] Surgeon Breast Diseases 06/16/20 Jukebox Route Driver Relationship Specialty Start Date End Date Susi Baker PA-C PCP - General Family Medicine 06/16/20 Rufina Mobley MD, [address] [place] [address] Physician Radiation Oncology 09/10/20 Doup, Brenda, RN Specialty Foot Caster Oncology 09/18/20 Ela Lopez MD [address] [place] [address] [place] [address] Surgeon Breast Diseases 06/16/20 Jukebox Route Driver Relationship Specialty Start Date End Date Susi Baker PA-C PCP - General Family Medicine 06/16/20 Rufina Mobley MD, [address] [place] [address] Physician Radiation Oncology 09/10/20 Brenda Jacobo RN Specialty Foot Caster Oncology 09/18/20 Ela Lopez MD [address] [place] [address] [facility] [place], [place] [id number] Surgeon Breast Diseases 06/16/20 Jukebox Route Driver Relationship Specialty Start Date End Date Susi Baker PA-C PCP - General Family Medicine 06/16/20 Rufina Mobley MD, [address] [facility] [place] [address] Physician Radiation Oncology 09/10/20 Brenda Jacobo RN Specialty Foot Caster Oncology 09/18/20 Ela Lopez MD [address] [place] [address] [facility] [place], [place] [id number] Surgeon Breast Diseases 06/16/20 Jukebox Route Driver Relationship Specialty Start Date End Date Susi Baker PA-C PCP - General Family Medicine 06/16/20 Rfuina Mobley MD, [address] [place] [address] Physician Radiation Oncology 09/10/20 Brenda Jacobo RN Specialty Foot Caster Oncology 09/18/20 Ela Lopez MD [address] [place] [address] [facility] [place], [place] [id number] Surgeon Breast Diseases 06/16/20 Jukebox Route Driver Relationship Specialty Start Date End Date Susi Baker PA-C PCP - General Family Medicine 06/16/20 Rufina Mobley MD, [address] [facility] [place] [address] Physician Radiation Oncology 09/10/20 Brenda Jacobo RN Specialty Foot Caster Oncology 09/18/20 Ela Lopez MD [address] [place] [address] [facility] [place], [place] [id number] Surgeon Breast Diseases 06/16/20 Jukebox Route Driver Relationship Specialty Start Date End Date Susi Baker PA-C PCP - General Family Medicine 06/16/20 Rufina Mobley MD, [address] [facility] [place] [address] Physician Radiation Oncology 09/10/20 Brenda Jacobo RN Specialty Foot Caster Oncology 09/18/20 Ela Lopez MD [address] [place] [address] [facility] [place], [place] [id number] Surgeon Breast Diseases 06/16/20 Jukebox Route Driver Relationship Specialty Start Date End Date Susi Baker PA-C PCP - General Family Medicine 06/16/20 Rufina Mobley MD, [address] [facility] [place] [facility] [place] [address] Physician Radiation Oncology 09/10/20 Brenda Jacobo RN Specialty Foot Caster Oncology 09/18/20 Ela Lopez MD [address] [place] [address] [place] [address] Surgeon Breast Diseases 06/16/20 Jukebox Route Driver Relationship Specialty Start Date End Date Susi Baker PA-C PCP - General Family Medicine 06/16/20 Rufina Mobley MD, [address] [facility] [place] [address] Physician Radiation Oncology 09/10/20 Brenda Jacobo RN Specialty Foot Caster Oncology 09/18/20 Ela Lopez MD [address] [place] [address] [place] [address] Surgeon Breast Diseases 06/16/20 Jukebox Route Driver Relationship Specialty Start Date End Date Susi Baker PA-C PCP - General Family Medicine 06/16/20 Rufina Mobley MD, [address] [place] [address] Physician Radiation Oncology 09/10/20 Brenda Jacobo RN Specialty Foot Caster Oncology 09/18/20 Ela Lopez MD [address] [place] [address] [place] [address] Surgeon Breast Diseases 06/16/20 Jukebox Route Driver Relationship Specialty Start Date End Date Susi Baker PA-C PCP - General Family Medicine 06/16/20 Rufina Mobley MD, [address] [place] [address] Physician Radiation Oncology 09/10/20 Brenda Jacobo, RN Specialty Foot Caster Oncology 09/18/20 Ela Lopez MD [address] [place] [address] [facility] [place], [place] [id number] Surgeon Breast Diseases 06/16/20 Jukebox Route Driver Relationship Specialty Start Date End Date Susi Baker PA-C PCP - General Family Medicine 06/16/20 Rufina Mobley MD, [address] [place], [place] [address] Physician Radiation Oncology 09/10/20 Brenda Jacobo RN Specialty Foot Caster Oncology 09/18/20 Ela Lopez MD [address] [place] [address] [facility] [place], [place] [id number] Surgeon Breast Diseases 06/16/20 Jukebox Route Driver Relationship Specialty Start Date End Date Susi Baker PA-C PCP - General Family Medicine 06/16/20 Rufina Mobley MD, [address] [place], [place] [id number] [phone] Physician Radiation Oncology 09/10/20 Brenda Jacobo RN Specialty Foot Caster Oncology 09/18/20 Ela Lopez MD [address] [place] [address] [facility] [place], [place] [id number] Surgeon Breast Diseases 06/16/20 Jukebox Route Driver Relationship Specialty Start Date End Date Susi Baker PA-C PCP - General Family Medicine 06/16/20 Rufina Mobley MD, [address] [place] [address] Physician Radiation Oncology 09/10/20 Brenda Jacboo, RN Specialty Foot Caster Oncology 09/18/20 Ela Lopez MD [address] [place] [address] [place] [address] Surgeon Breast Diseases 06/16/20 Jukebox Route Driver Relationship Specialty Start Date End Date Susi Baker PA-C PCP - General Family Medicine 06/16/20 Rufina Mobley MD, [address] [place], [place] [address] [phone] Physician Radiation Oncology 09/10/20 Brenda Jacobo RN Specialty Foot Caster Oncology 09/18/20 Ela Lopez MD [address] [place] [address] [place] [address] Surgeon Breast Diseases 06/16/20 Jukebox Route Driver Relationship Specialty Start Date End Date Susi Baker PA-C PCP - General Family Medicine 06/16/20 Rufina Mobley MD, [address] [place] [address] Physician Radiation Oncology 09/10/20 Brenda Jacobo, RN Specialty Foot Caster Oncology 09/18/20 Ela Lopez MD [address] [place] [address] [facility] [place], [place] [id number] Surgeon Breast Diseases 06/16/20 Jukebox Route Driver Relationship Specialty Start Date End Date Susi Baker PA-C PCP - General Family Medicine 06/16/20 Rufina Mobley MD, [address] [place], [place] [address] Physician Radiation Oncology 09/10/20 Brenda Jacobo, RN Specialty Foot Caster Oncology 09/18/20 Ela Lopez MD [address] [place] [address] [place] [address] Surgeon Breast Diseases 06/16/20 Jukebox Route Driver Relationship Specialty Start Date End Date Susi Baker PA-C PCP - General Family Medicine 06/16/20 Rufina Mobley MD, [address] [facility] [place] [facility] [place] [address] Physician Radiation Oncology 09/10/20 Brenda Jacobo RN Specialty Foot Caster Oncology 09/18/20 Ela Lopez MD [address] [place] [address] [place] [address] Surgeon Breast Diseases 06/16/20 Jukebox Route Driver Relationship Specialty Start Date End Date Susi Baker PA-C PCP - General Family Medicine 06/16/20 Rufina Mobley MD, [address] [place], [place] [address] Physician Radiation Oncology 09/10/20 Brenda Jacobo RN Specialty Foot Caster Oncology 09/18/20 Ela Lopez MD [address] [place] [address] [place] [address] Surgeon Breast Diseases 06/16/20 Jukebox Route Driver Relationship Specialty Start Date End Date Susi Baker PA-C PCP - General Family Medicine 06/16/20 Rufina Mobley MD, [address] [facility] [place] [facility] [place] [place] [address] Physician Radiation Oncology 09/10/20 Brenda Jacobo RN Specialty Foot Caster Oncology 09/18/20 Ela Lopez MD [address] [place] [address] [place] [address] Surgeon Breast Diseases 06/16/20 Jukebox Route Driver Relationship Specialty Start Date End Date Susi Baker PA-C PCP - General Family Medicine 06/16/20 Rufina Mobley MD, MD [address] [facility] [place] [address] Physician Radiation Oncology 09/10/20 Brenda Jacobo RN Specialty Foot Caster Oncology 09/18/20 Ela Lopez MD [address] [place] [address] [place] [address] Surgeon Breast Diseases 06/16/20 Jukebox Route Driver Relationship Specialty Start Date End Date Susi Baker PA-C PCP - General Family Medicine 06/16/20 Rufina Mobley MD, [address] [place], [place] [address] Physician Radiation Oncology 09/10/20 Brenda Jacobo RN Specialty Foot Caster Oncology 09/18/20 Ela Lopez MD [address] [place] [address] F[address] [facility] [place], [place] [id number] Surgeon Breast Diseases 06/16/20 Jukebox Route Driver Relationship Specialty Start Date End Date Susi Baker PA-C PCP - General Family Medicine 06/16/20 Rufina Mobley MD, MD [address] [facility] [place] [facility] [place], [place] [address] Physician Radiation Oncology 09/10/20 Brenda Jacobo RN Specialty Foot Caster Oncology 09/18/20 Ela Lopez MD [address] [place] [address] [place] [address] Surgeon Breast Diseases 06/16/20 Jukebox Route Driver Relationship Specialty Start Date End Date Susi Baker PA-C PCP - General Family Medicine 06/16/20 Rufina Mobley MD, [address] [address] Physician Radiation Oncology 09/10/20 Brenda Jacobo RN Specialty Foot Caster Oncology 09/18/20 Ela Lopez MD [address] [place] [address] F[address] [facility] [place], [place] [id number] Surgeon Breast Diseases 06/16/20 Jukebox Route Driver Relationship Specialty Start Date End Date Susi Baker PA-C PCP - General Family Medicine 06/16/20 Rufina Mobley MD, [address] [place], [place] [id number] Physician Radiation Oncology 09/10/20 Brenda Jacobo, RN Specialty Foot Caster Oncology 09/18/20 Ela Lopez MD [address] [place] [address] [place] [address] Surgeon Breast Diseases 06/16/20 Jukebox Route Driver Relationship Specialty Start Date End Date Susi Baker PA-C PCP - General Family Medicine 06/16/20 Rufina Mobley MD [address] [place], [place] [id number] Physician Radiation Oncology 09/10/20 Brenda Jacobo RN Specialty Foot Caster Oncology 09/18/20 Ela Lopez MD [address] [place] [address] F[address] [facility] [place], [place] [id number] Surgeon Breast Diseases 06/16/20 Jukebox Route Driver Relationship Specialty Start Date End Date Susi Baker PA-C PCP - General Family Medicine 06/16/20 Rufina Mobley MD [address] [facility] [place] [facility] [place], [place] [address] [phone] Physician Radiation Oncology 09/10/20 Brenda Jacobo RN Specialty Foot Caster Oncology 09/18/20 Ela Lopez MD [address] [place] [address] F[address] [facility] [place], [place] [id number] Surgeon Breast Diseases 06/16/20 Jukebox Route Driver Relationship Specialty Start Date End Date Susi Baker PA-C PCP - General Family Medicine 06/16/20 Rufina Mobley MD [address] [facility] [place] [facility] [place] [address] [phone] Physician Radiation Oncology 09/10/20 Brenda Jacobo RN Specialty Foot Caster Oncology 09/18/20 Ela Lopez MD [address] [place] [address] [place] [address] Surgeon Breast Diseases 06/16/20 Jukebox Route Driver Relationship Specialty Start Date End Date Susi Baker PA-C PCP - General Family Medicine 06/16/20 Rufina Mobley MD [address] [facility] [place] [facility] [place] [address] Physician Radiation Oncology 09/10/20 Brenda Jacobo RN Specialty Foot Caster Oncology 09/18/20 Ela Lopez MD [address] [place] [address] F[address] [facility] [place], [place] [id number] Surgeon Breast Diseases 06/16/20 Jukebox Route Driver Relationship Specialty Start Date End Date Susi Baker PA-C PCP - General Family Medicine 06/16/20 Rufina Mobley MD [address] [facility] [place] [facility] [place] [place] [address] Physician Radiation Oncology 09/10/20 Brenda Jacobo RN Specialty Foot Caster Oncology 09/18/20 Ela Lopez MD [address] [place] [address] [place] [address] [address] [place], [place] [id number] Surgeon Breast Diseases 06/16/20 Jukebox Route Driver Relationship Specialty Start Date End Date Susi Baker PA-C PCP - General Family Medicine 06/16/20 Rufina Mobley MD [address] [facility] [place] [facility] [place], [place] [address] Physician Radiation Oncology 09/10/20 Brenda Jacobo RN Specialty Foot Caster Oncology 09/18/20 Ela Lopez MD [address] [place] [address] [place] [address] [address] [place], [place] [id number] Surgeon Breast Diseases 06/16/20 Inactive Administered Medications - up to 3 most recent administrations Administered Medications (un recognized section and content) FOR RECORDS PERTAINING TO PATIENTS WHO ARE OR HAVE BEEN ENROLLED IN A CHEMICAL DEPENDENCY/SUBSTANCEABUSE PROGRAM, SOME INFORMATION MAY BE OMITTED. This clinical summary was aggregated from multiple sources. Caution should be exercised in using it in the provision of clinical care. This summary normalizes information from multiple sources, and as a consequence, information in this document may materially change the coding, format and clinical context of patient data. In addition, data may be omitted in some cases. CLINICAL DECISIONS SHOULD BE BASED ON THE PRIMARY CLINICAL RECORDS. [email or web address] [email or web address]. provides no warranty or guarantee of the accuracy or completeness of information in this document.
--- NOTE | 2023-08-24 07:37 | EKG12_ITS ---
Test Reason : PRE-OP Blood Pressure : / mmHG Vent. Rate : 089 BPM Atrial Rate : 089 BPM P-R Int : 140 ms QRS Dur : 092 ms QT Int : 386 ms P-R-T Axes : 026 -43 012 degrees QTc Int : 469 ms Normal sinus rhythm Left axis deviation Abnormal ECG When compared with ECG of 06-OCT-2020 10:30, No significant change was found Confirmed by Srinivasan Anderson ([id number]), photography editor SOFIE LUIS ([id number]) on 08/29/2023 7:45:36 AM Referred By: Rhonda Fraga Confirmed By:Srinivasan Anderson
--- NOTE | 2023-08-24 07:41 | PCM.HP.BLA ---
History and Physical Date of Admission: 08/24/23 PROBLEM: h/o breast cancer ? DIAGNOSIS: h/o breast cancer ? PAST SURGICAL HISTORY: PAST SURGICAL HISTORYExpand by Default PAST SURGICAL HISTORY Procedure Laterality Date ? BREAST BIOPSY HX Right 2019 ? X2 NOVEMBER AND Jan ? D&C, DIAG AND/OR THERAPEUTIC ? 2019 ? ENDOMETRIAL ABLATION-TEAM TRIAL ? 2019 ? MASTECTOMY, SIMPLE, COMPLETE Right 08/28/2020 ? PORT REMOVAL ? ? ? Port-A-Cath removed 09/08/21 [facility] ? ? PAST MEDICAL HISTORY: PAST MEDICAL HISTORYExpand by Default PAST MEDICAL HISTORY Diagnosis Date ? Delayed emergence from general anesthesia ? ? Malignant neoplasm of right breast (HCC) 11/2019 ? ? SUBJECTIVE: Patient desires removal of ovaries given h/o breast cancer and desire to stop medication with oncologist. ? SOCIAL HISTORY: SOCIAL HISTORYExpand by Default Social History ? Tobacco Use ? Smoking status: Never ? Smokeless tobacco: Never Vaping Use ? Vaping Use: Never used Substance Use Topics ? Alcohol use: Never ? Drug use: Never ? ? ALLERGIESExpand by Default ALLERGIES No Known Allergies ? Current Outpatient Medications on File Prior to Visit Medication Sig ? anastrozole (ARIMIDEX) 1 mg tablet Take 1 tablet by mouth once daily. ? OTC PRODUCT Vitamin A, D & K: Take one tablet by mouth once daily. ? ascorbic acid (VITAMIN C ORAL) Take by mouth once daily. ? No current facility-administered medications on file prior to visit. ? OBJECTIVE: ? VITALS: BP 122/80 Wt 164 lb (74.4 kg) BMI 27.50 kg/m? ? HEENT: Normocephalic, atraumatic, Mucus membranes moist without lesions. ? SKIN: No lesions. ? CHEST: No increased resp effort. ? HEART: Regular rate. ? BACK: Nontender with no CVA tenderness. ? ABDOMEN: Non-distended, no masses. ? LOWER EXTREMITIES: There was no pitting edema, no palpable cords and no skin changes. ? ASSESSMENT: pre op, h/o breast cancer ? PLAN: 1) Patient requests removal of ovaries and tubes. A message was sent to her oncologist regarding recommendations, and the recommendation is for removal of ovaries and tubes if she desires to stop Lupron therapy. ? ? Discussed laparoscopic bilateral salpingoophorectomy in detail. The rationale for the proposed surgery was discussed in addition to risks, benefits, and alternatives. General pre- and post-operative care was reviewed. Questions were answered. After discussion, the patient indicated a desire to proceed with the planned surgery. ? Rhonda Fraga, DO Assessment & Plan Assessment/Plan (1) History of breast cancer:
[2023-08-24] MEDS: Lactated Ringers 1,000 ML 15 ML IV (08:33)
[2023-08-24 08:36] LABS: Internal QC Validated? YES +Cl - CLEAR BKGD; Pregnancy, Urine Negative Negative
--- NOTE | 2023-08-24 08:40 | FALS_PTH ---
PATHOLOGY RESULTS PATIENT: HERLINDA ROBERTS LOC: [facility] [place] U#:[id number] AGE/SX: 47/F ROOM: RE08/24/[address]: Dr. Rhonda Fraga DO : 1975 BED: DIS: 08/24/2023 SPEC #: [id number] RECD: 08/24/23 10:54 STATUS: JESÚS RENicol #: [id number] DANNIELLE: 08/24/23 08:[address]: Rhonda Fraga DEPT: SURGICAL PATHOLOGY RECD BY: Jennifer Mcwilliams ENTERED: 08/24/23 11:25 SP TYPE: FALL TUBES OTHR DR: Susi Baker PA-C Tissues: Fallopian tube Procedures: Surgery Specimen Level IV HEADER OPERATION: Laparoscopic salpingo-oophorectomy PRE-OP DIAGNOSIS: History breast cancer TISSUE SUBMITTED: Bilateral fallopian tubes and ovaries, suture mendoza left side MICROSCOPIC DIAGNOSIS Bilateral fallopian tubes and ovaries, salpingo-oophorectomy: Right ovary - corpus luteal cysts and corpora albicantia. Right ovary - no pathologic change. Left ovary - corpora albicantia and focal dystrophic microcalcifications. Left fallopian tube - benign paratubal cyst. AM:nathaniel 08/25/2023 MICROSCOPIC DESCRIPTION Slides are reviewed. GROSS DESCRIPTION Received in fixative is one container labeled with the patient's name and designated bilateral fallopian tubes and ovaries. The specimen consists of bilateral fallopian tubes and ovaries. The left fallopian tube and ovary are identified by a suture. The right fallopian tube measures 5.0 cm in length and 0.5 cm in diameter. The fimbrial end is identified. Sections reveal unremarkable cut surfaces. The right ovary measures 3.0 x 2.0 x 1.5 cm. Sections reveal multiple cysts filled with clear to hemorrhagic fluid. The largest cyst measures 1.2 cm in greatest dimension. The left fallopian tube is similar appearance to right and measures 10.0 cm in length and 0.5 cm in diameter. A paratubal cyst is noted measuring 0.5 cm in greatest dimension. The left ovary measures 2.0 x 1.5 x 1.2 cm. Sections reveal unremarkable cut surfaces. Also, no tubo-ovarian adhesions are identified on the right or left side. [place] Sewer sections are submitted in six cassettes as follows: 1-3 - right fallopian tube and ovary, 4-6 - left fallopian tube and ovary. / FRANK:nathaniel 08/24/2023 TC:5 CPT: 54857 x2
--- NOTE | 2023-08-24 08:42 | NURSING ---
Documentation for IV site is incorrect. Wrong site was charted, but [facility] will not allow undo documentation. There was no IV attempt made in the Rt Arm; the correct documentation is: IV attempt in Left hand and Left AC; both sites occluded. Documentation reflecting Left wrist is correct.
[2023-08-24 08:50] LABS: Hematocrit 40.2 % (37-47); Mean Corp Hgb Conc 32.3 g/dL (32-36); Mean Corpuscular Volume 89.5 fL (81-99); Mean Platelet Vol. 8.8 fl (6.2-12.0); Platelet Count 290 K/mm3 (150-450); RBC Distribution Width CV 13.2 % (11.6-14.6); RBC Distribution Width SD 43.8 fl (35.1-43.9); Red Blood Count 4.49 M/mm3 (4.2-5.4); White Blood Count 5.5 K/mm3 (4.4-11.0)
[2023-08-24] MEDS: Bupivacaine Mpf 0.5% 30 ML VIAL (09:16)
--- NOTE | 2023-08-24 09:52 | DCINST_ITS ---
Discharge Instructions Diet Discharge Diet: No restrictions Activity Discharge Activity: May Drive (once you are more than 24 hours out from surgery) and May Shower (once you are more than 24 hours out from surgery) May resume sexual activity in: 2 weeks (nothing in the vagina and no soaking in water while you are having vaginal bleeding) Ice area for (Minutes): 15 Weight Bearing Status: Weight bearing as tolerated Lifting Restrictions: nothing heavier than 10-15 pounds for 2 weeks Dressing / Incision Call your doctor if your incision/area has: Continuous Slow Oozing, Sudden Increased Bleeding, Increased Pain/ Swelling, Increased Redness, Foul Smelling Discharge and Swelling at the incision site Call your doctor if you observe: Fever of 101 or Higher, Coldness, Increased Pain, Numbness or Tingling, Change in Color, Inability to urinate, Inability to have a bowel movement, Using more than 1 pad per hour, Shortness of breath, Dizziness, Fainting spells, Swelling in the ankles, Chest pain, Prolonged hiccupping, Increased palpitations (irregular heartbeat), Calf discomfort and Uncontrolled pain Suture Line Care: Avoid Pulling/Pushing and Avoid Pinching/Bending Remove Dressing in: leave until fall off (there are sutures under your skin that will dissolve, and the glue over top will start to peel off. as it is peeling off you can cut the edges or continue to peel it off if the edges bother you) Cleanse incision/area with: Soap & Water Follow Up Care Please Follow Up With: Rhonda Fraga DO When: 1-2 weeks post operative visit to check incisions and go over pathology Test Results: Test results from this visit will be discussed in further detail at your follow- up appointment, if applicable. Discharge Plan Admission Primary Reason for Your Visit: surgery - laparoscopic removal of your ovaries and tubes Attending Provider: Rhonda Fraga Primary Care Provider: Susi Baker Instructions Patient Instructions: Lap Fallopian Tube Ligation Dc Discharge Orders/Prescriptions Prescriptions: New oxycodone-acetaminophen [Percocet] 5-325 mg tablet 1 tab PO Q6H PRN (Reason: pain) 7 Days Qty: 5 0RF Continued Plexus Biocleanse 3 tablet PO QHS Plexus Probiotic 2 tablet PO QHS anastrozole 1 mg tablet 1 mg PO QHS Patient Comments: TAKE 1 TABLET BY MOUTH ONCE DAILY Emergen-C Immune Plus 1,000 mg powder effervescent in packet 1 ea PO DAILY Referrals / Follow Up: Susi Baker, PA-C [Primary Care Provider] - Disposition Disposition (needs filled in before D/C Order can be placed): Home, Self Care
--- NOTE | 2023-08-24 09:54 | OP.PCM_ITS ---
Problems Associated Problem List Diagnoses (1) History of breast cancer: Report of Operation Date of Procedure: 08/24/23 Pre-Operative Diagnosis: History of breast cancer Post-Operative Diagnosis: As above Surgery/Procedure Performed:: Laparoscopic BSO Description of Surgical Findings:: Normal appearing pelvis. Normal appearing uterus with a stenotic cervix. There was a small left sided paratubal cyst, and otherwise normal appearing bilateral ovaries and fallopian tubes. Surgeon: Rhonda Fraga supervisor machine workers: Samina Santos supervisor machine workers: Nena ROSARIO Type of Anesthesia: General Special Medications: None Specimen's removed: Bilateral ovaries and fallopian tubes Drains: None Estimated Blood Loss (mL): 700 Fluids Replaced: < 50 mL Description of Procedure: The patient was taken to the operating room where general anesthesia was induced. She was prepped and draped in dorsal lithotomy position using yellow fin stirrups. A weight speculum was placed in the vagina to expose the cervix. The anterior lip of the cervix was grasped with a single-tooth tenaculum. The cervix was serially dilated to accommodate a uterine manipulator. Uterine manipulator was placed. Gloves were changed and attention was turned to the abdominal portion of the procedure. Local was infiltrated at all port sites. An infraumbilical incision was made to accommodate a 5 mm port. The 5 mm port was placed under direct visualization. Once confirmed intraperitoneal, CO2 insufflation was initiated. Upon inspection, no injury was noted from entry into the abdomen. The patient was placed in steep Trendelenburg position. A right lateral 5 mm port was placed. A left lateral 5 mm port was placed. The uterus was upheld from below. The uterus and pelvis were normal-appearing. There was a small left paratubal cyst that was less than 1 cm noted. Otherwise bilateral fallopian tubes and ovaries were normal-appearing. The left ureter was identified. The left IP ligament was clamped, cauterized, and transected using LigaSure device. The utero-ovarian ligament was clamped, cauterized, and transected using LigaSure device. The left ovary, fallopian tube, and paratubal cyst were placed in the pelvis. Next the right ureter was identified. The right IP ligament was clamped, cauterized, and transected. The right utero- ovarian ligament was clamped, cauterized, and transected. The right ovary and fallopian tube along with the left ovary and fallopian tube were grasped. The infraumbilical skin incision was extended using a scalpel, and the fascia was extended using a Francisca clamp. A 10 mm Endo Catch bag was then placed through the infraumbilical incision with the camera present in the right lateral port. The Endo Catch bag was opened and bilateral ovaries and fallopian tubes were placed in the bag. The bag was removed and the bilateral ovaries and fallopian tubes were sent to pathology for review with the left adnexa marked. Upon inspection of the pelvis good hemostasis was noted. The ports were removed. The fascia was grasped with Allis clamps and reapproximated using 1-0 Vicryl. The skin was closed with 4-0 Monocryl in a subcuticular fashion and glue was placed. The uterine manipulator was removed and a vaginal sweep performed. Instrument, sharp, sponge counts were correct. The patient was taken to the recovery room in stable condition. Dr. Samina Santos assisted with placement of ports, and removal of bilateral ovaries and tubes. Customer Service Agent Nena ROSARIO was present for the entire case and ass isted with closure of the skin. Grafts/Implants Used: None Procedure Start Time: 09:13 Procedure Stop Time: 09:54 Complications None Admit VTE Documentation VTE Present on Admission: No VTE Mechan Device Prophylaxis: SCD's
[2023-08-24] MEDS: Oxycodone/Apap 5/325 Tablet PO (11:35)
== END 2023-08-24 12:15 | disposition home or self-care (01) ==
LOC: SDC 07:19 → AC 07:20
PROVIDERS: PCP Family Medicine; Referring Provider Obstetrics & Gynecology; Visit Provider Obstetrics & Gynecology
PROC: (CPT 58661; principal; 2023-08-24 08:25)
DX: N83.8 Other noninflammatory disorders of ovary, fallopian tube and broad ligament (principal); N83.11 Corpus luteum cyst of right ovary; N83.291 Other ovarian cyst, right side; N83.292 Other ovarian cyst, left side; N88.2 Stricture and stenosis of cervix uteri; Z08 Encounter for follow-up examination after completed treatment for malignant neoplasm; Z85.3 Personal history of malignant neoplasm of breast; Z90.11 Acquired absence of right breast and nipple; Z79.811 Long term (current) use of aromatase inhibitors
CPT/HCPCS: 58661; 00840; 81025; 85027; 86850; 86900; 86901; 88302; 88305; 93005; J7120; J2405